=== PATIENT | male | born 1950 | race Caucasian/White ===

== ENCOUNTER 2025-09-10 17:28 | Emergency (ER) | payer MEDICARE, SELFPAY ==
--- OUTSIDE RECORDS SUMMARY | 2025-07-23 23:00 | XMS_ITS | Encounter Summary ---
Author Organization [facility] Address [address] [address] Phone Care Team Providers Care Crm Functional Analyst Name Role Phone Unavailable Primary Care Provider Unavailabl e Reason for Visit * Reason Comments Heart Failure * Auth/Cert (Routine) Specialty Diagnoses / Procedures Referred By Contac t Referred To Contact Referral ID Status Reason Start Date Expiration Date Visits Re quested Visits Authorized [id number] 1 20 Encounter Details Date Type Department Care Team (Late st Contact Info) Description 07/24/2025 Home Care Visit [facility] [address] [place] [id number] Hector Chung RN SN OASIS START OF CARE Social History Tobacco Use Types Packs/Day Years Used Date Smoking Tobacco: Never Smokeless Tobacco: Never Alcohol Use Standard Drinks/Week Comments Yes 6 (1 standard drink = 0.6 oz pur e alcohol) OASIS D0700: Social Isolation Answer Da te Recorded Frequency of experiencing loneliness or isolatio n Never 07/24/2025 OASIS A1250: Transportation Answer Date Recorded Lack of Transportation (Medical) No 07/24/2025 Lack of Transportation (Non-Medical) No 07/24/2025 Patient Unable or Declines to Respond No 07/24/2025 OASIS B1300: Health Literacy Answer Nasir e Recorded Frequency of needing help to read materials from doctor or pharmacy Sometimes 07/24/2025 [facility] Utilities Answer Date Recorded In the past 12 months has th e electric, gas, oil, or water company threatened to shut off services in your home? No 07/16/2025 Hunger Vital Sign Answer Date Recorded Within the past 12 months, y ou worried that your food would run out before you got the money to buy more. Never true 07/16/20 25 Within the past 12 months, t he food you bought just didn't last and you didn't have money to get more. Never true 07/16/2025 PRAPARE - Transportation Answer Date Re corded In the past 12 months, has l ack of transportation kept you from medical appointments or from getting medications? Yes 11/2024 In the past 12 months, has l ack of transportation kept you from meetings, work, or from getting things needed for daily living? Yes 07/16/2025 Housing Stability Vital Sign Answer Nasir e Recorded In the last 12 months, was t here a time when you were not able to pay the mortgage or rent on time? No 07/16/2025 In the past 12 months, how m any times have you moved where you were living? 0 07/16/2025 At any time in the past 12 m [facility], were you homeless or living in a senior living (including now)? No 07/16/2025 EH IP Custom IPV Answer Date Recorded Do you feel UNSAFE in any of your personal relationships with your family members or any other acquaintances? No 2024 Sex and Gender Information Value Date Recorded Sex Assigned at Not on file Legal Sex Male 9:48 AM CDT Gender Identity Not on file Sexual Orientation Not on file documented as of this encounter Last Filed Vital Signs Vital Sign Reading Time Taken Comments Blood Pressure 110/56 07/24/2025 1:20 PM CDT Pulse 59 07/24/2025 1:20 PM CDT Temperature 36.3 C (97.4 F) 07/24/2025 1:20 PM CDT Respiratory Rate 18 07/24/2025 1:20 PM CDT Oxygen Saturation 97% 07/24/2025 1:20 PM CDT Inhaled Oxygen Concentration - - Weight 70.8 kg (156 lb) 07/24/2025 1:20 PM CDT Height 172.7 cm (5' 8) 07/24/2025 1:20 PM CDT Body Mass Index 23.72 07/24/2025 1:20 PM CDT documented in this encounter Functional Status * Patient's Vision Adequate to Safely Complete Daily Activities Answer Date of Assessment Author Yes 07/16/2025 10:41 PM CDT Vannesa Martins * Patient's Memory Adequate to Safely Complete Daily Activities Answer Date of Assessment Author Yes 07/16/2025 10:41 PM CDT Vannesa Martins documented as of this encounter Mental Status * Patient's Judgment Adequate to Safely Complete Daily Activities Answer Entry Date Author Yes 07/16/2025 10:41 PM CDT Vannesa Martins documented in this encounter Plan of Treatment Upcoming Encounters Date Type Department Care Team (Late st Contact Info) Description 09/16/2025 2:00 AM 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 Appointment [facility] [address] [place] [phone] Emperatriz Monahan RN documented as of this encounter Visit Diagnoses Not on filedocumented in this encounter Home Health Visit - Care Plan Visit Details Visit Type -SN OASIS Start o f Care Discipline -Shelter Problems Problem Description Start Date Status Goals Interve ntions Fluid Retention Disciplines: SN 07/24/2025 Active 1 goal linked to scheduled/documen fan intervention 3 goal interventions scheduled/document ed in this visit Monitor Oxygen Saturation Disciplines: SN 07/24/2025 Active 1 goal linked to scheduled/documen fan intervention 1 goal intervention scheduled/document ed in this visit Home Health Goal Care Coordination Disciplines: Skilled II 07/24/2025 Active 1 goal linked to scheduled/documen fan intervention 3 goal interventions scheduled/document ed in this visit Prevention of Skin Breakdown - Pressure Ulcer Disciplines: SN 07/24/2025 Active 1 goal linked to scheduled/documen fan intervention 1 goal intervention scheduled/document ed in this visit Safety concerns Disciplines: SN 07/24/2025 Active 1 goal linked to scheduled/documen fan intervention 1 goal intervention scheduled/document ed in this visit Pain Disciplines: SN 07/24/2025 Active 1 goal linked to scheduled/documen fan intervention 2 goal interventions scheduled/document ed in this visit RISK OF INFECTION Disciplines: SN 07/24/2025 Active 1 goal linked to scheduled/documen fan intervention 1 goal intervention scheduled/document ed in this visit Anticoagulation Therapy Disciplines: SN 07/24/2025 Active 1 goal linked to scheduled/documen fan intervention 1 goal intervention scheduled/document ed in this visit Management of Home Medications Disciplines: SN 07/24/2025 Active 1 goal linked to scheduled/documen fan intervention 5 goal interventions scheduled/document ed in this visit Depression Disciplines: SN 07/24/2025 Active 1 goal linked to scheduled/documen fan intervention 1 goal intervention scheduled/document ed in this visit Agency Standards Disciplines: Skilled III 07/24/2025 Active 1 goal linked to scheduled/documen fan intervention 2 goal interventions scheduled/document ed in this visit Risk of Falls Disciplines: SN Patient/Caregive r will demonstrate use of safety precautions to prevent falls and improve safety by the end of the episode of care. 07/24/2025 Active 1 goal linked to scheduled/documen fan intervention 4 goal interventions scheduled/document ed in this visit Goals Goal Associated Problem Outcome Goal Met? Visit Notes Fluid Retention Description: Client to demonstrate compliance with checking weight daily within 5 weeks. Client to demonstrate how to weigh self properly within 5 weeks. Client to demonstrate the ability to write down weight every day within 5 weeks. Client to demonstrate k nowledge of a low sodium diet within 5 weeks Client to demonstrate ability to read food labels within 5 weeks Client to express knowledge of 2 ways to prevent edema within 5 weeks Client to demonstrate ability to use Fan socks within 5 weeks. Client to able to express knowledge of notifying physician with a weight gain of 3LBS in 1 day or 5LBS in 3 days, increased SOB and edema within 5 weeks. Fluid Retention No Obtain Pulse Oximetry Description: Patient will demonstrate maintenance of oxygen saturation above 90% throughout episode of care. Monitor Oxygen Saturation No Home Health Goal Care Coordination Description: Patient stated goal: INCREASED STRENGTH AND MOBILITY Home Health Goal Care Coordination No Prevention of Skin Breakdown-Pressure Ulcer Description: Client to express knowledge of 2 ways to reduce pressure within 5 weeks. Client to demonstrate knowledge of monitoring skin for breakdown within 5 weeks. Prevention of Skin Breakdown - Pressure Ulcer No Safety Concerns Description: Patient/Caregiver will demonstrate use of safety precautions to prevent falls and improve safety by the end of the episode of care.Client to have no falls within 5 weeks. Safety concerns No Pain Description: Patient will report that pain has been reduced or controlled through verbal or nonverbal means and that measures to promote comfort are effective throughout the episode of care. Client to verbalize 2 ways to reduce pain within 5 weeks Client to rhys pacheco 2 alternative methods of pain relieve in 5 weeks Pain No Infection Prevention Description: Client will be able to verbalize signs and symptoms of infection and how to report within 5 weeks. Client will be able to demonstrate good hand hygiene within 5 weeks. Client will be be able to verbalize understanding of 2 ways to prevent infection within 5 weeks. RISK OF INFECTION No Anticoagulation Therapy Description: Patient/caregiver will demonstrate knowledge of anticoagulant therapy as evidenced by compliance with medication regimen, lab follow up, anticoagulant dietary restrictions and safety precautions. Patient to be able to identify 2 foods that interfere with anticoagulation medication within 5 weeks. Patient will demonstrate compliance with taking anticoagulation medication correctly within 5 weeks. Patient to be able to identify INR goal range within 5 weeks. Patient to be able to identify 2 signs/symptoms of bleeding within 5week. INR therapeutic range is 2 to 3. INR to be within therapeutic range in 5 WEEKS. Instruct patient/caregiver in anticoagulant medication including side effects, safety precautions, diet precautions, bleedin g precautions, need for lab monitoring. Anticoagulation Therapy No Management of Home Medications Description: Client/Caregiver will demonstrate compliance with medication set up and administration within 5 weeks. Client/Caregiver to verbalize understanding of side effects of medications within 5 weeks. Management of Home Medications No Depression Description: Patient/Caregiver will demonstrate knowledge of depression by adherence to medication regimen and verbalization of available resources by end of the episode of care. Patient able to verbalize signs and symptoms of worsening depression within 5 weeks. Depression No Agency Standards Description: Agency goal for services provided. Agency Standards No Patient will remain free of injury related to falls through the episode Risk of Falls No Interventions Intervention Associated Problem/Goal Status Variance Visit Notes Instruct diet Description: Instruct patient/caregiver on low salt, low fat and low cholesterol diet. Restrict sodium intake to 2 g/day. Instruct patient/caregiver to reduce sodium by 500 milligrams per day if weight begins to increase, avoiding foods high in sodium. Problem:Fluid Retention Goal:Fluid Retention Performed Notify physician Description: Instruct patient/caregiver on how to identify abnormal readings and when it is appropriate/necessary to contact physician, or when to call 911. Problem:Fluid Retention Goal:Fluid Retention Performed Instruct daily log Description: SN to develop weight diary for patient to record DAILY readings. Instruct patient to monitor and record weight on log. Problem:Fluid Retention Goal:Fluid Retention Performed Clinician obtain pulse oximetry Problem:Monitor Oxygen Saturation Goal:Obtain Pulse Oximetry Performed Home Health Care Coordination Contacts Description: PCP: CHRIS FENTON PA-C Pharmacy: [id number] - [place], [place] Oxygen Supply: [facility]/Payer Manager Of Operations: TACO Problem:Home Health Goal Care Coordination Goal:Home Health Goal Care Coordination Performed Home Health Care Coordination Advanced Directive Description: Advanced Directive - on file Problem:Home Health Goal Care Coordination Goal:Home Health Goal Care Coordination Performed Home Health Care Coordination Discharge Planning Description: Discharge planning discussed with patient and caregiver. Problem:Home Health Goal Care Coordination Goal:Home Health Goal Care Coordination Performed Instruct prevention of pressure ulcers Description: Instruct patient in the causes and prevention of pressure ulcers. Problem:Prevention of Skin Breakdown - Pressure Ulcer Goal:Prevention of Skin Breakdown-Pressure Ulcer Performed Instruct on fall prevention Description: Instruct patient/caregiver in fall prevention strategies. Problem:Safety concerns Goal:Safety Concerns Performed Skilled assessment pain Description: Assess pain (see results on form) Problem:Pain Goal:Pain Performed Instruct on pain management techniques Description: Instruct in pharmacologic and nonpharmacologic pain management techniques. Problem:Pain Goal:Pain Performed Instruct infection prevention Description: Instruct patient/caregiver in strategies to prevent infection frequent/proper hand-washing techniques, Standard precautions, avoid crowds and persons with known infections, staying current with immunizations, s/s of infection and encourage adequate diet and fluid intake Problem:RISK OF INFECTION Goal:Infection Prevention Performed Lab draw Description: Last INR Results 2.9 Date last INR obtained 07/23/2025 Next INR Due 07/27/2025 Current Anticoagulation Dose 6MG DAILY INR Goal 2.0-3.0 ICD-10 Diagnosis Code Z95.2 Call results to [facility] CHRIS FENTON PA-C [phone] Fax results to CHRIS FENTON PA-C [phone] [facility] Orders Received Via Verbal telephone order on 07/24/2025 at 7474. Order received from (PCP and transcribers name) SHERITA ROBERTS/CHRIS FENTON PA-C Nurse Receiving Order HECTOR Pugh RN Problem:Anticoagulation Therapy Goal:Anticoagulation Therapy Scheduled Evaluate for any medication changes Description: Ask at each visit: Are you taking any new medications? Any medication changes? Problem:Management of Home Medications Goal:Management of Home Medications Performed Monitor effectiveness of drug therapy Description: Monitor effectiveness of patient's drug therapy by asking if they are experiencing any side effects of their medication. Problem:Management of Home Medications Goal:Management of Home Medications Performed Instruct on high risk medications Description: Instruct patient/caregiver on high-risk medications including oral hypoglycemics, insulins, blood thinners, and narcotics. Problem:Management of Home Medications Goal:Management of Home Medications Performed Instruct on medication side effects Description: Instruct patient/caregiver to monitor for side effects and adverse reactions. Problem:Management of Home Medications Goal:Management of Home Medications Performed Skilled assessment medications Description: Assess patient/caregiver's ability to manage medications. Assess patient/caregiver's knowledge of drug allergies, dose/route/frequency, new or changed medications, classifications, food and drug interactions, and potential complications. Problem:Management of Home Medications Goal:Management of Home Medications Performed Instruct on Effective Coping Skills Problem:Depression Goal:Depression Performed Confirmed patient has recieved and understands plan of care Description: Patient acknowledged receipt of [facility] Plan of Care. Patient verbalizes understanding and all questions answered. Patient/Caregiver has MyChart and ability to access: yes; If no, e-mail HHS_Status Change to mail patient copy of POC. Problem:Agency Standards Goal:Agency Standards Performed Coordination of Care Description: Coordinate visits with and provide status updates to Director Biology Diet: Low Cholesterol, Low Fat and Low Sodium Activity: No Restrictions Resting Heart Rate; Notify PCP if 60 or >100 beats per minute Blood Pressure; Notify PCP if >160 systol ic or 90 diastolic or < 100 systolic or 50 diastolic Check O2 sats with and without activity; Notify PCP if O2 sats less than 90% Notify PCP if temperature is over 101 F Notify PCP if weight increases by 2-3 pounds in 1 day or 5 pounds in 7 days Depression dx/risk; Educate patient/caregiver and monitor for signs and symptoms of depression Notify PCP when pain is >4 after current pain medications have been taken and/or interventions implemented Marshall Risk; Initiate pressure ulcer preve ntion Names of all Relevant Physicians included in Plan of Care CHRIS FENTON PA-C (PCP) Order received via verbal telephone call Order received from (PCP and transcribers name) CHRIS FENTON PA-C Nurse Receiving Order HECTOR Pugh RN Coordinate Care with PATIENT, PEDIATRIC ORTHODONTIST Problem:Agency Standards Goal:Agency Standards Performed Fall Prevention Patient/Caregiver action to take if patient falls Description: - Instruct patient and caregiver to call nurse or agency if fall occurs at any time, in order to receive instructions on assistance. - Instruct caregiver to provide physical support to patient if fall occurs and patient is unable to get up. - Instruct patient and caregiver to keep contact information for agency readily available for patient, caregiver, or others to make notification if needed. - Instruction provided to patient and caregiver; patient and caregiver verbalized understanding Problem:Risk of Falls Goal:Patient will remain free of injury related to falls through the episode Performed Fall Prevention Knowledge Deficit/Education Description: - Instruct patient and caregiver on use of assistive equipment. - Patient and caregiver to verbalize and/or present return demonstration of use of adaptive and assistive devices. - Instruct patient and caregiver to call senior software project manager or Nurse for furthe r instruction or reinforcement. - Instruction provided to patient and caregiver; patient and caregiver verbalized understanding Problem:Risk of Falls Goal:Patient will remain free of injury related to falls through the episode Performed Fall Prevention Weakness/Unsteady Gait Description: - Instruct patient and caregiver on footwear, ensuring well-fitting and non-skid. - Instruct caregiver on use of gait belt with transfers and ambulation assist. - Instruct caregiver on safe transfer and ambulation assist techniques. - Instruct patient and caregiver on need for DME. - Instruction provided to patient and caregiver; patient and caregiver verbalized understanding Problem:Risk of Falls Goal:Patient will remain free of injury related to falls through the episode Performed Fall Prevention Environmental Hazards Description: - Instruct patient and caregiver on eliminating hazards, such as uneven surfaces, debris, water on floor, or rugs. - Instruct patient and caregiver to keep pathways clear for ambulation. - Instruct patient and caregiver to keep personal items within re ach, such as eyeglasses, reading materials, television remotes, facial tissues, etc. - Instruct patient and caregiver on providing adequate lighting. - Instruct patient and caregiver on footwear, ensuring well-fitting and non-skid. - Instruction prov ided to patient and caregiver; patient and caregiver verbalized understanding. Problem:Risk of Falls Goal:Patient will remain free of injury related to falls through the episode Performed documented in this encounter
--- OUTSIDE RECORDS SUMMARY | 2025-07-27 10:30 | XMS_ITS | Encounter Summary ---
Author Organization [facility] Address [address] [address] Phone Care Team Providers Care Licensed Vocational Nurse Name Role Phone Unavailable Primary Care Provider Unavailabl e Reason for Visit * Reason Comments Lab Work * Auth/Cert (Routine) Specialty Diagnoses / Procedures Referred By Contac t Referred To Contact Referral ID Status Reason Start Date Expiration Date Visits Re quested Visits Authorized [id number] 1 20 Encounter Details Date Type Department Care Team (Late st Contact Info) Description 07/27/2025 11:30 AM CDT Home Care Visit [facility] [address] [place] [id number] Corrina Bledsoe RN SN HOME VISIT Social History Tobacco Use Types Packs/Day Years [...] materials from doctor or pharmacy Sometimes 07/24/2025 [facility] Utilities Answer Date Recorded In the past [...] any time in the past 12 m [facility], were you homeless or living in a correction (including now)? No 07/16/2025 IP Custom IPV Answer Date Recorded Do [...] Sign Reading Time Taken Comments Blood Pressure 122/62 07/27/2025 12:46 PM CDT Pulse 86 07/27/2025 12:46 PM CDT Temperature - - Respiratory Rate 18 07/27/2025 12:46 PM CDT Oxygen Saturation 96% 07/27/2025 12:46 PM CDT Inhaled Oxygen Concentration - - Weight 70.8 kg (156 lb) 07/27/2025 12:46 PM CDT Height - - Body Mass Index 23.72 07/24/2025 1:20 PM [...] st Contact Info) Description 09/16/2025 2:00 AM WORKERS COMPENSATION ANALYST Appointment [facility] [address] [address] Emperatriz Monahan RN documented as of this encounter Visit Diagnoses Not on filedocumented in this encounter Home Health Visit - Care Plan Visit Details Visit Type - Home Visit Discipline -Senior Living Problems Problem Description Start Date Status Goals [...] reduce pain within 5 weeks Client to verba lize 2 alternative methods of pain relieve in [...] Intervention Associated Problem/Goal Status Variance Visit Notes Notify physician Description: Instruct patient/caregiver on how to identify abnormal readings and when it is appropriate/necessary to contact physician, or when to call 911. Problem:Fluid Retention Goal:Fluid Retention Performed Notified PCP of INR taken today Instruct daily log Description: SN to develop weight diary for patient to record DAILY readings. Instruct patient to monitor and record weight on log. Problem:Fluid Retention Goal:Fluid Retention Performed Instruct diet Description: Instruct patient/caregiver on low salt, low fat and low cholesterol diet. Restrict sodium intake to 2 g/day. Instruct patient/caregiver to reduce sodium by 500 milligrams per day if weight begins to increase, avoiding foods high in sodium. Problem:Fluid Retention Goal:Fluid Retention Scheduled Clinician obtain pulse oximetry Problem:Monitor Oxygen Saturation Goal:Obtain Pulse Oximetry Performed Home Health Care Coordination Discharge Planning Description: Discharge planning discussed with patient and caregiver. Problem:Home Health Goal Care Coordination Goal:Home Health Goal Care Coordination Performed Discharge with increased strength and mobility Home Health Care Coordination Contacts Description: PCP: CHRIS HARMON PA-C Pharmacy: [id number] - [place] Oxygen Supply: County/Payer Derivatives Trader: TACO Problem:Home Health Goal Care Coordination Goal:Home Health Goal Care Coordination Scheduled Home Health Care Coordination Advanced Directive Description: Advanced Directive - on file Problem:Home Health Goal Care Coordination Goal:Home Health Goal Care Coordination Scheduled Instruct prevention of pressure ulcers Description: Instruct [...] fluid intake Problem:RISK OF INFECTION Goal:Infection Prevention Scheduled Lab draw Description: Last INR Results 2.9 Date last INR obtained 07/23/2025 Next INR Due 07/27/2025 Current Anticoagulation Dose 6MG DAILY INR Goal 2.0-3.0 ICD-10 Diagnosis Code Z95.2 Call results to [facility] CHRIS HARMON PA-C [phone] Fax results to CHRIS HARMON PA-C [phone] [facility] Orders Received Via Verbal telephone order on 07/24/2025 at 8763. Order received from (PCP and transcribers name) SHERITA ROBERTS/CHRIS HARMON PA-C Nurse Receiving Order HECTOR Pugh RN Problem:Anticoagula tion Therapy Goal:Anticoagulatio n Therapy Performed Last INR Results 3.7 Date last INR obtained 07/27/25 Next INR Due 07/31/25 Current Anticoagulation Dose 3mg on sunday and sunday. 6mg on sunday and with recheck on sunday INR Goal 2.0-3.0 ICD-10 Diagnosis Code z95.2 Call fina dolores to [facility] Chris Harmon PA-C [phone] Fax results to Chris Harmon PA-C [phone] [facility] Orders Received Via Verbal telephone order on 07/27/25 at 1900. Order received from (PCP and transcribers name) Tunde Aguilar MD Nurse Receiving Order Elisa Bledsoe RN Evaluate for any medication changes Description: Ask [...] of Home Medications Goal:Management of Home Medications Scheduled Instruct on medication side effects Description: Instruct patient/caregiver to monitor for side effects and adverse reactions. Problem:Management of Home Medications Goal:Management of Home Medications Scheduled Instruct on Effective Coping Skills Problem:Depression Goal:Depression Scheduled Confirmed patient has recieved and understands plan of care Description: Patient acknowledged receipt of [facility] Plan of Care. Patient verbalizes understanding and all questions answered. Patient/Caregiver has MyChart and ability to access: yes; If no, e-mail HHS_Status Change to mail patient copy of POC. Problem:Agency Standards Goal:Agency Standards Scheduled Coordination of Care Description: Coordinate visits with and provide status updates to Sap Project Manager Diet: Low Cholesterol, Low Fat and Low [...] Physicians included in Plan of Care CHRIS HARMON PA-C (PCP) Order received via verbal telephone call Order received from (PCP and transcribers name) CHRIS HARMON PA-C Nurse Receiving Order HECTOR Pugh RN Coordinate Care with PATIENT, DOWEL POINTER Problem:Agency Standards Goal:Agency Standards Scheduled Fall Prevention Patient/Caregiver action to take if [...] - Instruct patient and caregiver to call electrical tech/project manager or Nurse for furthe r instruction or reinforcement. - Instruction provided to patient and caregiver; patient and caregiver verbalized understanding Problem:Risk of Falls Goal:Patient will remain free of injury related to falls through the episode Scheduled Fall Prevention Environmental Hazards Description: - Instruct [...] injury related to falls through the episode Scheduled documented in this encounter
--- OUTSIDE RECORDS SUMMARY | 2025-07-28 13:00 | XMS_ITS | Encounter Summary ---
Author Organization [facility] Address [address] [address] Phone Care Team Providers Care Digital Community Manager Name Role Phone Unavailable Primary Care Provider Unavailabl e Reason for Visit * Reason Comments Weakness * Auth/Cert (Routine) Specialty Diagnoses / Procedures Referred By Contac t Referred To Contact Referral ID Status Reason Start Date Expiration Date Visits Re quested Visits Authorized [id number] 1 20 Encounter Details Date Type Department Care Team (Latest Contact Info) Description 07/28/2025 2:00 PM CDT Home Care Visit [facility] [address] [phone] Radha Martinez, OTR [address] [phone] OT INITIAL EVALUATION Social History Tobacco Use Types Packs/Day Years [...] materials from doctor or pharmacy Sometimes 07/24/2025 [facility] Utilities Answer Date Recorded In the past [...] any time in the past 12 m [facility], were you homeless or living in a senior care (including now)? No 07/16/2025 IP Custom IPV [...] on file documented as of this encounter Functional Status * Patient's Vision Adequate to Safely Complete Daily Activities Answer Date of Assessment Author Yes 07/16/2025 10:41 PM SHANNONT Vannesa Martins * Patient's Memory Adequate to Safely Complete Daily Activities Answer Date of Assessment Author Yes 07/16/2025 10:41 PM CDT Vannesa Martins documented as of this encounter Mental Status * Patient's Judgment Adequate to Safely Complete Daily Activities Answer Entry Date Author Yes 07/16/2025 10:41 PM CDT Vannesa Martins documented in this encounter Miscellaneous Notes * Case Communication - Radha Martinez OTR - 07/30/2025 9:38 AM CDT FUNCTIONAL OASIS COLLABORATION: OT SELF-CARE ASSESSMENT- PRIOR FUNCTION, CURRENT FUNCTION, and GOALS See OASIS-DEGuidance Manual for detailed items and instructions. ASSESSMENT OF PRIOR SELF-CARES: [id number] Prior Umtlidftewz-FSML-BREU/COGNITION OT ASSESSMENT: FUNCTIONAL ABILITIES AND GOALS: [id number]- Self-Care CODING [id number]- Self-Care: Current Performance H. Putting on/taking off footwear: 3 documented in this encounter Plan of Treatment Upcoming Encounters Date Type Department Care Team (Late st Contact Info) Description 09/16/2025 2:00 AM SLOTTER OPERATOR HELPER Appointment [facility] [address] [place] [phone] Emperatriz Monahan, RN documented as of this encounter Visit Diagnoses Not on filedocumented in this encounter Home Health Visit - Care Plan Visit Details Visit Type -OT Initial Evalu ation Discipline -Occupational Therapy Problems Problem Description Start Date Status Goals Interve ntions Home Health Goal Care Coordination Disciplines: Skilled II 07/24/2025 Active 1 goal linked to scheduled/documen blas intervention 3 goal interventions scheduled/documen blas in this visit Agency Standards Disciplines: Skilled III 07/24/2025 Active 1 goal linked to scheduled/documen blas intervention 2 goal interventions scheduled/documen blas in this visit OT Decreased ADLS Disciplines: OT Decreased independence in self-care. PRIMARY PROBLEM(S): Self-Care / Cognitive impairments impacting safety and fall risk FUNCTION AT START OF CARE: walking is more dificult, showering takes more energy and assist - daughter and brother are helping out in home - has meals being delievered PRIOR LEVEL OF FUNCTION: Indepedent in home, lived alone POTENTIAL RISKS OR FACTORS IMPACTING EFFECTIVENESS OF CARE: new CHF 07/28/2025 Active 1 goal linked to scheduled/documen blas intervention 2 problem interventions scheduled/documen blas in this visit 2 goal interventions scheduled/documen blas in this visit Goals Goal Associated Problem Outcome Goal Met? Visit Notes Home Health Goal Care Coordination Description: Patient stated goal: INCREASED STRENGTH AND MOBILITY Home Health Goal Care Coordination No Agency Standards Description: Agency goal for services provided. Agency Standards No OT Decreased ADLs Description: Patient goal: To get back to being independent and walking outside IN 4 wk Patient will be independent with bathing task Patient will be able to use pacing and energy conservation to complete meal prep and household tasks. Patient will be indep with LE dressing using AE as needed OT Decreased ADLS No Interventions Intervention Associated Problem/Goal Status Variance Visit Notes Home Health Care Coordination Contacts Description: PCP: CHRIS FENTON PA-C Pharmacy: [id number] - [place], [place] Oxygen Supply: [facility]/Payer Photogrammetric Compilation Specialist: TACO Problem:Home Health Goal Care Coordination Goal:Home Health Goal Care Coordination Performed Home Health Care Coordination Advanced Directive Description: Advanced Directive - on file Problem:Home Health Goal Care Coordination Goal:Home Health Goal Care Coordination Performed Home Health Care Coordination Discharge Planning Description: Discharge planning discussed with patient and caregiver. Problem:Home Health Goal Care Coordination Goal:Home Health Goal Care Coordination Performed Confirmed patient has recieved and understands plan of care Description: Patient acknowledged receipt of [facility] Plan of Care. Patient verbalizes understanding and all questions answered. Patient/Caregiver has MyChart and ability to access: yes; If no, e-mail HHS_Status Change to mail patient copy of POC. Problem:Agency Standards Goal:Agency Standards Performed Coordination of Care Description: Coordinate visits with and provide status updates to Elevator Service Mechanic Diet: Low Cholesterol, Low Fat and Low [...] HECTOR Pugh RN Coordinate Care with PATIENT, LIQUOR CLERK Problem:Agency Standards Goal:Agency Standards Performed INSTRUCT ON HOMEMAKING AND PERSONAL CARE ACTIVITIES Description: Instruct patient/caregiver on homemaking and personal care activities SKILLED OT INTERVENTIONS: EXERCISE: Establish, instruct, and monitor effectiveness and follow through of home exercise program. FALL RISK: Assess and instruct in modifications to reduce risk of falls. PAIN: Assess and teach interventions for pain management. SELF-CARES: Assess, teach and progress safety and independence with self-cares. using AE as needed to save energy COGNITION: Assess and teach strategies for ma nagement of cognitive impairments. - SLUMS Problem:OT Decreased ADLS Goal:OT Decreased ADLs Performed The patient presents with fatigue, muscle weakness and shortness of breath that affects ability to safely care for self at home and is not functioning at PLOF. Occupational therapist skills needed to facilitate progress toward patient goals, provide gra ded therapeutic activity to improve ADL independence, and decision making related to appropriate progression of treatment to facilitate return to PLOF. If skilled OT is not provided, pt is at risk for decline in safety and rehospitalization. INSTRUCT PATIENT ON HOME EXERCISE PROGRAM Description: Instruct patient on home exercise program Problem:OT Decreased ADLS Goal:OT Decreased ADLs Performed Monitor effectiveness of drug therapy Problem:OT Decreased ADLS Performed Evaluate for any medication changes Problem:OT Decreased ADLS Performed documented in this encounter
--- OUTSIDE RECORDS SUMMARY | 2025-07-30 12:00 | XMS_ITS | Encounter Summary ---
Author Organization [facility] Address [address] [address] Phone Care Team Providers Care Master In Chancery Name Role Phone Unavailable Primary Care Provider Unavailabl e Reason for Visit * Reason Comments CHF * Auth/Cert (Routine) Specialty Diagnoses / Procedures Referred By Contac t Referred To Contact Referral ID Status Reason Start Date Expiration Date Visits Re quested Visits Authorized [id number] 20 Encounter Details Date Type Department Care Team (Late st Contact Info) Description 07/30/2025 1:00 PM CDT Home Care Visit [facility] [address] [place] [id number] Cecile Abdi RN SN HOME VISIT Social History Tobacco [...] materials from doctor or pharmacy Sometimes 07/24/2025 [facility] Utilities Answer Date Recorded In [...] any time in the past 12 m [facility], were you homeless or living in a jail (including now)? No 07/16/2025 IP Custom IPV [...] Sign Reading Time Taken Comments Blood Pressure 124/62 07/30/2025 1:06 PM CDT Pulse 77 07/30/2025 1:06 PM CDT Temperature - - Respiratory Rate 18 07/30/2025 1:06 PM CDT Oxygen Saturation 96% 07/30/2025 1:06 PM CDT Inhaled Oxygen Concentration - - Weight 70.3 kg (155 lb) 07/30/2025 1:06 PM CDT Height - - Body Mass Index 23.57 07/24/2025 1:20 PM CDT documented in this [...] st Contact Info) Description 09/16/2025 2:00 AM MACHINE FUR CLEANER Appointment [facility] [address] [place] [phone] Emperatriz Monahan RN documented as of this encounter Visit Diagnoses Not on filedocumented in this encounter Home Health Visit - Care Plan Visit Details Visit Type - Home Visit Discipline -Long-Term Problems Problem Description Start Date Status Goals [...] and edema within 5 weeks. Fluid Retention Progressing No Obtain Pulse Oximetry Description: Patient will demonstrate maintenance of oxygen saturation above 90% throughout episode of care. Monitor Oxygen Saturation Progressing No Home Health Goal Care Coordination Description: Patient stated goal: INCREASED STRENGTH AND MOBILITY Home Health Goal Care Coordination Progressing No Prevention of Skin Breakdown-Pressure Ulcer Description: Client to express knowledge of 2 ways to reduce pressure within 5 weeks. Client to demonstrate knowledge of monitoring skin for breakdown within 5 weeks. Prevention of Skin Breakdown - Pressure Ulcer Progressing No Safety Concerns Description: Patient/Caregiver will demonstrate use of safety precautions to prevent falls and improve safety by the end of the episode of care.Client to have no falls within 5 weeks. Safety concerns Progressing No Pain Description: Patient will report that pain has been reduced or controlled through verbal or nonverbal means and that measures to promote comfort are effective throughout the episode of care. Client to verbalize 2 ways to reduce pain within 5 weeks Client to rhys pacheco 2 alternative methods of pain relieve in 5 weeks Pain Progressing No Infection Prevention Description: Client will be able to verbalize signs and symptoms of infection and how to report within 5 weeks. Client will be able to demonstrate good hand hygiene within 5 weeks. Client will be be able to verbalize understanding of 2 ways to prevent infection within 5 weeks. RISK OF INFECTION Progressing No Anticoagulation Therapy Description: Patient/caregiver will demonstrate [...] precautions, need for lab monitoring. Anticoagulation Therapy Progressing No Management of Home Medications Description: Client/Caregiver will demonstrate compliance with medication set up and administration within 5 weeks. Client/Caregiver to verbalize understanding of side effects of medications within 5 weeks. Management of Home Medications Progressing No Depression Description: Patient/Caregiver will demonstrate knowledge of depression by adherence to medication regimen and verbalization of available resources by end of the episode of care. Patient able to verbalize signs and symptoms of worsening depression within 5 weeks. Depression Progressing No Agency Standards Description: Agency goal for services provided. Agency Standards Progressing No Patient will remain free of injury related to falls through the episode Risk of Falls Progressing No Interventions Intervention Associated Problem/Goal Status Variance [...] Contacts Description: PCP: CHRIS FENTON PA-C Pharmacy: [id number] [place], [place] Oxygen Supply: [facility]/Payer Edge Stitcher: TACO Problem:Home Health Goal Care Coordination Goal:Home Health Goal Care Coordination Performed Home Health Care Coordination Advanced Directive Description: Advanced Directive - on file Problem:Home Health Goal Care Coordination Goal:Home Health Goal Care Coordination Performed Home Health Care Coordination Discharge Planning Description: Discharge planning discussed with patient and caregiver. Problem:Home Health Goal Care Coordination Goal:Home Health Goal Care Coordination Performed requires SN for disease managment Instruct prevention of pressure ulcers Description: Instruct [...] ICD-10 Diagnosis Code Z95.[address] [facility] CHRIS FENTON PA-C [phone] Fax results to CHRIS FENTON PA-C [phone] [facility] [[email or web address]] Orders Received Via Verbal telephone order on 07/24/2025 at 6316. Order received from (PCP and transcribers name) SHERITA ROBERTS/CHRIS FENTON PA-C Nurse Receiving Order HECTOR Pugh RN Problem:Anticoagulati on Therapy Goal:Anticoagulation Therapy Performed Evaluate for any medication changes Description: Ask [...] of care Description: Patient acknowledged receipt of [facility] [[email or web address]] Plan of Care. Patient verbalizes understanding and all questions answered. Patient/Caregiver has MyChart and ability to access: yes; If no, e-mail HHS_Status Change to mail patient copy of POC. Problem:Agency Standards Goal:Agency Standards Performed Coordination of Care Description: Coordinate visits with and provide status updates to County Extension Agent Diet: Low Cholesterol, Low Fat and Low [...] HECTOR Pugh RN Coordinate Care with PATIENT, HIGH SCHOOL HVAC R INSTRUCTOR Problem:Agency Standards Goal:Agency Standards Performed Fall Prevention [...] - Instruct patient and caregiver to call architectural project manager or Nurse for furthe r [...]
--- OUTSIDE RECORDS SUMMARY | 2025-07-30 13:00 | XMS_ITS | Encounter Summary ---
Author Organization [facility] Address [address] [address] Phone Care Team Providers Care Leather Grainer Name Role Phone Unavailable Primary Care Provider Unavailabl e Reason for Visit * Reason Comments Gait Disorder * Auth/Cert (Routine) Specialty Diagnoses / Procedures Referred By Mine t Referred To Contact Referral ID Status Reason Start Date Expiration Date Visits Re quested Visits Authorized [id number] 1 20 Encounter Details Date Type Department Care Team (Late st Contact Info) Description 07/30/2025 2:00 PM CDT Home Care Visit [facility] [address] [id number] Lucie Toussaint, PT [address] [address] PT HOME VISIT Social History Tobacco Use Types [...] materials from doctor or pharmacy Sometimes 07/24/2025 [facility] Utilities Answer Date Recorded In the past 12 months has th e electric, gas, oil, or water company threatened to shut off services in your home? No 07/16/2025 Hunger Vital Sign Answer Date Recorded Within the past 12 months, y ou worried that your food would run out before you got the money to buy more. Never true 07/16/20 Within the past 12 months, t he [...] any time in the past 12 m [facility], were you homeless or living in a mcc (including now)? No 07/16/2025 IP Custom IPV [...] Sign Reading Time Taken Comments Blood Pressure - - Pulse 82 07/30/2025 2:25 PM CDT Temperature - - Respiratory Rate - - Oxygen Saturation 97% 07/30/2025 2:25 PM CDT Inhaled Oxygen Concentration - - Weight - - Height - - Body Mass Index - - documented in this encounter Functional Status * Patient's Vision Adequate to Safely Complete Daily Activities Answer Date of Assessment Author Yes 07/16/2025 10:41 PM Vannesa Sun * Patient's Memory Adequate to Safely Complete Daily Activities Answer Date of Assessment Author Yes 07/16/2025 10:41 PM Vannesa Sun documented as of this encounter Mental Status * Patient's Judgment Adequate to Safely Complete Daily Activities Answer Entry Date Author Yes 07/16/2025 10:41 PM Vannesa Sun documented in this encounter Plan of Treatment Upcoming Encounters Date Type Department Care Team (Late st Contact Info) Description 09/16/2025 2:00 AM COMMUNITY OUTREACH ADVOCATE Appointment [facility] [address] [address] Emperatriz Monahan RN documented as of this encounter Visit Diagnoses Not on filedocumented in this encounter Home Health Visit - Care Plan Visit Details Visit Type -PT Home Visit Discipline -Physical Therapy Problems Problem Description Start Date Status Goals Interve ntions Mobility - Impaired Disciplines: PT PRIMARY PROBLEM(S)/FUNCTION AT START OF CARE/EVAL: MOBILITY IMPAIRMENT with elevated fall risk, impacting gait and transfer safety. Using walker and needs some hands-on assist for stability with toilet and low chair transfers, and to determine safe walk er placement when approaching bed and toilet and shower and chairs. SOB and fatigue limiting endurance. Prior Level of Function: Independently mobile and walking 3 miles often. FACTORS IMPACTING THE CARE PLAN (including barriers to care, learning nee ds and other factors): Background from Chart Review: James Guzman is a 75 year old male with significant medical problems including Parkinson's disease, prior mechanical mitral valve on Coumadin who presented to the emergency department on 2024 with shortness of breath, ODELL, edema. Found to have severe HFrEF, likely tachycardia induced. Cardiology is following. Underwent successful synchronized cardioversion on 07/20, uptitrated torsemide and added aldactone and Cr tolerated. On RA and feel ing significantly improved, therapies have assessed and recommend home health care. He was intermittently tearful but then appropriate, thinks that his mood is somewhat labile but denies depression, SI etc. He has used SSRI in the past, recommend reasses sing mood at PCP visit and starting as needed. 07/24/2025 Active - 4 problem interventions scheduled/document ed in this visit Home Health Goal Care Coordination Disciplines: Skilled II 07/24/2025 Active 1 goal linked to scheduled/documen blas intervention 3 goal interventions scheduled/document ed in this visit Agency Standards Disciplines: Skilled III 07/24/2025 Active 1 goal linked to scheduled/documen blas intervention 2 goal interventions scheduled/document ed in this visit Goals Goal Associated Problem Outcome Goal Met? Visit Notes Home Health Goal Care Coordination Description: Patient stated goal: INCREASED STRENGTH AND MOBILITY Home Health Goal Care Coordination No Agency Standards Description: Agency goal for services provided. Agency Standards No Interventions Intervention Associated Problem/Goal Status Variance Visit Notes Mobility Interventions Description: SKILLED PT INTERVENTIONS: EDUCATION PLAN: Use repetition, demo and return-demonstration, written and illustrated information for exercises, and involve caregiver(s) as appropriate to reinforce teaching items. EXERCISE: Establish, instruct, and monit or effectiveness and follow through of home exercise program. Incorporate seated, supine, standing and sit to stand exercises for strength and balance with progressed and provision of written instructions. Instruct in a home walking plan and progress as able. FALL RISK: Assess and instruct in modifications to reduce risk of falls. Teach and monitor safe and proper use of assistive devices (walker), keeping pathways well-lit and clear of clutter with throw rugs removed, and use of non-slip supportiv e footwear. PAIN: Assess and teach interventions for pain management. Include positioning strategies, safe mobility practices, and activity pacing for proper rest to support healing. TRANSFERS: Assess and train in safe transfer technique to access and rise from toilet, shower/bath, bed, chairs and vehicle. GAIT: Assess, teach and progress safe ambulation utilizing appropriate device(s) as determined appropriate for navigating indoor and outdoor terrain and stairs as indicated to maximize indepe ndence. AT EVAL: Completed majority of mobility assessment. Advised shower grab bars, railing for 3 garage steps, remove throw rug in bedroom, and toilet safety frame. Patient/Caregiver response to treatment: Patient/caregiver on board with PT Plan o f Care as collaboratively established at PT Eval, and verbalizing willingness to follow or consider implementing PT safety and mobility recommendations along with exercise and mobility plan. Skilled PT is indicated for progressing mobility according to established goals related to medical complexity. Plan for next visit: Frequency as ordered to continue 1w5 after eval. Problem:Mobility - Impaired Performed SKILLED PT INTERVENTIONS: EDUCATION PLAN: Use repetition, demo and return-demonstration, written and illustrated information for exercises, and involve caregiver(s) as appropriate to reinforce teaching items. EXERCISE: Establish, instruct, and monit or effectiveness and follow through of home exercise program. Incorporate seated, supine, standing and sit to stand exercises for strength and balance with progressed and provision of written instructions. Instruct in a home walking plan and progress as able. TODAY: Taught HEP as follows standing at railing: Marches, Knee bends, Heel and Toe raises, and heel cord stretches. 10 reps each except stretching for 10 secondes 3 times each leg. PT needed to instruct and reinstruct proper technique for each exercises and encouarged patient to stand tall. More teaching will be needed. recommended twice daily exercise building to 20 reps for strength and balance exercises as able. FALL RISK: Assess and instruct in modifications to reduce risk of falls. Teach and monitor safe and proper use of assistive devices (walker), keeping pathways well-lit and clear of clutter with throw rugs removed, and use of non-slip supportiv e footwear. TODAY: Advised continued use of front wheeled walker over distances, and obtaining a four wheeled walker for easier and smoother ambulation in and outdoors. Adjusted front wheeled walker down 3 notches to correct height. Noted patient has obtained 2 suction shower grab bars, toilet safety frame and railing for 3 garage steps, and removed throw rug in bedroom as recommended at eval by PT. TO DO: Follow up on recommendations. Trial stairs and downstairs beds. PAIN: Assess and teach interventions for pain management. Include positioning strategies, safe mobility practices, a nd activity pacing for proper rest to support healing. TRANSFERS: Assess and train in safe transfer technique to access and rise from toilet, shower/bath, bed, chairs and vehicle. GAIT: Assess, teach and progress safe ambulation utilizing appropriate device(s) as determined appropriate for navigating indoor and outdoor terrain and stairs as indicated to maximize indepe ndence. TODAY: Ambulation on main level of home 3 laps in approx 3 minutes with front wheeled walker. TUG test score 13.5 seconds with some instability on turn and one crossing over of legs. Patient/Caregiver response to treatment: Patient/caregiver on board with PT Plan of Care as collaboratively established at PT Eval, and verbalizing willingness to follow or consider implementi PT safety and mobility recommendations along with exercise and mobility plan. Skilled PT is indicated for progressing mobility according to established goals related to medical complexity. Plan for next visit: Frequency as ordered to continue 1w4 af ter eval. Monitor effectiveness of drug therapy Problem:Mobility - Impaired Performed Evaluate for any medication changes Problem:Mobility - Impaired Performed Education, pressure injury prevention Description: Encourage frequent movement, walking and position changes for prevention of pressure injury. Problem:Mobility - Impaired Performed Home Health Care Coordination Discharge Planning Description: Discharge planning discussed with patient and caregiver. Problem:Home Health Goal Care Coordination Goal:Home Health Goal Care Coordination Performed PT NEXT VISIT PLAN: GOAL: Ambulate without a device in and outdoors. TODAY: Completed majority of mobility assessment. Advised continued use of front wheeled walker, 2 suction shower grab bars, toilet safety frame and railing for 3 garage steps, remov e throw rug in bedroom. Follow up on recommendations. Trial stairs and downstairs beds. Continue 1w4 afternoons as able and next visit Sunday at 2 PM. Lucie Toussaint, PT 07/30/25 Home Health Care Coordination Contacts Description: PCP: CHRIS FENTON PA-C Pharmacy: [id number] [place], [place] Oxygen [facility]: [facility] Audio Video Technician: TACO Problem:Home Health Goal Care Coordination Goal:Home Health Goal Care Coordination Scheduled Home Health Care Coordination Advanced Directive Description: Advanced Directive - on file Problem:Home Health Goal Care Coordination Goal:Home Health Goal Care Coordination Scheduled Coordination of Care Description: Coordinate visits with and provide status updates to Classroom Paraprofessional Diet: Low Cholesterol, Low Fat and Low [...] HECTOR Pugh RN Coordinate Care with PATIENT, BRICK PAVER Problem:Agency Standards Goal:Agency Standards Performed Confirmed patient has recieved and understands plan of care Description: Patient acknowledged receipt of [facility] Plan of Care. Patient verbalizes understanding and all questions answered. Patient/Caregiver has MyChart and ability to access: yes; If no, e-mail HHS_Status Change to mail patient copy of POC. Problem:Agency Standards Goal:Agency Standards Scheduled documented in this encounter
--- OUTSIDE RECORDS SUMMARY | 2025-08-03 12:00 | XMS_ITS | Encounter Summary ---
Author Organization [facility] Address [address] [address] Phone Care Team Providers Care Audiovisual Aids Technician Name Role Phone Unavailable Primary Care Provider Unavailabl e Reason for Visit * Reason Comments CHF * Auth/Cert (Routine) Specialty Diagnoses / Procedures Referred By Contac t Referred To Contact Referral ID Status Reason Start Date Expiration Date Visits Re quested Visits Authorized [id number] 11 03 Encounter Details Date Type Department Care Team (Late st Contact Info) Description 08/03/2025 1:00 PM CDT Home Care Visit [facility] [address] [place] [phone] Susy Chacon RN SN HOME VISIT Social History Tobacco [...] materials from doctor or pharmacy Sometimes 07/24/2025 [facility] Utilities Answer Date Recorded In [...] any time in the past 12 m [facility], were you homeless or living in a fpc (including now)? No 07/16/2025 IP Custom IPV [...] Sign Reading Time Taken Comments Blood Pressure 106/66 08/03/2025 1:47 PM CDT Pulse 86 08/03/2025 1:47 PM CDT Temperature - - Respiratory Rate 14 08/03/2025 1:47 PM CDT Oxygen Saturation 98% 08/03/2025 1:47 PM CDT Inhaled Oxygen Concentration - - [...] st Contact Info) Description 09/16/2025 2:00 AM PREFINISH OPERATOR Appointment [facility] [address] [address] Emperatriz Monahan RN documented as of this encounter Visit Diagnoses Not on filedocumented in this encounter Home Health Visit - Care Plan Visit Details Visit Type - Home Visit Discipline -Fdc Problems Problem Description Start Date Status Goals [...] pain within 5 weeks Client to rhys levinee 2 alternative methods of pain relieve in [...] in sodium. Problem:Fluid Retention Goal:Fluid Retention Performed Instruct daily log Description: SN to develop weight diary for patient to record DAILY readings. Instruct patient to monitor and record weight on log. Problem:Fluid Retention Goal:Fluid Retention Performed Notify physician Description: Instruct patient/caregiver on how to identify abnormal readings and when it is appropriate/necessary to contact physician, or when to call 911. Problem:Fluid Retention Goal:Fluid Retention Scheduled Clinician obtain pulse oximetry Problem:Monitor Oxygen Saturation Goal:Obtain Pulse Oximetry Performed Home Health Care Coordination Contacts Description: PCP: CHRIS FENTON PA-C Pharmacy: [facility] #[id number] [place], [place] Oxygen Supply: NA [facility]/Payer Bean Picker Machine Operator: TACO Problem:Home Health Goal Care Coordination Goal:Home Health Goal Care Coordination Performed Home Health Care Coordination Discharge Planning Description: Discharge planning discussed with patient and caregiver. Problem:Home Health Goal Care Coordination Goal:Home Health Goal Care Coordination Performed plan 4 weeks, disease management/teaching , CP, med managment Home Health Care Coordination Advanced Directive Description: [...] Scheduled Lab draw Description: Last INR Results 3.7 Date last INR obtained 08/03/2025 Next INR Due 08/10/2025 Current Anticoagulation Dose 3 MG ON M,W,F AND 6MG ON SUN, TUES, THUR, SAT INR Goal 2.5-3.5 ICD-10 Diagnosis Code Z95.[address] [facility] JOAQUINA FENTON PA-C [phone] Fax results to CHRIS FENTON PA-C [phone] [facility] Orders Received Via Verbal telephone order on 08/03/2025 at 1822 Order received from (PCP and transcribers name) DR RHYS NEGRETE (ONCALL FOR CHRIS FENTON PA-C) Nurse Receiving Order SHERITA STEELE Problem:Anticoagulat ion Therapy Goal:Anticoagulation Therapy Performed INR COMPLETED VIA FINGERSTICK X 1 ATTEMPT. PATIENT TOLERATED WELL. RESULTS OF 3.7 OBTAINED AND CALLED TO [facility]. NEW VO OBTAINED Evaluate for any medication changes Description: Ask [...] Home Medications Goal:Management of Home Medications Scheduled Skilled assessment medications Description: Assess patient/caregiver's ability to manage medications. Assess patient/caregiver's knowledge of drug allergies, dose/route/frequency, new or changed medications, classifications, food and drug interactions, and potential complications. Problem:Management of Home Medications Goal:Management of Home Medications Scheduled Instruct on Effective Coping Skills Problem:Depression Goal:Depression Scheduled Coordination of Care Description: Coordinate visits with and provide status updates to Warp Preparer Diet: Low Cholesterol, Low Fat and Low [...] HECTOR Pugh RN Coordinate Care with PATIENT, COMMUNITY OUTREACH MANAGER Problem:Agency Standards Goal:Agency Standards Performed Confirmed patient has recieved and understands plan of care Description: Patient acknowledged receipt of [facility] Plan of Care. Patient verbalizes understanding and all questions answered. Patient/Caregiver has MyChart and ability to access: yes; If no, e-mail HHS_Status Change to mail patient copy of POC. Problem:Agency Standards Goal:Agency Standards Scheduled Fall Prevention Environmental Hazards Description: - [...] falls through the episode Performed Fall Prevention Patient/Caregiver action to take [...] falls through the episode Scheduled Fall Prevention Knowledge Deficit/Education Description: - Instruct patient and caregiver on use of assistive equipment. - Patient and caregiver to verbalize and/or present return demonstration of use of adaptive and assistive devices. - Instruct patient and caregiver to call manager food safety or Nurse for furthe r instruction or reinforcement. - Instruction provided to patient and caregiver; patient and caregiver verbalized understanding Problem:Risk of Falls Goal:Patient will remain free of injury related to falls through the episode Scheduled Fall Prevention Weakness/Unsteady Gait Description: - Instruct [...]
--- OUTSIDE RECORDS SUMMARY | 2025-08-04 13:30 | XMS_ITS | Encounter Summary ---
Author Organization [facility] Address [address] [address] Phone Care Team Providers Care Lead Assistant Manager Name Role Phone Unavailable Primary Care Provider Unavailabl e Reason for Visit * Reason Comments Weakness * Auth/Cert (Routine) Specialty Diagnoses / Procedures Referred By Contac t Referred To Contact Referral ID Status Reason Start Date Expiration Date Visits Re quested Visits Authorized [id number] 1 20 Encounter Details Date Type Department Care Team (Late st Contact Info) Description 08/04/2025 2:30 PM CDT Home Care Visit [facility] [address] [phone] Radha Martinez, OTR [address] [id number] OT HOME VISIT Social History Tobacco Use Types [...] materials from doctor or pharmacy Sometimes 07/24/2025 [facility] Utilities Answer Date Recorded In the [...] time in the past 12 m [facility], were you homeless or living in a fci (including now)? No 07/16/2025 IP Custom IPV [...] Taken Comments Blood Pressure - - Pulse 74 08/04/2025 3:31 PM CDT Temperature - - Respiratory Rate - - Oxygen Saturation 97% 08/04/2025 3:31 PM CDT Inhaled Oxygen Concentration - - [...] st Contact Info) Description 09/16/2025 2:00 AM UNDERTAKER ASSISTANT Appointment [facility] [address] [address] Emperatriz Monahan RN documented as of this encounter Visit Diagnoses Not on filedocumented in this encounter Home Health Visit - Care Plan Visit Details Visit Type -OT Home Visit Discipline -Occupational Therapy Problems Problem Description Start [...] Contacts Description: PCP: CHRIS FENTON PA-C [id number] [place] [place] Supply[place]/Payer Mystery Shopper: T[place] Problem:Home Health Goal Care Coordination Goal:Home [...] of care Description: Patient acknowledged receipt of [facility] Plan of Care. Patient verbalizes understanding and all questions answered. Patient/Caregiver has MyChart and ability to access: yes; If no, e-mail HHS_Status Change to mail patient copy of POC. Problem:Agency Standards Goal:Agency Standards Performed Coordination of Care Description: Coordinate visits with and provide status updates to Electrologist Diet: Low Cholesterol, Low Fat and Low [...] HECTOR Pugh RN Coordinate Care with PATIENT, SAP CONSULTANT Problem:Agency Standards Goal:Agency Standards Performed INSTRUCT ON [...] Problem:OT Decreased ADLS Goal:OT Decreased ADLs Performed INSTRUCT PATIENT ON HOME EXERCISE PROGRAM Description: Instruct patient on home exercise program Problem:OT Decreased ADLS Goal:OT Decreased ADLs Performed Patient and family were instructed in UE home exercise program that included band exercises to facilitate strengthening and increased endurance for self care completion. While seated using level band. Upward pull - x10 B UE Upward diagonal - X10 B UE Outward pull - x10 B UE Forward punch - x10 B UE Elbow bends - x10 B UE Elbow extension - X10 B UE Patient fatigued with exercises. Recommend completion 1-2x/day. Pt in agreement with continuing HEP outside of OT visits. Monitor effectiveness of drug therapy Problem:OT Decreased ADLS Performed Evaluate for any medication changes Problem:OT Decreased ADLS Performed documented in this encounter
--- OUTSIDE RECORDS SUMMARY | 2025-08-06 11:00 | XMS_ITS | Encounter Summary ---
Author Organization [facility] Address [address] [address] Phone Care Team Providers Care Belt Loop Maker Name Role Phone Unavailable Primary Care Provider Unavailabl e Reason for Visit * Reason Comments Weakness * Auth/Cert (Routine) Specialty Diagnoses / Procedures Referred By Contac t Referred To Contact Referral ID Status Reason Start Date Expiration Date Visits Re quested Visits Authorized [id number] 1 20 Encounter Details Date Type Department Care Team (Late st Contact Info) Description 08/06/2025 12:00 PM CDT Home Care Visit [facility] [address] [place] [id number] Emperatriz Monahan, RN SN HOME VISIT Social History Tobacco [...] materials from doctor or pharmacy Sometimes 07/24/2025 [facility] Utilities Answer Date Recorded In the [...] Sign Reading Time Taken Comments Blood Pressure 102/68 08/06/2025 12:34 PM CDT Pulse 83 08/06/2025 12:34 PM CDT Temperature - - Respiratory Rate 14 08/06/2025 12:34 PM CDT Oxygen Saturation 98% 08/06/2025 12:34 PM CDT Inhaled Oxygen Concentration - - [...] st Contact Info) Description 09/16/2025 2:00 AM ADVERTISING JOB TITLES Appointment [facility] [address] [address] Emperatriz Monahan RN documented as of this encounter Visit Diagnoses Not on filedocumented in this encounter Home Health Visit - Care Plan Visit Details Visit Type - Home Visit Discipline -Usp Problems Problem Description Start Date Status Goals Interve ntions Fluid Retention Disciplines: SN 07/24/2025 Active 1 goal linked to scheduled/documen fna intervention 3 goal interventions scheduled/document ed in [...] goal interventions scheduled/document ed in this visit Self abuse susceptibility Disciplines: Skilled Clinicians, Skilled III 08/06/2025 Active 1 goal linked to scheduled/documen fan intervention 1 goal intervention scheduled/document ed in this visit Goals Goal [...] through the episode Risk of Falls No Self Abuse Susceptibility Self abuse susceptibility No Interventions Intervention Associated Problem/Goal Status Variance [...] Care Coordination Performed Home Health Care Coordination Contacts Description: PCP: CHRIS FENTON PA-C Pharmacy: [id number] - [place] Oxygen Supply: County/Payer Milled Lumber Grader: [place] Problem:Home Health Goal Care Coordination Goal:Home Health Goal Care Coordination Scheduled Home Health Care Coordination Advanced Directive Description: Advanced Directive - on file Problem:Home Health Goal Care Coordination Goal:Home Health Goal Care Coordination Scheduled Instruct prevention of pressure ulcers Description: Instruct patient in the causes and prevention of pressure ulcers. Problem:Prevention of Skin Breakdown - Pressure Ulcer Goal:Prevention of Skin Breakdown-Pressure Ulcer Scheduled Instruct on fall prevention Description: Instruct patient/caregiver in fall prevention strategies. Problem:Safety concerns Goal:Safety Concerns Performed Skilled assessment pain Description: Assess pain (see results on form) Problem:Pain Goal:Pain Scheduled Instruct on pain management techniques Description: Instruct in pharmacologic and nonpharmacologic pain management techniques. Problem:Pain Goal:Pain Scheduled Instruct infection prevention Description: Instruct patient/caregiver in [...] ICD-10 Diagnosis Code Z95.2 Call results to [facility] JOAQUINA FENTON PA-C [phone] Fax results to CHRIS FENTON PA-C [phone] [facility] Orders Received Via Verbal telephone order on 08/03/2025 at 2447 Order received from (PCP and transcribers name) DR RHYS NEGRETE (ONCALL FOR CHRIS FENTON PA-C) Nurse Receiving Order BJAUS. RN OK to check on 08/03 per patient report following MD appt on 07/31 Problem:Anticoagulation Therapy Goal:Anticoagulation Therapy Scheduled Evaluate for [...] of care Description: Patient acknowledged receipt of [facility] Plan of Care. Patient verbalizes understanding and all questions answered. Patient/Caregiver has MyChart and ability to access: yes; If no, e-mail HHS_Status Change to mail patient copy of POC. Problem:Agency Standards Goal:Agency Standards Scheduled Coordination of Care Description: Coordinate visits with and provide status updates to Pharmacoepidemiologist Diet: Low Cholesterol, Low Fat and Low [...] HECTOR Pugh RN Coordinate Care with PATIENT, PERMACULTURE DESIGNER Problem:Agency Standards Goal:Agency Standards Scheduled Fall Prevention [...] - Instruct patient and caregiver to call solution design and analysis manager or Nurse for furthe r instruction [...] related to falls through the episode Scheduled Inability to care for self-help needs Problem:Self abuse susceptibility Goal:Self Abuse Susceptibility Scheduled documented in this encounter
--- OUTSIDE RECORDS SUMMARY | 2025-08-06 13:00 | XMS_ITS | Encounter Summary ---
Author Organization [facility] Address [address] [address] Phone Care Team Providers Care Quality Assurance Project Manager Name Role Phone Unavailable Primary Care Provider Unavailabl e Reason for Visit * Auth/Cert (Routine) Specialty Diagnoses / Procedures Referred By Mine t Referred To Contact Referral ID Status Reason Start Date Expiration Date Visits Re quested Visits Authorized [id number] 1 20 Encounter Details Date Type Department Care Team (Late st Contact Info) Description 08/06/2025 2:00 PM CDT Home Care Visit [facility] [address] [place] [id number] Ethel Gilliam LGSW CARDIAC REHAB NURSE HOME VISIT Social History Tobacco Use Types [...] any time in the past 12 [facility], were you homeless or living in a detention (including now)? No 07/16/2025 IP Custom IPV [...] PM Vannesa Sun documented in this encounter Miscellaneous Notes * Case Communication - Ethel Gilliam LGSW - 08/13/2025 2:50 PM CDTSW Discharge Summary: Completed during visit: HC directive and POA previously completed Information provided to pt/family on: Options for counseling/mental health resources reviewed Transportation, meal support, and private pay resources lists provided Long range plan is: to remain at home with family moving in and private pay resources as needed Follow up needed: SW has no additional SW visits planned, SW will remain available in future as needed. documented in this encounter Plan of Treatment Upcoming Encounters Date Type Department Care Team (Late st Contact Info) Description 09/16/2025 2:00 AM EKG TECH Appointment [facility] [address] [place] [phone] Emperatriz Monahan RN documented as of this encounter Visit Diagnoses Not on filedocumented in this encounter Home Health Visit - Care Plan Visit Details Visit Type -CARDIAC REHAB NURSE Home Visit Discipline -Medical Social Work Problems Problem Description Start Date Status Goals Interve ntions Agency Standards Disciplines: Skilled III 07/24/2025 Active 1 goal linked to scheduled/documen blas intervention 2 goal interventions scheduled/document ed in this visit [facility] EMOTIONAL DISTRESS Disciplines: CARDIAC REHAB NURSE Sense of well being and adjustment 08/06/2025 Active 1 goal linked to scheduled/documen blas intervention 1 goal intervention scheduled/document ed in this visit Self abuse susceptibility Disciplines: Skilled Clinicians, Skilled III 08/06/2025 Active 1 goal linked to scheduled/documen blas intervention 1 goal intervention scheduled/document ed in this visit Goals Goal Associated Problem Outcome Goal Met? Visit Notes Agency Standards Description: Agency goal for services provided. Agency Standards No CARDIAC REHAB NURSE Emotional Distress Description: Sense of well being and adjustment [facility] EMOTIONAL DISTRESS No Self Abuse Susceptibility Self abuse susceptibility No Interventions Intervention Associated Problem/Goal Status Variance Visit Notes Confirmed patient has recieved and understands plan of care Description: Patient acknowledged receipt of [facility] Plan of Care. Patient verbalizes understanding and all questions answered. Patient/Caregiver has MyChart and ability to access: yes; If no, e-mail HHS_Status Change to mail patient copy of POC. Problem:Agency Standards Goal:Agency Standards Performed Coordination of Care Description: Coordinate visits with and provide status updates to Transportation Engineer Diet: Low Cholesterol, Low Fat and Low [...] HECTOR Pugh RN Coordinate Care with PATIENT, PLUMBING HARDWARE ASSEMBLER Problem:Agency Standards Goal:Agency Standards Performed Pt basic needs are being met. Pt lives: alone in home, with supports from family. One of pt's daughters and her family are moving in w/pt mid Nov Mobility: Pt ambulates with walker Support in home: Pt is supported by family, and has someone come to c lean pt home Transportation: Pt family. Transportation list provided Meals: Pt/family. Pt does have some meals delivered emergency management consultant: Pt/family. POA completed Medication management: Pt family Household tasks: pt family Lifeline: Discussion . Pt declined at this time Any additional resources provided: Meal resource list, transportation list, and mental health resource lists provided to pt /[employer] EMOTIONAL/SOCIAL SUPPORT Description: Provide emotional and socal support Problem:[employer] EMOTIONAL DISTRESS Goal:CARDIAC REHAB NURSE Emotional Distress Performed Discussion of patient's adjustment to losses and changes (ongoing grief of spouse's passing and loss/changes given health decline). SW provided active listening and emotional support. Pt used to run marathons and is no longer able to do so. Pt reports m ood is stable, coping okay as he is leaning on family for support and going outside for walks. Discussion of mental health resources, list provided. Pt utilized therapist in the past, declined interest in therapist today but will review and consider reso urce list for future. Inability to care for self-help needs Problem:Self abuse susceptibility Goal:Self Abuse Susceptibility Performed No concerns noted at this time. documented in this encounter
--- OUTSIDE RECORDS SUMMARY | 2025-08-07 13:00 | XMS_ITS | Encounter Summary ---
Author Organization [facility] Address [address] [address] Phone Care Team Providers Care Latent Print Examiner Name Role Phone Unavailable Primary Care Provider Unavailabl e Reason for Visit * Reason Comments Gait Disorder * Auth/Cert (Routine) Specialty Diagnoses / Procedures Referred By Mine t Referred To Contact Referral ID Status Reason Start Date Expiration Date Visits Re quested Visits Authorized [id number] 1 20 Encounter Details Date Type Department Care Team (Late st Contact Info) Description 08/07/2025 2:00 PM CDT Home Care Visit [facility] [address] [phone] Lucie Toussaint, PT [address] [address] PT HOME VISIT Social History Tobacco Use [...] materials from doctor or pharmacy Sometimes 07/24/2025 [facility] Utilities Answer Date Recorded In [...] any [facility] in the [facility] or living in a snf (including now)? No 07/16/2025 IP Custom IPV [...] Taken Comments Blood Pressure - - Pulse 83 08/07/2025 2:31 PM CDT Temperature - - Respiratory Rate - - Oxygen Saturation 97% 08/07/2025 2:31 PM CDT Inhaled Oxygen Concentration - - [...] Entry Date Author Yes 07/16/2025 10:41 PM [place] Vannesa Martins documented in this encounter Miscellaneous Notes * Case Communication - Lucie Toussaint, PT - 08/07/2025 3:30 PM CDTPatient is reluctant to use walker though it is strongly recommended that the patient use a seated four wheeled walker in and outdoors for steadiness. He was quite unsteady at PT visit today. Please reinforce walker use at your follow up visits. Thanks! documented in this encounter Plan of Treatment Upcoming Encounters Date Type Department Care Team (Late st Contact Info) Description 09/16/2025 2:00 AM BASKET BOTTOM MACHINE OPERATOR Appointment [facility] [address] [address] Emperatriz Monahan RN documented as of this [...] scheduled/document ed in this visit Self abuse susceptibili ty Disciplines: Skilled Clinicians, Skilled III 08/06/2025 Active 1 goal linked to scheduled/documen blas intervention 1 goal intervention scheduled/document ed in this visit Goals Goal Associated Problem Outcome Goal Met? Visit Notes Home Health Goal Care Coordination Description: Patient stated goal: INCREASED STRENGTH AND MOBILITY Home Health Goal Care Coordination No Agency Standards Description: Agency goal for services provided. Agency Standards No Self Abuse Susceptibility Self abuse susceptibility [...] o f Care as collaboratively established at [facility], and verbalizing willingness to follow or consider implementing PT safety and mobility recommendations along with exercise and mobility plan. Skilled PT is indicated for progressing mobility according to established goals related to medical complexity. Plan for next visit: Frequency as ordered to continue 1w5 after eval. Problem:Mobility - Impaired Performed SKILLED PT INTERVENTIONS: NOTE: Patient was ambulating quite unsteadily when PT arrived, with crossover steps and backwards steps noted while ambulating from kitchen to his living room chair. PT strongly reinforced recommendation that the patient use his walker when he is not steady to reduce risk of fall or injury. Patient stated that he likes to tell himself that he is steady and capable. See more in gait section below. EDUCATION PLAN: Use repetition, demo and return-demonstration, written and ill ustrated information for exercises, and involve caregiver(s) as [...] Knee bends, Heel and Toe raises, and he el cord stretches. 10 reps each except stretching for 10 secondes 3 times each leg. PT needed to instruct and reinstruct proper technique for each exercises and encouarged patient to stand tall. More teaching will be needed. PT has recommended twice vladimir y exercises building to 20 reps for strength and balance progression as able. FALL RISK: Assess and instruct in modifications to reduce risk of falls. Teach and monitor safe and proper use of assistive devices (walker), keeping pathways well-lit and cl ear of clutter with throw rugs removed, and use of non-slip supportive footwear. TODAY: PT notes that the patient is wearing moccasin style slippers and that his heels tend to drag with walking. PT recommends patient trial of a tennis style shoe in the home or outdoors and working to land on heels while picking up feet vs shuffling or sliding his heels. More follow up needed on this. Patient's sister is present to help reinforce. Also, PT recommended opening up space in living room for the walker to fit through more easily and safely. Patient's sister did start to move furniture toward that end while PT was still present at the visit, and this appeared to be a good plan. Additionally, PT recommended, a firm bed vs water bed at height greater than p atient knees, though not so high for patient to need to be on tips of toes to get onto it. And patient would benefit from a higher firm arm chair in the living room if/when he obtains new furniture as anticipated when his family members move into the [facility] in August. PT advises continued use of four wheeled walker (which has more weight for counterbalance for steadier gait than the front wheeled walker) both in and outdoors. Noted patient has obtained 2 suction shower grab bars, toilet safety fra me and railing for 3 garage steps, and has removed throw rug in bedroom as recommended at [facility] by PT. PAIN: Assess and teach interventions for pain management. Include positioning strategies, safe mobility practices, a nd activity pacing for proper res t to support healing. TRANSFERS: Assess and train in safe transfer technique to access and rise from toilet, shower/bath, bed, chairs and vehicle. TODAY: Trial of bed on lower level of home which is too short though easier to move on than his water b ed. A standard style bed with frame for handhold would be suitable and recommendedc for this patient. PT educated patient and his sister who was present today. GAIT: Assess, teach and progress safe ambulation utilizing appropriate device(s) as determine d appropriate for navigating indoor and outdoor terrain and stairs as indicated to maximize indepe ndence. TODAY: Ambulation on main level of home with and without walker. PT recommends seated walker use at this time for gait unsteadiness in or outdoo rs. PT also had patient navigate stairs which he did by alternating legs, though PT taught it might be safer to navigate one step at a time particularly if weak or fatigued which patient states that he is both of these today. He did not comply with the one step at a time recommendation of PT. Patient/Caregiver response to treatment: Patient/caregiver on board with PT Plan of Care as collaboratively established at [facility], and verbalizing willingness to follow or consider implementi PT safety and mo bility recommendations along with exercise and mobility plan. Skilled PT is indicated for progressing mobility according to established goals related to medical complexity. TODAY: PT notes that the patient is reluctant to use gait device such as walker or to comply with some of PT recommendations. Plan for next visit: Frequency as ordered to continue 1w3. Monitor effectiveness of drug therapy Problem:Mobility - [...] Ambulate without a device in and outdoors. Review HEP and check if patient obtained a four wheeled walker. Continue 1w3 afternoons as able and next visit Sunday at 2 PM. Lucie Toussaint, PT 08/07/25 Home Health Care Coordination Contacts Description: PCP: CHRIS FENTON PA-C Pharmacy: [id number] [place], [place] Oxygen Supply: [facility]/Payer Sleeping Car Porter: [employer] Problem:Home Health Goal Care Coordination Goal:Home Health Goal Care Coordination Scheduled Home Health Care Coordination Advanced Directive Description: Advanced Directive - on file Problem:Home Health Goal Care Coordination Goal:Home Health Goal Care Coordination Scheduled Coordination of Care Description: Coordinate visits with and provide status updates to Warehouse Administrator Diet: Low Cholesterol, Low Fat and Low [...] HECTOR Pugh RN Coordinate Care with PATIENT, [employer] S[employer]OL COORDINATOR Problem:Agency Standards Goal:Agency Standards Performed Confirmed patient has recieved and understands plan of care Description: Patient acknowledged receipt of [facility] Plan of Care. Patient verbalizes understanding and all questions answered. Patient/Caregiver has MyChart and ability to access: yes; If no, e-mail HHS_Status Change to mail patient copy of POC. Problem:Agency Standards Goal:Agency Standards Scheduled Inability to care for self-help needs Problem:Self abuse susceptibility Goal:Self Abuse Susceptibility Scheduled documented in this encounter
--- OUTSIDE RECORDS SUMMARY | 2025-08-10 04:25 | XMS_ITS | Encounter Summary ---
Author Organization [facility] Address [address] [address] Phone Care Team Providers Care Surgical Sales Representative Name Role Phone Unavailable Primary Care Provider Unavailabl e Reason for Visit * Reason Comments Lab Work * Auth/Cert (Routine) Specialty Diagnoses / Procedures Referred By Contac t Referred To Contact Referral ID Status Reason Start Date Expiration Date Visits Re quested Visits Authorized [id number] 1 20 Encounter Details Date Type Department Care Team (Late st Contact Info) Description 08/10/2025 5:25 AM CDT Home Care Visit [facility] [address] [place] [id number] Hector Chung RN SN HOME VISIT Social History Tobacco [...] materials from doctor or pharmacy Sometimes 07/24/2025 [facility] Utilities Answer Date Recorded In the [...] any time in the past 12 m [facility], were you homeless or living in [...] Sign Reading Time Taken Comments Blood Pressure 122/58 08/10/2025 11:10 AM CDT Pulse 85 08/10/2025 11:10 AM CDT Temperature - - Respiratory Rate 18 08/10/2025 11:10 AM CDT Oxygen Saturation 97% 08/10/2025 11:10 AM CDT Inhaled Oxygen Concentration - - Weight 68 kg (150 lb) 08/10/2025 11:10 AM CDT Height - - Body Mass Index 22.81 07/24/2025 1:20 PM CDT documented in this [...] st Contact Info) Description 09/16/2025 2:00 AM GRIEVANCE COORDINATOR Appointment [facility] [address] [address] Emperatriz Monahan RN documented as of this encounter Visit Diagnoses Not on filedocumented in this encounter Home Health Visit - Care Plan Visit Details Visit Type - Home Visit Discipline -Snf Problems Problem Description Start Date Status Goals [...] in this visit Risk of Falls Disciplines: Patient/Caregive r will demonstrate use of safety precautions to prevent falls and improve safety by the end of the episode of care. 07/24/2025 Active 1 goal linked to scheduled/documen fan intervention 4 goal interventions scheduled/document ed in this visit Need to collect specimen sample Disciplines: Management of specimen samples, including lab draws, stool, urine, & tissue 08/05/2025 Active 1 goal linked to scheduled/documen fan intervention 1 goal intervention scheduled/document ed in this visit Self abuse susceptibility Disciplines: [facility], Skilled III 08/06/2025 Active 1 goal [...] reduce pain within 5 weeks Client to verbmax levinee 2 alternative methods of pain relieve [...] through the episode Risk of Falls No Need to Collect Specimen Sample Description: Skilled nurse to perform lab draw or specimen collection as ordered. Need to collect specimen sample No Self Abuse Susceptibility Self abuse susceptibility [...] Contacts Description: PCP: CHRIS FENTON PA-C Pharmacy: [id number] - [place], [place] Oxygen Supply: [facility]/Payer Car Ferry Captain: TACO Problem:Home Health Goal Care Coordination Goal:Home [...] Performed Lab draw Description: Last INR Results 3.3 Date last INR obtained 08/10/2025 Next INR Due 08/24/2025 Current Anticoagulation Dose 3 MG ON M,W,F AND 6MG ON SUN, TUES, THUR, SAT INR Goal 2.5-3.5 ICD-10 Diagnosis Code Z95.2 Call results to [facility] JOAQUINA FENTON PA-C [phone] Fax results to CHRIS FENTON PA-C [phone] [facility] Orders Received Via Verbal telephone order on 08/10/2025 at 1523 Order received from (PCP and transcribers name) SHERITA ROBERTS/CHRIS FENTON PA-C) Nurse Receiv ing Order HECTOR Pugh RN Problem:Anticoagulation Therapy Goal:Anticoagulation Therapy Performed Evaluate for any [...] of care Description: Patient acknowledged receipt of [facility] Plan of Care. Patient verbalizes understanding and all questions answered. Patient/Caregiver has MyChart and ability to access: yes; If no, e-mail HHS_Status Change to mail patient copy of POC. Problem:Agency Standards Goal:Agency Standards Performed Coordination of Care Description: Coordinate visits with and provide status updates to Saw Setter Diet: Low Cholesterol, Low Fat and Low [...] HECTOR Pugh RN Coordinate Care with PATIENT, FLAT HAMMERER Problem:Agency Standards Goal:Agency Standards Performed Fall Prevention [...] Instruct patient and caregiver to call manager of procurement or Nurse for furthe r instruction or [...] related to falls through the episode Performed Lab draw Description: [facility] Lab Order Lab: BMP Date: 08/10/25 ICD10: I50.20 Fax results to ( Full name and number): Chris CARDENAS Received from Tiara RN on behalf of Chris CARDENAS RN receiving and transcribing order: SHERITA Wang Orders per Verbal telephone order on 08/05/25 at 0835. Problem:Need to collect specimen sample Goal:Need to Collect Specimen Sample Performed Inability to care for self-help needs Problem:Self abuse susceptibility Goal:Self Abuse Susceptibility Scheduled documented in this encounter
--- OUTSIDE RECORDS SUMMARY | 2025-08-13 09:15 | XMS_ITS | Encounter Summary ---
Author Organization [facility] Address [address] [address] Phone Care Team Providers Care Pumping Station Supervisor Name Role Phone Unavailable Primary Care Provider Unavailabl e Reason for Visit * Reason Comments Lab Work Encounter Details Date Type Department Care Team (Late st Contact Info) Description 08/13/2025 10:15 AM CDT ALLIED HEALTH/NURSE VISIT [facility] [address] [facility] [address] [address] Lab, [facility] [address] [facility] [address], [place] [address] Lab Work Social History Tobacco Use Types Packs/Day Years [...] materials from doctor or pharmacy Sometimes 07/24/2025 C Utilities Answer Date Recorded In the past 12 months has th e [employer], gas, oil, or water Weavly threatened to shut off services in your [...] any time in the past 12 m onths, were you homeless or living in a residential (including now)? No 07/16/2025 E[facility] IP Custom [...] st Contact Info) Description 09/16/2025 2:00 AM VESSEL MANAGER Appointment [facility] [address] [facility] [address] [place] [address] Emperatriz Monahan RN documented as of this encounter Procedures Procedure Name Priority Date/Time Associated Diagnosis Comments NTPRO BNP Routine 08/13/2025 10:10 AM CDT HFrEF (heart failure with reduced ejection fraction) (HCC) COMPREHENSIVE METABOLIC PANEL Routine 08/13/2025 10:10 AM CDT HFrEF (heart failure with reduced ejection fraction) (HCC) HEMOGRAM Routine 08/13/2025 10:10 AM CDT HFrEF (heart failure with reduced ejection fraction) ([facility]) documented in this encounter Results * (ABNORMAL) NTPRO BNP (08/13/2025 10:10 AM CDT) NT-PRO BNP 4,210(H) <125 pg/mL 08/13/2025 10:51 AM CDT [facility] Blood BLOOD SPECIMEN / Unknown Venipuncture / Unknown 08/13/2025 10:10 AM CDT 08/13/2025 10:10 AM CDT Narrative [facility] - 08/13/2025 10:51 AM CDT The decision thresholds: <75 years- 125 pg/mL >75 years- 450 pg/mL Clinical correlations for the NYHA functional classes at the 95th percentile: NYHA I: 3410 NYHA II: 6567 NYHA III: 10264 us Esha Camilo MD EC LAB SEND OU T ORDERABLES Final Result [facility] [address] [place] [address] * (ABNORMAL) HEMOGRAM (08/13/2025 10:10 AM CDT) WBC 4.6 4.0 - 11.0 10*3/uL 08/13/2025 10:39 AM CDT [facility] RBC 4.94 4.40 - 6.00 10*6/uL 08/13/2025 10:39 AM CDT [facility] HGB 15.0 13.0 - 18.0 g/dl 08/13/2025 10:39 AM CDT [facility] HCT 47.3 40.0 - 52.0 % 08/13/2025 10:39 AM CDT [facility] MCV 95.7 80 - 96 fL 08/13/2025 10:39 AM CDT [facility] MCH 30.4 27.0 - 34.0 pg 08/13/2025 10:39 AM CDT [facility] MCHC 31.7(L) 32 - 36 g/dl 08/13/2025 10:39 AM CDT [facility] PLT 141(L) 150 - 420 10*3/uL 08/13/2025 10:39 AM CDT [facility] RDW-CV 13.6 11.6 - 14.4 % 08/13/2025 10:39 AM CDT [facility] RDW-SD 48.7(H) 35.1 - 43.9 fL 08/13/2025 10:39 AM CDT [facility] Blood BLOOD SPECIMEN / Unknown Venipuncture / Unknown 08/13/2025 10:10 AM CDT 08/13/2025 10:10 AM CDT Esha Camilo MD EC HEMATOLOGY ORDERABLES Final Result [facility] [address] [place] [address] * (ABNORMAL) COMPREHENSIVE METABOLIC PANEL (08/13/2025 10:10 AM CDT) Sodium 138 135 - 144 mmol/L 08/13/2025 10:45 AM CDT [facility] Potassium 4.6 3.4 - 5.1 mmol/L 08/13/2025 10:45 AM CDT [facility] Chloride 101 98 - 107 mmol/L 08/13/2025 10:45 AM [facility] Carbon Dioxide 29 22 - 30 mmol/L 08/13/2025 10:45 AM [facility] Calcium 10.0 8.6 - 10.3 mg/dL 08/13/2025 10:45 AM [facility] Alkaline Phosphatase 92 38 - 126 U/L 08/13/2025 10:45 AM [facility] Aspartate Aminotransferase 50 17 - 59 U/L 08/13/2025 10:45 AM [facility] Alanine Aminotransferase 19 <50 U/L 08/13/2025 10:45 AM [facility] Glucose 95 74 - 100 mg/dL 08/13/2025 10:45 AM [facility] Blood Urea nitrogen 26(H) 9 - 20 mg/dL 08/13/2025 10:45 AM [facility] Creatinine 1.44(H) 0.66 - 1.25 mg/dL 08/13/2025 10:45 AM [facility] Protein, Total 8.0 6.3 - 8.2 g/dL 08/13/2025 10:45 AM [facility] Albumin 4.8 3.5 - 5.0 g/dL 08/13/2025 10:45 AM [facility] Bilirubin, Total 1.3 0.2 - 1.3 mg/dL 08/13/2025 10:45 AM [facility] Globulin 3.2 1.4 - 4.8 g/dL 08/13/2025 10:45 AM [facility] Anion Gap 8 5 - 15 mmol/L 08/13/2025 10:45 AM [facility] Glomerular Filtration Rate 51(L) >60 mL/min/1. 73 m*2 08/13/2025 10:45 AM [facility] Comment:This calculation use s CKD-EPI 2020 equation; it has not been validated in women. Blood BLOOD SPECIMEN / Unknown Venipuncture / Unknown 08/13/2025 10:10 AM T 08/13/2025 10:10 AM CDT us Esha Camilo MD EC CHEMISTRY O RDERABLES Final Result Performing Organization Address City/State/[facility] Number [address] [phone] documented in this encounter Visit Diagnoses Diagnosis HFrEF (heart failure with reduced ejection fraction) (HCC) documented in this encounter
--- OUTSIDE RECORDS SUMMARY | 2025-08-13 09:30 | XMS_ITS | Encounter Summary ---
Author Organization [facility] Address [address] [address] Phone Care Team Providers Care Patient Monitor Name Role Phone Unavailable Primary Care Provider Unavailabl e Encounter Details Date Type Department Care Team (Late st Contact Info) Description 08/13/2025 10:[address] [facility] [address] [place] [phone] Immunization Social History Tobacco Use Types Packs/Day Years [...] materials from doctor or pharmacy Sometimes 07/24/2025 [facility] Utilities Answer Date Recorded In the past 12 months has e electric, gas, oil, or water company [...] any time in the past 12 m [facility], were you homeless or living in a alf (including now)? No 07/16/2025 IP Custom IPV [...] 07/16/2025 10:41 PM SHANNONT Vannesa Martins documented as of this encounter Mental Status * Patient's Judgment Adequate to Safely Complete Daily Activities Answer Entry Date Author Yes 07/16/2025 10:41 PM Vannesa Sun documented in this encounter Plan of Treatment Upcoming Encounters Date Type Department Care Team (Late st Contact Info) Description 09/16/2025 2:00 AM TACK WELDER Appointment [address] [address] Emperatriz Monahan, RN documented as of this encounter Visit Diagnoses Diagnosis Need for prophylactic vaccination and inoculation against influenza- Primary documented in this encounter Orders Immunization/Injection Count Last Ordered Date First Ordered Date FLU VACCINE HIGH DOSE 65+ 1 08/13/2025 SARSCOV2 VACCINE 50 MCG/0.5 ML FOR IM USE 1 08/13/2025 documented in this encounter
--- OUTSIDE RECORDS SUMMARY | 2025-08-14 13:00 | XMS_ITS | Encounter Summary ---
Author Organization [facility] Address [address] [address] Phone Care Team Providers Care Dental Prosthetist Name Role Phone Unavailable Primary Care Provider Unavailabl e Reason for Visit * Reason Comments Gait Disorder * Auth/Cert (Routine) Specialty Diagnoses / Procedures Referred By Mine t Referred To Contact Referral ID Status Reason Start Date Expiration Date Visits Re quested Visits Authorized [id number] 1 20 Encounter Details Date Type Department Care Team (Late st Contact Info) Description 08/14/2025 2:00 PM CDT Home Care Visit [facility] [address] [phone] Lucie Toussaint, PT [address] [address] PT HOME VISIT Social History Tobacco Use [...] any time in the past 12 m [facility], were you homeless or living in a chcf (including now)? No 07/16/2025 IP Custom IPV [...] Sign Reading Time Taken Comments Blood Pressure 90/60 08/14/2025 1:59 PM CDT Pulse 59 08/14/2025 1:59 PM CDT Temperature - - Respiratory Rate - - Oxygen Saturation 99% 08/14/2025 1:59 PM CDT Inhaled Oxygen Concentration - - [...] encounter Miscellaneous Notes * Case Communication - Shira Palencia OTR - 08/18/2025 8:19 AM CSTThermajo is a message center on the home screen that he can use to send a non-urgent medical question,test result question, medication question, visit follow up question, Covid question or Other. I do not see a way to specifically share lab results, but if he has care everywhere his PCP can already see lab results from other providers in [facility]. ----- Message ----- From: Lucie Toussaint PT Sent: 08/17/2025 3:34 PM RULING MACHINE OPERATOR To: SANTY Cook Subject: RE: Yes- He says he sometimes has INR done outside of the [employer] system and wants to communicate with his providers. ----- Message ----- From: Shira Palencia OTR Sent: 08/17/2025 12:52 PM RULING MACHINE OPERATOR To: Lucie Toussaint PT; Emperatriz Monahan RN Subject: RE: The patient wants to put things in the system? ----- Message ----- From: Lucie Toussaint PT Sent: 08/14/2025 3:10 PM RULING MACHINE OPERATOR To: SANTY Cook; Emperatriz Monahan, SHERITA Patient has signed up for My Chart and wants to know if there is a way that he can put information in the system, such as his INR numbers. NG MACHINE OPERATOR * Case Communication - Lucie Toussaint PT - 08/17/2025 3:34 PM CSTYes- He says he sometimes has INR done outside of the [facility] system and wants to communicate with his providers. ----- Message ----- From: Shira Palencia OTR Sent: 08/17/2025 12:52 PM RULING MACHINE OPERATOR To: Lucie Toussaint PT; Emperatriz Monahan, RN Subject: RE: The patient wants to put things in the system? ----- Message ----- From: Lucie Toussaint PT Sent: 08/14/2025 3:10 PM CSTTo: Shira Palencia OTR; Emperatriz Monahan, RN Patient has signed up for My Chart and wants to know if there is a way that he can put information in the system, such as his INR numbers. NG MACHINE OPERATOR * Case Communication - Shira Palencia OTR - 08/17/2025 12:52 PM CSTThe patient wants to put things in the system? ----- Message ----- From: Lucie Toussaint PT Sent: 08/14/2025 3:10 PM RULING MACHINE OPERATOR To: SANTY Cook; Emperatriz Monahan RN Patient has signed up for My Chart and wants to know if there is a way that he can put information in the system, such as his INR numbers. NG MACHINE OPERATOR * Case Communication - Lucie Toussaint PT - 08/14/2025 3:10 PM CDTPatient has signed up for My Chart and wants to know if there is a way that he can put information in the system, such as his INR numbers. * Case Communication - Lucie Toussaint, PT - 08/14/2025 3:10 PM CDTMedication update from patient: Per medical esthetician, Dr. Spears, on 08/10/25, patient has discontinued spironolactone and hydralazine. Nurse- please update the chart as appropriate. I do not update the med profile without a written prescription. NOTE: Patient is using the four wheeled walker now most of the time. Ambulated 10 minutes outdoors with brother a couple days ago with a mid-way rest on the walker seat. He gets fatigued but may be walking too fast. Gait remains unsteady though the walker helps quite a bit with steadying thepatient. Patient got dizzy during exercises and BP was 90/60. PT found out the patient drinks 1.5 cups of coffee and 1-2 cups of water per day. PT encouraged patient to increase to 4 cups of water per day as able to provide better hydration which may impact his med effectiveness and his dizziness. Patient has concerns about his voice volume and PT will get orders for SENIOR MARKETING COORDINATOR intervention. documented in this encounter Plan of Treatment Upcoming Encounters Date Type Department Care Team (Late st Contact Info) Description 09/16/2025 2:00 AM RULING MACHINE OPERATOR Appointment [facility] [address] [place] [phone] Emperatriz Monahan, RN documented as of this [...] o f Care as collaboratively established at [facility], and verbalizing willingness to follow or consider implementing PT safety and mobility recommendations along with exercise and mobility plan. Skilled PT is indicated for progressing mobility according to established goals related to medical complexity. Plan for next visit: Frequency as ordered to continue 1w5 after eval. Problem:Mobility - Impaired Performed SKILLED PT INTERVENTIONS: NOTE: Patient is using the four wheeled walker now most of the time. Ambulated 10 minutes outdoors with brother a couple days ago with a mid-way rest on the walker seat. He gets fatigued but may be walking too fast. Gait jaswant ins unsteady though the walker helps quite a bit with steadying the patient. Patient got dizzy during exercises and BP was 90/60. PT found out the patient drinks 1.5 cups of coffee and 1-2 cups of water per day. PT encouraged patient to increase to 4 cup s of water per day as able to provide better hydration which may impact his med effectiveness and his dizziness. Patient has concerns about his voice volume and PT will get orders for SENIOR MARKETING COORDINATOR intervention. EDUCATION PLAN: Use repetition, demo and return-dem onstration, written and ill ustrated information for exercises, and involve caregiver(s) as appropriate to reinforce teaching items. EXERCISE: Establish, instruct, and monitor effectiveness and follow through of home exercise program. Incorporate seate d, supine, standing and sit to stand exercises for strength and balance with progressed and provision of written instructions. Instruct in a home walking plan and progress as able. TODAY: Re-instructed in technique for the HEP as follows standing at ra iling: Marches, Knee bends, Heel and Toe raises, and heel cord stretches. 10 reps each except stretching for 10 secondes 3 times each leg. PT encouraged patient to stand tall and had patient dit between sets of exercises due to initial dizziness when mar artem at railing. PT has recommended twice daily exercises building to 20 reps for strength and balance progression as able. FALL RISK: Assess and instruct in modifications to reduce risk of falls. Teach and monitor safe and proper use of assistive dev ices (walker), keeping pathways well-lit and cl ear of clutter with throw rugs removed, and use of non-slip supportive footwear. TODAY, reviewed from past visits: higher chair would be good, and shoes vs moccasin style slippers and regular bed vs water bed. Patient is likely going to be working on these. PAIN: Assess and teach interventions for pain management. Include positioning strategies, safe mobility practices, a nd activity pacing for proper res t to support healing. TRANSFERS: Assess and tr darby in safe transfer technique to access and rise from toilet, shower/bath, bed, chairs and vehicle. TODAY: Trial of bed on lower level of home which is too short though easier to move on than his water b ed. A standard style bed with frame for handhol d would be suitable and recommendedc for this patient. PT educated patient and his sister who was present today. GAIT: Assess, teach and progress safe ambulation utilizing appropriate device(s) as determine d appropriate for navigating indoor and outdo or terrain and stairs as indicated to maximize indepe ndence. TODAY: Patient ambulated for 5 minutes in the home with walker at slower pace than he would have gone without PT instruction to slow down for purpose of walking for a longer time with less f atigue. This worked well and patient did not have dizziness. Patient/Caregiver response to treatment: Patient/caregiver on board with PT Plan of Care as collaboratively established at PT Eval, and verbalizing willingness to follow or consider implement i ng PT safety and mo bility recommendations along with exercise and mobility plan. Skilled PT is indicated for progressing mobility according to established goals related to medical complexity. TODAY: PT notes that the patient is more compliant with u se of walker. Plan for next visit: Frequency as ordered to continue 1w2. Monitor effectiveness of drug therapy Problem:Mobility - [...] device in and outdoors. Review HEP and monitor use of four wheeled walker and ability to progress endurance from 5 minutes. Check on fluid intake (increased water from 2 to 4 cups/day?) and check on dizzine ss as well as BP. Continue 1w2 afternoons as able and next visit Sunday at 12 PM. Luciemax Toussaint, PT 08/14/25 Home Health Care Coordination Contacts Description: PCP: CHRIS FENTON PA-C Pharmacy: [id number] [place], [place] Oxygen Supply: [facility]/Payer Field Cane Scale Clerk: TACO Problem:Home Health Goal Care Coordination Goal:Home Health Goal Care Coordination Scheduled Home Health Care Coordination Advanced Directive Description: Advanced Directive - on file Problem:Home Health Goal Care Coordination Goal:Home Health Goal Care Coordination Scheduled Confirmed patient has recieved and understands plan of care Description: Patient acknowledged receipt of [facility] Plan of Care. Patient verbalizes understanding and all questions answered. Patient/Caregiver has MyChart and ability to access: yes; If no, e-mail HHS_Status Change to mail patient copy of POC. Problem:Agency Standards Goal:Agency Standards Scheduled Coordination of Care Description: Coordinate visits with and provide status updates to Apparatus Cleaner Diet: Low Cholesterol, Low Fat and Low [...] HECTOR Pugh RN Coordinate Care with PATIENT, FACTORY MAINTENANCE MANAGER Problem:Agency Standards Goal:Agency Standards Scheduled Inability to care for self-help needs Problem:Self abuse susceptibility Goal:Self Abuse Susceptibility Scheduled documented in this encounter
--- OUTSIDE RECORDS SUMMARY | 2025-08-17 13:00 | XMS_ITS | Encounter Summary ---
Author Organization [facility] Address [address] [address] Phone Care Team Providers Care Wood Borer Name Role Phone Unavailable Primary Care Provider Unavailabl e Reason for Visit * Reason Comments Weakness * Auth/Cert (Routine) Specialty Diagnoses / Procedures Referred By Contac t Referred To Contact Referral ID Status Reason Start Date Expiration Date Visits Re quested Visits Authorized [id number] 1 20 Encounter Details Date Type Department Care Team (Late st Contact Info) Description 08/17/2025 1:00 PM REIMBURSEMENT MANAGER Home Care Visit [facility] [address] [place] [phone] Emperatriz Monahan RN SN HOME VISIT Social History Tobacco [...] materials from doctor or pharmacy Sometimes 07/24/2025 [facility] Utilities Answer Date Recorded In the [...] any time in the past 12 m [facility], were you homeless or living in a penitentiary (including now)? No 07/16/2025 IP Custom IPV [...] Sign Reading Time Taken Comments Blood Pressure 78/48 08/17/2025 1:04 PM REIMBURSEMENT MANAGER Pulse 63 08/17/2025 1:04 PM REIMBURSEMENT MANAGER Temperature - - Respiratory Rate 16 08/17/2025 1:04 PM REIMBURSEMENT MANAGER Oxygen Saturation 97% 08/17/2025 1:04 PM REIMBURSEMENT MANAGER Inhaled Oxygen Concentration - - Weight - [...] encounter Miscellaneous Notes * Case Communication - Emperatriz Monahan RN - 08/17/2025 7:08 PM CSTDate of fall: 08/14/25 Time of fall: 08/14 Location of fall: Kitchen Was fall witnessed: Yes, Family Member: Brother Dony Details of fall: Patient became dizzy and fell, landing on his bottom on the kitchen floor Immediate action taken at time of fall (can be per patient/family report): Brother Dony helped pt upoff the floor Immediate action taken by clinician upon knowledge/notification of fall: Notified of fall: Provider: Chris Monreal Immediate Action Taken: Vital signs assessed, skin assessment Environmental Factors: No Equipment Factors: No Patient Factors: Yes: Dizzy and Weak Medication Factors (taken in the last 24 hours; new/changed medications in the past 24 hours): No Describe Mental/Psychological Status at time of fall: Alert and Oriented. Minor Injuries? No Major Injuries? No Therapy evals offered to patient? PT & OT already involved Specific Details of Fall Education provided on fall prevention: Educate patient/caregiver from Home Safety Information education tool in home care folder, Maintain good lighting in all areas, consider using night lights, Change your position slowly, Have someone near you when changing positions or walking, Take rest breaks as you are walking or climbing, Use assistive devices as instructed, Wear shoes or non-skid footwear Jazlyn 07/05 supervision BURSEMENT MANAGER documented in this encounter Plan of Treatment Upcoming Encounters Date Type Department Care Team (Late st Contact Info) Description 09/16/2025 2:00 AM REIMBURSEMENT MANAGER Appointment [address] [address] Emperatriz Monahan RN documented as of this encounter Visit Diagnoses Not on filedocumented in this encounter Home Health Visit - Care Plan Visit Details Visit Type -SN Home Visit Discipline -Penitentiary Problems Problem Description Start Date Status Goals [...] Contacts Description: PCP: CHRIS FENTON PA-C [id number] [place], [place] Oxygen Supply: [facility]/Payer Appeals Officer: TACO Problem:Home Health Goal Care Coordination Goal:Home [...] fall prevention strategies. Problem:Safety concerns Goal:Safety Concerns Scheduled Skilled assessment pain Description: Assess pain (see [...] Scheduled Lab draw Description: Last INR Results 3.3 Date last INR obtained 08/10/2025 Next INR Due 08/24/2025 Current Anticoagulation Dose 3 MG ON M,W,F AND 6MG ON SUN, TUES, THUR, SAT INR Goal 2.5-3.5 ICD-10 Diagnosis Code Z95.2 Call results to [facility] JOAQUINA FENTON PA-C [phone] Fax results to CHRIS FENTON PA-C [phone] [facility] Orders Received Via Verbal telephone order [...] care Description: Patient acknowledged receipt of [facility] Plan of Care. Patient verbalizes understanding and all questions answered. Patient/Caregiver has MyChart and ability to access: yes; If no, e-mail HHS_Status Change to mail patient copy of POC. Problem:Agency Standards Goal:Agency Standards Scheduled Coordination of Care Description: Coordinate visits with and provide status updates to Filling Station Attendant Diet: Low Cholesterol, Low Fat and Low [...] HECTOR Pugh RN Coordinate Care with PATIENT, CLIENT DELIVERY MANAGER Problem:Agency Standards Goal:Agency Standards Scheduled Fall Prevention [...] Instruct patient and caregiver to call manager inside or Nurse for furthe r instruction or [...]
--- OUTSIDE RECORDS SUMMARY | 2025-08-18 10:30 | XMS_ITS | Encounter Summary ---
Author Organization [facility] Address [address] [address] Phone Care Team Providers Care Field Sales Executive Name Role Phone Unavailable Primary Care Provider Unavailabl e Reason for Visit * Reason Comments Weakness * Auth/Cert (Routine) Specialty Diagnoses / Procedures Referred By Contac t Referred To Contact Referral ID Status Reason Start Date Expiration Date Visits Re quested Visits Authorized [id number] 1 20 Encounter Details Date Type Department Care Team (Late st Contact Info) Description 08/18/2025 10:30 AM WOOD BUCKER Home Care Visit [facility] [address] [id number] Radha Martinez, OTR [address] [id number] OT REASSESSMENT Social History Tobacco Use Types Packs/Day Years [...] doctor or pharmacy Sometimes 07/24/2025 [facility] Utilities Answer Date Recorded In the past [...] were you homeless or living in a usp (including now)? No 07/16/2025 IP Custom IPV [...] Taken Comments Blood Pressure - - Pulse 49 08/18/2025 11:25 AM WOOD BUCKER Temperature - - Respiratory Rate - - Oxygen Saturation 98% 08/18/2025 11:25 AM WOOD BUCKER Inhaled Oxygen Concentration - - Weight - [...] Miscellaneous Notes * Case Communication - Radha Martinez, OTR - 08/19/2025 8:21 AM WOOD BUCKER Talking with patient and brother today - Brother figured out that he was only giving Bill amantadine (Symmetrel) 100 MG capsule - once a day but the bottle says 2x/day - sister moved the second dose to 1 pm instead of 6 pm. Brother thinks that not having the second dose this week could be the causeof his rubbery legs and dizziness. Emperatriz, can you help them create a med schedule that best meets his needs. The one they have has lots of changes and is difficult to follow. I left them a 3x/day blank med sheet. BUCKER documented in this encounter Plan of Treatment Upcoming Encounters Date Type Department Care Team (Late st Contact Info) Description 09/16/2025 2:00 AM WOOD BUCKER Appointment [facility] [address] [place] [phone] Emperatriz Monahan, RN documented as of this encounter Visit Diagnoses Not on filedocumented in this encounter Home Health Visit - Care Plan Visit Details Visit Type -OT Reassessment Discipline -Occupational Therapy Problems Problem Description Start [...] goal interventions scheduled/documen blas in this visit Self abuse susceptibility Disciplines: Skilled Clinicians, Skilled III 08/06/2025 Active 1 goal linked to scheduled/documen blas intervention 1 goal intervention scheduled/documen blas in this visit Goals Goal [...] using AE as needed OT Decreased ADLS Progressing No THERAPY REASSESSMENT Current functional measures compared to prior functional measures: Goals: Patient will be independent with bathing task Current measure: Hasn't showered for a couple of weeks - more dizziness today and this week - Not MET Prior measure(s): had not showered since he was in the hospital Patient will be able to use pacing and energy conservation to complete meal prep and household tasks. Current measure: NOT MET - family has been with him 24 hr/day and assisting with meals Elsa or measure(s): He is unable to prepare meals for himself since he was in the hospital Patient will be indep with LE dressing using AE as needed Current measure: MET he sits at the edge of his bed to get over his feet and then is able to stand and le an on the bed if needed Prior measure(s): He needed assist to dress himself due to weakness Determination of therapy effectiveness: o Patient is progressing toward goals and plans to continue therapy services. To edu daughter who is moving in with him and to make continued progress toward goals. Self Abuse Susceptibility Self abuse susceptibility No Interventions Intervention Associated Problem/Goal Status Variance Visit Notes Home Health Care Coordination Contacts Description: PCP: CHRIS FENTON PA-C Pharmacy: [id number] [place] Oxygen Supply: NA [facility]/Payer Meteorological Equipment Repairer: TACO Problem:Home Health Goal Care Coordination Goal:Home [...] of care Description: Patient acknowledged receipt of [facility] Plan of Care. Patient verbalizes understanding and all questions answered. Patient/Caregiver has MyChart and ability to access: yes; If no, e-mail HHS_Status Change to mail patient copy of POC. Problem:Agency Standards Goal:Agency Standards Performed Coordination of Care Description: Coordinate visits with and provide status updates to Instrument Mechanics Supervisor Diet: Low Cholesterol, Low Fat and Low [...] HECTOR Pugh RN Coordinate Care with PATIENT, VICE PRESIDENT OF NURSING Problem:Agency Standards Goal:Agency Standards Performed INSTRUCT ON [...] Problem:OT Decreased ADLS Goal:OT Decreased ADLs Performed Reviewed HEP and he continues to need assist to complete correctly with both arms. Will provide additional training to caregivers. Due to his difficulty with HEP program completed Patient was give the SLUMS cognitive screening. Patient scored 20/30. (27 or > demonstrates normal cognition). Patient had difficulty with mental math, delayed recall, attention, visual- spatial and auditory processing. This demonstrates the need for additional assessment to provided additional details and information t o caregivers. Monitor effectiveness of drug therapy Problem:OT Decreased ADLS Performed Evaluate for any medication changes Problem:OT Decreased ADLS Performed Inability to care for self-help needs Problem:Self abuse susceptibility Goal:Self Abuse Susceptibility Performed documented in this encounter
--- OUTSIDE RECORDS SUMMARY | 2025-08-20 13:30 | XMS_ITS | Encounter Summary ---
Author Organization [facility] Address [address] [address] Phone Care Team Providers Care Match Maker Name Role Phone Unavailable Primary Care Provider Unavailabl e Reason for Visit * Reason Comments Speech Disturbance * Auth/Cert (Routine) Specialty Diagnoses / Procedures Referred By Mine t Referred To Contact Referral ID Status Reason Start Date Expiration Date Visits Re quested Visits Authorized [id number] Encounter Details Date Type Department Care Team (Latest Contact Info) Description 08/20/2025 1:30 PM DIRECTOR STERILE PROCESSING Home Care Visit [facility] [address] [place] [id number] Ambreen Quinones, [facility]-RFID MANAGER [address] [place] [address] RFID MANAGER INITIAL EVALUATION Social History Tobacco Use Types [...] doctor or pharmacy Sometimes 07/24/2025 [facility] Utilities Answer Date Recorded In the past [...] any time in the past 12 m [facility], were you homeless or living in a half-way (including now)? No 07/16/2025 IP Custom IPV [...] st Contact Info) Description 09/16/2025 2:00 AM DIRECTOR STERILE PROCESSING Appointment [facility] [address] [address] Emperatriz Monahan RN documented as of this encounter Visit Diagnoses Not on filedocumented in this encounter Home Health Visit - Care Plan Visit Details Visit Type -RFID MANAGER Initial Eval uation Discipline -Speech Language Pathology Problems Problem Description Start Date Status Goals Interve ntions RFID MANAGER oral motor problems Disciplines: RFID MANAGER No hx of RFID MANAGER services and progressing vocal impairment. 08/21/2025 Active 1 goal linked to scheduled/document ed intervention Goals Goal Associated Problem Outcome Goal Met? Visit Notes RFID MANAGER Oral Motor Problems Description: Will provide education on Parkinson's Disease and voice impairment. RFID MANAGER oral motor problems Met Yes Pt verbalized understanding. documented in this encounter
--- OUTSIDE RECORDS SUMMARY | 2025-08-21 03:00 | XMS_ITS | Encounter Summary ---
Author Organization [facility] Address [address] [address] Phone Care Team Providers Care Regulatory Specialist Name Role Phone Unavailable Primary Care Provider Unavailabl e Reason for Visit * Reason Comments Routine Schedule * Auth/Cert (Routine) Specialty Diagnoses / Procedures Referred By Contac t Referred To Contact Referral ID Status Reason Start Date Expiration Date Visits Re quested Visits Authorized [id number] 1 20 Encounter Details Date Type Department Care Team (Late st Contact Info) Description 08/21/2025 3:00 AM ASSOCIATE PROFESSOR PHYSICIAN Home Care Visit [facility] [address] [place] [phone] Sultana Mullins, RN SN HOME VISIT Social History Tobacco [...] materials from doctor or pharmacy Sometimes 07/24/2025 [facility] Utilities Answer Date Recorded In the [...] any time in the past 12 m [facility], were you homeless or living in [...] Sign Reading Time Taken Comments Blood Pressure 95/58 08/21/2025 11:20 AM ASSOCIATE PROFESSOR PHYSICIAN Pulse 58 08/21/2025 11:20 AM ASSOCIATE PROFESSOR PHYSICIAN Temperature - - Respiratory Rate 18 08/21/2025 11:20 AM ASSOCIATE PROFESSOR PHYSICIAN Oxygen Saturation 94% 08/21/2025 11:20 AM ASSOCIATE PROFESSOR PHYSICIAN Inhaled Oxygen Concentration - - Weight 68.5 kg (151 lb) 08/21/2025 11:20 AM ASSOCIATE PROFESSOR PHYSICIAN Height - - Body Mass Index 22.96 07/24/2025 1:20 PM CDT documented in this [...] st Contact Info) Description 09/16/2025 2:00 AM ASSOCIATE PROFESSOR PHYSICIAN Appointment [facility] [address] [address] Emperatriz Monahan RN documented as of this encounter Visit Diagnoses Not on filedocumented in this encounter Home Health Visit - Care Plan Visit Details Visit Type - Home Visit Discipline -Jail Problems Problem Description Start Date Status Goals [...] reduce pain within 5 weeks Client to matiasmax emelye 2 alternative methods of pain relieve in [...] Contacts Description: PCP: CHRIS FENTON PA-C [id number] [place], [place] Oxygen Supply: County/Payer Health And Safety Representative: TACO Problem:Home Health Goal Care Coordination Goal:Home [...] ICD-10 Diagnosis Code Z95.2 Call results to [facility] JOAQUINA FENTON PA-C [phone] Fax results to CHRIS FENTON PA-C [phone] [facility] Orders Received Via Verbal telephone [...] of care Description: Patient acknowledged receipt of [facility] Plan of Care. Patient verbalizes understanding and all questions answered. Patient/Caregiver has MyChart and ability to access: yes; If no, e-mail HHS_Status Change to mail patient copy of POC. Problem:Agency Standards Goal:Agency Standards Performed Coordination of Care Description: Coordinate visits with and provide status updates to Neighborhood Coordinator Diet: Low Cholesterol, Low Fat and Low [...] HECTOR Pugh RN Coordinate Care with PATIENT, CNMT Problem:Agency Standards Goal:Agency Standards Performed UPDATE TO RN CM VIA EMAIL Fall Prevention Patient/Caregiver action to take if [...] - Instruct patient and caregiver to call ux design manager or Nurse for furthe r instruction [...] related to falls through the episode Performed Inability to care for self-help needs Problem:Self abuse susceptibility Goal:Self Abuse Susceptibility Performed documented in this encounter
--- OUTSIDE RECORDS SUMMARY | 2025-08-21 12:00 | XMS_ITS | Encounter Summary ---
Author Organization [facility] Address [address] [address] Phone Care Team Providers Care Regular Senior Care Provider Name Role Phone Unavailable Primary Care Provider Unavailabl e Reason for Visit * Reason Comments Gait Disorder * Auth/Cert (Routine) Specialty Diagnoses / Procedures Referred By Mine t Referred To Contact Referral ID Status Reason Start Date Expiration Date Visits Re quested Visits Authorized [id number] 1 20 Encounter Details Date Type Department Care Team (Late st Contact Info) Description 08/21/2025 12:00 PM BODY HANGER Home Care Visit [facility] [address] [id number] Lucie Toussaint, PT [address] [address] PT REASSESSMENT Social History Tobacco Use Types Packs/Day [...] materials from doctor or pharmacy Sometimes 07/24/[address] [facility] Utilities Answer Date Recorded In the [...] any time in the past 12 m [facility], were you homeless or living in a group home (including now)? No 07/16/2025 IP Custom IPV [...] st Contact Info) Description 09/16/2025 2:00 AM BODY HANGER Appointment [facility] [address] [facility] 1 [place] [address] Emperatriz Monahan RN documented as of this encounter Visit Diagnoses Not on filedocumented in this encounter Home Health Visit - Care Plan Visit Details Visit Type -PT Reassessment Discipline -Physical Therapy Problems Problem Description Start [...] visit and starting as needed. 07/24/2025 Active 1 goal linked to scheduled/documen blas intervention 4 problem interventions scheduled/document ed in this [...] Associated Problem Outcome Goal Met? Visit Notes Mobility Goals Description: GOAL(S) OF SERVICE: Patient desired goal: Safe ambulation plan, and ability to perform ambulation with no device independently in and outdoors. Aircraft Landing Gear Inspector Goal (6 weeks): Patient will demonstrate safe mobility as follows: 1. Ambulation with cal ce on level surfaces progressing to no device as able. MEETING GOAL WITH DEVICE. 2. Passing TUG score with no device. CHANGE GOAL: TUG IN 20 SECONDS WITH WALKER. WILL TEST NEXT VISIT. 3. Stair climbing with supervision to access lower level of home pr ogressing to independent. MEETING GOAL WITH CLOSE SUPERVISION USING GAIT BELT PROVIDED BY PT. 4. Indepedent transfers to bed, chairs, and toilet. PROGRESSING TOWARD GOAL. 5. Standby assist to enter and exit shower for bathing with suction grab bars. AL OGRESSING TOWARD GOAL. 6. Home modifications to include toilet safety frame, removal of throw rugs and railing to exit garage over 3 steps. GOAL MET. ALSO HAS NEW LIFT RECLINER. Short Term Goals (2 weeks): 1. Fall Prevention Measures in Place to reduce risk of falls, injuries, ED use and Hospitalization. Safe indoor pathways for navigation with no slippery throw rugs or other obstacles, and with proper lighting, and use of proper and fitted footwear for ambulation with use of device and/or assi st as PT recommends. 2. Home Exercise Program Established: Strength and balance regimen in place as instructed per PT. Mobility - Impaired No THERAPY REASSESSMENT See Care Plan and Mobility Assessment of visit note for further details. Current functional measures compared to prior functional measures: Goal 1: Safe ambulation in home on level with device and progressing as able to no device . Current measure: Just starting to be smooth and stable using four wheeled seated walker. Not likely to be stable without a device. Prior measure(s): Unstable and not using device. High fall risk. Determination of therapy effectiveness: delmi purvis is progressing toward goals and plans to continue therapy services. Home Health Goal Care Coordination Description: Patient [...] as indicated to maximize indepe ndence. AT [facility]: Completed majority of mobility assessment. Advised shower grab bars, railing for 3 garage steps, remove throw rug in bedroom, and toilet safety frame. Patient/Caregiver response to treatment: Patient/caregiver on board with PT Plan o f Care as collaboratively established at [facility], and verbalizing willingness to follow or consider implementing PT safety and mobility recommendations along with exercise and mobility plan. Skilled PT is indicated for progressing mobility according to established goals related to medical complexity. Plan for next visit: Frequency as ordered to continue 1w5 after eval. Problem:Mobility - Impaired Performed SKILLED PT INTERVENTIONS: NOTE: Patient went to the pharmacy and grocery store in [place] yesterday with assist of brother using wheeled walker and sitting when needed. Patient felt it was liberating to get out. He appears much more steady now than l ast wheen when his BP was low. EDUCATION PLAN: Use repetition, demo and return-dem [...] Instruct in a home walking plan and progre ss as able. TODAY: Re-instructed in technique for the HEP as follows standing at ra iling: Marches, Knee bends, Heel and Toe raises, and heel cord stretches. 10 reps each except stretching for 10 secondes 3 times each leg. PT encouraged patient to tyree d tall and he no longer needed to sit between sets of exercises. PT added sideways leg lift to regimen and updated his HEP. PT has recommended twice daily exercises building to 20 reps for strength and balance progression as able. FALL RISK: Assess and instruct in modifications to reduce risk of falls. Teach and monitor safe and proper use of assistive dev ices (walker), keeping pathways well-lit and cl ear of clutter with throw rugs removed, and use of non-slip supportive footwear. TODAY: Patient h as new lift recliner and demonstrated use with PT present. PT recommended tennis shoes vs maccasin style slippers, especially to leave home which patient concurs with. PAIN: Assess and teach interventions for pain management. Include positioning strateg ies, safe mobility practices, a nd activity pacing [...] was present today. GAIT: Assess, teach and p brianna safe ambulation utilizing appropriate device(s) as determined appropriate for navigating indoor and outdo or terrain and stairs as indicated to maximize independence. TODAY: Patient ambulated for at leasat 10 minutes at the store yesterday with a rest break sitting on his walker. PT taught using walker fully and turning with it to approach bed and chairs. Patient is definitely appearing more stable with the walker now. He navigated stairs with PT issuing gait belt for this and emonstrating h ow to don it properly with brother, Dony, present. Patient did well alternating legs with single railing today. Patient/Caregiver response to treatment: Patient/caregiver on board with PT Plan of Care as collaboratively established at PT Jocelyn and rhys timmons willingness to follow or consider implement i ng PT safety and mo bility recommendations along with exercise and mobility plan. Skilled PT is indicated for progressing mobility according to established goals related to medical complexity. TODAY: PT notes that the patient is more compliant with u se of walker. Plan for next visit: Frequency as ordered to continue 1w1. Next Sunday at 2 pm. Monitor effectiveness of drug therapy Problem:Mobility - [...] intake (increased water from 2 to 4 cups/day?). Continue 1w1 after noons as able and next visit Sunday at 2 PM. Lucie Toussaint, PT 08/21/25 Home Health Care Coordination Contacts Description: PCP: CHRIS FENTON PA-C Pharmacy: [id number] [place], [place] Oxygen Supply: [facility]/Pay Hvac Field Service Technician: TACO Problem:Home Health Goal Care Coordination Goal:Home Health Goal Care Coordination Scheduled Home Health Care Coordination Advanced Directive Description: Advanced Directive - on file Problem:Home Health Goal Care Coordination Goal:Home Health Goal Care Coordination Scheduled Coordination of Care Description: Coordinate visits with and provide status updates to Consumer Insights Intern Diet: Low Cholesterol, Low Fat and Low [...] HECTOR Pugh RN Coordinate Care with PATIENT, IMPORT AND EXPORT CLERK Problem:Agency Standards Goal:Agency Standards Performed Confirmed patient has recieved and understands plan of care Description: Patient acknowledged receipt of [facility] Plan of Care. Patient verbalizes understanding and all questions answered. Patient/Caregiver has MyChart and ability to access: yes; If no, e-mail HHS_Status Change to mail patient copy of POC. Problem:Agency Standards Goal:Agency Standards Scheduled Inability to care for self-help needs Problem:Self abuse susceptibility Goal:Self Abuse Susceptibility Scheduled documented in this encounter
--- OUTSIDE RECORDS SUMMARY | 2025-08-24 14:00 | XMS_ITS | Encounter Summary ---
Author Organization [facility] Address [address] [address] Phone Care Team Providers Care Gem Technician Name Role Phone Unavailable Primary Care Provider Unavailabl e Reason for Visit * Reason Comments Elevated INR * Auth/Cert (Routine) Specialty Diagnoses / Procedures Referred By Contac t Referred To Contact Referral ID Status Reason Start Date Expiration Date Visits Re quested Visits Authorized [id number] 1 20 Encounter Details Date Type Department Care Team (Late st Contact Info) Description 08/24/2025 2:00 PM SCHOOL BUS TECHNICIAN Home Care Visit [facility] [address] [place] [phone] Emperatriz Monahan, RN SN HOME VISIT Social [...] materials from doctor or pharmacy Sometimes 07/24/2025 [facility] Utilities Answer Date Recorded In the [...] any time in the past 12 m [facility], were you homeless or living in a fdc (including now)? No 07/16/2025 IP Custom IPV [...] Sign Reading Time Taken Comments Blood Pressure 82/58 08/24/2025 2:00 PM SCHOOL BUS TECHNICIAN Pulse 51 08/24/2025 2:00 PM SCHOOL BUS TECHNICIAN Temperature - - Respiratory Rate 14 08/24/2025 2:00 PM SCHOOL BUS TECHNICIAN Oxygen Saturation 95% 08/24/2025 2:00 PM SCHOOL BUS TECHNICIAN Inhaled Oxygen Concentration - - Weight - [...] st Contact Info) Description 09/16/2025 2:00 AM SCHOOL BUS TECHNICIAN Appointment [facility] [address] [address] Emperatriz Monahan RN documented as of this encounter Visit Diagnoses Not on filedocumented in this encounter Home Health Visit - Care Plan Visit Details Visit Type - Home Visit Discipline -Care Home Problems Problem Description Start Date Status Goals [...] draws, stool, urine, & tissue 08/05/2025 Active - 1 problem intervention scheduled/document ed in this visit Self abuse susceptibility Disciplines: Skilled Clinicians, Skilled III 08/06/2025 Active 1 goal linked to scheduled/documen fan intervention 1 goal intervention scheduled/document ed in this visit Monitor Oxygen Saturation Disciplines: 08/24/2025 Active 1 goal linked to scheduled/documen fan [...] Self Abuse Susceptibility Self abuse susceptibility No Obtain Pulse Oximetry Description: Patient will demonstrate maintenance of oxygen saturation above 90% throughout episode of care. Monitor Oxygen Saturation No Interventions Intervention Associated Problem/Goal Status Variance [...] Contacts Description: PCP: CHRIS FENTON PA-C Pharmacy: [facility] #[id number] [place], [place] Oxygen Supply: [facility]/Payer Horticultural Specialty Grower Field: TACO Problem:Home Health Goal Care Coordination Goal:Home [...] INFECTION Goal:Infection Prevention Scheduled Lab draw Description: Finger excise or venipuncture per MD orders/Coumadin Clinic Call results to : Other: [facility] Lab Order Last INR Results 6.4 Date last INR obtained 08/24/2025 Next INR Due 08/26/2025 Current Anticoagula tion Dose HOLD WARFARIN INR Goal 2.5-3.5 ICD-10 Diagnosis Code Z95.[address] [facility] CHRIS FENTON PA-C [phone] Fax results to CHRIS FENTON PA-C [phone] [facility] Orders Received Via Verbal telephone order on 08/24/2025 at 1605 Order received from (PCP and transcribers name) CHRIS FENTON PA-C Nurse Receiving Order SHERITA Carr Problem:Anticoagulation Therapy Goal:Anticoagulation Therapy Performed Evaluate for [...] care Description: Patient acknowledged receipt of [facility] Plan of Care. Patient verbalizes understanding and all questions answered. Patient/Caregiver has MyChart and ability to access: yes; If no, e-mail HHS_Status Change to mail patient copy of POC. Problem:Agency Standards Goal:Agency Standards Scheduled Coordination of Care Description: Coordinate visits with and provide status updates to Engine Dynamometer Tester Diet: Low Cholesterol, Low Fat and Low [...] HECTOR Pugh RN Coordinate Care with PATIENT, CLOTH FRAMER Problem:Agency Standards Goal:Agency Standards Scheduled Fall Prevention [...] - Instruct patient and caregiver to call warehouse operations manager or Nurse for furthe r instruction [...] related to falls through the episode Scheduled Lab draw Description: [facility] Lab Order Lab: BMP Date: 08/31/25 ICD10: I50.20 Fax results to ( Full name and number): Jim Patel MD [phone] Received from Mann MAGALLON on behalf of Jim Patel MD RN receiving and trans cribing order: Reyna MAGALLON Orders per Verbal telephone order on 08/24/25 at 1139. Problem:Need to collect specimen sample Scheduled Inability to care for self-help needs Problem:Self abuse susceptibility Goal:Self Abuse Susceptibility Scheduled Clinician obtain pulse oximetry Problem:Monitor Oxygen Saturation Goal:Obtain Pulse Oximetry Scheduled documented in this encounter
--- OUTSIDE RECORDS SUMMARY | 2025-08-25 14:30 | XMS_ITS | Encounter Summary ---
Author Organization [facility] Address [address] [address] Phone Care Team Providers Care Dumpster Operator Name Role Phone Unavailable Primary Care Provider Unavailabl e Reason for Visit * Reason Comments Memory Loss * Auth/Cert (Routine) Specialty Diagnoses / Procedures Referred By Mine t Referred To Contact Referral ID Status Reason Start Date Expiration Date Visits Re quested Visits Authorized [id number] 1 20 Encounter Details Date Type Department Care Team (Late st Contact Info) Description 08/25/2025 2:30 PM WAITER/WAITRESS CABIN CLASS Home Care Visit [facility] [address] [address] Radha Martinez, OTR [address] [phone] OT HOME VISIT Social History Tobacco Use [...] doctor or pharmacy Sometimes 07/24/2025 [facility] Utilities Answer Date Recorded In the [...] any time in the past 12 m [facility], were you homeless or living in a senior living (including now)? No 07/16/2025 IP Custom IPV [...] Case Communication - Radha Martinez, OTR - 08/25/2025 8:02 PM CSTI have 2 PRN visit availible to extend patient's visit out to provide his daughter that moved in some additional training and education. Do either of you have a need to extend him a couple of more weeks? ER/WAITRESS CABIN CLASS documented in this encounter Plan of Treatment Upcoming Encounters Date Type Department Care Team (Late st Contact Info) Description 09/16/2025 2:00 AM WAITER/WAITRESS CABIN CLASS Appointment [facility] [address] [place] [phone] Emperatriz Monahan RN documented as of this [...] AE as needed OT Decreased ADLS No Self Abuse Susceptibility Self abuse susceptibility No Interventions Intervention Associated Problem/Goal Status Variance Visit Notes Home Health Care Coordination Contacts Description: PCP: CHRIS FENTON PA-C Pharmacy: [facility] #[id number] - [place], [place] Oxygen Supply: [facility]/Payer President Of [place]: TACO Problem:Home Health Goal Care Coordination Goal:Home [...] of care Description: Patient acknowledged receipt of [facility] Plan of Care. Patient verbalizes understanding and all questions answered. Patient/Caregiver has MyChart and ability to access: yes; If no, e-mail HHS_Status Change to mail patient copy of POC. Problem:Agency Standards Goal:Agency Standards Performed Coordination of Care Description: Coordinate visits with and provide status updates to Glassware Verifier Diet: Low Cholesterol, Low Fat and Low [...] HECTOR Pugh RN Coordinate Care with PATIENT, ALTERNATIVE EDUCATION TEACHER Problem:Agency Standards Goal:Agency Standards Performed INSTRUCT ON [...] Decreased ADLS Goal:OT Decreased ADLs Performed Patient reports that he wants to get strong enough to head [place] and stay with his girlfriend at the end of September. Edu on having supervision for showering and had him demonstrate shower transfer with daughter present. Daughter is concerned about his bed and ask OT's recommendnations for a new bed. Edu on positioning the bed to allow better access to the bedroom and new recliner chair. Also recommended a normal mattress with a bed rail to maximize his safety and use of his UE to get into and out of the bed. Patient was given the Cognitive Performace Test (CPT) this date. The total score was 4.75 /5.6 The four sub-test are as follows. Medbox= 4.5 Shop=5.0 Wash=4.5 Phone=5.0 INSTRUCT PATIENT ON HOME EXERCISE PROGRAM Description: Instruct patient on home exercise program Problem:OT Decreased ADLS Goal:OT Decreased ADLs Performed Monitor effectiveness of drug therapy Problem:OT Decreased ADLS Performed Evaluate for any medication changes Problem:OT Decreased ADLS Performed Inability to care for self-help needs Problem:Self abuse susceptibility Goal:Self Abuse Susceptibility Performed documented in this encounter
--- OUTSIDE RECORDS SUMMARY | 2025-08-26 12:00 | XMS_ITS | Encounter Summary ---
Author Organization [facility] Address [address] [address] Phone Care Team Providers Care Sales Systems Engineer Name Role Phone Unavailable Primary Care Provider Unavailabl e Reason for Visit * Reason Comments Elevated INR * Auth/Cert (Routine) Specialty Diagnoses / Procedures Referred By Contac t Referred To Contact Referral ID Status Reason Start Date Expiration Date Visits Re quested Visits Authorized [id number] 1 20 Encounter Details Date Type Department Care Team (Late st Contact Info) Description 08/26/2025 12:00 PM SKI TOW OPERATOR Home Care Visit [facility] [address] [place] [phone] Emperatriz Monahan, RN SN HOME VISIT Social [...] any time in the past 12 m [facility], were you homeless or living in a care home (including now)? No 07/16/2025 IP Custom [...] Sign Reading Time Taken Comments Blood Pressure 80/50 08/26/2025 12:03 PM SKI TOW OPERATOR Pulse 56 08/26/2025 12:03 PM SKI TOW OPERATOR Temperature - - Respiratory Rate 14 08/26/2025 12:03 PM SKI TOW OPERATOR Oxygen Saturation 97% 08/26/2025 12:03 PM SKI TOW OPERATOR Inhaled Oxygen Concentration - - Weight - [...] st Contact Info) Description 09/16/2025 2:00 AM SKI TOW OPERATOR Appointment [facility] [address] [address] Emperatriz Monahan RN documented as of this [...] in sodium. Problem:Fluid Retention Goal:Fluid Retention Scheduled Notify physician Description: Instruct patient/caregiver on how to identify abnormal readings and when it is appropriate/necessary to contact physician, or when to call 911. Problem:Fluid Retention Goal:Fluid Retention Scheduled Instruct daily log Description: SN to develop weight diary for patient to record DAILY readings. Instruct patient to monitor and record weight on log. Problem:Fluid Retention Goal:Fluid Retention Scheduled Clinician obtain pulse oximetry Problem:Monitor Oxygen Saturation Goal:Obtain Pulse Oximetry Performed Home Health Care Coordination Discharge Planning Description: Discharge planning discussed with patient and caregiver. Problem:Home Health Goal Care Coordination Goal:Home Health Goal Care Coordination Performed Home Health Care Coordination Contacts Description: PCP: CHRIS FENTON PA-C Pharmacy: [facility] #[id number] [place], [place] Oxygen Supply: [facility]/Payer Paint Tester: TACO Problem:Home Health Goal Care Coordination Goal:Home [...] prevention strategies. Problem:Safety concerns Goal:Safety Concerns Performed Instruct on pain management techniques Description: Instruct in pharmacologic and nonpharmacologic pain management techniques. Problem:Pain Goal:Pain Performed Skilled assessment pain Description: Assess pain (see results on form) Problem:Pain Goal:Pain Scheduled Instruct infection prevention Description: Instruct patient/caregiver in strategies to prevent infection frequent/proper hand-washing techniques, Standard precautions, avoid crowds and persons with known infections, staying current with immunizations, s/s of infection and encourage adequate diet and fluid intake Problem:RISK OF INFECTION Goal:Infection Prevention Scheduled Lab draw Description: Finger excise or venipuncture per MD orders/Coumadin Clinic Call results to : Other: [facility] Lab Order Last INR Results 2.8 Date last INR obtained 08/26/2025 Next INR Due 09/02/2025 Current Anticoagula tion Dose 3mg MWF, 6mg all other days INR Goal 2.5-3.5 ICD-10 Diagnosis Code Z95.2 Call results to [facility] CHRIS FENTON PA-C [phone] Fax results to CHRIS FENTON PA-C [phone] [facility] Orders Received Via Verbal telep alexa order on 08/26/2025 at 1645 Order received from (PCP and transcribers name) [...] of care Description: Patient acknowledged receipt of [facility] Plan of Care. Patient verbalizes understanding and all questions answered. Patient/Caregiver has MyChart and ability to access: yes; If no, e-mail HHS_Status Change to mail patient copy of POC. Problem:Agency Standards Goal:Agency Standards Scheduled Coordination of Care Description: Coordinate visits with and provide status updates to Advertisement Distributor Diet: Low Cholesterol, Low Fat and Low [...] HECTOR Pugh RN Coordinate Care with PATIENT, PEN AND PENCIL REPAIRER Problem:Agency Standards Goal:Agency Standards Scheduled Fall Prevention [...] - Instruct patient and caregiver to call frozen food department manager or Nurse for furthe r instruction [...] through the episode Scheduled Lab draw Description: [facility] Lab Order Lab: BMP Date: 08/31/25 ICD10: I50.20 Fax results to ( Full name and number): Jim Patel MD [phone] Received from Mann MAGALLON on behalf of Jim Patel MD RN receiving and trans cribing order: Reyna MAGALLON Orders per Verbal telephone order on 08/24/25 at 1435. Problem:Need to collect specimen sample Scheduled Inability to care for self-help needs Problem:Self abuse susceptibility Goal:Self Abuse Susceptibility Performed Clinician obtain pulse oximetry Problem:Monitor Oxygen Saturation Goal:Obtain Pulse Oximetry Scheduled documented in this encounter
--- OUTSIDE RECORDS SUMMARY | 2025-08-28 13:00 | XMS_ITS | Encounter Summary ---
Author Organization [facility] Address [address] [address] Phone Care Team Providers Care [place] Name Role Phone Unavailable Primary Care Provider Unavailabl e Reason for Visit * Reason Comments Gait Disorder * Auth/Cert (Routine) Specialty Diagnoses / Procedures Referred By Mine t Referred To Contact Referral ID Status Reason Start Date Expiration Date Visits Re quested Visits Authorized [id number] 1 20 Encounter Details Date Type Department Care Team (Latest Contact Info) Description 08/28/2025 1:00 PM DATE NIGHT SITTER Home Care Visit [facility] [address] [id number] Lucie Toussaint, PT [address] [phone] PT DISCIPLINE DISCHARGE Social History Tobacco Use Types Packs/Day Years [...] any time in the past 12 m [facility], were you homeless or living in a [...] Taken Comments Blood Pressure - - Pulse 57 08/28/2025 1:20 PM DATE NIGHT SITTER Temperature - - Respiratory Rate - - Oxygen Saturation 99% 08/28/2025 1:20 PM DATE NIGHT SITTER Inhaled Oxygen Concentration - - Weight - [...] Case Communication - Lucie Toussaint, PT - 08/28/2025 6:17 PM CSTPT DISCHARGE FUNCTIONAL OASIS COLLABORATION: (* denotes a Star item) M2020 Management of Oral Medications: 3 M1400 Dyspnea*: 0 M1830 Bathing*: 3 M1840 Toilet Transferrin M1850 Transferring*: 0 M1860 Locomotion*: 2 J0510 Pain Effect on Sleep. 1 J0520 Pain Interference with Therapy Activities. 1 J0530 Pain Interference with Day-to-Day Activities. 1 ABBREVIATED INSTRUCTIONS: 06. Independent, 05. Setup or clean-up assistance, 04. Supervision or touching assistance, 03. Partial/moderate assistance, 02. Substantial/maximal assistance, 01. Dependent. If activity was not attempted, code reason: 07. Patient refused, 09. Not applicable, 10. Not attempted due to environmental limitations, 88. Not attempted due to medical conditions or safety concerns. X= Blank. CODING [id number] Mobility: 3. Discharge Performance A. Roll left and right: 6 B. Sit to lyin C. Lying to sitting on side of bed: 6 D. Sit to stand: 6 E. Chair/bvr-wa-feyfn transfer: 6 F. Toilet transfer: 6 G. Car Transfer: 6 I. Walk 10 feet: 6 J. Walk 50 feet with two turns: 6 K. Walk 150 feet: 6 L. Walking 10 feet on uneven surfaces: 5 M. 1 step (curb): 5 N. 4 steps: 5 O. 12 steps: 5 P. Picking up object: 5 Q. Does patient use wheelchair and/or scooter? No NIGHT SITTER * Case Communication - Lucie Toussaint, PT - 08/28/2025 6:17 PM CSTDISCIPLINE DISCHARGE SUMMARY Name: Domo Guzman : 50 Service(s) discharged: PT Date of Discipline Discharge: 08/28/25 Disciplines still involved: Nursing and OT Summary of care provided: Physical Therapy evaluation and treatment for mobility progression, gait and transfer training, exercise establishment for lower extremity strength and balance, pain monitoring and management, and fall prevention. Discharge appropriate due to the following: Outcomes met. Prior Level of Function (at Start of Service): Using walker and needs some hands-on assist for stability with toilet and low chair transfers, and to determine safe walker placement when approaching bed and toilet and shower and chairs. SOB and fatigue limiting endurance. Current Level of Function/Progress towards goals: Standby assist and/or setup for mobility outdoorsand on stairs with independent use of four wheeled seated walker on level surfaces in the home. INdependent transfers to bed, lift recliner, chairs, toilet and shower seat. Discharge instructions provided to patient/caregiver: Continue with PT home exercise and walking plan as provided. Use of walker is recommended for all ambulation. Standby assist for stair navigationwith railing is recommended. Follow up recommendations/plans inplace: Continue with medical appointments as advised. Thank you for this referral. NIGHT SITTER documented in this encounter Plan of Treatment Upcoming Encounters Date Type Department Care Team (Late st Contact Info) Description 09/16/2025 2:00 AM DATE NIGHT SITTER Appointment [facility] [address] [place] [phone] Emperatriz Monahan, RN documented as of this encounter Visit Diagnoses Not on filedocumented in this encounter Home Health Visit - Care Plan Visit Details Visit Type -PT Discipline Shyla brown Discipline -Physical Therapy Problems Problem Description Start [...] PCP visit and starting as needed. 07/24/2025 Resolved on 08/28/2025 - 4 problem interventions scheduled/documen blas in this visit Home Health Goal Care Coordination Disciplines: Skilled II 07/24/2025 Active 1 goal linked to scheduled/docume nted intervention 3 goal interventions scheduled/documen blas in this visit Agency Standards Disciplines: Skilled III 07/24/2025 Active 1 goal linked to scheduled/docume nted intervention 2 goal interventions scheduled/documen blas in this visit Self abuse susceptibili ty Disciplines: Skilled Clinicians, Skilled III 08/06/2025 Active 1 goal linked to scheduled/docume nted intervention 1 goal intervention scheduled/documen blas in [...] INTERVENTIONS: EDUCATION PLAN: Use repetition, demo and return-dem onstration, written and ill ustrated information for exercises, and involve caregiver(s) as appropriate to reinforce teaching items. EXERCISE: Establish, instruct, and angel luis tor effectiveness and follow through of home exercise program. Incorporate seate d, supine, standing and sit to stand exercises for strength and balance with progressed and provision of written instructions. Instruct in a home walking plan and progre ss as able. TODAY: Re-instructed in technique for the HEP as follows standing at ra iling: Marches, Knee bends, Hip abductions, Heel and Toe raises, and heel cord stretches. 15 reps each except stretching for 10 secondes 3 times each leg. PT encouraged bautista mansfield to stand tall and demonstrated the exercises for his daughter who will be a primary caregiver in the home. PT has recommended twice daily exercises building to 20 reps for strength and balance progression as able. FALL RISK: Assess and instruct in modifications to reduce risk of falls. Teach and monitor safe and proper use of assistive dev ices (walker), keeping pathways well-lit and cl ear of clutter with throw rugs removed, and use of non-slip supportive footwear. TODAY: Patient has new lif t recliner and demonstrated use with PT present. PT recommended tennis shoes vs maccasin style slippers, especially to leave home which patient concurs with. PAIN: Assess and teach interventions for pain management. Include positioning strateg ies, saf e mobility practices, a nd activity pacing for proper rest to support healing. TRANSFERS: Assess and train in safe transfer technique to access and rise from toilet, shower/bath, bed, chairs and vehicle. TODAY: Trial of bed on lower level of home whrosa m sethi is too short though easier to move on than his water b ed. A standard style bed with frame for handhol d would be suitable and recommendedc for this patient. PT educated patient and his sister who was present today. GAIT: Assess, teach and p rogress safe ambulation utilizing appropriate device(s) as determined appropriate for navigating indoor and outdo or terrain and stairs as indicated to maximize independence. TODAY: Patient ambulated for 10 minutes with detention rest outdoors on trail near e home, with gait belt on and PT providing standby assist as patient used his four wheeled seated walker for navigating the distance and demonstrating good heel strike and toe off. He began shuffling his heel after walking for 5 minutes and PT encourage d the patient to more gently raise and set down his heel when stepping, which he could do with encouragement. Patient/Caregiver response to treatment: Patient/caregiver on board [...] that the patient is more compliant with use of walker and his daughter, who now lives with him, reminds him to use it if he does not remember or tries not to use it. Monitor effectiveness of drug therapy Problem:Mobility - [...] Coordination Goal:Home Health Goal Care Coordination Performed DC PT today as planned. Home Health Care Coordination Contacts Description: PCP: CHRIS FENTON PA-C Pharmacy: [id number] - [place] O[place]: [place] Home Care Attendant: TACO Problem:Home Health Goal Care Coordination Goal:Home Health Goal Care Coordination Scheduled Home Health Care Coordination Advanced Directive Description: Advanced Directive - on file Problem:Home Health Goal Care Coordination Goal:Home Health Goal Care Coordination Scheduled Coordination of Care Description: Coordinate visits with and provide status updates to Entry Level Electrician Diet: Low Cholesterol, Low Fat and Low [...] HECTOR Pugh RN Coordinate Care with PATIENT, MANAGER COMMUNITY RELATIONS Problem:Agency Standards Goal:Agency Standards Performed Confirmed patient [...]
--- OUTSIDE RECORDS SUMMARY | 2025-09-01 14:45 | XMS_ITS | Encounter Summary ---
Author Organization [facility] Address [address] [address] Phone Care Team Providers Care Bilingual Patient Support Caseworker Name Role Phone Unavailable Primary Care Provider Unavailabl e Reason for Visit * Auth/Cert (Routine) Specialty Diagnoses / Procedures Referred By Mine t Referred To Contact Referral ID Status Reason Start Date Expiration Date Visits Re quested Visits Authorized [id number] 1 20 Encounter Details Date Type Department Care Team (Latest Contact Info) Description 09/01/2025 2:45 PM INDUSTRIAL AUTOMATION SPECIALIST Home Care Visit [facility] [address] [phone] Radha Martinez, OTR [address] [phone] OT DISCIPLINE DISCHARGE Social History Tobacco Use Types [...] materials from doctor or pharmacy Sometimes 07/24/2025 [facility] Utilities Answer Date Recorded In the [...] any time in the past 12 m [facility], were you homeless or living in a residential (including now)? No 07/16/2025 IP Custom IPV [...] Assessment Author Yes 07/16/2025 10:41 PM SHANNONT Vnanesa Martins documented as of this encounter Mental Status * Patient's Judgment Adequate to Safely Complete Daily Activities Answer Entry Date Author Yes 07/16/2025 10:41 PM CDT Vannesa Martins documented in this encounter Miscellaneous Notes * Case Communication - Radha Martinez, OTR - 09/02/2025 11:49 AM INDUSTRIAL AUTOMATION SPECIALIST DISCIPLINE DISCHARGE SUMMARY Name: Domo Guzman : 1950 Service(s) discharged: Occupational Therapy Date of Discipline Discharge: 09/01/25 Disciplines still involved: SN Summary of care provided: Patient was seen for five sessions to address self cares, home safety, medication management, cognition and UE strengthening. He was given the SLUMs () and CPT (4.75/5.6) both demonstrated cognitive deficits. He has a home exercises program to complete. His daughter recently moved in with him and is providing assist and supervision as needed. Discharge appropriate due to the following: Outcomes met. Maximum potential has been met Prior Level of Function (at Start of Service): walking is more difficult, showering takes more energy and assist - daughter and brother are helping out in home - has meals being delivered, meds are completed by the family Current Level of Function/Progress towards goals: He has made progress toward his goals but continues to need assist for safety and higher level ADLs(medication management & medical management). Goals: Patient will be independent with bathing task - MET - due to fall risk he should have supervision Patient will be able to use pacing and energy conservation to complete meal prep and household tasks.- Not met - daughter is completing meal prep and household tasks Patient will be indep with LE dressing using AE as needed - MET - he is able to dress himself Discharge instructions provided to patient/caregiver: Complete UE exercises daily using resistive band and handout. Have assist for medication management, workday financials consultant, medical management forsafety. Have supervision for bathing and place non-slip mats outsideof the shower. Use your walker all of the time for safety and energy conservation. Follow up recommendations/plans in place: Patient may replace his shower to allow him to increased space for a shower chair and permanent grab bars. Thank you for this referral. OT DISCHARGE SELF-CARE COLLABORATION: M1400 Dyspnea*:1 M1740 Cognitive, Behavioral, Psychiatric Symptoms: 1,2 M1830 Bathing*: 2 M1840 Toilet Transferrin M2020 Management of Oral Medications: 2 J0510 Pain Effect on Sleep. 0 J0520 Pain Interference with Therapy Activities. 1 [...] conditions or safety concerns. X= Blank. CODING [id number] Self-Care: 2. Discharge Performance A. Eatin B. Oral Hygiene: 6 C. Toileting Hygiene: 6 E. Shower/bathe self: 4 F. Upper body dressin G. Lower body dressin H. Putting on/taking off footwear: 5 STRIAL AUTOMATION SPECIALIST documented in this encounter Plan of Treatment Upcoming Encounters Date Type Department Care Team (Late st Contact Info) Description 09/16/2025 2:00 AM INDUSTRIAL AUTOMATION SPECIALIST Appointment [facility] [address] [place] [address] Emperatriz Monahan RN documented as of this encounter Visit Diagnoses Not on filedocumented in this encounter Home Health Visit - Care Plan Visit Details Visit Type -OT Discipline Di scharleonardo Discipline -Occupational Therapy Problems Problem Description Start [...] as needed OT Decreased ADLS Progressing No Self Abuse Susceptibility Self abuse susceptibility No Interventions Intervention Associated Problem/Goal Status Variance Visit Notes Home Health Care Coordination Contacts Description: PCP: CHRIS FENTON PA-C Pharmacy: [id number] [place], [place] Oxygen Supply: [facility]/Payer Air Pollution Engineer: TACO Problem:Home Health Goal Care Coordination Goal:Home Health Goal Care Coordination Scheduled Home Health Care Coordination Advanced Directive Description: Advanced Directive - on file Problem:Home Health Goal Care Coordination Goal:Home Health Goal Care Coordination Scheduled Home Health Care Coordination Discharge Planning Description: [...] visits with and provide status updates to Shipping Room Supervisor Diet: Low Cholesterol, Low Fat and [...] HECTOR Pugh RN Coordinate Care with PATIENT, ACETYLENE OPERATOR Problem:Agency Standards Goal:Agency Standards Scheduled INSTRUCT ON HOMEMAKING AND PERSONAL CARE ACTIVITIES [...] SLUMS Problem:OT Decreased ADLS Goal:OT Decreased ADLs Scheduled INSTRUCT PATIENT ON HOME EXERCISE PROGRAM Description: Instruct patient on home exercise program Problem:OT Decreased ADLS Goal:OT Decreased ADLs Scheduled Monitor effectiveness of drug therapy Problem:OT Decreased ADLS Scheduled Evaluate for any medication changes Problem:OT Decreased ADLS Scheduled Inability to care for self-help needs Problem:Self abuse susceptibility Goal:Self Abuse Susceptibility Scheduled documented in this encounter
--- OUTSIDE RECORDS SUMMARY | 2025-09-01 19:20 | XMS_ITS | Encounter Summary ---
Author Organization [facility] Address [address] [address] Phone Care Team Providers Care Consumer Affairs Specialist Name Role Phone Unavailable Primary Care Provider Unavailabl e Encounter Details Date Type Department Care Team (Late st Contact Info) Description 09/01/2025 7:20 PM SILVER SPRAY WORKER Office Visit [facility] [address] [place] [address] Zelalem Leon PA-C [id number] [place] [address] Laceration of left earlobe, initial encounter (Primary Dx) Social History Tobacco Use Types Packs/Day Years [...] materials from doctor or pharmacy Sometimes 07/24/2025 [facility] Utilities Answer Date Recorded In the [...] any time in the past 12 m [facility], were you homeless or living [...] Sign Reading Time Taken Comments Blood Pressure 137/89 09/01/2025 7:26 PM SILVER SPRAY WORKER Pulse 74 09/01/2025 7:26 PM SILVER SPRAY WORKER Temperature 36.2 C (97.1 F) 09/01/2025 7:26 PM SILVER SPRAY WORKER Respiratory Rate 20 09/01/2025 7:26 PM SILVER SPRAY WORKER Oxygen Saturation 99% 09/01/2025 7:26 PM SILVER SPRAY WORKER Inhaled Oxygen Concentration - - Weight 66.7 kg (147 lb) 09/01/2025 7:26 PM SILVER SPRAY WORKER Height - - Body Mass Index 22.35 07/24/2025 1:20 PM CDT documented in this [...] Date Author Yes 07/16/2025 10:41 PM CDT aVnnesa Martins documented in this encounter Patient Instructions * Patient Instructions* Zelalem Leon PA-C - 09/01/2025 7:20 PM SILVER SPRAY WORKER Please proceed to the emergency department for further evaluation of your head injury. Gently cleanse the area once daily followed by antibiotic ointment. See your primary care in 24-48hrs for re-evaluation. Follow-up in 7 days for suture removal. Do not get the area wet. Monitor for ear swelling and be seen if present. Monitor for signs of infection (redness, swelling,warmth, drainage, increased pain, fevers) and be seen urgently if present. Tylenol/ibuprofen for pain. Wound care dressing plan as discussed. Follow up with primary care for persistent symptoms. ER SPRAY WORKER ER SPRAY WORKER ER SPRAY WORKER documented in this encounter Progress Notes * Zelalem Leon PA-C - 09/01/2025 7:20 PM CSTAssociated Order(s): Laceration Repair [facility] Office Visit Subjective Chief complaint: No chief complaint on file. Domo is a 75 year old male with a significant past medical history of HFrEF, mitral valve replacement (on warfarin), supratherapeutic INR (last INR 6.2) Parkinson's disease, thrombocytopenia presenting today for evaluation of a laceration to his left ear after falling while walking to the bathroom without his walker around 6pm. Patient states that he overall feels normal. History provided by: Patient and son in law. Pt was going to the bathroom and he missed a step and fell and hit his left ear Last tdap was in 2014 Review of Systems All ROS findings are negative except as listed in the HPI. Past Medical History Patient Active Problem List Diagnosis Hx of mitral valve replacement with mechanical valve Mitral valve disorder Parkinson's disease (HCC) Thrombocytopenia (HCC) HFrEF (heart failure with reduced ejection fraction) (HCC) Supratherapeutic INR No Known Allergies No past surgical history on file. Objective Jump to Vitals Flowsheets BP 137/89 Pulse 74 Temp 36.2 ??C (97.1 ??F) Resp 20 Wt 66.7 kg (147 lb) SpO2 99% BMI 22.35 kg/m?? Physical Exam Vitals and nursing note reviewed. Constitutional: General: He is not in acute distress. Appearance: Normal appearance. He is not ill-appearing, toxic-appearing or diaphoretic. HENT: Head: Normocephalic and atraumatic. Pulmonary: Effort: Pulmonary effort is normal. Skin: Comments: Approximately 4.5 cm irregular laceration through the cutaneous tissue on the left auricle. Perichondrium was exposed but not visible disrupted Hemostasis achieved. No bruising, foreign bodies, contamination, tissue loss or other exposed underlying structures present. Neurological: Mental Status: He is alert. Psychiatric: Mood and Affect: Mood normal. Behavior: Behavior normal. Thought Content: Thought content normal. Judgment: Judgment normal. No results found. Laceration Repair Date/Time: 09/01/2025 8:50 PM Performed by: Zelalem Leon PA-C Authorized by: Zelalem Leon PA-C Body area: head/neck Location details: left ear Laceration length: 4.5 cm Foreign bodies: no foreign bodies Tendon involvement: none Nerve involvement: none Vascular damage: no Anesthesia method: auricular block. Anesthesia: Local Anesthetic: lidocaine 1% without epinephrine Anesthetic total: 5 mL Preparation: Patient was prepped and draped in the usual sterile fashion. Irrigation solution: saline Irrigation method: syringe Amount of cleaning: extensive Debridement: none Degree of undermining: none Skin closure: 6-0 nylon Number of sutures: 9 Technique: simple Approximation: close Approximation difficulty: simple Dressing: antibiotic ointment (non-adherent pad) Patient tolerance: patient tolerated the procedure well with no immediate complications Imaging No results found. Labs No results found for this or any previous visit (from the past 12 hours). Assessment/Plan 1. Laceration of left earlobe, initial encounter (Primary) - TDAP, TETANUS, DIPHTHERIA, PERTUSSIS 7+ YRS, BOOSTRIX - Laceration Repair Patient is being transferred to a higher level of care at the [place] [facility]. Case has been discussed with the ED. Vitals are stable. Patient is on anticoagulation and incurred head trauma earlier today from a fall around 6pm. The laceration has been repaired and tetanus vaccination administered. Patient/family declines ambulance transport. Questions were answered to the best of my ability. Patient/family verbalized their understanding ofand agreement with this plan. See patient instructions for additional details. Zelalem Leon PA-C This note was transcribed using voice recognition software and as a result may contain minor grammatical errors and unintended word substitutions. ER SPRAY WORKER * Zelalem Leon PA-C - 09/01/2025 7:20 PM CST Patient examined and risks explained. I have examined the patient and explained to the patient the risks and benefits of being transferred/refusing transfer. Based upon the reasonable risks and benefits to the patient and/or unborn child(sanchez), and based upon the information available at the time of the patient's examination. I certify that (1) the medical benefits reasonably to be expected from the provision of appropriatemedical treatment at another facility outweigh the risk, if any, to the individual's condition fromaffecting the transfer and (2) for stabilized patients, within reasonable medical probability the transfer creates no medical hazard to the patient. ER SPRAY WORKER documented in this encounter Miscellaneous Notes * Clinical Note - Minoo Mayorga RMA - 09/01/2025 7:20 PM CST Pt was going to the bathroom and he missed a step and fell and hit his left ear Last tdap was in 2014 ER SPRAY WORKER documented in this encounter Plan of Treatment Upcoming Encounters Date Type Department Care Team (Late st Contact Info) Description 09/16/2025 2:00 AM SILVER SPRAY WORKER Appointment [place] [id number] [address] Emperatriz Monahan RN documented as of this encounter Procedures Procedure Name Priority Date/Time Associated Diagnosis Comments LAYR CLOS WND FACE,FACIAL 2.5-5 Routine 09/01/2025 8:50 PM SILVER SPRAY WORKER Laceration of left earlobe, initial encounter documented in this encounter Results * LAYR MODE WND FACE,FACIAL 2.5-5 (09/01/2025 8:50 PM SILVER SPRAY WORKER) Narrative Zelalem Leon PA-C - 09/01/2025 8:50 PM SILVER SPRAY WORKER Zelalem Leon PA-C 09/01/2025 8:55 PM Laceration Repair Date/Time: 09/01/2025 8:50 PM Performed by: Zelalem Leon PA-C Authorized by: Zelalem Leon PA-C Body area: head/neck Location details: left ear Laceration length: 4.5 cm Foreign bodies: no foreign bodies Tendon involvement: none Nerve involvement: none Vascular damage: no Anesthesia method: auricular block. Anesthesia: Local Anesthetic: lidocaine 1% without epinephrine Anesthetic total: 5 mL Preparation: Patient was prepped and draped in the usual sterile fashion. Irrigation solution: saline Irrigation method: syringe Amount of cleaning: extensive Debridement: none Degree of undermining: none Skin closure: 6-0 nylon Number of sutures: 9 Technique: simple Approximation: close Approximation difficulty: simple Dressing: antibiotic ointment (non-adherent pad) Patient tolerance: patient tolerated the procedure well with no immediate complications Zelalem Leon PA-C NW PROCEDURE ORDERABLES Fin al Result documented in this encounter Visit Diagnoses Diagnosis Laceration of left earlobe, initial encounter- Primary documented in this encounter Orders Immunization/Injection Count Last Ordered Date First Ordered Date TDAP, TETANUS, DIPHTHERIA, P ERTUSSIS 7+ YRS, BOOSTRIX 1 09/01/2025 documented in this encounter
--- OUTSIDE RECORDS SUMMARY | 2025-09-01 21:32 | XMS_ITS | Encounter Summary ---
Author Organization [facility] Address [address] [address] Phone Care Team Providers Care Artist And Repertoire Manager Name Role Phone Unavailable Primary Care Provider Unavailabl e Reason for Visit * Reason Comments Fall Encounter Details Date Type Department Care Team (Late st Contact Info) Description 09/01/2025 9:32 PM NEW ACCOUNT INTERVIEWER - 09/02/2025 12:32 AM [facility] Emergency [facility] EMERGENCY DEPARTMENT [address] [place] [phone] Flower Davis MD [address] [place], [place] [phone] Laceration of left earlobe, subsequent encounter (Primary Dx) Discharge Disposition: Home and/or Self Care Social History Tobacco Use Types Packs/Day Years [...] materials from doctor or pharmacy Sometimes 07/24/2025 [facility] Utilities Answer Date Recorded In [...] any time in the past 12 m [facility], were you homeless or living in [...] Sign Reading Time Taken Comments Blood Pressure 151/99 09/02/2025 12:15 AM NEW ACCOUNT INTERVIEWER Pulse 60 09/02/2025 12:15 AM NEW ACCOUNT INTERVIEWER Temperature 36.5 C (97.7 F) 09/01/2025 9:16 PM NEW ACCOUNT INTERVIEWER Respiratory Rate 18 09/01/2025 9:16 PM NEW ACCOUNT INTERVIEWER Oxygen Saturation 97% 09/02/2025 12: 00 AM NEW ACCOUNT INTERVIEWER Inhaled Oxygen Concentration - - Weight 70.6 kg (155 lb 11.2 oz) 09/01/2025 9:16 PM NEW ACCOUNT INTERVIEWER Height - - Body Mass Index 23.67 07/24/2025 1:20 PM CDT documented in this encounter Functional Status * Patient's Vision Adequate to Safely Complete Daily Activities Answer Date of Assessment Author Yes 09/01/2025 10:41 PM NEW ACCOUNT INTERVIEWER Eliana Agustin RN * Patient's Memory Adequate to Safely Complete Daily Activities Answer Date of Assessment Author Yes 09/01/2025 10:41 PM NEW ACCOUNT INTERVIEWER Eliana Agustin RN documented as of this encounter Mental Status * Patient's Judgment Adequate to Safely Complete Daily Activities Answer Entry Date Author Yes 09/01/2025 10:41 PM NEW ACCOUNT INTERVIEWER Eliana Agustin RN documented in this encounter Discharge Instructions * Discharge Instructions* Flower Davis MD - 09/02/2025 12:11 AM NEW ACCOUNT INTERVIEWER You were seen in the ED for head injury. Your tests showed no bleeding in your brain, or fractures in your head or neck. Follow-up with your primary care provider if you have symptoms of concussion like headache, nausea,or irritability. If you continue to have frequent falls, I recommend following up with your neurologist for further management of your Parkinson's. Come back to the emergency department if you have severe headache, nausea or vomiting, or weakness and numbness in your arms and legs.. It was a pleasure to care for you today! ACCOUNT INTERVIEWER ACCOUNT INTERVIEWER documented in this encounter Medications at Time of Discharge sacubitril-valsa rtan (Entresto) 24-26 MG tablet tabletIndication s:Heart Failure Take 1 Tablet by mouth two times a day. discontinued Indications: Heart Failure sertraline (Zoloft) 50 MG tabletIndication s:Generalized Anxiety Disorder,Major Depressive Disorder Take 50 mg by mouth one time a day. Indications: Generalized Anxiety Disorder, Major Depressive Disorder 08/03/2025 magnesium oxide 400 (240 Mg) MG tabletIndication s:Hypomagnesemia Take 1 Tablet by mouth one time a day. Indications: Disorder with Low Magnesium Levels 30 Tablet 07/24/2025 senna-docusate (Senokot-S) 8.6-50 MG oral tabletIndication s:Constipation Take 2 Tablets by mouth two times a day as needed for Constipation. Indications: Constipation 30 Tablet 07/23/2025 spironolactone (Aldactone) 25 MG tabletIndication s:Hypertension,L eft Systolic Heart Failure Take 0.5 Tablets by mouth one time a day. Indications: High Blood Pressure, Left Systolic Heart Failure 30 Tablet 07/24/2025 torsemide (Demadex) 20 MG tabletIndication s:Edema,Heart Failure Take 1 Tablet by mouth one time a day. Indications: Edema, Heart Failure 30 Tablet 07/24/2025 levothyroxine (Synthroid) 75 MCG tabletIndication s:Hypothyroidism Take 75 mcg by mouth one time a day. Indications: Underactive Thyroid atorvaSTATin (Lipitor) 40 MG tabletIndication s:Hyperlipidemia Take by mouth every evening. Indications: High Amount of Fats in the Blood amantadine (Symmetrel) 100 MG capsuleIndicatio ns:Tardive Dyskinesia Take 100 mg by mouth two times a day. Indications: Tardive Dyskinesia carbidopa-levodo pa (SINEMET) 25-250 MG oral tabletIndication s:Parkinson's Disease Take 1 Tablet by mouth three times a day. Indications: Parkinson's Disease documented as of this encounter Discharge Disposition Disposition Code Departure Means Destination Comment s Home and/or Self [facility] documented in this encounter ED Notes * Edie Hearn RN - 09/02/2025 11:07 AM CST No PVC- patient has active home care and has a home visit today per encounters. ACCOUNT INTERVIEWER * Flower Davis MD - 09/01/2025 9:47 PM CST EMERGENCY DEPARTMENT PROVIDER NOTE Name: Domo Guzman Date of : 1950 SUBJECTIVE: Chief Complaint: Chief Complaint Patient presents with Fall History of Present Illness: Domo Guzman is a 75 year old male who presents for evaluation of head injury. He reports thathe has a history of mitral valve replacement on warfarin as well as Parkinson's disease. He presents to the emergency department, sent from urgent care after a fall with a head injury. He reports that he has Parkinson's, and stood up to go to the bathroom. When he stood up, he tripped and fell and hit his head. Patient denies headaches, nausea and vomiting, and has not noticed any new weakness and numbness in his arms or legs. He has not noticed any blurry vision. He was seen at urgent care earlier, where they repaired his seizure laceration. They then transferred him here for head CT. His tetanus was updated at urgent care. MEDICAL, SOCIAL, FAMILY HISTORY: Medical, social, and family history reviewed with patient and in chart. Social History[1] Patient Active Problem List Diagnosis Hx of mitral valve replacement with mechanical valve Mitral valve disorder Parkinson's disease (HCC) Thrombocytopenia (HCC) HFrEF (heart failure with reduced ejection fraction) (HCC) Supratherapeutic INR Past Medical History[2] No past surgical history on file. Current Outpatient Medications Medication Instructions amantadine (SYMMETREL) 100 mg, 2 TIMES DAILY atorvaSTATin (Lipitor) 40 MG tablet EVERY EVENING carbidopa-levodopa (SINEMET) 25-250 MG oral tablet 1 Tablet, 3 TIMES DAILY levothyroxine (SYNTHROID) 75 mcg, ONCE DAILY magnesium oxide 400 mg, Oral, ONCE DAILY sacubitril-valsartan (Entresto) 24-26 MG tablet tablet 1 Tablet, 2 TIMES DAILY senna-docusate (Senokot-S) 8.6-50 MG oral tablet 2 Tablets, Oral, 2 TIMES DAILY NEEDED sertraline (ZOLOFT) 50 mg, ONCE DAILY spironolactone (ALDACTONE) 12.5 mg, Oral, ONCE DAILY torsemide (DEMADEX) 20 mg, Oral, ONCE DAILY PHYSICAL EXAMINATION: Vital Signs: Vital Signs: Initial Vitals Most Recent Vitals Temp: 97.7 ??F (36.5 ??C) (09/01/252115) Temp: 97.7 ??F (36.5 ??C) (09/01/252115) Pulse: 58 (09/01/252115) Pulse: 58 (09/01/252115) Resp: 18 (09/01/252115) Resp: 18 (09/01/252115) BP: (!) 152/90 (09/01/252115) BP: (!) 152/90 (09/01/252115) General appearance: No acute distress HENT: Normocephalic. Laceration to left ear, with sutures in place. Neck: Trachea midline; FROM Chest: Normal respiratory effort and no intercostal retractions Extremities: No peripheral edema or apparent trauma Skin: Normal temperature, turgor and texture; no rash, ulcers Psych: Appropriate affect, alert and appropriately interactive. Neuro: Extraocular movements intact. No nystagmus. Pupils equally round and reactive to light. Cranial nerves grossly intact. Equal and normal sensation and strength in bilateral upper and lower extremities. ED COURSE, MEDICAL DECISION MAKING: Patient is a 75-year-old male with a history of Parkinson's and mitral valve replacement on warfarin who presents to the emergency department with fall and head injury. He has an ear laceration that has already been repaired by urgent care and his tetanus was updated there. Given his age, and fall on thinners, CT head and C-spine were ordered. He did not injure any other part of his body during the fall. Had low concern for intrathoracic, intraabdominal trauma or injuries to spine and extremities. His CT head and C-spine returned with no acute intracranial or cervical spine pathology. The patient's laceration appears to be well repaired. His tetanus was already been updated. Discussed CT results with patient and his son. Advised him to follow-up with their primary care provider for any symptoms of concussion. Recommended follow-up with neurologist if he continues to have frequent falls. Discussed return precautions for delayed head bleed, and advised patient return if he has any severe headache, nausea or vomiting, or focal neurodeficits. Patient and the son expressed understanding andagreement with the plan. He was discharged in stable condition. Data: All laboratory data, imaging, and EKGs were interpreted independently and reviewed as below. Labs Reviewed - No data to display Imaging Results CT CERVICAL SPINE WO IV CONTRAST (Preliminary result) Result time 09/01/25 23:58:43 Preliminary result by Mallorie Dutta MD (09/01/25 23:58:43) Narrative: EXAM: CT CERVICAL SPINE WO IV CONTRAST LOCATION: [facility] DATE: 09/01/2025 INDICATION: Neck trauma (age >=65y). COMPARISON: None. TECHNIQUE: Routine CT Cervical Spine without IV contrast. Multiplanar reformats. Dose reduction techniques were used. FINDINGS: VERTEBRA: Left apex curvature of the cervical spine. Multilevel degenerative listheses, resulting from bilateral facet arthropathy. The bones are diffusely demineralized. No evidence of an acute displaced fracture. CANAL/FORAMINA: Advanced facet arthropathy results in high-grade bilateral neural foraminal narrowing, asymmetric to the right. Multilevel mild canal stenosis. PARASPINAL: No prevertebral hematoma. Visualized portions of the lungs are clear. IMPRESSION: 1. No evidence of an acute displaced fracture. 2. Degenerative changes, as described. CT HEAD WO IV CONTRAST (Final result) Result time 09/01/25 23:54:50 Final result by Mallorie Dutta MD (09/01/25 23:54:50) Narrative: EXAM: CT HEAD WO IV CONTRAST LOCATION: [facility] DATE: 09/01/2025 INDICATION: Head trauma, minor (Age >= 65y) COMPARISON: None TECHNIQUE: Routine CT Head without IV contrast. Multiplanar reformats. Dose reduction techniques were used. FINDINGS: INTRACRANIAL CONTENTS: No intracranial hemorrhage, extraaxial collection, or mass effect. No CT evidence of acute infarct. 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 Mild to moderate presumed chronic small vessel ischemic changes. Moderate generalized volume loss. No hydrocephalus. VISUALIZED ORBITS/SINUSES/MASTOIDS: No intraorbital abnormality. No paranasal sinus mucosal disease. No middle ear or mastoid effusion. BONES/SOFT TISSUES: No acute abnormality. IMPRESSION: 1. No CT evidence for acute intracranial process. 2. Chronic changes as above. Electronically signed by: Mallorie Dutta MD 09/01/2025 11:54 PM NEW ACCOUNT INTERVIEWER FINAL CLINICAL IMPRESSION: (S01.312D) Laceration of left earlobe, subsequent encounter (primary encounter diagnosis) Discharge Prescriptions None Discharge Instructions You were seen in the ED for head injury. Your tests showed no bleeding in your brain, or fractures in your head or neck. Follow-up with your primary care provider if you have symptoms of concussion like headache, nausea, or irritability. If you continue to have frequent falls, I recommend following up with your neurologist for further management of your Parkinson's. Come back to the emergency department if you have severe headache, nausea or vomiting, or weakness and numbness in your arms and legs.. It was a pleasure to care for you today! [1] Social History Tobacco Use Smoking status: Never Smokeless tobacco: Never Vaping Use Vaping status: Never Used Substance Use Topics Alcohol use: Yes Alcohol/week: 6.0 standard drinks of alcohol Types: 6 Cans of beer per week Drug use: Not Currently [2] No past medical history on file. Flower Davis MD 09/02/25 0012 ACCOUNT INTERVIEWER * Kamala Chisholm RN - 09/01/2025 9:14 PM CST Patient presents with complaints of fall on thinners2 by private car from Home accompanied by son in law. Patients symptoms include: laceration to ear, no headahce, no neck back pain Symptom Onset: 1800 hours tonight Home Interventions: bandage to head. Pt. Was at urgent care. Additional Information: patient has parkinson's and was in a dark room got up to go to the bathroomand fell down hitting his head. Pt. Was checked out at urgent care, they wanted him to come over for a CT scan. ACCOUNT INTERVIEWER documented in this encounter Plan of Treatment Upcoming Encounters Date Type Department Care Team (Late st Contact Info) Description 09/16/2025 2:00 AM NEW ACCOUNT INTERVIEWER Appointment [address] [phone] Emperatriz Monahan, SHERITA documented as of this encounter Procedures Procedure Name Priority Date/Time Associated Diagnosis Comments CT CERVICAL SPINE WO IV CONTRAST STAT 09/01/2025 11:27 PM NEW ACCOUNT INTERVIEWER Laceration of left earlobe, subsequent encounter CT HEAD WO IV CONTRAST STAT 09/01/2025 11:27 PM NEW ACCOUNT INTERVIEWER documented in this encounter Results * CT CERVICAL SPINE WO IV CONTRAST (09/01/2025 11:27 PM NEW ACCOUNT INTERVIEWER) Anatomical Region Laterality Modality C-Spine, Spine Computed Tomogra phy 09/01/2025 11:1 7 PM NEW ACCOUNT INTERVIEWER Narrative 09/02/2025 12:15 AM NEW ACCOUNT INTERVIEWER EXAM: CT CERVICAL SPINE WO IV CONTRAST LOCATION: [facility] DATE: 09/01/2025 INDICATION: Neck trauma (age >=65y). COMPARISON: None. TECHNIQUE: Routine CT Cervical Spine without IV contrast. Multiplanar reformats. Dose reduction techniques were used. FINDINGS: VERTEBRA: Left apex curvature of the cervical spine. Multilevel degenerative listheses, resulting from bilateral facet arthropathy. The bones are diffusely demineralized. No evidence of an acute displaced fracture. CANAL/FORAMINA: Advanced facet arthropathy results in high-grade bilateral neural foraminal narrowing, asymmetric to the right. Multilevel mild canal stenosis. PARASPINAL: No prevertebral hematoma. Visualized portions of the lungs are clear. IMPRESSION: 1. No evidence of an acute displaced fracture. 2. Degenerative changes, as described. Electronically signed by: Mallorie Dutta MD 09/02/2025 12:15 AM NEW ACCOUNT INTERVIEWER Procedure Note Mallorie Dutta MD - 09/02/2025 EXAM: CT CERVICAL SPINE WO IV CONTRAST LOCATION: [facility] DATE: 09/01/2025 INDICATION: Neck trauma (age >=65y). COMPARISON: None. TECHNIQUE: Routine CT Cervical Spine without IV contrast. Multiplanarreformats. Dose reduction techniques were used. FINDINGS: VERTEBRA: Left apex curvature of the cervical spine. Multileveldegenerative listheses, resulting from bilateral facet arthropathy. The bones arediffusely demineralized. No evidence of an acute displaced fracture. CANAL/FORAMINA: Advanced facet arthropathy results in high-gradebilateral neural foraminal narrowing, asymmetric to the right. Multilevel mildcanal stenosis. PARASPINAL: No prevertebral hematoma. Visualized portions of the lungsare clear. IMPRESSION: 1. No evidence of an acute displaced fracture. 2. Degenerative changes, as described. Electronically signed by: Mallorie Dutta MD 09/02/2025 12:15 AM NEW ACCOUNT INTERVIEWER us Flower Davis MD EC CT ORDERABLES Final Result * CT HEAD WO IV CONTRAST (09/01/2025 11:27 PM NEW ACCOUNT INTERVIEWER) Anatomical Region Laterality Modality Head Computed Tomogra phy 09/01/2025 11:1 7 PM NEW ACCOUNT INTERVIEWER Narrative 09/01/2025 11:54 PM NEW ACCOUNT INTERVIEWER EXAM: CT HEAD WO IV CONTRAST LOCATION: [facility] DATE: 09/01/2025 INDICATION: Head trauma, minor (Age >= 65y) COMPARISON: None TECHNIQUE: Routine CT Head without IV contrast. Multiplanar reformats. Dose reduction techniques were used. FINDINGS: INTRACRANIAL CONTENTS: No intracranial hemorrhage, extraaxial collection, or mass effect. No CT evidence of acute infarct. 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 Mild to moderate presumed chronic small vessel ischemic changes. Moderate generalized volume loss. No hydrocephalus. VISUALIZED ORBITS/SINUSES/MASTOIDS: No intraorbital abnormality. No paranasal sinus mucosal disease. No middle ear or mastoid effusion. BONES/SOFT TISSUES: No acute abnormality. IMPRESSION: 1. No CT evidence for acute intracranial process. 2. Chronic changes as above. Electronically signed by: Mallorie Dutta MD 09/01/2025 11:54 PM NEW ACCOUNT INTERVIEWER Procedure Note Mallorie Dutta MD - 09/01/2025 EXAM: CT HEAD WO IV CONTRAST LOCATION: [facility] DATE: 09/01/2025 INDICATION: Head trauma, minor (Age >= 65y) COMPARISON: None TECHNIQUE: Routine CT Head without IV contrast. Multiplanar reformats.Dose reduction techniques were used. FINDINGS: INTRACRANIAL CONTENTS: No intracranial hemorrhage, extraaxial collection,or mass effect. No CT evidence of acute infarct. Chronic appearing infarctsin the bilateral cerebellar hemispheres. Mild to moderate presumed chronic smallvessel ischemic changes. Moderate generalized volume loss. No hydrocephalus. VISUALIZED ORBITS/SINUSES/MASTOIDS: No intraorbital abnormality. Noparanasal sinus mucosal disease. No middle ear or mastoid effusion. BONES/SOFT TISSUES: No acute abnormality. IMPRESSION: 1. No CT evidence for acute intracranial process. 2. Chronic changes as above. Electronically signed by: Mallorie Dutta MD 09/01/2025 11:54 PM NEW ACCOUNT INTERVIEWER Flower Davis MD EC CT ORDERABLES Final Result documented in this encounter Visit Diagnoses Diagnosis Laceration of left earlobe, subsequent encounter- Primary documented in this encounter
--- OUTSIDE RECORDS SUMMARY | 2025-09-02 11:00 | XMS_ITS | Encounter Summary ---
Author Organization [facility] Address [address] [address] Phone Care Team Providers Care Cryogenic Transport Driver Name Role Phone Unavailable Primary Care Provider Unavailabl e Reason for Visit * Reason Comments Weakness * Auth/Cert (Routine) Specialty Diagnoses / Procedures Referred By Contac t Referred To Contact Referral ID Status Reason Start Date Expiration Date Visits Re quested Visits Authorized [id number] 1 20 Encounter Details Date Type Department Care Team (Late st Contact Info) Description 09/02/2025 11:00 AM SUPERVISOR CARDING Home Care Visit [facility] [address] [place] [phone] Emperatriz Monahan RN SN HOME VISIT Social [...] materials from doctor or pharmacy Sometimes 07/24/2025 [facility] Utilities Answer Date Recorded In the [...] any time in the past 12 m [facility], were you homeless or living [...] Sign Reading Time Taken Comments Blood Pressure 98/62 09/02/2025 11:02 AM SUPERVISOR CARDING Pulse 60 09/02/2025 11:02 AM SUPERVISOR CARDING Temperature - - Respiratory Rate 15 09/02/2025 11:02 AM SUPERVISOR CARDING Oxygen Saturation 94% 09/02/2025 11:02 AM SUPERVISOR CARDING Inhaled Oxygen Concentration - - Weight - - Height - - Body Mass Index - - documented in this encounter Functional Status * Patient's Vision Adequate to Safely Complete Daily Activities Answer Date of Assessment Author Yes 09/01/2025 10:41 PM SUPERVISOR CARDING Eliana Agustin RN * Patient's Memory Adequate to Safely Complete Daily Activities Answer Date of Assessment Author Yes 09/01/2025 10:41 PM Eliana Junior RN documented as of this encounter Mental Status * Patient's Judgment Adequate to Safely Complete Daily Activities Answer Entry Date Author Yes 09/01/2025 10:41 PM Eliana Junior RN documented in this encounter Plan of Treatment Upcoming Encounters Date Type Department Care Team (Late st Contact Info) Description 09/16/2025 2:00 AM SUPERVISOR CARDING Appointment [facility] [address] [address] Emperatriz Monahan RN documented as of this encounter Visit Diagnoses Not on filedocumented in this encounter Home Health Visit - Care Plan Visit Details Visit Type - Home Visit Discipline -Chcf Problems Problem Description Start Date Status Goals Interve ntions Fluid Retention Disciplines: SN 07/24/2025 Active 1 goal linked to scheduled/documen fan intervention 3 goal interventions scheduled/documen fna in this visit Monitor Oxygen Saturation Disciplines: SN 07/24/2025 Active 1 goal linked to scheduled/documen fan intervention 1 goal intervention scheduled/documen fan in this visit Home Health Goal Care Coordination Disciplines: Skilled II 07/24/2025 Active 1 goal linked to scheduled/documen fan intervention 3 goal interventions scheduled/documen fan in this visit Prevention of Skin Breakdown - Pressure Ulcer Disciplines: SN 07/24/2025 Active 1 goal linked to scheduled/documen fan intervention 1 goal intervention scheduled/documen fan in this visit Safety concerns Disciplines: SN 07/24/2025 Active 1 goal linked to scheduled/documen fan intervention 1 goal intervention scheduled/documen fan in this visit Pain Disciplines: SN 07/24/2025 Active 1 goal linked to scheduled/documen fan intervention 2 goal interventions scheduled/documen fan in this visit RISK OF INFECTION Disciplines: SN 07/24/2025 Active 1 goal linked to scheduled/documen fan intervention 1 goal intervention scheduled/documen fan in this visit Anticoagulatio n Therapy Disciplines: SN 07/24/2025 Active 1 goal linked to scheduled/documen fan intervention 1 goal intervention scheduled/documen fan in this visit Management of Home Medications Disciplines: SN 07/24/2025 Active 1 goal linked to scheduled/documen fan intervention 5 goal interventions scheduled/documen fan in this visit Depression Disciplines: SN 07/24/2025 Active 1 goal linked to scheduled/documen fan intervention 1 goal intervention scheduled/documen fan in this visit Agency Standards Disciplines: Skilled III 07/24/2025 Active 1 goal linked to scheduled/documen fan intervention 2 goal interventions scheduled/documen fan in this visit Risk of Falls Disciplines: Patient/Caregive r will demonstrate use of safety precautions to prevent falls and improve safety by the end of the episode of care. 07/24/2025 Active 1 goal linked to scheduled/documen fan intervention 4 goal interventions scheduled/documen fan in this visit Need to collect specimen sample Disciplines: Management of specimen samples, including lab draws, stool, urine, & tissue 08/05/2025 Resolved on 09/02/2025 - 1 problem intervention scheduled/documen fan in this visit Self abuse susceptibility Disciplines: Skilled Clinicians, Skilled III 08/06/2025 Active 1 goal linked to scheduled/documen fan intervention 1 goal intervention scheduled/documen fan in this visit Monitor Oxygen Saturation Disciplines: 08/24/2025 Active 1 goal linked to scheduled/documen fan intervention 1 goal intervention scheduled/documen fan in this visit Goals Goal Associated Problem [...] pain within 5 weeks Client to matiasmax junior 2 alternative methods of pain relieve in [...] Problem:Monitor Oxygen Saturation Goal:Obtain Pulse Oximetry Scheduled Home Health Care Coordination Discharge Planning Description: Discharge planning discussed with patient and caregiver. Problem:Home Health Goal Care Coordination Goal:Home Health Goal Care Coordination Performed Home Health Care Coordination Contacts Description: PCP: CHRIS FENTON PA-C Pharmacy: [id number] [place], [place] Oxygen Supply: [facility]/Payer Drug Safety Coordinator: TACO Problem:Home Health Goal Care Coordination Goal:Home [...] INFECTION Goal:Infection Prevention Performed Lab draw Description: Finger excise or venipuncture per MD orders/Coumadin Clinic Call results to : Other: [facility] Lab Order Last INR Results 2.1 Date last INR obtained 09/02/2025 Next INR Due 09/09/2025 Current Anticoagula tion Dose 3mg MWF, 6mg all other days INR Goal 2.5-3.5 ICD-10 Diagnosis Code Z95.2 Call results to [facility] CHRIS FENTON PA-C [phone] Fax results to CHRIS FENTON PA-C [phone] [facility] Orders Received Via Verbal telep alexa order on 09/02/2025 at 1645 Order received from (PCP and [...] care Description: Patient acknowledged receipt of [facility] Plan of Care. Patient verbalizes understanding and all questions answered. Patient/Caregiver has MyChart and ability to access: yes; If no, e-mail HHS_Status Change to mail patient copy of POC. Problem:Agency Standards Goal:Agency Standards Scheduled Coordination of Care Description: Coordinate visits with and provide status updates to House Detective Diet: Low Cholesterol, Low Fat and Low [...] HECTOR Pugh RN Coordinate Care with PATIENT, COMPUTER ANALYST Problem:Agency Standards Goal:Agency Standards Scheduled Fall Prevention [...] Instruct patient and caregiver to call manager drive or Nurse for furthe r instruction or [...] through the episode Performed Lab draw Description: [facility] Lab Order Lab: BMP Date: 09/02/25 ICD10: I50.20 Fax results to ( Full name and number): Jim Patel MD [phone] Received from Mann MAGALLON on behalf of [...]
--- OUTSIDE RECORDS SUMMARY | 2025-09-04 11:31 | XMS_ITS | Encounter Summary ---
Author Organization [facility] Address [address] [address] Phone Care Team Providers Care Alterations Supervisor Name Role Phone Rakesh Harmon PA-C Primary Care Provider [phone] Reason for Visit * Reason Comments Fall Encounter Details Date Type Department Care Team (Late st Contact Info) Description 09/04/2025 11:31 AM APPLICATION SERVICES MANAGER - 09/04/2025 6:12 PM [facility] Emergency [facility] [address] [place] [address] Julia Garza MD [address] [place] [address] Fall, subsequent encounter (Primary Dx); Current use of jail anticoagulation; Parkinson's disease, unspecified whether dyskinesia present, unspecified whether manifestations fluctuate (HCC); Dehydration; Mouth sore Discharge Disposition: Home and/or Self Care Social [...] any time in the past 12 m [facility], were you homeless or living [...] Sign Reading Time Taken Comments Blood Pressure 103/65 09/04/2025 5:30 PM APPLICATION SERVICES MANAGER Pulse 52 09/04/2025 5:30 PM APPLICATION SERVICES MANAGER Temperature 36.6 C (97.9 F) 09/04/2025 11:15 AM APPLICATION SERVICES MANAGER Respiratory Rate 20 09/04/2025 5:30 PM APPLICATION SERVICES MANAGER Oxygen Saturation 99% 09/04/2025 5:30 PM APPLICATION SERVICES MANAGER Inhaled Oxygen Concentration - - Weight 66.7 kg (147 lb) 09/04/2025 11:15 AM APPLICATION SERVICES MANAGER Height 172.7 cm (5' 8) 09/04/2025 11:15 AM APPLICATION SERVICES MANAGER Body Mass Index 22.35 09/04/2025 11:15 AM APPLICATION SERVICES MANAGER documented in this encounter Functional Status * Patient's Vision Adequate to Safely Complete Daily Activities Answer Date of Assessment Author Yes 09/04/2025 12:51 PM APPLICATION SERVICES MANAGER Elsa Perez RN * Patient's Memory Adequate to Safely Complete Daily Activities Answer Date of Assessment Author Yes 09/04/2025 12:51 PM APPLICATION SERVICES MANAGER Elsa Perez RN documented as of this encounter Mental Status * Patient's Judgment Adequate to Safely Complete Daily Activities Answer Entry Date Author Yes 09/04/2025 12:51 PM APPLICATION SERVICES MANAGER Elsa Perez RN documented in this encounter Discharge Instructions * Discharge Instructions* Julia Garza MD - 09/04/2025 5:52 PM APPLICATION SERVICES MANAGER Follow up with neurologist. Ask about possible evaluation for normal pressure hydrocephalus ICATION SERVICES MANAGER documented in this encounter Medications at Time of Discharge warfarin (Coumadin) 3 MG tablet Take 3 mg by mouth one time a day. 3 mg Sun, 6mg SAT SUN sertraline (Zoloft) 50 MG tabletIndication s:Generalized Anxiety [...] three times a day. Indications: Parkinson's Disease sacubitril-valsa rtan (Entresto) 24-26 MG tablet tabletIndication s:Heart Failure Take 1 Tablet by mouth two times a day. discontinued Indications: Heart Failure documented as of this encounter Discharge Disposition Disposition Code Departure Means Destination Comment s Home and/or Self Usp documented in this encounter ED Notes * Edie Hearn RN - 09/07/2025 1:59 PM CST ED post visit call attempted, message left. Patient has active homehealth and per encounters has been seen/in touch with home health services since being evaluated in ED. ICATION SERVICES MANAGER * Julia Garza MD - 09/04/2025 6:12 PM CST Images from the original note were not included. ED PROVIDER NOTE SUBJECTIVE: Room: ED 8/ED 8 Chief Complaint: Chief Complaint Patient presents with Fall History of Present Illness: History of Present Illness This is a 75-year-old male with a history of Parkinson's disease and atrial fibrillation presentingwith dizziness, lightheadedness, and falls. On 09/01/2025, the patient experienced a fall resulting in a laceration that required 9 stitches [facility] urgent care facility. He was then transferred to this facility where a head and neck scan were performed, both of which were normal. He was discharged after feeling well. However, since last night, he has been experiencing dizziness and lightheadedness, leading to several falls this morning. He reports feeling as if all signals are suddenly lost when he attempts to move, resulting in blackoutsafter falls. He had 2 or 3 falls this morning. He also reported a headache yesterday. He reports nocurrent pain in his head, chest, abdomen, legs, or arms. He reports no recent exposure to ill individuals, although his daughters have had runny noses. 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 His INR was 6.2 a couple of weeks ago, but it was 2.1 on Sunday and 2.8 the Sunday before. He had low blood pressure last week. He has Parkinson's disease, which contributes to his unsteadiness. His medication regimen for Parkinson's remains unchanged. He has a neurologist for his Parkinson's disease and needs to make anotherappointment. He had a stomachache yesterday and did not eat much. He has a canker sore in his mouth and did not take his amantadine this morning because it upsets his stomach. He took all his other medications this morning after breakfast. He reports no issues with his legs or hips but mentions mild chest congestion and an upset stomach. He is currently on a low-salt diet. He has been experiencing urinary urgency. Supplemental history from: daughter External record(s) reviewed: PAST MEDICAL HISTORY: Patient Active Problem List Diagnosis Hx of mitral valve replacement with mechanical valve Mitral valve disorder Parkinson's disease (HCC) Thrombocytopenia (HCC) HFrEF (heart failure with reduced ejection fraction) (HCC) Supratherapeutic INR Past Medical History[1] Prior to Admission Medication List Med List Status: ED Triage Only Set By: Michelle Montalvo RN at 09/04/2025 11:30 AM amantadine (Symmetrel) 100 MG capsule Take 100 mg by mouth two times a day. Indications: Tardive Dyskinesia atorvaSTATin (Lipitor) 40 MG tablet Take by mouth every evening. Indications: High Amount of Fats in the Blood carbidopa-levodopa (SINEMET) 25-250 MG oral tablet Take 1 Tablet by mouth three times a day. Indications: Parkinson's Disease levothyroxine (Synthroid) 75 MCG tablet Take 75 mcg by mouth one time a day. Indications: Underactive Thyroid magnesium oxide 400 (240 Mg) MG tablet Take 1 Tablet by mouth one time a day. Indications: Disorder with Low Magnesium Levels Patient taking differently: Take 400 mg by mouth one time a day. Not taking Indications: Disorder with Low Magnesium Levels sacubitril-valsartan (Entresto) 24-26 MG tablet tablet Take 1 Tablet by mouth two times a day. discontinued Indications: Heart Failure senna-docusate (Senokot-S) 8.6-50 MG oral tablet Take 2 Tablets by mouth two times a day as needed for Constipation. Indications: Constipation sertraline (Zoloft) 50 MG tablet Take 50 mg by mouth one time a day. Indications: Generalized Anxiety Disorder, Major Depressive Disorder spironolactone (Aldactone) 25 MG tablet Take 0.5 Tablets by mouth one time a day. Indications: High Blood Pressure, Left Systolic Heart Failure Patient taking differently: Take 12.5 mg by mouth one time a day. discontinued Indications: High Blood Pressure, Left Systolic Heart Failure torsemide (Demadex) 20 MG tablet Take 1 Tablet by mouth one time a day. Indications: Edema, Heart Failure Patient taking differently: Take 10 mg by mouth one time a day. per clarification and VTO patient to be taking 0.5 tab (10mg) daily - Rakesh Harmon/Jeanne JACINTO/SHERITA Wang 08/04/25 1015 DISCONTINUED Indications: Edema, Heart Failure warfarin (Coumadin) 3 MG tablet Take 3 mg by mouth one time a day. 3 mg Sun, 6mg SAT SUN Ongoing Comment Emperatriz Monahan RN 08/24/2025 7:30 AM OBJECTIVE: Physical Exam: VITALS: Blood pressure 103/65, pulse (!) 52, temperature 97.9 ??F (36.6 ??C), temperature source Temporal, resp. rate 20, height 1.727 m (5' 8), weight 66.7 kg (147 lb), SpO2 99%. GENERAL: NAD. HEAD: sutures on left ear in tact HEART: RRR LUNGS: Airway patent. No respiratory distress. ABDOMEN: Non-distended. Non-tender NEURO: Awake and alert. Strength equal and symmetric Data: All laboratory data, imaging, and EKGs were interpreted independently. Diagnostics (reviewed and interpreted independently): Results for orders placed or performed during the hospital encounter of 09/04/25 HIGH SENSITIVITY TROPONIN-I WITH REFLEX Collection Time: 09/04/25 3:15 PM Result Value Ref Range High Sensitivity Troponin I 53.0 0.0 - 76.2 pg/mL URINALYSIS, REFLEX TO CULTURE Collection Time: 09/04/25 2:07 PM Specimen: Urine CVMS Result Value Ref Range UA Color Yellow Light Yellow, Yellow Urine Appearance Clear Clear Urine Specific [place] 1.015 1.005 - 1.030 Urine pH 6.0 5.0 - 8.0 Urine Leukocyte Esterase Negative Negative Urine Nitrates Negative Negative Urine Protein Negative Negative Urine Glucose Negative Negative Urine Ketones Trace (A) Negative Urine Urobilinogen Normal Normal Urine Bilirubin Negative Negative Urine Blood Negative Negative Urine WBC's 0-5 0 - 5 /HPF Urine RBC's 0-2 0 - 2 /HPF Urine Epithelial Cells Negative Negative /HPF Urine Bacteria Negative Negative /HPF Calcium Oxalate Crystals, Urine Occasional (A) (none) /HPF Urine Hyaline Cast 5-10 (A) (none) /LPF Urine Mucous Moderate (A) (none) /HPF HIGH SENSITIVITY TROPONIN-I WITH REFLEX Collection Time: 09/04/25 1:08 PM Result Value Ref Range High Sensitivity Troponin I 53.0 0.0 - 76.2 pg/mL COMPREHENSIVE METABOLIC PANEL Collection Time: 09/04/25 1:08 PM Result Value Ref Range Sodium 140 135 - 144 mmol/L Potassium 4.4 3.4 - 5.1 mmol/L Chloride 105 98 - 107 mmol/L Carbon Dioxide 27 22 - 30 mmol/L Calcium 9.4 8.6 - 10.3 mg/dL Alkaline Phosphatase 99 38 - 126 U/L Aspartate Aminotransferase 43 17 - 59 U/L Alanine Aminotransferase 10 <50 U/L Glucose 96 74 - 100 mg/dL Blood Urea nitrogen 22 (H) 9 - 20 mg/dL Creatinine 1.12 0.66 - 1.25 mg/dL Protein, Total 7.3 6.3 - 8.2 g/dL Albumin 4.2 3.5 - 5.0 g/dL Bilirubin, Total 1.2 0.2 - 1.3 mg/dL Globulin 3.1 1.4 - 4.8 g/dL Anion Gap 8 5 - 15 mmol/L Glomerular Filtration Rate >60 >60 mL/min/1.73 m*2 HEMOGRAM/DIFFERENTIAL Collection Time: 09/04/25 1:08 PM Result Value Ref Range WBC 6.7 4.0 - 11.0 10*3/uL RBC 4.56 4.40 - 6.00 10*6/uL HGB 14.0 13.0 - 18.0 g/dl HCT 42.2 40.0 - 52.0 % MCV 92.5 80 - 96 fL MCH 30.7 27.0 - 34.0 pg MCHC 33.2 32 - 36 g/dl PLT 149 (L) 150 - 420 10*3/uL Neutrophils Absolute 5.51 2.10 - 7.50 10*3/uL Lymphocytes Absolute 0.48 (L) 0.76 - 4.00 10*3/uL Monocytes Absolute 0.51 0.00 - 0.90 10*3/uL Eosinophils Absolute 0.15 0.04 - 0.54 10*3/uL Basophils Absolute 0.03 0.00 - 0.20 10*3/uL RDW-SD 46.4 (H) 35.1 - 43.9 fL RDW-CV 13.6 11.6 - 14.4 % Immature Granulocytes Absolute 0.03 0.00 - 0.10 10*3/uL Nucleated RBCs Absolute 0.00 0.00 - 0.00 10*3/uL PROTIME Collection Time: 09/04/25 1:08 PM Result Value Ref Range INR 3.1 (H) 0.9 - 1.1 Imaging (reviewed and interpreted independently): Imaging Results CT HEAD WO IV CONTRAST (Final result) Result time 09/04/25 16:55:24 Final result by Tanvir Guerin MD (09/04/25 16:55:24) Narrative: EXAM: CT HEAD WO IV CONTRAST LOCATION: [facility] DATE: 09/04/2025 INDICATION: Head injury on anticoagulation COMPARISON: CT brain 09/01/2025. TECHNIQUE: Routine CT Head without IV contrast. Multiplanar reformats. Dose reduction techniques were used. FINDINGS: INTRACRANIAL CONTENTS: No finding for intracranial hemorrhage, mass, or acute infarct. Moderate enlargement of the lateral and third ventricles and mild prominence of the sulci, similar to prior. Although findings are compatible with generalized volume loss, the degree of lateral and third ventricular enlargement is somewhat greater than expected for the area of sulcal prominence and the callosal angle is estimated at 60 degrees (coronal image 32). Together findings suggest a component of communicating hydrocephalus such as normal pressure hydrocephalus. Small amount of low-attenuation change is again seen within the periventricular white matter, compatible with nondescript gliosis. No transcortical areas of low attenuation change. No mass effect or midline shift. Cerebellar tonsils are normally positioned. Sella is unremarkable for technique. Corpus callosum is normally formed. VISUALIZED ORBITS/SINUSES/MASTOIDS: No intraorbital abnormality. No paranasal sinus mucosal disease. No middle ear or mastoid effusion. BONES/SOFT TISSUES: Calvarium is intact without fracture or suspicious lytic or blastic foci. IMPRESSION: 1. No finding for intracranial hemorrhage, mass, or acute infarct. 2. Moderate enlargement of the lateral and third ventricles and mild prominence of the sulci. Although the degree of sulcal prominence suggests a component of generalized volume loss, the degree of lateral and third ventricular enlargement is greater than expected for the degree of sulcal prominence and a component of communicating hydrocephalus such as normal pressure hydrocephalus should be considered. Electronically signed by: Tanvir Guerin MD, PhD 09/04/2025 4:55 PM APPLICATION SERVICES MANAGER Procedure: Procedures ED COURSE, MEDICAL DECISION MAKING: Assessment & Plan Initial Assessment: Symptoms of dizziness and lightheadedness likely due to dehydration from inadequate food and fluid intake, exacerbated by a canker sore and Parkinson's disease. INR level at 3.1. Head CT pending, EKGand troponin tests negative for cardiac causes. Differential Diagnosis: - Dehydration: Inadequate food and fluid intake due to canker sore. Administer IV fluids. Monitor response. - Cardiac issues: Ruled out by EKG and troponin tests. No further cardiac workup needed. - Normal pressure hydrocephalus: Potential indication on head CT. Follow up with neurologist for further evaluation. ED Course: - Administered initial bolus of fluids. - Conducted EKG. - Performed head CT. - Conducted two troponin tests. - Administered additional fluids. - Monitored INR level (3.1). - Assessed orthostatic vital signs. Final Assessment: Administered fluids improved dehydration. EKG and troponin tests ruled out cardiac causes. Head CT normal but raised suspicion for normal pressure hydrocephalus. INR level at 3.1. Clinical Impression: - Dehydration - Parkinson's disease - Canker sore Disposition: - Follow-Up: Neurologist for medication management and potential normal pressure hydrocephalus evaluation. Recheck INR. Patient Education: Maintain hydration and electrolyte balance. Consume Gatorade, Powerade, or electrolyte packets. Avoid falls. Seek immediate medical attention if symptoms do not improve. Final Clinical Impression: (W19.XXXD) Fall, subsequent encounter (primary encounter diagnosis) (Z79.01) Current use of jail anticoagulation (G20.A1) Parkinson's disease, unspecified whether dyskinesia present, unspecified whether manifestations fluctuate (HCC) (E86.0) Dehydration (K13.79) Mouth sore [1] No past medical history on file. Julia Garza MD 09/04/251812 ICATION SERVICES MANAGER * Michelle Montalvo, SHERITA - 09/04/2025 11:12 AM CST Patient presents with complaints of falls x3 today by private car from Home accompanied by daughter. Patients symptoms include: weakness, bloody nose , left ear lac (happened Sunday) sore throat- pt states a canker sore Symptom Onset: ongoing falls Home Interventions: pt recently had a medication change r/t hypotension Additional Information: Pt here on for fall and head CT. Pt is on warfarin for prior valve replacement. HX of parkinsons ICATION SERVICES MANAGER documented in this encounter Plan of Treatment Upcoming Encounters Date Type Department Care Team (Late st Contact Info) Description 09/16/2025 2:00 AM APPLICATION SERVICES MANAGER Appointment [address] [address] Emperatriz Monahan, SHERITA Pending Results Name Type Priority Associated Diagnoses Date /Time EKG 12-LEAD Cardiology STAT 09/04/2025 12 :59 PM APPLICATION SERVICES MANAGER documented as of this encounter Procedures Procedure Name Priority Date/Time Associated Diagnosis Comments HIGH SENSITIVITY TROPONIN-I WITH REFLEX STAT 09/04/2025 3:15 PM APPLICATION SERVICES [address]NA[address] HEAD WO IV CONTRAST STAT 09/04/2025 2:56 PM APPLICATION SERVICES MANAGER URINALYSIS, REFLEX TO CULTURE STAT 09/04/2025 2:07 PM APPLICATION SERVICES MANAGER HIGH SENSITIVITY TROPONIN-I WITH REFLEX STAT 09/04/2025 1:08 PM APPLICATION SERVICES MANAGER COMPREHENSIVE METABOLIC PANEL STAT 09/04/2025 1:08 PM APPLICATION SERVICES MANAGER HEMOGRAM/DIFF STAT 09/04/2025 1:08 PM APPLICATION SERVICES MANAGER PROTIME STAT 09/04/2025 1:08 PM APPLICATION SERVICES MANAGER EKG 12-LEAD STAT 09/04/2025 12:59 PM APPLICATION SERVICES MANAGER Procedure Note - 09/04/2025 12:59 PM CSTThis note is in progress. Sinus bradycardia with sinus arrhythmia with 1st degree AV block Left axis deviation Nonspecific intraventricular block T wave abnormality, consider lateral ischemia Abnormal ECG When compared with ECG of 21-Jul-2025 08:21, premature atrial complexes are no longer present Nonspecific intraventricular block has replaced Right bundle branchblock documented in this encounter Results * HIGH SENSITIVITY TROPONIN-I WITH REFLEX (09/04/2025 3:15 PM APPLICATION SERVICES MANAGER) Pathologist [facility] High Sensitivity Troponin I 53.0 0.0 - 76.2 pg/mL 09/04/2025 4:02 PM APPLICATION SERVICES MANAGER [facility] Blood BLOOD SPECIMEN / Unknown Venipuncture / Unknown 09/04/2025 3:15 PM APPLICATION SERVICES MANAGER 09/04/2025 3:25 PM APPLICATION SERVICES MANAGER Narrative [facility] - 09/04/2025 4:02 PM APPLICATION SERVICES MANAGER The 99th percentile URL (upper reference limit) for High Sensitivity Troponin I is as follows: Female: 51.4 pg/mL Male: 76.2 pg/mL Gender Neutral: 60.4 pg/mL us Julia Garza MD EC CHEMISTRY ORDERABLES Final Result [facility] [address] [place] [address], [facility] [place] [phone] * CT HEAD WO IV CONTRAST (09/04/2025 2:56 PM APPLICATION SERVICES MANAGER) Anatomical Region Laterality Modality Head Computed Tomogra phy 09/04/2025 2:56 PM APPLICATION SERVICES MANAGER Narrative 09/04/2025 4:55 PM APPLICATION SERVICES MANAGER EXAM: CT HEAD WO IV CONTRAST LOCATION: [facility] DATE: 09/04/2025 INDICATION: Head injury on anticoagulation COMPARISON: CT brain 09/01/2025. TECHNIQUE: Routine CT Head without IV contrast. Multiplanar reformats. Dose reduction techniques were used. FINDINGS: INTRACRANIAL CONTENTS: No finding for intracranial hemorrhage, mass, or acute infarct. Moderate enlargement of the lateral and third ventricles and mild prominence of the sulci, similar to prior. Although findings are compatible with generalized volume loss, the degree of lateral and third ventricular enlargement is somewhat greater than expected for the area of sulcal prominence and the callosal angle is estimated at 60 degrees (coronal image 32). Together findings suggest a component of communicating hydrocephalus such as normal pressure hydrocephalus. Small amount of low-attenuation change is again seen within the periventricular white matter, compatible with nondescript gliosis. No transcortical areas of low attenuation change. No mass effect or midline shift. Cerebellar tonsils are normally positioned. Sella is unremarkable for technique. Corpus callosum is normally formed. VISUALIZED ORBITS/SINUSES/MASTOIDS: No intraorbital abnormality. No paranasal sinus mucosal disease. No middle ear or mastoid effusion. BONES/SOFT TISSUES: Calvarium is intact without fracture or suspicious lytic or blastic foci. IMPRESSION: 1. No finding for intracranial hemorrhage, mass, or acute infarct. 2. Moderate enlargement of the lateral and third ventricles and mild prominence of the sulci. Although the degree of sulcal prominence suggests a component of generalized volume loss, the degree of lateral and third ventricular enlargement is greater than expected for the degree of sulcal prominence and a component of communicating hydrocephalus such as normal pressure hydrocephalus should be considered. Electronically signed by: Tanvir Guerin MD, PhD 09/04/2025 4:55 PM APPLICATION SERVICES MANAGER Procedure Note Tanvir Guerin MD - 09/04/2025 EXAM: CT HEAD WO IV CONTRAST LOCATION: [facility] DATE: 09/04/2025 INDICATION: Head injury on anticoagulation COMPARISON: CT brain 09/01/2025. TECHNIQUE: Routine CT Head without IV contrast. Multiplanar reformats.Dose reduction techniques were used. FINDINGS: INTRACRANIAL CONTENTS: No finding for intracranial hemorrhage, mass, oracute infarct. Moderate enlargement of the lateral and third ventricles andmild prominence of the sulci, similar to prior. Although findings arecompatible with generalized volume loss, the degree of lateral and third ventricularenlargement is somewhat greater than expected for the area of sulcal prominence andthe callosal angle is estimated at 60 degrees (coronal image 32). Togetherfindings suggest a component of communicating hydrocephalus such as normalpressure hydrocephalus. Small amount of low-attenuation change is again seen withinthe periventricular white matter, compatible with nondescript gliosis. No transcortical areas of low attenuation change. No mass effect or midlineshift. Cerebellar tonsils are normally positioned. Sella is unremarkable fortechnique. Corpus callosum is normally formed. VISUALIZED ORBITS/SINUSES/MASTOIDS: No intraorbital abnormality. Noparanasal sinus mucosal disease. No middle ear or mastoid effusion. BONES/SOFT TISSUES: Calvarium is intact without fracture or suspiciouslytic or blastic foci. IMPRESSION: 1. No finding for intracranial hemorrhage, mass, or acute infarct. 2. Moderate enlargement of the lateral and third ventricles and mildprominence of the sulci. Although the degree of sulcal prominence suggests acomponent of generalized volume loss, the degree of lateral and third ventricularenlargement is greater than expected for the degree of sulcal prominence and acomponent of communicating hydrocephalus such as normal pressure hydrocephalus shouldbe considered. Electronically signed by: Tanvir Guerin MD, PhD 09/04/2025 4:55 PM APPLICATION SERVICES MANAGER Julia Garza MD EC CT ORDERABLES Final Result * (ABNORMAL) URINALYSIS, REFLEX TO CULTURE (09/04/2025 2:07 PM APPLICATION SERVICES MANAGER) UA Color Yellow Light Yellow, Yellow 09/04/2025 2:45 PM [facility] Urine Appearance Clear Clear 09/04/20 2:45 PM [facility] Urine Specific [place] 1.015 1.005 - 1.030 09/04/2025 2:45 PM [facility] Urine pH 6.0 5.0 - 8.0 09/04/2025 2:45 PM [facility] Urine Leukocyte Esterase Negative Negative 09/04/2025 2:45 PM [facility] Urine Nitrates Negative Negative 09/04/2025 2:45 PM [facility] Urine Protein Negative Negative 09/04/2025 2:45 PM [facility] Urine Glucose Negative Negative 09/04/2025 2:45 PM [facility] Urine Ketones Trace(A) Negative 09/04/2025 2:45 PM [facility] Urine Urobilinogen Normal Normal 09/04/2025 2:45 PM [facility] Urine Bilirubin Negative Negative 2:45 PM [facility] Urine Blood Negative Negative 09/04/2025 2:45 PM [facility] Urine WBC's 0-5 0 - 5 /HPF 09/04/2025 2:45 PM [facility] Urine RBC's 0-2 0 - 2 /HPF 09/04/2025 2:45 PM [facility] Urine Epithelial Cells Negative Negative /HPF 09/04/2025 2:45 PM [facility] Urine Bacteria Negative Negative /HPF 09/04/2025 2:45 PM [facility] Calcium Oxalate Crystals, Urine Occasional( A) (none) /HPF 09/04/2025 2:45 PM [facility] Urine Hyaline Cast 5-10(A) (none) /LPF 09/04/2025 2:45 PM [facility] Urine Mucous Moderate(A) (none) /HPF 09/04/2025 2:45 PM [facility] Urine URINE SPECIMEN COLLECTION, CLEAN CATCH / Unknown Non-blood collection / Unknown 09/04/2025 2:07 PM APPLICATION SERVICES MANAGER 09/04/2025 2:10 PM APPLICATION SERVICES MANAGER us Julia Garza MD EC URINE ORDERABLES Final Resu lt [facility] [address] [phone] * (ABNORMAL) COMPREHENSIVE METABOLIC PANEL (09/04/2025 1:08 PM APPLICATION SERVICES MANAGER) Sodium 140 135 - 144 mmol/L 09/04/2025 1:39 PM [facility] Potassium 4.4 3.4 - 5.1 mmol/L 09/04/2025 1:39 PM [facility] Chloride 105 98 - 107 mmol/L 09/04/2025 1:39 PM [facility] Carbon Dioxide 27 22 - 30 mmol/L 09/04/2025 1:39 PM [facility] Calcium 9.4 8.6 - 10.3 mg/dL 09/04/2025 1:39 PM [facility] Alkaline Phosphatase 99 38 - 126 U/L 09/04/2025 1:39 PM [facility] Aspartate Aminotransferase 43 17 - 59 U/L 09/04/2025 1:39 PM [facility] Alanine Aminotransferase 10 <50 U/L 09/04/2025 1:39 PM [facility] Glucose 96 74 - 100 mg/dL 09/04/2025 1:39 PM [facility] Blood Urea nitrogen 22(H) 9 - 20 mg/dL 09/04/2025 1:39 PM [facility] Creatinine 1.12 0.66 - 1.25 mg/dL 09/04/2025 1:39 PM [facility] Protein, Total 7.3 6.3 - 8.2 g/dL 09/04/2025 1:39 PM [facility] Albumin 4.2 3.5 - 5.0 g/dL 09/04/2025 1:39 PM [facility] Bilirubin, Total 1.2 0.2 - 1.3 mg/dL 09/04/2025 1:39 PM [facility] Globulin 3.1 1.4 - 4.8 g/dL 09/04/2025 1:39 PM [facility] Anion Gap 8 5 - 15 mmol/L 09/04/2025 1:39 PM [facility] Glomerular Filtration Rate >60 >60 mL/min/1. 73 m*2 09/04/2025 1:39 PM [facility] Comment:This calculation use s CKD-EPI 2020 equation; it has not been validated in women. Blood BLOOD SPECIMEN / Unknown Venipuncture / Unknown 09/04/2025 1:08 PM APPLICATION SERVICES MANAGER 09/04/2025 1:13 PM APPLICATION SERVICES MANAGER Julia Garza MD EC CHEMISTRY ORDERABLES Final Result [facility] [address] [place] [address] * (ABNORMAL) HEMOGRAM/DIFFERENTIAL (09/04/2025 1:08 PM APPLICATION SERVICES MANAGER) WBC 6.7 4.0 - 11.0 10*3/uL 09/04/2025 1:31 PM [facility] RBC 4.56 4.40 - 6.00 10*6/uL 09/04/2025 1:31 PM [facility] HGB 14.0 13.0 - 18.0 g/dl 09/04/2025 1:31 PM [facility] HCT 42.2 40.0 - 52.0 % 09/04/2025 1:31 PM [facility] MCV 92.5 80 - 96 fL 09/04/2025 1:31 PM [facility] MCH 30.7 27.0 - 34.0 pg 09/04/2025 1:31 PM [facility] MCHC 33.2 32 - 36 g/dl 09/04/2025 1:31 PM [facility] PLT 149(L) 150 - 420 10*3/uL 09/04/2025 1:31 PM [facility] Neutrophils Absolute 5.51 2.10 - 7.50 10*3/uL 09/04/2025 1:31 PM [facility] Lymphocytes Absolute 0.48(L) 0.76 - 4.00 10*3/uL 09/04/2025 1:31 PM [facility] Monocytes Absolute 0.51 0.00 - 0.90 10*3/uL 09/04/2025 1:31 PM [facility] Eosinophils Absolute 0.15 0.04 - 0.54 10*3/uL 09/04/2025 1:31 PM [facility] Basophils Absolute 0.03 0.00 - 0.20 10*3/uL 09/04/2025 1:31 PM [facility] RDW-SD 46.4(H) 35.1 - 43.9 fL 09/04/2025 1:31 PM [facility] RDW-CV 13.6 11.6 - 14.4 % 09/04/2025 1:31 PM [facility] Immature Granulocytes Absolute 0.03 0.00 - 0.10 10*3/uL 09/04/2025 1:31 PM [facility] Nucleated RBCs Absolute 0.00 0.00 - 0.00 10*3/uL 09/04/2025 1:31 PM [facility] Blood BLOOD SPECIMEN / Unknown Venipuncture / Unknown 09/04/2025 1:08 PM APPLICATION SERVICES MANAGER 09/04/2025 1:13 PM [facility] us Julia Garza MD EC HEMATOLOGY ORDERABLES Final Result Performing Organization Address City/State/[facility] Co de Phone Number [facility] [address] [phone] * HIGH SENSITIVITY TROPONIN-I WITH REFLEX (09/04/2025 1:08 PM APPLICATION SERVICES MANAGER) High Sensitivity Troponin I 53.0 0.0 - 76.2 pg/mL 09/04/2025 1:42 PM APPLICATION SERVICES MANAGER [facility] Blood BLOOD SPECIMEN / Unknown Venipuncture / Unknown 09/04/2025 1:08 PM APPLICATION SERVICES MANAGER 09/04/2025 1:13 PM APPLICATION SERVICES MANAGER [facility] - 09/04/2025 1:42 PM APPLICATION SERVICES MANAGER The 99th percentile URL (upper reference limit) for High Sensitivity Troponin I is as follows: Female: 51.4 pg/mL Male: 76.2 pg/mL Gender Neutral: 60.4 pg/mL Julia Garza MD EC CHEMISTRY ORDERABLES Final Result Performing Organization Address City/[facility] Co de Phone Number [facility] [address] [place] [address] * (ABNORMAL) PROTIME (09/04/2025 1:08 PM APPLICATION SERVICES MANAGER) Pathologist [facility] INR 3.1(H) 0.9 - 1.1 09/04/2025 1:29 PM APPLICATION SERVICES MANAGER [facility] Blood BLOOD SPECIMEN / Unknown Venipuncture / Unknown 09/04/2025 1:08 PM APPLICATION SERVICES MANAGER 09/04/2025 1:13 PM APPLICATION SERVICES MANAGER [facility] - 09/04/2025 1:29 PM APPLICATION SERVICES MANAGER Standard intensity warfarin therapeutic range: 2.0-3.0 High intensity warfarin therapeutic range: 2.5-3.5 us Julia Garza MD EC HEMATOLOGY ORDERABLES Final Result Performing Organization Address City/[facility]/ZIP Co de Phone Number [facility] [address] [place] [address] documented in this encounter Visit Diagnoses Diagnosis Fall, subsequent encounter- Primary Current use of jail anticoagulation Encounter for long-term (current) use of anticoagulants Parkinson's disease, unspecified whether dyskinesia present, unspecified whether manifestations fluctuate (HCC) Dehydration Mouth sore Other and unspecified diseases of the oral soft tissues documented in this encounter Administered Medications Inactive Administered Medications Medication Order MAR Action Action Date Dose Rate Site sodium chloride 0.9% BOLUS BAG 500 mL 500 mL, Intravenous, at 1,000 mL/hr, ONCE, 1 dose, On Sun09/04/25 at 1330 New Bag 09/04/2025 1:39 PM APPLICATION SERVICES MANAGER 500 mL 1000 mL /hr sodium chloride 0.9% BOLUS BAG 500 mL 500 mL, Intravenous, at 1,000 mL/hr, ONCE, 1 dose, On Sun09/04/25 at 1700 New Bag 09/04/2025 4:40 PM APPLICATION SERVICES MANAGER 500 mL 1000 mL /hr documented in this encounter Historical Medications * This list may reflect changes made after this encounter. warfarin (Coumadin) 3 MG tablet Take 3 mg by mouth one time a day. 3 mg Sun, 6mg SAT SUN added in this encounter Active and Recently Administered Medications Times are shown in APPLICATION SERVICES MANAGER. Scheduled Medication Order 09/02/2025 09/03/2025 09/04/2025 sodium chloride 0.9% BOLUS BAG 500 mL (COMPLETED) 500 mL, Intravenous, at 1,000 mL/hr, ONCE, 1 dose, On Sun09/04/25 at 1330 1339 (New Bag - Prov ider: Elsa Perez, SHERITA)1409 (Stopped - Provider: Shira Craig RN) sodium chloride 0.9% BOLUS BAG 500 mL (COMPLETED) 500 mL, Intravenous, at 1,000 mL/hr, ONCE, 1 dose, On Sun09/04/25 at 1700 1640 (New Bag - Prov ider: Elsa Perez, SHERITA)1710 (Stopped - Provider: Elsa Perez, SHERITA) documented in this encounter Orders Nursing Count Last Ordered Date First Orde red Date ORTHOSTATIC VITAL SIGNS 09/04/2025 documented in this encounter Care Teams Alterations Supervisor Relationship Specialty Start Date End Date Rakesh Harmon PA-C [address] [id number] PCP - General Physician Warehouse Hand 09/04/25 documented as of this encounter
--- OUTSIDE RECORDS SUMMARY | 2025-09-06 13:00 | XMS_ITS | Encounter Summary ---
Author Organization [facility] Address [address] [address] Phone Care Team Providers Care Shipping Manager Name Role Phone Chris Harmon PA-C Primary Care Provider [phone]- [phone] Reason for Visit * Reason Comments Wound Check * Auth/Cert (Routine) Specialty Diagnoses / Procedures Referred By Mine t Referred To Contact Referral ID Status Reason Start Date Expiration Date Visits Re quested Visits Authorized [id number] Encounter Details Date Type Department Care Team (Late st Contact Info) Description 09/06/2025 1:00 PM CELLO TEACHER Home Care Visit [facility] [address] [place] [id number] Corrina Bledsoe RN SN OASIS FOLLOW UP Social History Tobacco Use Types Packs/Day Years [...] doctor or pharmacy Sometimes 07/24/2025 [facility] Utilities Answer Date Recorded In [...] any time in the past 12 m [facility], were you homeless or living in a [...] Sign Reading Time Taken Comments Blood Pressure 95/52 09/06/2025 12:58 PM CELLO TEACHER Pulse 58 09/06/2025 12:58 PM CELLO TEACHER Temperature - - Respiratory Rate 18 09/06/2025 12:58 PM CELLO TEACHER Oxygen Saturation 98% 09/06/2025 12:58 PM CELLO TEACHER Inhaled Oxygen Concentration - - Weight - - Height - - Body Mass Index - - documented in this encounter Functional Status * Patient's Vision Adequate to Safely Complete Daily Activities Answer Date of Assessment Author Yes 09/04/2025 12:51 PM CELLO TEACHER Elsa Perez, RN * Patient's Memory Adequate to Safely Complete Daily Activities Answer Date of Assessment Author Yes 09/04/2025 12:51 PM CELLO TEACHER Elsa Perez RN documented as of this encounter Mental Status * Patient's Judgment Adequate to Safely Complete Daily Activities Answer Entry Date Author Yes 09/04/2025 12:51 PM CELLO TEACHER Elsa Perez RN documented in this encounter Miscellaneous Notes * Case Communication - Corrina Bledsoe RN - 09/06/2025 4:09 PM CSTSignificant Change in Condition Summary: Patient had 3 falls on 09/04/25 with no injuries. Today 09/06/25 son-in-law caught patient as he was falling back from dizziness. Medication changes:?? none New diagnosis as applicable: none New equipment as applicable: none Changes to Plan of Care: none Risk for Re-hospitalization with reason(s) as noted from M1033: HIGH, MEDIUM, hx of 2 or more falls (or any fall with injury) two or more emergency room visits in the past 6 months currently taking 5 or more medications other reasons not listed above (dizziness and told daughter he felt black out) O TEACHER documented in this encounter Plan of Treatment Upcoming Encounters Date Type Department Care Team (Late st Contact Info) Description 09/16/2025 2:00 AM CELLO TEACHER Appointment [facility] [address] [place] [id number] Emperatriz Monahan RN documented as of this encounter Visit Diagnoses Not on filedocumented in this encounter Home Health Visit - Care Plan Visit Details Visit Type -SN OASIS Follow Up Discipline -Care Home Problems Problem Description Start [...] this visit Monitor Oxygen Saturation Disciplines: SN 08/24/2025 Active 1 goal linked to scheduled/documen [...] Contacts Description: PCP: CHRIS HARMON PA-C Pharmacy: [facility] #[id number] [place], [place] Oxygen Supply: NA [facility]/Payer Needle Straightener: TACO Problem:Home Health Goal Care Coordination Goal:Home [...] orders/Coumadin Clinic Call results to : Other: [facility] Order Last INR Results 2.1 Date last INR obtained 09/02/2025 Next INR Due 09/09/2025 Current Anticoagula tion Dose 3mg MWF, 6mg all other days INR Goal 2.5-3.5 ICD-10 Diagnosis Code Z95.2 Call results to [facility] CHRIS HARMON PA-C [phone] Fax results to CHRIS HARMON PA-C [phone] [facility] Orders Received Via Verbal telep alexa order on 09/02/2025 at 1643 Order received from (PCP and transcribers name) CHRIS HARMON PA-C Nurse Receiving Order SHERITA Carr Problem:Anticoagulatio n Therapy Goal:Anticoagulation Therapy Scheduled Evaluate for any [...] care Description: Patient acknowledged receipt of [facility] Plan of Care. Patient verbalizes understanding and all questions answered. Patient/Caregiver has MyChart and ability to access: yes; If no, e-mail HHS_Status Change to mail patient copy of POC. Problem:Agency Standards Goal:Agency Standards Scheduled Coordination of Care Description: Coordinate visits with and provide status updates to Civil Division Commander Deputy Sheriff Diet: Low Cholesterol, Low Fat and Low [...] HECTOR Pugh RN Coordinate Care with PATIENT, ABSTRACT MANAGER Problem:Agency Standards Goal:Agency Standards Scheduled Fall [...] Instruct patient and caregiver to call manager cleaning or Nurse for furthe r instruction or [...] Problem:Monitor Oxygen Saturation Goal:Obtain Pulse Oximetry Performed documented in this encounter Care Teams Shipping Manager Relationship Specialty Start Date End Date Chris Harmon PA-C [address] [id number] PCP - General Physician Operational Intelligence Analyst 09/04/25 documented as of this encounter
--- OUTSIDE RECORDS SUMMARY | 2025-09-09 10:00 | XMS_ITS | Encounter Summary ---
Author Organization [facility] Address [address] [address] Phone Care Team Providers Care Casting House Laborer Name Role Phone Chris Harmon PA-C Primary Care Provider [phone]- [phone] Reason for Visit * Reason Comments Weakness * Auth/Cert (Routine) Specialty Diagnoses / Procedures Referred By Mine t Referred To Contact Referral ID Status Reason Start Date Expiration Date Visits Re quested Visits Authorized [id number] 20 Encounter Details Date Type Department Care Team (Late st Contact Info) Description 09/09/2025 10:00 AM VAULT INSTALLER Home Care Visit [facility] [address] [place] [address] Emperatriz Monahan, RN SN HOME VISIT Social [...] materials from doctor or pharmacy Sometimes 07/24/2025 [facility] Utilities Answer Date Recorded In the [...] any time in the past 12 m [facility], were you homeless or living [...] Reading Time Taken Comments Blood Pressure 90/60 09/09/2025 10:05 AM VAULT INSTALLER Pulse 60 09/09/2025 10:05 AM VAULT INSTALLER Temperature - - Respiratory Rate 16 09/09/2025 10:05 AM VAULT INSTALLER Oxygen Saturation 97% 09/09/2025 10:05 AM VAULT INSTALLER Inhaled Oxygen Concentration - - Weight - - Height - - Body Mass Index - - documented in this encounter Functional Status * Patient's Vision Adequate to Safely Complete Daily Activities Answer Date of Assessment Author Yes 09/04/2025 12:51 PM VAULT INSTALLER Elsa Perez RN * Patient's Memory Adequate to Safely Complete Daily Activities Answer Date of Assessment Author Yes 09/04/2025 12:51 PM VAULT INSTALLER Elsa Perez RN documented as of this encounter Mental Status * Patient's Judgment Adequate to Safely Complete Daily Activities Answer Entry Date Author Yes 09/04/2025 12:51 PM VAULT INSTALLER Elsa Perez RN documented in this encounter Plan of Treatment Upcoming Encounters Date Type Department Care Team (Late st Contact Info) Description 09/16/2025 2:00 AM VAULT INSTALLER Appointment [facility] [address] [address] Emperatriz Monahan RN documented as of this encounter Visit Diagnoses Not on filedocumented in this encounter Home Health Visit - Care Plan Visit Details Visit Type - Home Visit Discipline -Fci Problems Problem Description Start Date Status Goals [...] Contacts Description: PCP: CHRIS HARMON PA-C Pharmacy: [facility] #[id number] [place], [place] Oxygen Supply: [facility]/Payer Wash Oil Pump Operator Helper: TACO Problem:Home Health Goal Care Coordination Goal:Home [...] orders/Coumadin Clinic Call results to : Other: [facility] Order Last INR Results 3.0 Date last INR obtained 09/09/2025 Next INR Due 09/23/2025 Current Anticoagula tion Dose 3mg MWF, 6mg all other days INR Goal 2.5-3.5 ICD-10 Diagnosis Code Z95.2 Call results to [facility] CHRIS HARMON PA-C [phone] Fax results to CHRIS HARMON PA-C [phone] [facility] Orders Received Via Verbal telep alexa order on 09/09/2025 at 1320 Order received from (PCP and transcribers name) Tiara MAGALLON/CHRIS HARMON PA-C Nurse Receiving Order SHERITA Carr Problem:Anticoagulation Therapy Goal:Anticoagulation Therapy Scheduled Skilled assessment medications Description: Assess patient/caregiver's ability to manage medications. Assess patient/caregiver's knowledge of drug allergies, dose/route/frequency, new or changed medications, classifications, food and drug interactions, and potential complications. Problem:Management of Home Medications Goal:Management of Home Medications Performed Evaluate for any medication changes Description: Ask at each visit: Are you taking any new medications? Any medication changes? Problem:Management of Home Medications Goal:Management of Home Medications Scheduled Monitor effectiveness of drug therapy Description: Monitor effectiveness of patient's drug therapy by asking if they are experiencing any side effects of their medication. Problem:Management of Home Medications Goal:Management of Home Medications Scheduled Instruct on high risk medications Description: Instruct [...] of care Description: Patient acknowledged receipt of [facility] Plan of Care. Patient verbalizes understanding and all questions answered. Patient/Caregiver has MyChart and ability to access: yes; If no, e-mail HHS_Status Change to mail patient copy of POC. Problem:Agency Standards Goal:Agency Standards Scheduled Coordination of Care Description: Coordinate visits with and provide status updates to Physician/Allergy/Immunology Diet: Low Cholesterol, Low Fat and Low [...] HECTOR Pugh RN Coordinate Care with PATIENT, HAND ROUTER OPERATOR Problem:Agency Standards Goal:Agency Standards Scheduled Fall Prevention Weakness/Unsteady Gait Description: - [...] - Instruct patient and caregiver to call garde manager or Nurse for furthe r instruction [...] Pulse Oximetry Scheduled documented in this encounter Care Teams Casting House Laborer Relationship Specialty Start Date End Date Chris Harmon PA-C [address] [id number] PCP - General Physician Ride Attendant 09/04/25 documented as of this encounter
[2025-09-10] VITALS (17 sets, daily range): BP systolic 150–157; BP diastolic 84–107; PULSE 53–62; RESP 10–21; TEMP 36.1; O2SAT 92–100; BMI 22.5
--- NOTE | 2025-09-10 18:24 | ED.GENADULT ---
HPI - General Adult General Chief complaint: Weakness Stated complaint: Dizzy, LBP,Parkinsons Time Seen by Provider: 09/10/25 17:30 History of Present Illness HPI narrative: Patient is a 75-year-old here with his son-in-law and brother. He lives out by [place], his brother lives here in [place] and the family is gathering here for Thanksgiving. His son-in-law and daughter just moved here from [place] to stay with him. He has a history of Parkinson's as well as congestive heart failure, valve replacement, chronic anticoagulation. It sounds as if he has been having trouble with orthostatic hypotension recently, was seen at [place] couple of times for falls in the past week. Has had a couple of head CTs, his brother shows me the reads in which they comment on prominence of ventricles, consideration of normal pressure hydrocephalus and recommendation was made to follow-up with neurologist. He does have a neurologist who manages his Parkinson's, apparently they made a follow-up appointment but that isn't until January. Family really was unaware that Parkinson's can be associated with low blood pressures, but they note they were given a medicine last him there in the ER and were told to give him that if the blood pressure was low. Today a couple times when he stood up his blood pressure was in the 60s and he felt lightheaded with that. He did not have any falls but his son in law says that was only because someone was there to stabilize him. They did given the medication as directed, blood pressure is improved. He denies any current symptoms, does not have any new pain, no recent vomiting or diarrhea, felt a little bit nauseated this morning any thinks that was because he took his medicines on an empty stomach. He does not have any chest pain or shortness of breath, denies any black or bloody stools, abdominal or back pain, lower extremity swelling. Related Data Home Medications ?Medication ?Instructions ?Recorded ?Confirmed amantadine HCl 100 mg capsule 100 mg PO BID 09/10/25 09/10/25 amiodarone 200 mg tablet 100 mg PO DAILY 09/10/25 09/10/25 carbidopa 25 mg-levodopa 250 mg 1 tab PO HS 09/10/25 09/10/25 tablet levothyroxine 75 mcg capsule 75 mcg PO DAILY 09/10/25 09/10/25 sertraline 50 mg tablet 50 mg PO DAILY 09/10/25 09/10/25 warfarin 3 mg tablet 3 mg PO 3XW 09/10/25 09/10/25 Allergies Allergy/AdvReac Type Severity Reaction Status Date / Time No Known Drug Allergies Allergy Verified 09/10/25 17:46 Review of Systems Status of ROS: Reports: 10 or more systems reviewed and unremarkable except as noted in History and below Exam Narrative: Exam Narrative: Vital signs reviewed In general, an alert, nontoxic Head: Normocephalic, atraumatic. Eyes: Sclera clear. Pupils equal and reactive. ENT: Mucous membranes moist. Neck: Supple without adenopathy. Heart: Regular rate and rhythm without murmur. Lungs: Clear. No increased work of breathing, crackles or wheezes. Abdomen: Soft, nontender to palpation. Extremities: Well perfused, pulses intact. No significant edema. Neurologic: Alert, conversant. Speech fluent, face symmetric. Moves all extremities equally. Skin: Warm, dry well perfused. Affect: Normal. Const: Vital Signs, click to edit/add: Vital Signs - 24 hr 09/10/25 17:33 09/10/25 18:07 09/10/25 18:24 Temperature 97.0 F L Pulse Rate 56 L Pulse Rate [Pulse Oximeter] 53 L Respiratory Rate 16 10 L Blood Pressure 157/107 H Blood Pressure [Ri ght Upper Arm] 151/84 H Pulse Oximetry 99 99 98 Oxygen Delivery Me thod Room Air 09/10/25 18:25 09/10/25 18:30 09/10/25 18:45 Temperature Pulse Rate 55 L 60 Pulse Rate [Pulse Oximeter] Respiratory Rate 12 10 L 12 Blood Pressure Blood Pressure [Ri ght Upper Arm] Pulse Oximetry 98 100 Oxygen Delivery Me thod 09/10/25 19:00 09/10/25 19:15 09/10/25 19:29 Temperature Pulse Rate 58 L 61 Pulse Rate [Pulse Oximeter] Respiratory Rate 21 15 18 Blood Pressure 155/95 H Blood Pressure [Ri ght Upper Arm] Pulse Oximetry 100 98 Oxygen Delivery Me thod Room Air 09/10/25 19:30 09/10/25 19:32 09/10/25 19:45 Temperature Pulse Rate 61 62 62 Pulse Rate [Pulse Oximeter] Respiratory Rate 18 16 10 L Blood Pressure 154/96 H Blood Pressure [Ri ght Upper Arm] Pulse Oximetry 99 100 92 Oxygen Delivery Me thod 09/10/25 20:00 09/10/25 20:02 09/10/25 20:15 Temperature Pulse Rate 61 57 L 62 Pulse Rate [Pulse Oximeter] Respiratory Rate 18 Blood Pressure 151/93 H Blood Pressure [Ri ght Upper Arm] Pulse Oximetry 99 99 100 Oxygen Delivery Me thod Room Air 09/10/25 20:30 09/10/25 20:32 Temperature Pulse Rate 61 61 Pulse Rate [Pulse Oximeter] Respiratory Rate 18 15 Blood Pressure 150/94 H Blood Pressure [Ri ght Upper Arm] Pulse Oximetry 100 100 Oxygen Delivery Me thod Course Course ED Course: Patient presents with an episode of hypotension at home now resolved, it sounds as if he is been worsening over the past few months in terms of his strength and ability to care for himself. Before the summer it sounds like he was walking several miles a day but he says as the temperatures cot hotter he stop doing that and he is really not doing any long distance walking anymore. Seems fairly unsteady on his feet, but no focal neurologic changes. Discussed with family that orthostatic hypotension is strongly associated with Parkinson's and the treatment for Parkinson's, but we can certainly look for other possible contributing factors such as dehydration, electrolyte abnormality, acute coronary syndrome, infection, anemia etcetera. We did an EKG, he has sinus bradycardia, ventricular rate of 54, baseline unknown as he has never been here before. He is not on a beta-mary or any other medications that would slow his heart rate. He recently discontinued amiodarone, as of September 02 I believe, unclear whether this has caused some new bradycardia for him, though he tells me that his heart rate generally around slow. It does not seem to be causing any significant hypotension or other symptoms at this time. Labs reviewed in their entirety, lactate was minimally elevated at 2.2, but there are no other markers of infection, normal white blood cell count, normal CRP and no findings on history exam suggestive of focal infection. TSH mildly elevated but free T4 was normal. Reviewed all these findings with the patient and his family. We reviewed ways to try to manage hypotension at home, advised earlier neurology follow-up, particularly given CT findings at his last ER visit. They are comfortable with discharge home, his son-in-law and daughter are home all the time and they can help. Return as needed for acute worsening or new symptoms. Continue current medications. Vital Signs Vital signs: Initial Vital Signs Temperature 97.0 F L 09/10/25 17:33 Temperature Source Temporal Artery Scan 09/10/25 17:33 Pulse Rate 53 L 09/10/25 17:33 Respiratory Rate 16 09/10/25 17:33 Blood Pressure 151/84 H 09/10/25 17:33 Blood Pressure Mean 106 H 09/10/25 17:33 Pulse Oximetry 99 09/10/25 17:33 Oxygen Delivery Method Room Air 09/10/25 17:33 Vital Signs Temperature 97.0 F L 09/10/25 17:33 Pulse Rate 53 L 09/10/25 17:33 Respiratory Rate 16 09/10/25 17:33 Blood Pressure 151/84 H 09/10/25 17:33 Pulse Oximetry 99 09/10/25 17:33 Oxygen Delivery Method Room Air 09/10/25 17:33 Temperature 97.0 F L 09/10/25 17:33 Pulse Rate 61 09/10/25 20:32 Respiratory Rate 15 09/10/25 20:32 Blood Pressure 150/94 H 09/10/25 20:32 Pulse Oximetry 100 09/10/25 20:32 Oxygen Delivery Method Room Air 09/10/25 20:02 Medical Decision Making Lab Data Labs: Lab Results 09/10/25 Range/Units 18:33 WBC 7.00 (4.50-11.00) K/uL RBC 4.72 (4.30-5.90) m/uL Hgb 14.5 (13.5-17.5) gm/dL Hct 44.6 (37.0-53.0) % MCV 95 (80-100) fL MCH 31 (26-34) pg MCHC 33 (32-36) gm/dL RDW Coeff of Sohan 13.6 (11.5-15.5) % Plt Count 164 (140-440) K/uL Neut % (Auto) 78.4 H (42.0-72.0) % Lymph % (Auto) 9.0 L (20-44) % [place] % (Auto) 8.7 (0.0-11.0) % Eos % (Auto) 2.6 (0.0-7.0) % Baso % (Auto) 0.4 (0.0-3.0) % Neut # (Auto) 5.50 (1.7-7.0) K/uL Lymph # (Auto) 0.60 L (0.90-2.90) K/uL [place] # (Auto) 0.60 (0.00-0.90) K/UL Eos # (Auto) 0.18 (0.00-0.50) K/uL Baso # (Auto) 0.03 (0.00-0.30) K/uL Abs Immat Gran (auto) 0.06 (0.00-0.30) K/uL Imm/Tot Granulo (auto) 0.9 % Sodium 137 (135-149) mmol/L Potassium 4.5 (3.6-5.1) mmol/L Chloride 98 (96-114) mmol/L Carbon Dioxide 27 (20-32) mmol/L Anion Gap 12 (7-15) mEq/L BUN 21 (7-30) mg/dL Creatinine 1.4 (0.5-1.5) mg/dL Estimated Creat Clear 43.29 Estimated GFR 52 ml/min Glucose 102 (60-115) mg/dL Lactate 2.2 H (0.5-1.9) mmol/L Calcium 9.1 (8.4-10.6) mg/dL Magnesium 2.0 (1.5-2.6) mg/dL Total Bilirubin 1.2 (0.1-1.5) mg/dL Direct Bilirubin 0.4 (0.0-0.5) mg/dL AST 46 H (12-35) U/L ALT 25 (4-50) U/L Alkaline Phosphatase 107 (40-150) U/L Troponin I 0.04 (0.01-0.04) ng/mL C-Reactive Protein < 0.5 L (0.5-1.0) mg/dL Total Protein 8.0 (6.0-8.3) g/dL Albumin 4.7 (3.3-5.0) g/dL TSH 4.460 H (0.270-4.200) uIU/mL Free T4 1.43 (0.70-1.85) ng/dL Discharge Plan Discharge Clinical Impression: Orthostatic hypotension, Parkinson's disease Patient Disposition: Home, Self-Care Condition: Unchanged Instructions: Parkinson Disease (ED), Hypotension (DC) Additional Instructions: Your labs today are all reassuring. Your TSH is slightly high, and a free thyroid hormone is pending at this time. I suspect this will be normal and if so there is nothing further that needs to be done with this. If it is markedly abnormal I will call you and let you know. I strongly suspect that the problems you are having with your blood pressure are related to her Parkinson's as this is very common with Parkinson's disease. As discussed, this is best managed by a neurologist. Things you can do at home are to change positions slowly, have someone standby when you are standing up, and make sure you are getting enough salt and fluids. For now, continue medications as prescribed. Regarding the CT scan you had at [place], as discussed I would recommend that you call your neurology clinic and review those findings with them. I think you should be seen sooner than January. If you have new significant symptoms such as chest pain, shortness of breath, fever, or other worsening, return to the ER at any time. Prescriptions: No Action amiodarone 200 mg tablet 100 mg PO DAILY sertraline 50 mg tablet 50 mg PO DAILY warfarin 3 mg tablet 3 mg PO 3XW amantadine HCl 100 mg capsule 100 mg PO BID carbidopa-levodopa 25-250 mg tablet 1 tab PO HS Rx Instructions: administer 30-60 minutes before bedtime levothyroxine 75 mcg capsule 75 mcg PO DAILY Follow Up/Referrals: Provider,Not a Local [Primary Care Provider, Family Practice] Stand Alone Forms: [employer] Info Instructions
[2025-09-10 18:38] LABS: Lactate Sepsis w/Reflex* 2.2 mmol/L (0.5-1.9)
[2025-09-10 18:43] LABS: Hematocrit* 44.6 % (37.0-53.0); Hemoglobin* 14.5 gm/dL (13.5-17.5); Immature Granulocytes Abs Auto 0.06 K/uL (0.00-0.30); Immature Granulocytes Pct Auto 0.9 %; Mean Corpuscular HGB Conc 33 gm/dL (32-36); Mean Corpuscular Hemoglobin 31 pg (26-34); Mean Corpuscular Volume 95 fL (80-100); RDW Coefficient of Variation % 13.6 % (11.5-15.5); Red Blood Count* 4.72 m/uL (4.30-5.90); White Blood Count* 7.00 K/uL (4.50-11.00)
[2025-09-10 18:49] LABS: Lymphocytes Absolute Auto 0.60 K/uL (0.90-2.90); Slide Review Reflex No
[2025-09-10 18:54] LABS: Albumin* 4.7 g/dL (3.3-5.0); Chloride* 98 mmol/L (96-114)
[2025-09-10 18:55] LABS: Potassium* 4.5 mmol/L (3.6-5.1); Sodium* 137 mmol/L (135-149)
[2025-09-10 18:57] LABS: Blood Urea Nitrogen* 21 mg/dL (7-30); Creatinine* 1.4 mg/dL (0.5-1.5); Est. Creatinine Clearance* 43.29; Estimated Glomerular Filt Rate 52 ml/min
[2025-09-10 18:58] LABS: Alanine Aminotransferase* 25 U/L (4-50); Alkaline Phosphatase* 107 U/L (40-150); Anion Gap 12 mEq/L (7-15); Aspartate Amino Transferase* 46 U/L (12-35); Bilirubin Direct* 0.4 mg/dL (0.0-0.5); Bilirubin Total* 1.2 mg/dL (0.1-1.5); Calcium* 9.1 mg/dL (8.4-10.6); Carbon Dioxide* 27 mmol/L (20-32); Glucose* 102 mg/dL (60-115); Total Protein* 8.0 g/dL (6.0-8.3)
--- OUTSIDE RECORDS SUMMARY | 2025-09-10 19:08 | XMS_ITS | Encounter Summary ---
Author Organization [facility] Address [address] [place] [address] Care Team Providers Care Service Technician Name Role Phone Rakesh Harmon PA-C Primary Care Provider [phone]- [phone] Encounter Details Date Type Department Care Team (Latest Contact Info) Description 07/01/1996 Notes/Orders Social History Tobacco Use Types Packs/Day Years Used Date Smoking Tobacco: Never Assessed Sex and Gender Information Value Date Recorded Sex Assigned at Not on file Legal Sex Male 4:05 AM CDT Gender Identity Not on file Sexual Orientation Not on file documented as of this encounter Plan of Treatment Upcoming Encounters Date Type Department Care Team (Late st Contact Info) Description 01/25/2026 8:30 AM CDT Appointment [facility] [address] [place], [place] [id number] Minh Meyer MD [address] [facility] [address] [place] [phone] documented as of this encounter Visit Diagnoses Not on filedocumented in this encounter Care Teams Service Technician Relationship Specialty Start Date End Date Rakesh Harmon PA-C [address] [place] [id number] PCP - General Physician Head Filter Tank Tender Helper 07/24/25 documented as of this encounter
--- OUTSIDE RECORDS SUMMARY | 2025-09-10 19:08 | XMS_ITS | Encounter Summary ---
Author Organization [facility] Address [address] [place] [address] Care Team Providers Care Fisheries Diver Name Role Phone Rakesh Harmon PA-C Primary Care Provider [phone]- [phone] Encounter Details Date Type Department Care Team (Late st Contact Info) Description 07/16/2025 E-Visit [facility] [address] [place] [address] [place], [place] [address] Social History Tobacco Use Types Packs/Day Years Used Date Smoking Tobacco: Never Smokeless Tobacco: Never Alcohol Use Standard Drinks/Week Comments Yes 14 (1 standard drink = 0.6 oz pu re alcohol) PHQ-2 Answer Date Recorded PHQ-2 Score 3 10/06/2022 Sex and Gender Information Value Date Recorded Sex Assigned at Not on file Legal Sex Male 4:05 AM CDT Gender Identity Not on file Sexual Orientation Not on file Occupation Industry Job Start Date Job End Date Not on file Not on file Not on file Not on file documented as of this encounter Plan of Treatment Upcoming Encounters Date Type Department Care Team (Late st Contact Info) Description 01/25/2026 8:30 AM CDT Appointment [facility] [address] [place], [place] [phone] Minh Meyer MD [address] [facility] [address] [place] [phone] documented as of this encounter Visit Diagnoses Not on filedocumented in this encounter Care Teams Fisheries Diver Relationship Specialty Start Date End Date Rakesh Harmon PA-C [address] [place] [id number] PCP - General Physician Wood Turner 07/24/25 documented as of this encounter
--- OUTSIDE RECORDS SUMMARY | 2025-09-10 19:08 | XMS_ITS | Clinical Summary ---
[facility] Address [address] [place] [address] Care Team Providers Care Pole Tester Name Role Phone Rakesh Harmon PA-C Primary Care Provider +1- [phone] Source Comments You are receiving this document as you are listed as the primary care provider,follow-up provider, or the patient has been referred to you for consultation.This is in compliance with the Medicare and[facility] Hospitalca[facility] EHR Incentive Program,which states Providers who transition their patient to another setting of careor provider of care or refers their patient to another provider of care shouldprovide summary care record for each transition of care or referral. [facility] Allergies No known active allergies Medications amoxicillin (AMOXIL) 250 MG capsuleIndications:H x of mitral valve replacement with mechanical valve Take 4 Caps by mouth once for 1 dose. Take 1/2 hour to 1 hour prior to Dental work due to mechanical heart valve 4 Cap 2 06/05/20 17 Active omeprazole (PRILOSEC) 20 MG capsule Take 1 Cap by mouth daily. Take 1 hour before a meal. 90 Cap 3 06/06/20 17 Active Additional Information Patient not taking.Reported on 01/24/2021 multivitamin (THERAGRAN) tablet Take 1 Tablet by mouth daily. Active cholecalciferol (VITAMIN D3) 1000 units tablet Take 1 Tablet (1,000 Units) by mouth daily. Active LUTEIN OR Take 1 Tablet by mouth daily. Active drug not in computerIndications: CBD Oil Take 1 Dose by mouth as needed. Indications: CBD Oil Active Ginkgo Biloba (GINKOBA OR) Take 1 Dose by mouth daily. Active Tadalafil (CIALIS) 20 MG tabletIndications:Pa rkinson's disease (HRC),Familial hypercholesterolemia ,Thrombocytopenia (HRC),senior care current use of anticoagulant therapy,Erectile dysfunction, unspecified erectile dysfunction type,Gastroesophagea l reflux disease, unspecified whether esophagitis present Take 1 Tablet (20 mg) by mouth daily as needed. 10 Tablet 11 10/06/20 22 Active modafinil (PROVIGIL) 100 MG tabletIndications:Ch ronic fatigue Take 1 Tablet (100 mg) by mouth daily. 30 Tablet 2 10/06/20 22 Active Additional Information Patient not taking.Reported on 03/16/2025 carbidopa-levodopa (SINEMET) 25-100 MG tabletIndications:Praful rkinson's disease with dyskinesia and fluctuating manifestations (HRC) Take 2 Tablets by mouth three times a day. 8am, 1pm and 6pm 540 Tablet 3 10/02/20 23 Active bimatoprost (LUMIGAN) 0.03 % eye drop solution Place 1 Drop into both eyes daily at bedtime. Dispense 90-day supply if applicable 2.5 mL 12 01/23/20 24 Active timolol (TIMOPTIC) 0.5 % eye drop solution Place 1 Drop into left eye every morning. Dispense 90-day supply if applicable 10 mL 12 01/23/20 24 Active Additional Information Patient not taking.Reported on 03/16/2025 warfarin 3 MG tabletIndications:Hx of mitral valve replacement with mechanical valve,Monitoring for long-term anticoagulant use,senior care (current) use of anticoagulants,supervisor intermediates current use of anticoagulant therapy No further supply until patient is seen by James Esteban MD 01/10/20 25 Active atorvastatin (LIPITOR) 40 MG tabletIndications:Fa milial hypercholesterolemia ,Thrombocytopenia (HRC),supervisor intermediates current use of anticoagulant therapy,Parkinson's disease (HRC),Gastroesophage al reflux disease, unspecified whether esophagitis present Take 1 Tablet (40 mg) by mouth daily. Appt needed 01/2025 for refills. 90 Tablet 01/16/20 25 Active levothyroxine (SYNTHROID) 75 MCG tabletIndications:Fa milial hypercholesterolemia ,Thrombocytopenia (HRC),supervisor intermediates current use of anticoagulant therapy,Gastroesopha geal reflux disease, unspecified whether esophagitis present Take 1 Tablet (75 mcg) by mouth daily. 90 Tablet 01/16/20 25 Active amantadine (SYMMETREL) 100 MG capsule Take 1 Capsule (100 mg) by mouth two times a day. 180 Capsule 3 03/16/20 25 Active carbidopa-levodopa (SINEMET) 25-250 MG tablet Take 1 Tablet by mouth three times a day. 270 Tablet 2 06/03/20 25 026 Active Active Problems Problem Noted Date Diagnosed Date Monitoring for long-term anticoagulant use 03/03 Acquired hypothyroidism 09/27/2021 History of dysplastic nevus 02/23/2021 Overview (02/23/2021): DN moderate, right superior chest, s/p punch 01/2012 Gastroesophageal reflux disease 11/16/2020 Primary open angle glaucoma (POAG) of left eye, moderate stage 06/29/2020 Overview (06/29/2020): Tmax pach 457/465 Primary open angle glaucoma (POAG) of right eye, mild stage 06/29/2020 Overview (06/29/2020): Tmax /18 pach 457/465 Left inguinal hernia 07/03/2019 Overview (07/03/2019): Added automatically from request for surgery [id number] Parkinson's disease 10/13/2018 Familial hypercholesterolemia 09/13/2016 Nuclear cataract 08/14/2016 Thrombocytopenia 09/23/2015 Dermatochalasis 08/17/2014 supervisor intermediates (current) use of anticoagulants 2013 Overview (01/21/2018): Update from Spring 2017 IMO load. Hx of mitral valve replacement with mechanical v alve 03/19/2014 Overview (05/18/2016): per note 03/19/14 Dr. Molina 'warfarin for mitral valve replacement, mechanical , from 2003'. 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 Episodic cluster headache, not intractable Resolved Problems Problem Noted Date Diagnosed Date Resolved Date Primary open angle glaucoma (POAG) of both eyes, mild stage 09/19/2018 06/29/2020 Overview (06/29/2020): Tmax pach 457/465 OAG (open angle glaucoma) 10/06/2015 Overview (06/06/2017): Lumigan has better IOP lowering than latanoprost 02/2016 ; OAG (open angle glaucoma) OS, 457/465 Moderate stage glaucoma 08/29/201409/15 Anticoagulant long-term use 01/30/2014 02/15/2015 Overview (06/06/2017): Anticoagulant long-term use warfarin Primary open angle glaucoma 08/09/2007 10/06/2015 Myopia 08/09/2007 08/06/2009 Overview (06/06/2017): S/p LASIK 2000 and enhancement 2001 ; Myopia, high s/p lasik both eyes Encounters Date Type Department Care Team Description 07/16/2025 E-Visit [facility] [address] [place] [address] Mychart, Generic Provider 07/15/2025 Telephone PN Anticoagulation Centralized Services [id number] [address] [facility] [place] [address] James Esteban MD Appointment from Last 3 Months Immunizations Immunization Administration Dates Next Due Flu Vac (3+ yrs) 08/12/2013, 2,08/18/2010,2008,07/30/2008 Flu Vac Preserv Free (3+yrs) 09/26/2011, 10/05/2009,08/14/2007,2005 [id number] 10/05/2009 HepA Adult (19+ yrs) 07/17/1997,01/21/1997 HepB Adult (Engerix-B, 20+ y rs, 3 dose series) 11/19/1992 IPV (Polio) 07/31/2005 Influenza IIV3 (Trivalent) F wilberto Highdose, 65+ Yrs (60435) 07/29/2019,08/09/2018,08/29/2017,2015,09/15/2015 Influenza IIV4 (Quadrivalent ) 0.5mL (05080) 07/23/2014 Influenza IIV4 (Quadrivalent ) Fluad, 65+ Yrs 08/02/2022,08/04/2021,07/27/2020 Influenza IIV4 (Quadrivalent ) Fluzone, 65+ Yrs 08/20/2023 Influenza aIIV3 65+ Years (Fluad) 07/25/2024 JE (JE-VAX) 09/22/2005,08/08/2005,07/31/2005 Moderna COVID-19 12+ (Spikevax) 08/20/2023 Moderna Monovalent 12+ 03/01/2022 PCV13 (Prevnar) 10/09/2017,08/03/2016 PPSV23 (Pneumovax) 10/11/2018 Pfizer Bivalent 12+ 04/06/2023,08/09/2022 Pfizer COVID-19 12+ (Comirnaty) 07/25/2024 Pfizer Monovalent 12+ Purple Top 08/13/2021,12/14,12/15/2020 RSV Arexvy 09/27/2023 Rabies 09/22/2005,08/08/2005,07/31/2005 TDAP (BOOSTRIX) 02/16/2015 Td 11/07/2002 Td, Preservative Free 09/29/2013 Tdap 07/13/2008 Typhoid (Vivotif, Oral) 08/18/2010,09/14/2004 Zoster (Zostavax) 04/07/2013,10/12/2011 Zoster RZV (Shingrix) 09/19/2019 Family History Medical History Relation Name Comments Abdominal Aortic Aneurysm Father Jean Carlos Heart Attack Father Jean Carlos High Cholesterol Father Jean Carlos Cataract Mother Macular Degeneration Mother Amblyopia/Strabismus Negative Family History Diabetes Negative Family History Glaucoma Negative Family History Stroke Negative Family History Relation Name Status Comments Father Jean Carlos (Age 78) Mother Alive Brother Alive Sister Alive Social History Tobacco Use Types Packs/Day Years [...] file Not on file Not on file Last Filed Vital Signs Vital Sign Reading Time Taken Comments Blood Pressure 109/84 03/16/2025 1:52 PM CDT Pulse 112 03/16/2025 1:52 PM CDT Temperature 36.3 C (97.4 F) 07/23/2023 12:37 PM CDT Respiratory Rate 19 07/23/2023 6:30 PM CDT Oxygen Saturation 94% 07/23/2023 6:45 PM CDT Inhaled Oxygen Concentration - - Weight 75.8 kg (167 lb) 03/16/2025 1:45 PM CDT s hoes on Height 172.7 cm (5' 8) 10/02/2023 2:39 PM GEOTECHNICIAN Body Mass Index 25.39 10/02/2023 2:39 PM GEOTECHNICIAN Plan of Treatment Upcoming Encounters Date Type Department Care Team (Late st Contact Info) Description 01/25/2026 8:30 AM CDT Appointment [facility] [address] [place] [address] Minh Meyer MD [address] [facility] [address] [place] [address] Health Maintenance Due Date Last Done Comments Pneumococcal PCV20 Immunization Discussion 1950 HepB Vaccine (2) 12/17/1992 11/19/1992 HepA Vaccine (2 of 2 - Risk 2-dose series) 01/15/1998 07/17/1997, 01/21/1997 Zoster/Shingles Vaccine (3 of 3) 11/14/2019 09/19/2019, 04/07/2013, 10/12/2011 Colonoscopy 06/09/2021 06/09/2011 (Completed) Medicare Annual Wellness Visit 10/15/2024 10/06/2022, 09/23/2021, 11/09/2020, Additional history exists DTaP/Tdap/Td Vaccine (4 - Tdap) 02/16/2025 02/16/2015, 09/29/2013, 07/13/2008, Additional history exists COVID-19 Vaccine ( season) 2025 07/25/2024, 08/20/2023, 04/06/2023, Additional history exists Influenza Vaccine (#1) 2025 , 08/20/2023, 08/02/2022, Additional history exists Hep C Screening (Preventive Services) Completed 08/26/2018 Pneumococcal Vaccine 50+ Yrs Completed 10/11/2018, 10/09/2017, 08/03/2016 RSV Vaccine Completed 09/27/2023 Cholesterol Discontinued 10/02/2023, 09/15, 09/15/2022, Additional history exists Hib Vaccine Aged Out No longer eligi ble based on patient's age to complete this topic MCV4 Vaccine Aged Out No longer eligi ble based on patient's age to complete this topic Meningococcal B Vaccine Aged Out No l onger eligible based on patient's age to complete this topic Medical Devices Implanted Type Area Steam Shovel Operating Engineer Device Identifier Shelf Expiration Date Model / Serial / Lot Mesh Flats Preshape W/Hole - [id number] Implanted:Qty : 1 on 08/06/2019 by Ulises Neil MD at [facility] DEVICE Left: INGUINAL [employer] 01/10/2024 [id number] / [id number] / [id number] Procedures Procedure Name Priority Date/Time Associated Diagnosis Comments LIPID PANEL & DIRECT LDL (IF NEEDED) Routine 10/02/2023 3:44 PM GEOTECHNICIAN Parkinson's disease, unspecified whether dyskinesia present, unspecified whether manifestations fluctuate Familial hypercholesterolemia Thrombocytopenia (HRC) HEPATITIS C ANTIBODY, WITH REFLEX (ANTI-HCV) Routine 08/26/2018 3:57 PM GEOTECHNICIAN Preventative health care Thrombocytopenia (HRC) Familial hypercholesterolemia Hx of mitral valve replacement with mechanical valve from Last 3 Months or Most Recently Relevant to Health Maintenance Results * Lipid Panel and Direct LDL(If Needed) (10/02/2023 3:44 PM GEOTECHNICIAN) Cholesterol 170 0 - 199 mg/dL 10/02/2023 8:12 PM GEOTECHNICIAN [facility] Triglyceride 63 <=149 mg/dL 10/02/2023 8:12 PM GEOTECHNICIAN [facility] HDL Cholesterol 56 >=40 mg/dL 8:12 PM GEOTECHNICIAN [facility] LDL, Calculated 101 <130 mg/dL 8:12 PM GEOTECHNICIAN [facility] Non HDL Chol, Calculated 114 <=159 mg/dL 10/02/2023 8:12 PM GEOTECHNICIAN [facility] Cholesterol/HDL Ratio 3.0 <=5.0 10/02/2023 8:12 PM GEOTECHNICIAN [facility] Hours Fasting 1.0 8 - 12 Hours 10/02/2023 8:[address] [facility] Blood Venipuncture / Unknown 10/02/2023 3:44 PM GEOTECHNICIAN 10/02/2023 3:44 PM GEOTECHNICIAN James Esteban MD LAB_1 Final Result [facility] [address] [place] [address], [facility] [address] [place] [phone] [phone] * Hepatitis C Antibody, with Reflex (08/26/2018 3:57 PM GEOTECHNICIAN) Hepatitis C Antibody Nonreactive Nonreactive PN SOFT 08/26/2018 3:57 PM GEOTECHNICIAN 08/26/2018 9:55 PM GEOTECHNICIAN Narrative PN SOFT - 08/26/2018 10:43 PM GEOTECHNICIAN Performed at [facility], [address] [place] [address] CLIA number [id number] James Esteban MD LAB_1 Final Result Performing Organization Address City/[facility]/ZIP Co de Phone Number PN SOFT [address] [place] [phone] from Last 3 Months or Most Recently Relevant to Health Maintenance Insurance BCBS MEDICARE ADVANTAGE BCBS MEDICARE ADVANTAGE Advance Directives * Full Code (Latest Code Status on File) Date Activated Date Inactivated Comments 08/06/2019 10:10 AM 08/06/2019 2:49 PM Care Teams Pole Tester Relationship Specialty Start Date End Date Rakesh Harmon PA-C [address] [place] [address] [place] [id number] PCP - General Physician Cap Inspector 07/24/25
--- OUTSIDE RECORDS SUMMARY | 2025-09-10 19:08 | XMS_ITS | Encounter Summary ---
Author Organization [facility] Address [address] [place] [address] Care Team Providers Care Community Program Assistant Name Role Phone Rakesh Harmon PA-C Primary Care Provider +1- [phone] Encounter Details Date Type Department Care Team (Latest Contact Info) Description 04/23/1996 Notes/Orders Social History Tobacco Use Types Packs/Day [...] Info) Description 01/25/2026 8:30 AM CDT Appointment [facility] [address] [place], [place] [address] Minh Meyer MD [address] [facility] [address] [place] [address] documented as of this encounter Visit Diagnoses Not on filedocumented in this encounter Care Teams Community Program Assistant Relationship Specialty Start Date End Date Rakesh Harmon PA-C [address] [place] [id number] PCP - General Physician Platform Supervisor 07/24/25 documented as of this encounter
--- OUTSIDE RECORDS SUMMARY | 2025-09-10 19:09 | XMS_ITS | Encounter Summary ---
Author Organization [facility] Address [address] [place] [address] Care Team Providers Care Glass Etcher Helper Name Role Phone Rakesh Harmon PA-C Primary Care Provider +1- [phone] Encounter Details Date Type Department Care Team (Latest Contact Info) Description 11/05/1995 Notes/Orders James Torrez MD Social History Tobacco Use Types Packs/Day Years [...] Info) Description 01/25/2026 8:30 AM CDT Appointment [facility] [address] [place], [place] [address] Minh Meyer MD [address] [facility] [address] [place] [address] documented as of this encounter Visit Diagnoses Not on filedocumented in this encounter Care Teams Glass Etcher Helper Relationship Specialty Start Date End Date Rakesh Harmon PA-C [address] [place] [address] 5 [place] [address] PCP - General Physician Act Tutor 07/24/25 documented as of this encounter
--- OUTSIDE RECORDS SUMMARY | 2025-09-10 19:09 | XMS_ITS | Encounter Summary ---
Author Organization [facility] Address [address] [place] [address] Care Team Providers Care Blue Print Control Clerk Name Role Phone Rakesh Harmon PA-C Primary Care Provider +1- [phone] Encounter Details Date Type Department Care Team (Latest Contact Info) Description 12/21/1995 Notes/Orders James Torrez MD Social History Tobacco [...] Info) Description 01/25/2026 8:30 AM CDT Appointment [facility] [address] [place], [place] [address] Minh Meyer MD [address] [facility] [address] [place] [address] documented as of this encounter Visit Diagnoses Not on filedocumented in this encounter Care Teams Blue Print Control Clerk Relationship Specialty Start Date End Date Rakesh Harmon PA-C [address] [place] [address] 5 [place] [address] PCP - General Physician Signals Collection Technician 07/24/25 documented as of this encounter
--- OUTSIDE RECORDS SUMMARY | 2025-09-10 19:09 | XMS_ITS | Encounter Summary ---
Author Organization [facility] Address [address] [place] [address] Care Team Providers Care Scales Inspector Name Role Phone Rakesh Harmon PA-C Primary Care Provider +1- [phone] Encounter Details Date Type Department Care Team (Latest Contact Info) Description 05/26/1997 Notes/Orders Social History Tobacco Use Types Packs/Day [...] Info) Description 01/25/2026 8:30 AM CDT Appointment [facility] [address] [place], [place] [address] Minh Meyer MD [address] [facility] [address] [place] [address] documented as of this encounter Visit Diagnoses Not on filedocumented in this encounter Care Teams Scales Inspector Relationship Specialty Start Date End Date Rakesh Harmon PA-C [address] [place] [phone] PCP - General Physician Numerical Control Operator 07/24/25 documented as of this encounter
--- OUTSIDE RECORDS SUMMARY | 2025-09-10 19:09 | XMS_ITS | Encounter Summary ---
Author Organization [facility] Address [address] [place] [address] Care Team Providers Care Paper Stacker Name Role Phone Rakesh Harmon PA-C Primary Care Provider +1- [phone] Encounter Details Date Type Department Care Team (Latest Contact Info) Description 12/26/1994 Notes/Orders James Torrez MD Social History Tobacco [...] Info) Description 01/25/2026 8:30 AM CDT Appointment [facility] [address] [place], [place] [address] Minh Meyer MD [address] [facility] [address] [place] [address] documented as of this encounter Visit Diagnoses Not on filedocumented in this encounter Care Teams Paper Stacker Relationship Specialty Start Date End Date Rakesh Haromn PA-C [address] [place] [address] 5 [place] [address] PCP - General Physician Television Program Director 07/24/25 documented as of this encounter
--- OUTSIDE RECORDS SUMMARY | 2025-09-10 19:09 | XMS_ITS | Encounter Summary ---
Author Organization [facility] Address [address] [address] Care Team Providers Care Splicer Operator Name Role Phone Rakesh Harmon PA-C Primary Care Provider +1- [phone] Encounter Details Date Type Department Care Team (Late st Contact Info) Description 01/31/2001 Consent for Procedure/Treatme nt Security Contact - Corrina Mon External, Provider No address [address] INFORMED CONSENT FORM Social History Tobacco Use Types Packs/Day Years [...] Info) Description 01/25/2026 8:30 AM CDT Appointment [facility] [address] [place], [place] [address] Minh Meyer MD [address] [facility] [address] [place] [phone] documented as of this encounter Visit Diagnoses Not on filedocumented in this encounter Care Teams Splicer Operator Relationship Specialty Start Date End Date Rakesh Harmon PA-C [address] [place] [address] 5 [place] [address] PCP - General Physician Supervisor Poultry Farm 07/24/25 documented as of this encounter
--- OUTSIDE RECORDS SUMMARY | 2025-09-10 19:09 | XMS_ITS | Encounter Summary ---
Author Organization [facility] Address [address] [place] [address] Care Team Providers Care Panel Saw Operator Name Role Phone Rakesh Harmon PA-C Primary Care Provider +1- [phone] Encounter Details Date Type Department Care Team (Latest Contact Info) Description 10/16/1996 Notes/Orders Social History Tobacco Use Types Packs/Day [...] Info) Description 01/25/2026 8:30 AM CDT Appointment [facility] [address] [place], [place] [address] Minh Meyer MD [address] [facility] [address] [place] [address] documented as of this encounter Visit Diagnoses Not on filedocumented in this encounter Care Teams Panel Saw Operator Relationship Specialty Start Date End Date Rakesh Harmon PA-C [address] [place] [id number] PCP - General Physician Bread Room Hand 07/24/25 documented as of this encounter
--- OUTSIDE RECORDS SUMMARY | 2025-09-10 19:09 | XMS_ITS | Encounter Summary ---
Author Organization [facility] Address [address] [place] [address] Care Team Providers Care Men'S And Boys' Clothing Salesperson Name Role Phone Rakesh Harmon PA-C Primary Care Provider +1- [phone] Encounter Details Date Type Department Care Team (Latest Contact Info) Description 02/02/1997 Notes/Orders Social History Tobacco Use Types Packs/Day [...] Info) Description 01/25/2026 8:30 AM CDT Appointment [facility] [address] [place], [place] [address] Minh Meyer MD [address] [facility] [address] [place] [address] documented as of this encounter Visit Diagnoses Not on filedocumented in this encounter Care Teams Men'S And Boys' Clothing Salesperson Relationship Specialty Start Date End Date Rakesh Harmon PA-C [address] [place] [id number] PCP - General Physician Hospital Internship 07/24/25 documented as of this encounter
--- OUTSIDE RECORDS SUMMARY | 2025-09-10 19:09 | XMS_ITS | Encounter Summary ---
Author Organization [facility] Address [address] [place] [address] Care Team Providers Care Internal Communications Intern Name Role Phone Rakesh Harmon PA-C Primary Care Provider +1- [phone] Encounter Details Date Type Department Care Team (Latest Contact Info) Description 09/18/1998 Orders Only Renetta Almonte MD [facility] [place] [address] Social History Tobacco Use Types Packs/Day Years [...] Info) Description 01/25/2026 8:30 AM CDT Appointment [facility] [address] [place], [place] [phone] Minh Meyer MD [address] [facility] [address] [place] [address] documented as of this encounter Visit Diagnoses Not on filedocumented in this encounter Care Teams Internal Communications Intern Relationship Specialty Start Date End Date Rakesh Harmon PA-C [address] [place] [address] 5 [place], [place] [phone] PCP - General Physician Certified Surgical Technician 07/24/25 documented as of this encounter
--- OUTSIDE RECORDS SUMMARY | 2025-09-10 19:09 | XMS_ITS | Encounter Summary ---
Author Organization [facility] Address [address] [place] [address] Care Team Providers Care Evaporator Supervisor Name Role Phone Rakesh Harmon PA-C Primary Care Provider +1- [phone] Encounter Details Date Type Department Care Team (Latest Contact Info) Description 08/18/1996 Notes/Orders Social History Tobacco Use Types Packs/Day [...] Info) Description 01/25/2026 8:30 AM CDT Appointment [facility] [address] [place], [place] [address] Minh Meyer MD [address] [facility] [address] [place] [address] documented as of this encounter Visit Diagnoses Not on filedocumented in this encounter Care Teams Evaporator Supervisor Relationship Specialty Start Date End Date Rakesh Harmon PA-C [address] [place] [phone] PCP - General Physician Orthodontist Assistant 07/24/25 documented as of this encounter
--- OUTSIDE RECORDS SUMMARY | 2025-09-10 19:09 | XMS_ITS | Encounter Summary ---
Author Organization [facility] Address [address] [place] [address] Care Team Providers Care Site Surveyor Name Role Phone Rakesh Harmon PA-C Primary Care Provider +1- [phone] Encounter Details Date Type Department Care Team (Latest Contact Info) Description 11/26/1995 Notes/Orders Social History Tobacco Use Types Packs/Day [...] Info) Description 01/25/2026 8:30 AM CDT Appointment [facility] [address] [place], [place] [phone] Minh Meyer MD [address] [facility] [address] [place] [address] documented as of this encounter Visit Diagnoses Not on filedocumented in this encounter Care Teams Site Surveyor Relationship Specialty Start Date End Date Rakesh Harmon PA-C [address] [place] [id number] PCP - General Physician Exhibitions And Collections Manager 07/24/25 documented as of this encounter
--- OUTSIDE RECORDS SUMMARY | 2025-09-10 19:09 | XMS_ITS | Encounter Summary ---
Author Organization [facility] Address [address] [place] [address] Care Team Providers Care Construction Superintendent Name Role Phone Rakesh Harmon PA-C Primary Care Provider +1- [phone] Encounter Details Date Type Department Care Team (Latest Contact Info) Description 07/18/1995 Notes/Orders James Torrez MD Social History Tobacco [...] Info) Description 01/25/2026 8:30 AM CDT Appointment [facility] [address] [place], [place] [address] Minh Meyer MD [address] [facility] [address] [place] [address] documented as of this encounter Visit Diagnoses Not on filedocumented in this encounter Care Teams Construction Superintendent Relationship Specialty Start Date End Date Rakesh Harmon PA-C [address] [place] [address] 5 [place] [address] PCP - General Physician Slurry Mixer 07/24/25 documented as of this encounter
--- OUTSIDE RECORDS SUMMARY | 2025-09-10 19:09 | XMS_ITS | Encounter Summary ---
Author Organization [facility] Address [address] [place] [address] Care Team Providers Care Mobile Sales Assistant Name Role Phone Rakesh Harmon PA-C Primary Care Provider +1- [phone] Encounter Details Date Type Department Care Team (Latest Contact Info) Description 09/04/1995 Notes/Orders James Torrez MD Social History Tobacco [...] Info) Description 01/25/2026 8:30 AM CDT Appointment [facility] [address] [place], [place] [address] Minh Meyer MD [address] [facility] [address] [place] [address] documented as of this encounter Visit Diagnoses Not on filedocumented in this encounter Care Teams Mobile Sales Assistant Relationship Specialty Start Date End Date Rakesh Harmon PA-C [address] [place] [address] 5 [place] [address] PCP - General Physician Psych Coordinator 07/24/25 documented as of this encounter
--- OUTSIDE RECORDS SUMMARY | 2025-09-10 19:09 | XMS_ITS | Encounter Summary ---
Author Organization [facility] Address [address] [place] [address] Care Team Providers Care Clay Roaster Name Role Phone Rakesh Harmon PA-C Primary Care Provider +1- [phone] Encounter Details Date Type Department Care Team (Latest Contact Info) Description 08/24/1995 Notes/Orders James Torrez MD Social History Tobacco [...] Info) Description 01/25/2026 8:30 AM CDT Appointment [facility] [address] [place], [place] [address] Minh Meyer MD [address] [facility] [address] [place] [address] documented as of this encounter Visit Diagnoses Not on filedocumented in this encounter Care Teams Clay Roaster Relationship Specialty Start Date End Date Rakesh Harmon PA-C [address] [place] [address] 5 [place] [address] PCP - General Physician Environmental Compliance Inspector 07/24/25 documented as of this encounter
--- OUTSIDE RECORDS SUMMARY | 2025-09-10 19:09 | XMS_ITS | Encounter Summary ---
Author Organization formerly [facility] Address [address] [place] [address] Care Team Providers Care Marine Underwriter Name Role Phone Rakesh Harmon PA-C Primary Care Provider +1- [phone] Encounter Details Date Type Department Care Team (Latest Contact Info) Description 01/25/1995 Notes/Orders Social History Tobacco Use Types Packs/Day [...] Info) Description 01/25/2026 8:30 AM CDT Appointment [facility] [address] [place], [place] [address] Minh Meyer MD [address]31 [facility] [address] [place] [address] documented as of this encounter Visit Diagnoses Not on filedocumented in this encounter Care Teams Marine Underwriter Relationship Specialty Start Date End Date Rakesh Harmon PA-C [address] [place] [address] PCP - General Physician Social Service Manager 07/24/25 documented as of this encounter
--- OUTSIDE RECORDS SUMMARY | 2025-09-10 19:09 | XMS_ITS | Encounter Summary ---
Author Organization [facility] Address [address] [place] [address] Care Team Providers Care Electronics Department Manager Name Role Phone Rakesh Harmon PA-C Primary Care Provider +1- [phone] Encounter Details Date Type Department Care Team (Latest Contact Info) Description 06/11/1995 Notes/Orders James Torrez MD Social History Tobacco [...] Info) Description 01/25/2026 8:30 AM CDT Appointment [facility] [address] [place], [place] [address] Minh Meyer MD [address]31 [facility] [address] [place] [address] documented as of this encounter Visit Diagnoses Not on filedocumented in this encounter Care Teams Electronics Department Manager Relationship Specialty Start Date End Date Rakesh Harmon PA-C [address] [place] [address] 5 [place] [address] PCP - General Physician Transfer Agent 07/24/25 documented as of this encounter
--- OUTSIDE RECORDS SUMMARY | 2025-09-10 19:09 | XMS_ITS | Encounter Summary ---
Author Organization [facility] Address [address] [place] [address] Care Team Providers Care Plastic Die Maker Apprentice Name Role Phone Rakesh Harmon PA-C Primary Care Provider +1- [phone] Encounter Details Date Type Department Care Team (Latest Contact Info) Description 04/22/1996 Notes/Orders Jordan Aguilar MD [address] [facility], [address] Social History Tobacco Use Types Packs/Day Years [...] Info) Description 01/25/2026 8:30 AM CDT Appointment [facility] [address] [place] [address] Minh Meyer MD [address] [facility] [address] [place] [address] documented as of this encounter Visit Diagnoses Not on filedocumented in this encounter Care Teams Plastic Die Maker Apprentice Relationship Specialty Start Date End Date Rakesh Harmon PA-C [address] [place] [address] 5 [place], [place] [address] PCP - General Physician Meat Supervisor 07/24/25 documented as of this encounter
--- OUTSIDE RECORDS SUMMARY | 2025-09-10 19:09 | XMS_ITS | Encounter Summary ---
Author Organization [facility] Address [address] [address] Phone Care Team Providers Care Cadmium Burner Name Role Phone Rakesh Haromn PA-C Primary Care Provider +1- [phone] Encounter Details Date Type Department Care Team (Latest Contact Info) Description 09/04/2025 Travel Social History Tobacco Use Types Packs/Day Years [...] materials from doctor or pharmacy Sometimes 07/24/2025 [facility] Utilities Answer Date Recorded In the [...] any time in the past 12 m [facility], were you homeless or living in a [place] health care facility (including now)? No 07/16/2025 [facility] IP Custom [...] of Assessment Author Yes 09/04/2025 12:51 PM Elsa Holliday, SHERITA * Patient's Memory Adequate to Safely Complete Daily Activities Answer Date of Assessment Author Yes 09/04/2025 12:51 PM Elsa Holliday, RN documented as of this encounter Mental Status * Patient's Judgment Adequate to Safely Complete Daily Activities Answer Entry Date Author Yes 09/04/2025 12:51 PM Elsa Holliday, RN documented in this encounter Plan of Treatment Upcoming Encounters Date Type Department Care Team (Late st Contact Info) Description 09/16/2025 2:00 AM COMMUNICATION COORDINATOR Appointment [address] [address] Emperatriz Monahan, RN documented as of this encounter Visit Diagnoses Not on filedocumented in this encounter Care Teams Cadmium Burner Relationship Specialty Start Date End Date Rakesh Harmon PA-C [address] [place] [address] PCP - General Physician New Accounts Representative 09/04/25 documented as of this encounter
--- OUTSIDE RECORDS SUMMARY | 2025-09-10 19:09 | XMS_ITS | Encounter Summary ---
Author Organization [facility] Address [address] [place] [address] Care Team Providers Care Square Shear Operator Name Role Phone Rakesh Harmon PA-C Primary Care Provider +1- [phone] Encounter Details Date Type Department Care Team (Latest Contact Info) Description 12/08/1996 Notes/Orders Social History Tobacco Use Types Packs/Day [...] Info) Description 01/25/2026 8:30 AM CDT Appointment [facility] [address] [place], [place] [address] Minh Meyer MD 3931 [facility] [address] [place] [address] documented as of this encounter Visit Diagnoses Not on filedocumented in this encounter Care Teams Square Shear Operator Relationship Specialty Start Date End Date Rakesh Harmon PA-C [address] [place] [address] PCP - General Physician Boardinghouse Keeper 07/24/25 documented as of this encounter
--- OUTSIDE RECORDS SUMMARY | 2025-09-10 19:09 | XMS_ITS | Encounter Summary ---
Author Organization [facility] Address [address] [place] [address] Care Team Providers Care Horologist Name Role Phone Rakesh Harmon PA-C Primary Care Provider +1- [phone] Encounter Details Date Type Department Care Team (Latest Contact Info) Description 11/03/1993 Notes/Orders James Torrez MD Social History Tobacco [...] Info) Description 01/25/2026 8:30 AM CDT Appointment [facility] [address] [place], [place] [address] Minh Meyer MD [address] [facility] [address] [place] [address] documented as of this encounter Visit Diagnoses Not on filedocumented in this encounter Care Teams Horologist Relationship Specialty Start Date End Date Rakesh Harmon PA-C [address] [place] [address] 5 [place] [address] PCP - General Physician Broadcast News Producer 07/24/25 documented as of this encounter
--- OUTSIDE RECORDS SUMMARY | 2025-09-10 19:09 | XMS_ITS | Encounter Summary ---
Author Organization [facility] Address [address] [place] [address] Care Team Providers Care Chief Writer Name Role Phone Rakesh Harmon PA-C Primary Care Provider +1- [phone] Encounter Details Date Type Department Care Team (Latest Contact Info) Description 07/07/1996 Notes/Orders Social History Tobacco Use Types Packs/Day [...] Info) Description 01/25/2026 8:30 AM CDT Appointment [facility] [address] [place], [place] [address] Minh Meyer MD 3931 [facility] [address] [place] [address] documented as of this encounter Visit Diagnoses Not on filedocumented in this encounter Care Teams Chief Writer Relationship Specialty Start Date End Date Rakesh Harmon PA-C [address] [place] [address] PCP - General Physician Telephoto Engineer 07/24/25 documented as of this encounter
--- OUTSIDE RECORDS SUMMARY | 2025-09-10 19:09 | XMS_ITS | Encounter Summary ---
Author Organization [facility] Address [address] [place] [address] Care Team Providers Care Eyewear Consultant Name Role Phone Rakesh Harmon PA-C Primary Care Provider +1- [phone] Encounter Details Date Type Department Care Team (Latest Contact Info) Description 02/05/1997 Notes/Orders James Torrez MD Social History Tobacco [...] Info) Description 01/25/2026 8:30 AM CDT Appointment [facility] [address] [place], [place] [address] Minh Meyer MD 3931 [facility] [address] [place] [address] documented as of this encounter Visit Diagnoses Not on filedocumented in this encounter Care Teams Eyewear Consultant Relationship Specialty Start Date End Date Rakesh Harmon PA-C [address] [place] [address] 5 [place] [address] PCP - General Physician Chronometer Tester 07/24/25 documented as of this encounter
--- OUTSIDE RECORDS SUMMARY | 2025-09-10 19:09 | XMS_ITS | Encounter Summary ---
Author Organization [facility] Address [address] [place] [address] Care Team Providers Care Log Haul Operator Name Role Phone Rakesh Harmon PA-C Primary Care Provider +1- [phone] Encounter Details Date Type Department Care Team (Latest Contact Info) Description 06/12/1998 Orders Only James Torrez MD Social History Tobacco Use [...] Info) Description 01/25/2026 8:30 AM CDT Appointment [facility] [address] [place], [place] [address] Minh Meyer MD 3931 [facility] [address] [place] [address] documented as of this encounter Visit Diagnoses Not on filedocumented in this encounter Care Teams Log Haul Operator Relationship Specialty Start Date End Date Rakesh Harmon PA-C [address] [place] [address] 5 [place] [address] PCP - General Physician Log Haul Operator 07/24/25 documented as of this encounter
--- OUTSIDE RECORDS SUMMARY | 2025-09-10 19:09 | XMS_ITS | Encounter Summary ---
Author Organization [facility] Address [address] [place] [address] Care Team Providers Care Wood Milling Machine Tender Name Role Phone Rakesh Harmon PA-C Primary Care Provider +1- [phone] Encounter Details Date Type Department Care Team (Latest Contact Info) Description 11/09/1995 Notes/Orders James Torrez MD Social History Tobacco [...] Info) Description 01/25/2026 8:30 AM CDT Appointment [facility] [address] [place], [place] [address] Minh Meyer MD [address]31 [facility] [address] [place] [address] documented as of this encounter Visit Diagnoses Not on filedocumented in this encounter Care Teams Wood Milling Machine Tender Relationship Specialty Start Date End Date Rakesh Harmon PA-C [address] [place] [address] 5 [place] [address] PCP - General Physician Head Pastry Chef 07/24/25 documented as of this encounter
--- OUTSIDE RECORDS SUMMARY | 2025-09-10 19:09 | XMS_ITS | Encounter Summary ---
Author Organization [facility] Address [address] [place] [address] Care Team Providers Care Agricultural Equipment Sales Manager Name Role Phone Rakesh Harmon PA-C Primary Care Provider +1- [phone] Encounter Details Date Type Department Care Team (Latest Contact Info) Description 03/16/1998 Orders Only James Torrez MD Social History [...] Info) Description 01/25/2026 8:30 AM CDT Appointment [facility] [address] [place], [place] [address] Minh Meyer MD [address]31 [facility] [address] [place] [address] documented as of this encounter Visit Diagnoses Not on filedocumented in this encounter Care Teams Agricultural Equipment Sales Manager Relationship Specialty Start Date End Date Rakesh Harmon PA-C [address] [place] [address] 5 [place] [address] PCP - General Physician Art Preparator 07/24/25 documented as of this encounter
--- OUTSIDE RECORDS SUMMARY | 2025-09-10 19:09 | XMS_ITS | Encounter Summary ---
Author Organization [facility] Address [address] [place] [address] Care Team Providers Care Credit Risk Analytics Manager Name Role Phone Rakesh Harmon PA-C Primary Care Provider +1- [phone] Encounter Details Date Type Department Care Team (Latest Contact Info) Description 03/06/1994 Notes/Orders James Torrez MD Social History Tobacco [...] Info) Description 01/25/2026 8:30 AM CDT Appointment [facility] [address] [place], [place] [address] Minh Meyer MD [address] [facility] [address] [place] [address] documented as of this encounter Visit Diagnoses Not on filedocumented in this encounter Care Teams Credit Risk Analytics Manager Relationship Specialty Start Date End Date Rakesh Harmon PA-C [address] [place] [address] 5 [place] [address] PCP - General Physician Boot Maker 07/24/25 documented as of this encounter
--- OUTSIDE RECORDS SUMMARY | 2025-09-10 19:09 | XMS_ITS | Encounter Summary ---
Author Organization [facility] Address [address] [place] [address] Care Team Providers Care Mold Injector Name Role Phone Rakesh Harmon PA-C Primary Care Provider +1- [phone] Encounter Details Date Type Department Care Team (Latest Contact Info) Description 09/07/1998 Orders Only Renetta Almonte MD [facility] [place] [address] Social History Tobacco Use Types Packs/Day Years [...] Info) Description 01/25/2026 8:30 AM CDT Appointment [facility] [address] [place], [place] [address] Minh Meyer MD [address] [facility] [address] [place] [address] documented as of this encounter Visit Diagnoses Not on filedocumented in this encounter Care Teams Mold Injector Relationship Specialty Start Date End Date Rakesh Harmon PA-C [address] [place] [address] 5 [place], [place] [address] PCP - General Physician Proposal Analyst 07/24/25 documented as of this encounter
--- OUTSIDE RECORDS SUMMARY | 2025-09-10 19:09 | XMS_ITS | Encounter Summary ---
Author Organization [facility] Address [address] [place] [address] Care Team Providers Care Radio Sportscaster Name Role Phone Rakesh Harmon PA-C Primary Care Provider +1- [phone] Encounter Details Date Type Department Care Team (Latest Contact Info) Description 12/02/1997 Notes/Orders James Torrez MD Social History Tobacco [...] Info) Description 01/25/2026 8:30 AM CDT Appointment [facility] [address] [place], [place] [address] Minh Meyer MD 3931 [facility] [address] [place] [address] documented as of this encounter Visit Diagnoses Not on filedocumented in this encounter Care Teams Radio Sportscaster Relationship Specialty Start Date End Date Rakesh Harmon PA-C [address] [place] [address] 5 [place] [address] PCP - General Physician Polisher Balance Screwhead 07/24/25 documented as of this encounter
--- OUTSIDE RECORDS SUMMARY | 2025-09-10 19:09 | XMS_ITS | Encounter Summary ---
Author Organization [facility] Address [address] [place] [address] Care Team Providers Care Concreting Supervisor Name Role Phone Rakesh Harmon PA-C Primary Care Provider +1- [phone] Encounter Details Date Type Department Care Team (Latest Contact Info) Description 08/28/1997 Notes/Orders Social History Tobacco Use Types Packs/Day [...] Info) Description 01/25/2026 8:30 AM CDT Appointment [facility] [address] [place], [place] [address] Minh Meyer MD 39[address] [facility] [address] [place] [address] documented as of this encounter Visit Diagnoses Not on filedocumented in this encounter Care Teams Concreting Supervisor Relationship Specialty Start Date End Date Rakesh Harmon PA-C [address] [place] [address] PCP - General Physician Truck Repair Supervisor 07/24/25 documented as of this encounter
--- OUTSIDE RECORDS SUMMARY | 2025-09-10 19:09 | XMS_ITS | Encounter Summary ---
Author Organization [facility] Address [address] [place] [address] Care Team Providers Care Longwall Foreman Name Role Phone Rakesh Harmon PA-C Primary Care Provider +1- [phone] Encounter Details Date Type Department Care Team (Latest Contact Info) Description 06/13/1994 Notes/Orders James Torrez MD Social History Tobacco [...] Info) Description 01/25/2026 8:30 AM CDT Appointment [facility] [address] [place], [place] [address] Minh Meyer MD [address]31 [facility] [address] [place] [address] documented as of this encounter Visit Diagnoses Not on filedocumented in this encounter Care Teams Longwall Foreman Relationship Specialty Start Date End Date Rakesh Harmon PA-C [address] [place] [address] 5 [place] [address] PCP - General Physician Open Hearth Melter 07/24/25 documented as of this encounter
--- OUTSIDE RECORDS SUMMARY | 2025-09-10 19:09 | XMS_ITS | Clinical Summary ---
Author Organization [employer] ([employer] & [facility] Address [address] [place] [id number] Care Team Providers Care Electroplating Sales Representative Name Role Phone Rakesh Harmon PA-C Primary Care Provider [phone] Allergies No known active allergies Medications (u) GLUCOSAMINE SULFATE take 2 capsules per day ? 0 12/10/19 04 Active CALCIUM 500 MG ORAL TABIndications:Mitral valve disorders(424.0),Unsp ecified essential hypertension take 3 tablets daily 0 05/08/20 05 Active IBUPROFEN 200 MG ORAL TABIndications:Varian ts of migraine, not elsewhere classified, with intractable migraine, so stated, without mention of status migrainosus take 3 at a time as needed for soreness 0 05/08/20 05 Active warfarin (COUMADIN) 4 mg tablet Take 2 tablets by mouth once daily. 180 tablet 3 12/12/19 12 Active warfarin (COUMADIN) 3 mg tabletIndications:Byron ral valve disorders(424.0) Take 3 tablets by mouth once daily. 270 tablet 4 09/29/20 13 Active levothyroxine (SYNTHROID) 75 mcg tabletIndications:Uns pecified hypothyroidism Take 1 tablet by mouth once daily. Best if taken on empty stomach. 90 tablet 0 07/23/20 14 Active atorvastatin (LIPITOR) 40 mg tabletIndications:Car otid artery disease,Other and unspecified hyperlipidemia Take 1 tablet by mouth once daily with evening meal. 90 tablet 0 07/23/20 14 Active amantadine HCL (SYMMETREL) 100 mg capsule Take 100 mg by mouth two times daily. 03/16/20 Active carbidopa-levodopa (25-250 mg) (SINEMET 25-250) 25-250 mg tablet Take 1 Tablet by mouth three times daily. 06/03/20 25 Active sertraline (ZOLOFT) 50 mg tablet Take 50 mg by mouth once daily in the morning. 08/03/20 25 Active sennosides-docusate (SENOKOT S) (8.6-50 mg) tablet Take 1 Tablet by mouth once daily. 07/23/20 25 Active Amiodarone HCl (CORDARONE) 200 mg tabletIndications:Atr ial flutter by electrocardiogram (HC),PVC (premature ventricular contraction) Take 1 Tablet (200 mg) by mouth once daily. 90 Tablet 1 08/11/20 25 Active torsemide (DEMADEX) 20 mg tablet Take 10 mg by mouth once daily. HOLD starting 08/1807/24/20 25 025 Discontinu ed(Other - add note to specify (E-cancel not sent)) torsemide (DEMADEX) 20 mg tabletIndications:Acu te congestive heart failure, unspecified heart failure type (HC) Take 0.5 Tablets (10 mg) by mouth one time if needed (for weight greater than 160 pounds) for up to 360 doses. 45 Tablet 3 08/18/20 25 025 Discontinu ed(*Med complete/R egimen complete/L evel of care change) sacubitril-valsartan (ENTRESTO 24 MG-26 MG TABLET) 24-26 mg tabletIndications:Acu te congestive heart failure, unspecified heart failure type (HC) Take 1 Tablet by mouth two times daily. 90 Tablet 1 08/20/20 25 025 Discontinu ed(*Med complete/R egimen complete/L evel of care change) Active Problems Problem Noted Date Diagnosed Date Snores 09/27/2012 Anticoagulation monitoring, INR range 2.5-3.5 Unspecified hypothyroidism 05/08/2008 Cluster headache 05/08/2005 Overview (05/15/2011): Cluster headaches. Has reponded well to oxygen in past. O/w does well with tryptans. With clusters needs imitrex 20/month. Backache, unspecified 05/08/2005 Overview (08/20/2009): Tspine compression fracture. Fall at 10 years of age. 08/20/2009 swimming, landscaping. Mitral Valve Replacement January 2004 Overview (05/08/2005): s/p 33 mm ATS mitral valve prosthesis 01/16 Other and unspecified hyperlipidemia Overview (08/20/2009): Dec 2003. Angiogram NO CAD. Raynaud's syndrome Resolved Problems Problem Noted Date Diagnosed Date Resolved Date halfway (current) use of anticoagulants 06/30/2008 02/06/2012 Unspecified essential hypertension 07/13/2008 Depressive disorder, not elsewhere classified 07/13/2008 Carotid artery disease 09/30 Overview (09/30/2011): Jun 2009 screening mild on left carotid. Sep 2011. Carotid US completely normal. Travel 05/03/2011 Overview (08/18/2010): [place] in [id number]. Other and unspecified mitral valve diseases 09/08/2013 Overview (12/19/2011): severe regurg-s/p 33 mm ATS mitral valve prostheseis. Sees Dr. Gunter. Encounters Date Type Department Care Team Description 09/08/2025 Telephone [facility] [address] [place] [address] Jim Patel MD Concerns 08/25/2025 Telephone [facility] [address] [place] [address] Alessandro Fernandez MD Results (ZIO) 08/25/2025 Telephone [facility] [address] [place] [address] Jim Patel MD Cardiology Appointment 08/24/2025 Telephone [facility] [address] [place] [address] Jim Patel MD Abstract 08/18/2025 3:00 PM INTERNAL REVENUE SERVICE AGENT [facility] [address] [place] [address] Jim Patel MD CV Heart Failure Est (Initial; Ref Jim; Labs done 08/13) 08/18/2025 Telephone [facility] [address] [place] [address] Jim Patel MD Follow Up (entresto/sglt2 coverage) 08/18/2025 Travel 08/17/2025 Telephone [facility] [address] [place] [address] Rakesh Spears MD Concerns 08/11/2025 9:00 AM CDT Office Visit [facility] [address] [place] [address] Alessandro Fernandez MD CV Electrophysiology New (Dr Spears - Discuss ablation (pt is gone from Oct - December)///PCP. Rakesh Harmon PA-C/) 08/11/2025 Orders Only [facility] [address] [place] [address] Esha Roberts MD <No scans attached> 08/11/2025 Telephone [facility] [address] [place] [address] Esha Roberts MD Cardiology Appointment 08/10/2025 2:00 PM CDT Office Visit [facility] [address] [place] [address] Rakesh Spears MD CV General Cardiology Est (2-3 Week Hospital Follow Up: Acute congestive heart failure, s/p MVR (2003)/pcp: Rakesh Harmon PA-C//) 08/10/2025 Travel 07/21/2025 11:00 AM CDT Ancillary Procedure [address] [address] 07/20/2025 8:00 AM CDT Ancillary Procedure [address] [address] 07/17/2025 9:00 AM CDT Ancillary Procedure [address] [address] 07/16/2025 Telephone [facility] [address] [place] [address] Neyamr Preston MD from Last 3 Months Immunizations Immunization Administration Dates Next Due AMB Influenza, IIV3 (Age >=3 years)(Flu Clinic Only) 08/01/2012,10/05/2009 Hepatitis A (Adult) 07/17/1997,01/21/1997 Hepatitis B (Adult) 11/19/1992 Inactivated Polio Vaccine 07/31/2005 Influenza A (H1N1), Inactiva blas (Age >=3 Years) 10/05/2009 Influenza, IIV3 (Age >=3 years) 08/12/20 13,09/26/2011,08/18/2010,2008,07/30/2008,07/15/2005,08/20/1997 [place] Encephalitis 09/22/2005,08/08/2005,07/15 Rabies Vaccine 09/22/2005,08/08/2005,07/31/2005 Td (Age >=7 Years) 11/07/2002,10/15/1995 Td, Preservative Free (age > = 7 Years) 09/29/2013 Tdap 07/13/2008 Typhoid (oral) 08/18/2010,09/14/2004 Zoster (Zostavax-ZVL, live) 04/07/2013 Family History Medical History Relation Name Comments Good Health Brother 2 Asthma Child 2 Daughters Allergies Daughter 2 Asthma Daughter 3 Good Health Daughter 4 Alcohol/Drug Father Alcoholism Arthritis Father Heart Disease Father Hyperlipidemia Father Hypertension Father Other Father Abdominal aneur ysm Psychiatric illness Father Depressi on Good Health Maternal Grandfather Heart Disease Maternal Grandfather Good Health Maternal Grandmother Heart Disease Maternal Grandmother Arthritis Mother Good Health Mother Thyroid Disease Mother Genetic Other 1 Patients father had MD's in his 40's and a bypass at age 50. Patients mother is alive and well. Patient has one brother and one sister, both well. Genetic Other 2 Patients father had MD's in his 40's and a bypass at age 50. Father of an aneurysm at age 78. Patients mother is alive and well at age 79. Patient has one brother and one sister, both well. Good Health Paternal Grandmother Hyperlipidemia Paternal Grandmother Good Health Sister 3 Relation Name Status Comments Brother 1 Alive 53 y.o. Brother 2 Child 1 Alive 3 daughters Child 2 Daughter 1 Daughter 2 Daughter 3 Daughter 4 Father (Age 78) Abdominal aneurysm Maternal Grandfather Maternal Grandmother Mother Alive Other 1 Other 2 Paternal Grandfather Paternal Grandmother Sister 1 58 y.o. 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 Not on file Not on file Not on file Obstetrics History Last Filed Vital Signs Vital Sign Reading Time Taken Comments Blood Pressure 102/68 08/18/2025 3:17 PM INTERNAL REVENUE SERVICE AGENT Pulse 53 08/18/2025 3:17 PM INTERNAL REVENUE SERVICE AGENT Temperature 37 C (98.6 F) 09/29/2013 10:23 AM INTERNAL REVENUE SERVICE AGENT Respiratory Rate 15 09/29/2013 10:23 AM INTERNAL REVENUE SERVICE AGENT Oxygen Saturation 97% 08/18/2025 3:17 PM INTERNAL REVENUE SERVICE AGENT Inhaled Oxygen Concentration - - Weight 70.9 kg (156 lb 4.8 oz) 08/18/2025 3:17 P M INTERNAL REVENUE SERVICE AGENT Height 177.8 cm (5' 10) 08/18/2025 3:17 PM INTERNAL REVENUE SERVICE AGENT Body Mass Index 22.43 08/18/2025 3:17 PM INTERNAL REVENUE SERVICE AGENT Plan of Treatment Upcoming Encounters Date Type Department Care Team (Late st Contact Info) Description 09/23/2025 11:30 AM INTERNAL REVENUE SERVICE AGENT Orders Only [facility] [address] [address] 09/28/2025 1:00 PM INTERNAL REVENUE SERVICE AGENT Office Visit [address] [place] [address] Samia Ayala PA [address] [place] [address] 09/28/2025 1:30 PM INTERNAL REVENUE SERVICE AGENT Office Visit [address] [place] [address] Gerardo Hearn MD [address] [place] [id number] 11/03/2025 1:00 PM INTERNAL REVENUE SERVICE AGENT Office Visit [facility] [address] [address] Rakesh Spears MD [address] [place] [address] [address] [facility] [address] 11/24/2025 10:00 AM INTERNAL REVENUE SERVICE AGENT Orders Only [facility] [address] [address] 11/24/2025 11:00 AM INTERNAL REVENUE SERVICE AGENT Office Visit [facility] [address] [address] Alessandro Fernandez MD [address] [place] [address] Health Maintenance Due Date Last Done Comments Depression screening for age 12+ 1962 Pneumococcal series for age 50+ (1 of 2 - PCV) 1969 Hepatitis B series for 19+ ( 2 of 3 - 19+ 3-dose series) 12/17/1992 11/19/1992 Zoster (shingles) series for age 50+ (2 of 3) 06/02/2013 04/07/2013 Medicare Wellness for age 65+ 2015 Lipids for age 45-75 09/12/2018 09/12/2013, 09/23/2012, 02/28/2012, Additional history exists Colonoscopy through age 75 06/09/202106/09, 08/18/2010 (Postponed) Tetanus booster 09/29/2023 09/29/2013, 06/16, 11/07/2002, Additional history exists Influenza Vaccine (#1) 2025 3, 08/01/2012, 09/26/2011, Additional history exists RSV vaccine for adults or (1 - 1-dose 75+ series) 2025 COVID-19 vaccine series ( season) 2026 08/13/2025, 07/25/2024, 08/20/2023, Additional history exists BMI (ht and wt on same day) for age 18+ 08/18/2026 08/18/2025, 08/10/2025 Hepatitis C screening for ag e 18-79 Completed 09/29/2013 Procedures Procedure Name Priority Date/Time Associated Diagnosis Comments EKG 12 LEAD Routine 08/11/2025 Atrial flutter by electrocardiogram (HC) PVC (premature ventricular contraction) EXTENDED HOLTER Routine 08/11/2025 Atrial flutter by electrocardiogram (HC) PVC (premature ventricular contraction) EKG 12 LEAD Routine 08/10/2025 Atrial flutter by electrocardiogram (HC) ECHO TTE LIMITED WO CONTRAST W COLOR W LTD DOPPLER Routine 07/21/2025 9:55 AM CDT CHF (congestive heart failure) (HC) ECHO GIDEON WO CONTRAST W COLOR W LTD DOPPLER Routine 07/20/2025 10:35 AM CDT Atrial flutter (HC) ECHO TTE COMPLETE W CONTRAST Routine 07/17/2025 9:12 AM CDT CHF (congestive heart failure) (HC) ANTI HCV Routine 09/29/2013 11:49 AM INTERNAL REVENUE SERVICE AGENT Need for hepatitis C screening test LIPID PANEL Routine 09/12/2013 9:38 AM INTERNAL REVENUE SERVICE AGENT Other and unspecified hyperlipidemia COLONOSCOPY SCREENING Routine 06/09/2011 10:00 AM CDT Special screening for malignant neoplasms, colon from Last 3 Months or Most Recently Relevant to Health Maintenance Results * ZIO PATCH XT - weekly to monthly symptoms. (08/11/2025) 08/11/2025 Narrative Anselmo Steel MD - 08/18/2025 12:00 AM INTERNAL REVENUE SERVICE AGENT No significant arrhythmias noted. PVC burden 2%. Please see scan document for full report. Signed By Anselmo Steel MD Procedure Note Anselmo Steel MD - 08/18/2025 No significant arrhythmias noted. PVC burden 2%. Please see scan document for full report. Signed By Anselmo Steel MD us Alessandro Fernandez MD CARDIAC SERVICES ORD Fin al Result * EKG 12 LEAD (08/11/2025) Only the most recent of2 resultswithin the time period is included. 08/11/2025 us Alessandro Fernandez MD EKG ORD Final Re sult * ECHO TTE LIMITED WO CONTRAST W COLOR W LTD DOPPLER (07/21/2025 9:55 AM CDT) EJECTION FRACTION 21 % LVEDD 4.5 cm Anatomical Region Laterality Modality Ultrasound 07/21/2025 9:20 AM CDT Narrative 07/21/2025 10:17 AM CDT ECHOCARDIOGRAM MEL MCCLENDON : 1950 75 years Study Date: 07/21/2025 9:20:26 AM Gender: M BP: 109/75 mmHg Height: 172.72 cm BSA: 1.85 m Weight: 71.67 kg Tech: MANJU Referring MD: ANSELMO STEEL Site: [facility] Reading Location: [facility] Patient Location: Inpatient. Procedure: Limited 2D and 3D Imaging. Indication for study: CHF (congestive heart failure) Cardiac Rhythm: Normal sinus.Study quality: Good. Final Impressions: Limited Echocardiogram performed 1. Normal left ventricular size, severely reduced global systolic function, calculated EF of 21 %. 2. Right ventricular cavity size is moderately enlarged, global systolic RV function is severely reduced. 3. The mitral valve is a normal functioning 33 mm mechanical ATS MVR. 4. The inferior vena cava is dilated, respiratory size variation less than 50%, consistent with elevated right atrial pressure. Chamber Sizes and Function Normal left ventricular size, severely reduced global systolic function, calculated EF of 21 %. LV ejection fraction by 3D calculation is 20 %. Right ventricular cavity size is moderately enlarged, global systolic RV function is severely reduced. The sinus of Valsalva is not evaluated. The ascending aorta is not evaluated. Valves, RV Pressures and Diastolic Function The mitral valve is a normal functioning 33 mm mechanical ATS replacement. The tricuspid valve is Not evaluated. The pulmonic valve is not well visualized. Masses, Effusion, Shunts The inferior vena cava is dilated, respiratory size variation less than 50%, consistent with elevated right atrial pressure. MEASUREMENTS AND CALCULATIONS 2-D Measurements and LV Function: LVID (d) 4.5 cm Planimetered EF 21 % LVID (s) 3.9 cm 3D EF 20 % IVS (d) 1.1 cm LV FS% (2D) 14 % LVPW (d) 1.1 cm HR 59 bpm Ao Sinus ULN 4.1 cm Asc Ao ULN 4.2 cm LA 4.6 cm Tricuspid Valve and estimated PA pressures: TAPSE 1.2 cm . This study was interpreted by an [facility] accredited facility. CC: Medical Records [facility], [facility]. Final Procedure Note Anselmo Steel MD - 07/21/2025 ECHOCARDIOGRAM MEL MCCLENDON : 1950 75 years Study Date: 07/21/2025 9:20:26 AM Gender: M BP: 109/75 mmHg Height: 172.72 cm BSA: 1.85 m Weight: 71.67 kg Tech: BES Referring MD: ANSELMO STEEL Site: [facility] Reading Location: [facility] Patient Location: Inpatient. Procedure: Limited 2D and 3D Imaging. Indication for study: CHF (congestive heart failure) Cardiac Rhythm: Normal sinus.Study quality: Good. Final Impressions: Limited Echocardiogram performed 1. Normal left ventricular size, severely reduced global systolicfunction, calculated EF of 21 %. 2. Right ventricular cavity size is moderately enlarged, global systolicRV function is severely reduced. 3. The mitral valve is a normal functioning 33 mm mechanical ATS MVR. 4. The inferior vena cava is dilated, respiratory size variation lessthan 50%, consistent with elevated right atrial pressure. Chamber Sizes and Function Normal left ventricular size, severely reduced global systolic function,calculated EF of 21 %. LV ejection fraction by 3D calculation is 20 %.Right ventricular cavity size is moderately enlarged, global systolic RVfunction is severely reduced. The sinus of Valsalva is not evaluated. Theascending aorta is not evaluated. Valves, RV Pressures and Diastolic Function The mitral valve is a normal functioning 33 mm mechanical ATS replacement.The tricuspid valve is Not evaluated. The pulmonic valve is not wellvisualized. Masses, Effusion, Shunts The inferior vena cava is dilated, respiratory size variation less than50%, consistent with elevated right atrial pressure. MEASUREMENTS AND CALCULATIONS 2-D Measurements and LV Function: LVID (d) 4.5 cm Planimetered EF 21 % LVID (s) 3.9 cm 3D EF 20 % IVS (d) 1.1 cm LV FS% (2D) 14 % LVPW (d) 1.1 cm HR 59 bpm Ao Sinus ULN 4.1 cm Asc Ao ULN 4.2 cm LA 4.6 cm Tricuspid Valve and estimated PA pressures: TAPSE 1.2 cm . This study was interpreted by an [facility] accredited facility. CC: Medical Records [facility], [facility]. Final us Anselmo Steel MD ECHO ORD Final Result * ECHO GIDEON WO CONTRAST W COLOR W LTD DOPPLER (07/20/2025 10:35 AM CDT) Anatomical Region Laterality Modality Ultrasound 07/20/2025 9:23 AM CDT Narrative 07/20/2025 12:09 PM CDT TRANSESOPHAGEAL ECHOCARDIOGRAM MEL MCCLENDON : 1950 75 years Study Date: 07/20/2025 9:23:23 AM Gender: M BP: 102/49 mmHg Height: 172.72 cm BSA: 1.85 m Weight: 71.67 kg Tech: BES Referring MD: ANSELMO STEEL Site: [facility] Reading Location: [facility] Patient Location: Inpatient. Procedure: GIDEON, Color Doppler and Limited Spectral Doppler. Indication for study: Atrial flutter Cardiac Rhythm: Atrial flutter.Study quality: Good. Final Impressions: 1. No evidence of thrombus present in the left atrial appendage. 2. Decreased left atrial appendage flow velocities. 3. Severely enlarged left atrium. 4. LV and RV not well visualized. 5. The mitral valve is a normal functioning 33 mm mechanical ATS MVR, trace mitral regurgitation. Procedure comments: Indications, goals, risks and alternatives of the procedure were discussed with the patient and informed consent was obtained. The patient received sedation of intravenous Propofol . See procedural record for anesthesia details. Prior to performance of procedure, time out was called to accurately identify the patient and procedure. The X8 #3 probe was passed without difficulty. GIDEON, Color Doppler and Limited Spectral Doppler was performed. The patient developed no apparent complications during the procedure. Estimated Blood Loss: 0 ml Chamber Sizes and Function Not well visualized left ventricle. Regional wall motion assessment not well-visualized. Left atrial size is severely enlarged. The left atrial appendage is well visualized and there is no evidence of thrombus present. Decreased left atrial appendage flow velocities. Right ventricular cavity size is not well visualized, global systolic RV function is not well visualized. The right atrium is not well visualized. The pulmonary artery is not well visualized. The sinus of Valsalva is normal sized. The ascending aorta is normal sized. Aortic arch is normal sized. Descending aorta is normal sized. Valves, RV Pressures and Diastolic Function The aortic valve is normal in structure and trileaflet, no stenosis and no regurgitation. The mitral valve is a normal functioning 33 mm mechanical ATS replacement, trace mitral regurgitation. The tricuspid valve is normal in structure, mild tricuspid regurgitation. The pulmonic valve is normal. No pulmonary regurgitation. Masses, Effusion, Shunts Pericardial is not well visualized. Atrial septum is intact. Agitated saline injection not done. MEASUREMENTS AND CALCULATIONS 2-D Measurements and LV Function: Ao Sinus ULN 4.1 cm HR 99 bpm Asc Ao ULN 4.2 cm . This study was interpreted by an [facility] accredited facility. CC: Medical Records [facility], [facility]. Final Procedure Note Anselmo Steel MD - 07/20/2025 TRANSESOPHAGEAL ECHOCARDIOGRAM MEL MCCLENDON : 1950 75 years Study Date: 07/20/2025 9:23:23 AM Gender: M BP: 102/49 mmHg Height: 172.72 cm BSA: 1.85 m Weight: 71.67 kg Tech: BES Referring MD: ANSELMO STEEL Site: [facility] Reading Location: [facility] Patient Location: Inpatient. Procedure: GIDEON, Color Doppler and Limited Spectral Doppler. Indication for study: Atrial flutter Cardiac Rhythm: Atrial flutter.Study quality: Good. Final Impressions: 1. No evidence of thrombus present in the left atrial appendage. 2. Decreased left atrial appendage flow velocities. 3. Severely enlarged left atrium. 4. LV and RV not well visualized. 5. The mitral valve is a normal functioning 33 mm mechanical ATS MVR,trace mitral regurgitation. Procedure comments: Indications, goals, risks and alternatives of theprocedure were discussed with the patient and informed consent wasobtained. The patient received sedation of intravenous Propofol . Seeprocedural record for anesthesia details. Prior to performance ofprocedure, time out was called to accurately identify the patient andprocedure. The X8 #3 probe was passed without difficulty. GIDEON, ColorDoppler and Limited Spectral Doppler was performed. The patient developedno apparent complications during the procedure. Estimated Blood Loss: 0 ml Chamber Sizes and Function Not well visualized left ventricle. Regional wall motion assessment notwell-visualized. Left atrial size is severely enlarged. The left atrialappendage is well visualized and there is no evidence of thrombus present.Decreased left atrial appendage flow velocities. Right ventricular cavitysize is not well visualized, global systolic RV function is not wellvisualized. The right atrium is not well visualized. The pulmonary arteryis not well visualized. The sinus of Valsalva is normal sized. Theascending aorta is normal sized. Aortic arch is normal sized. Descendingaorta is normal sized. Valves, RV Pressures and Diastolic Function The aortic valve is normal in structure and trileaflet, no stenosis and noregurgitation. The mitral valve is a normal functioning 33 mm mechanicalATS replacement, trace mitral regurgitation. The tricuspid valve is normalin structure, mild tricuspid regurgitation. The pulmonic valve is normal.No pulmonary regurgitation. Masses, Effusion, Shunts Pericardial is not well visualized. Atrial septum is intact. Agitatedsaline injection not done. MEASUREMENTS AND CALCULATIONS 2-D Measurements and LV Function: Ao Sinus ULN 4.1 cm HR 99 bpm Asc Ao ULN 4.2 cm . This study was interpreted by an [facility] accredited facility. CC: Medical Records [facility], [facility]. Final Anselmo Steel MD ECHO ORD Final Result * ECHO TTE COMPLETE W CONTRAST (07/17/2025 9:12 AM CDT) AORTIC VALVE MEAN PG 1 mmHg EJECTION FRACTION 6 % LVEDD 5.3 cm EJECTION FRACTION 10 - 20% Anatomical Region Laterality Modality Ultrasound 07/17/2025 7:59 AM CDT Narrative 07/17/2025 10:04 AM CDT ECHOCARDIOGRAM MEL MCCLENDON : 1950 75 years Study Date: 07/17/2025 7:59:20 AM Gender: M BP: 112/91 mmHg Height: 172.72 cm BSA: 1.89 m Weight: 75.30 kg Tech: RENNY Referring MD: RALPH HUDSON [facility] Hospital Reading Location: [facility] Patient Location: Inpatient. Procedure: 2D w/ Contrast, Color Doppler and Spectral Doppler. Indication for study: CHF Cardiac Rhythm: Atrial flutter.Study quality: Good. Final Impressions: 1. Normal LV size, normal wall thickness, severely reduced global systolic function with an estimated EF of 10-20%. 2. Severe biatrial enlargement. 3. Right ventricular cavity size is moderately enlarged, global systolic RV function is severely reduced. 4. The aortic valve is sclerotic and trileaflet, no stenosis and mild regurgitation. 5. The mitral valve is a normal functioning 33 mm mechanical ATS MVR, mild mitral regurgitation. Mean gradient 3 mmHg at a HR of 120 bpm. 6. Mild-moderate tricuspid regurgitation. 7. IVC morphology suggests elevated RA pressure. 8. Echo contrast was administered to enhance visualization of all left ventricular segments. Chamber Sizes and Function Normal left ventricular size, normal wall thickness, severely reduced global systolic function with an estimated EF of 10-20%. Left atrial size is severely enlarged. Right ventricular cavity size is moderately enlarged, global systolic RV function is severely reduced. The right atrium is severely enlarged. Right atrial volume index is 83 ml/m . Right atrial area is 37 cm . The pulmonary artery is mildly dilated. The sinus of Valsalva is normal sized. The ascending aorta is normal sized. Valves, RV Pressures and Diastolic Function The aortic valve is sclerotic and trileaflet, no stenosis and mild regurgitation. The mitral valve is a normal functioning 33 mm mechanical ATS replacement, mild mitral regurgitation. Diastolic function assessment not performed. The tricuspid valve is normal in structure, mild-moderate tricuspid regurgitation. The pulmonic valve is normal. Mild pulmonary regurgitation. Masses, Effusion, Shunts There is no pericardial effusion. The inferior vena cava is dilated, respiratory size variation less than 50%. No left to right shunting was detected by limited color flow Doppler interrogation of the interatrial septum. MEASUREMENTS AND CALCULATIONS 2-D Measurements and LV Function: LVID (d) 5.3 cm LV FS% (2D) 7 % LVID (s) 4.9 cm LVOT diameter 2.4 cm IVS (d) 0.9 cm HR 116 bpm LVPW (d) 0.7 cm LA Vol index 95 ml/m2 Ao Sinus 3.6 cm RA Vol index 83 ml/m2 Ao Sinus ULN 4.1 cm RA area 37 cm Asc Ao 3.8 cm RV Basal Diam 5.4 cm Asc Ao ULN 4.2 cm RV Mid Diam 3.1 cm Aortic Valve: Vmax 0.7 m/s BREE (V) 3.06 cm VTI 0.10 m BREE (I) 2.85 cm LVOT V max 0.5 m/s Max PG 2 mmHg LVOT VTI 0.06 m Mean PG 1 mmHg SV 29 ml Dim Index 0.64 SV index 15 ml/m CO 3.3 l/min CI 1.8 l/min/m Mitral Valve: MV Mean G 3 mmHg MV VTI 0.23 m Tricuspid Valve and estimated PA pressures: Pulmonic Valve: PV AT 82 msec Contrast documentation: 3.5 ml diluted Definity, lot #[id number], [facility]# [id number] was administered peripherally to enhance visualization of all left ventricular segments. . This study was interpreted by an [facility] accredited facility. CC: Medical Records [place], [facility]. Final Procedure Note Rakesh Spears MD - 07/17/2025 ECHOCARDIOGRAM MEL MCCLENDON : 1950 75 years Study Date: 07/17/2025 7:59:20 AM Gender: M BP: 112/91 mmHg Height: 172.72 cm BSA: 1.89 m Weight: 75.30 kg Tech: TJG Referring MD: RALPH HUDSON Site: [facility] Reading Location: [facility] Patient Location: Inpatient. Procedure: 2D w/ Contrast, Color Doppler and Spectral Doppler. Indication for study: CHF Cardiac Rhythm: Atrial flutter.Study quality: Good. Final Impressions: 1. Normal LV size, normal wall thickness, severely reduced globalsystolic function with an estimated EF of 10-20%. 2. Severe biatrial enlargement. 3. Right ventricular cavity size is moderately enlarged, global systolicRV function is severely reduced. 4. The aortic valve is sclerotic and trileaflet, no stenosis and mildregurgitation. 5. The mitral valve is a normal functioning 33 mm mechanical ATS MVR,mild mitral regurgitation. Mean gradient 3 mmHg at a HR of 120 bpm. 6. Mild-moderate tricuspid regurgitation. 7. IVC morphology suggests elevated RA pressure. 8. Echo contrast was administered to enhance visualization of all leftventricular segments. Chamber Sizes and Function Normal left ventricular size, normal wall thickness, severely reducedglobal systolic function with an estimated EF of 10-20%. Left atrial sizeis severely enlarged. Right ventricular cavity size is moderatelyenlarged, global systolic RV function is severely reduced. The rightatrium is severely enlarged. Right atrial volume index is 83 ml/m . Rightatrial area is 37 cm . The pulmonary artery is mildly dilated. The sinusof Valsalva is normal sized. The ascending aorta is normal sized. Valves, RV Pressures and Diastolic Function The aortic valve is sclerotic and trileaflet, no stenosis and mildregurgitation. The mitral valve is a normal functioning 33 mm mechanicalATS replacement, mild mitral regurgitation. Diastolic function assessmentnot performed. The tricuspid valve is normal in structure, mild-moderatetricuspid regurgitation. The pulmonic valve is normal. Mild pulmonaryregurgitation. Masses, Effusion, Shunts There is no pericardial effusion. The inferior vena cava is dilated,respiratory size variation less than 50%. No left to right shunting wasdetected by limited color flow Doppler interrogation of the interatrialseptum. MEASUREMENTS AND CALCULATIONS 2-D Measurements and LV Function: LVID (d) 5.3 cm LV FS% (2D) 7 % LVID (s) 4.9 cm LVOT diameter 2.4 cm IVS (d) 0.9 cm HR 116 bpm LVPW (d) 0.7 cm LA Vol index 95 ml/m2 Ao Sinus 3.6 cm RA Vol index 83 ml/m2 Ao Sinus ULN 4.1 cm RA area 37 cm Asc Ao 3.8 cm RV Basal Diam 5.4 cm Asc Ao ULN 4.2 cm RV Mid Diam 3.1 cm Aortic Valve: Vmax 0.7 m/s BREE (V) 3.06 cm VTI 0.10 m BREE (I) 2.85 cm LVOT V max 0.5 m/s Max PG 2 mmHg LVOT VTI 0.06 m Mean PG 1 mmHg SV 29 ml Dim Index 0.64 SV index 15 ml/m CO 3.3 l/min CI 1.8 l/min/m Mitral Valve: MV Mean G 3 mmHg MV VTI 0.23 m Tricuspid Valve and estimated PA pressures: Pulmonic Valve: PV AT 82 msec Contrast documentation: 3.5 ml diluted Definity, lot #[id number], [facility]#[id number] was administered peripherally to enhance visualization of allleft ventricular segments. . This study was interpreted by an [facility] accredited facility. CC: Medical Records [place], [facility]. Final us Ralph Hudson MD ECHO ORD Final Resul t * ANTI HCV (09/29/2013 11:49 AM INTERNAL REVENUE SERVICE AGENT) ANTI HCV Non-reacti ve [facility] Blood specimen (specimen) BLOOD SPECIMEN / Unknown 09/29/2013 11:49 AM INTERNAL REVENUE SERVICE AGENT 09/29/2013 11:45 AM INTERNAL REVENUE SERVICE AGENT us Mel Torrez MD SEND OUTS Final Result [facility] INTERNAL ZIP [id number] [place] [address] * LIPID PANEL (09/12/2013 9:38 AM INTERNAL REVENUE SERVICE AGENT) CHOLESTEROL,TOTA L 167 100 - 199 mg/dL [facility] TRIGLYCERIDES 77 <150 mg/dL [facility] HDL CHOLESTEROL 64 >40 mg/dL [facility] CHOL/HDL RATIO 2.61 <4.50 [facility] NON-HDL CHOLESTEROL 103 Undefined mg/dL [facility] LDL CHOLESTEROL 88 <131 mg/dL [facility] PATIENT STATUS Fasting [facility] Blood specimen (specimen) BLOOD SPECIMEN / Unknown 09/12/2013 9:38 AM INTERNAL REVENUE SERVICE AGENT 09/12/2013 9:28 AM INTERNAL REVENUE SERVICE AGENT us Mel Torrez MD CHEMISTRY Final Result [facility] INTERNAL ZIP [address] [place] [address] * COLONOSCOPY SCREENING (06/09/2011 10:00 AM CDT) Narrative Procedure Note Scanner - 06/09/2011 10:00 AM CDT Mel Torrez MD GI PROCEDURE ORD Final Result from Last 3 Months or Most Recently Relevant to Health Maintenance Insurance [employer]AGE MR Care Teams Electroplating Sales Representative Relationship Specialty Start Date End Date Rakesh Harmon PA-C [address] [place] [id number] PCP - General Physician Insulation And Flooring Assembler 08/10/25
--- OUTSIDE RECORDS SUMMARY | 2025-09-10 19:09 | XMS_ITS | Encounter Summary ---
Author Organization [facility] Address [address] [address] Phone Care Team Providers Care Centrifuge Separator Operator Name Role Phone Rakesh Harmon PA-C Primary Care Provider +1- [phone] Encounter Details Date Type Department Care Team (Late st Contact Info) Description 09/07/[address] [address] Alissa Martins HUC Social History Tobacco Use Types Packs/Day Years [...] materials from doctor or pharmacy Sometimes 07/24/2025 [facility] Utilities Answer Date Recorded In the [...] time in the past 12 m [facility], were you homeless or living [...] Assessment Author Yes 09/04/2025 12:51 PM Elsa Holliday RN * Patient's Memory Adequate to Safely Complete Daily Activities Answer Date of Assessment Author Yes 09/04/2025 12:51 PM Elsa Holliday RN documented as of this encounter Mental Status * Patient's Judgment Adequate to Safely Complete Daily Activities Answer Entry Date Author Yes 09/04/2025 12:51 PM Elsa Holliday, SHERITA documented in this encounter Miscellaneous Notes * Telephone Encounter - Alissa Martins HUC - 09/07/2025 9:36 AM EARLY MORNING BABYSITTER Name & credentials of person speaking to: client Patient Status: Inpatient If inpatient, is this status new since last follow up phone call? No Are there discharge plans? yes, describe: 09/04 As patient nears discharge, please fax orders and discharge paperwork to [facility] at [phone]. Please include order for Skilled Nurse. Y MORNING BABYSITTER documented in this encounter Plan of Treatment Upcoming Encounters Date Type Department Care Team (Late st Contact Info) Description 09/16/2025 2:00 AM EARLY MORNING BABYSITTER Appointment [facility] [address] [facility] [address] [place] [address] Emperatriz Monahan RN documented as of this encounter Visit Diagnoses Not on filedocumented in this encounter Care Teams Centrifuge Separator Operator Relationship Specialty Start Date End Date Rakesh Harmon, PA-C [address] [place] [address] PCP - General Physician Harness Racing Handicapper 09/04/25 documented as of this encounter
--- OUTSIDE RECORDS SUMMARY | 2025-09-10 19:10 | XMS_ITS | Encounter Summary ---
Author Organization [facility] Address [address] [address] Phone Care Team Providers Care District Manager Postal Service Name Role Phone Rakesh Harmon PA-C Primary Care Provider +1- [phone] Reason for Visit * Reason Onset Date Comments Pvcs 09/07/2025 Encounter Details Date Type Department Care Team (Late st Contact Info) Description 09/07/2025 Telephone [facility] [address] [place] [address] Edie Hearn, RN Pvcs Social History Tobacco Use Types Packs/Day Years [...] materials from doctor or pharmacy Sometimes 07/24/2025 [facility] Utilities Answer Date Recorded In the past 12 months has th e electric, gas, oil, or water [employer] threatened to shut off services in your [...] time in the past 12 m [facility], were you homeless or living in a mcfp (including now)? No 07/16/2025 EH IP Custom [...] 09/04/2025 12:51 PM Elsa Holliday, SHERITA documented as of this encounter Mental Status * Patient's Judgment Adequate to Safely Complete Daily Activities Answer Entry Date Author Yes 09/04/2025 12:51 PM Elsa Holliday RN documented in this encounter Miscellaneous Notes * Telephone Encounter - Edie Hearn RN - 09/07/2025 2:00 PM CST ED post visit call attempted, message left. Patient has active homehealth and per encounters has been seen/in touch with home health services since being evaluated in ED. F ACCOUNTANT documented in this encounter Plan of Treatment Upcoming Encounters Date Type Department Care Team (Late st Contact Info) Description 09/16/2025 2:00 AM STAFF ACCOUNTANT Appointment [facility] [address] [place] [address] Emperatriz Monahan RN documented as of this encounter Visit Diagnoses Not on filedocumented in this encounter Care Teams District Manager Postal Service Relationship Specialty Start Date End Date Rakesh Harmon, PATraceyC [address] [place] [address] PCP - General Physician Cutter Operator Helper 09/04/25 documented as of this encounter
--- OUTSIDE RECORDS SUMMARY | 2025-09-10 19:10 | XMS_ITS | Encounter Summary ---
Author Organization [facility] Address [address] [address] Phone Care Team Providers Care Drop Hammer Setter Up Name Role Phone Unavailable Primary Care Provider Unavailabl e Encounter Details Date Type Department Care Team (Latest Contact Info) Description 09/01/2025 Travel Social History Tobacco Use Types Packs/Day [...] materials from doctor or pharmacy Sometimes 07/24/2025 [facility] Utilities Answer Date Recorded In the past 12 months has e [employer], gas, oil, or water company threatened to [...] any time in the past 12 m [facility], were you homeless or living in a chcf (including now)? No 07/16/2025 EH IP Custom [...] st Contact Info) Description 09/16/2025 2:00 AM BRAILLE TEACHER Appointment [facility] [address] [place] [address] Emperatriz Monahan, RN documented as of this encounter Visit Diagnoses Not on filedocumented in this encounter
--- OUTSIDE RECORDS SUMMARY | 2025-09-10 19:10 | XMS_ITS | Encounter Summary ---
Author Organization [facility] Address [address] [address] Phone Care Team Providers Care Surgery Nurse Name Role Phone Rakesh Harmon PA-C Primary Care Provider +1- [phone] Encounter Details Date Type Department Care Team (Late st Contact Info) Description 08/24/2025 Lab Requisition [facility] [address] [place] [address] Rakesh Harmon PA-C [address] [place], [place] [id number] Presence of prosthetic heart valve Social History Tobacco Use Types Packs/Day Years [...] materials from doctor or pharmacy Sometimes 07/24/2025 [facility] Utilities Answer Date Recorded In the [...] were you homeless or living in a intermediate (including now)? No 07/16/2025 IP Custom IPV [...] st Contact Info) Description 09/16/2025 2:00 AM ACCESSIBILITY LIFT TECHNICIAN Appointment [facility] [address] [facility] [address] [place] [address] Emperatriz Monahan RN documented as of this encounter Procedures Procedure Name Priority Date/Time Associated Diagnosis Comments PROTIME Routine 08/24/2025 2:30 PM ACCESSIBILITY LIFT TECHNICIAN Presence of prosthetic heart valve documented in this encounter Results * (ABNORMAL) PROTIME (08/24/2025 2:30 PM ACCESSIBILITY LIFT TECHNICIAN) INR 6.2(HH) 0.9 - 1.1 08/24/2025 4:06 PM ACCESSIBILITY LIFT TECHNICIAN [facility] Blood BLOOD SPECIMEN / Unknown 08/24/2025 2:30 PM ACCESSIBILITY LIFT TECHNICIAN 08/24/2025 3:04 PM ACCESSIBILITY LIFT TECHNICIAN Narrative [facility] - 08/24/2025 4:06 PM ACCESSIBILITY LIFT TECHNICIAN Standard intensity warfarin therapeutic range: 2.0-3.0 High intensity warfarin therapeutic range: 2.5-3.5 us Rakesh Harmon PA-C EC HEMATOLOGY ORDERABLES F inal Result [facility] [address] [place] [address], [facility] [phone] documented in this encounter Visit Diagnoses Diagnosis Presence of prosthetic heart valve Heart valve replaced by other means documented in this encounter Care Teams Surgery Nurse Relationship Specialty Start Date End Date Rakesh Harmon PA-C [address] [place] [address] PCP - General Physician Archery Instructor 09/04/25 documented as of this encounter
--- OUTSIDE RECORDS SUMMARY | 2025-09-10 19:10 | XMS_ITS | Clinical Summary ---
Author Organization [facility] Address [address] [address] Phone Care Team Providers Care [place] Management Specialist Name Role Phone Rakesh Harmon PA-C Primary Care Provider [phone] Allergies No known active allergies Medications levothyroxine (Synthroid) 75 MCG tabletIndication s:Hypothyroidism Take 75 mcg by mouth one time a day. Indications: Underactive Thyroid Active atorvaSTATin (Lipitor) 40 MG tabletIndication s:Hyperlipidemia Take by mouth every evening. Indications: High Amount of Fats in the Blood Active amantadine (Symmetrel) 100 MG capsuleIndicatio ns:Tardive Dyskinesia Take 100 mg by mouth two times a day. Indications: Tardive Dyskinesia Active carbidopa-levodo pa (SINEMET) 25-250 MG oral tabletIndication s:Parkinson's Disease Take 1 Tablet by mouth three times a day. Indications: Parkinson's Disease Active magnesium oxide 400 (240 Mg) MG tabletIndication s:Hypomagnesemia Take 1 Tablet by mouth one time a day. Indications: Disorder with Low Magnesium Levels 30 Tablet 07/24/20 25 Active Additional Information Patient taking differently:400 mg Oral ONCE DAILY,Not taking, Indications: Hypomagnesemia, Reported on 09/04/2025 senna-docusate (Senokot-S) 8.6-50 MG oral tabletIndication s:Constipation Take 2 Tablets by mouth two times a day as needed for Constipation. Indications: Constipation 30 Tablet 07/23/20 Active spironolactone (Aldactone) 25 MG tabletIndication s:Hypertension,L eft Systolic Heart Failure Take 0.5 Tablets by mouth one time a day. Indications: High Blood Pressure, Left Systolic Heart Failure 30 Tablet 07/24/20 Active Additional Information Patient taking differently:12.5 mg Oral ONCE DAILY,discontinued, Indications: Hypertension, Left Systolic Heart Failure, Reported on 09/04/2025 torsemide (Demadex) 20 MG tabletIndication s:Edema,Heart Failure Take 1 Tablet by mouth one time a day. Indications: Edema, Heart Failure 30 Tablet 07/24/20 Active Additional Information Patient taking differently: 10 mgOral ONCE DAILY, per clarification and VTO patient to be taking 0.5 tab (10mg) daily - Rakesh Harmon/Jeanne JACINTO/aKthleen RN 08/04/25 1015DISCONTINUED, Indications: Edema, Heart Failure, Reported on 09/04/2025 sertraline (Zoloft) 50 MG tabletIndication s:Generalized Anxiety Disorder,Major Depressive Disorder Take 50 mg by mouth one time a day. Indications: Generalized Anxiety Disorder, Major Depressive Disorder 08/03/20 Active sacubitril-valsa rtan (Entresto) 24-26 MG tablet tabletIndication s:Heart Failure Take 1 Tablet by mouth two times a day. discontinued Indications: Heart Failure Active warfarin (Coumadin) 3 MG tablet Take 3 mg by mouth one time a day. 3 mg Sun, 6mg SAT SUN Active midodrine (Proamatine) 2.5 MG tabletIndication s:Hypotension Take 2.5 mg by mouth two times a day. Indications: Disorder of Low Blood Pressure Active hydrALAZINE (Apresoline) 10 MG tabletIndication s:Hypertension Take 1 Tablet by mouth every eight hours for 30 days. Indications: High Blood Pressure 90 Tablet 07/23/20 25 025 amiodarone (Pacerone) 400 MG tabletIndication s:Atrial Fibrillation Take 1 Tablet by mouth two times a day for 2 days, THEN 0.5 Tablets two times a day for 7 days, THEN 0.5 Tablets one time a day for 30 days. Indications: Atrial Fibrillation 26 Tablet 07/23/20 25 025 Active Problems Problem Noted Date Diagnosed Date Mitral valve disorder 07/16/2025 Overview (07/16/2025): s/p 33 mm ATS mitral valve prosthesis 01/16 HFrEF (heart failure with reduced ejection fract ion) 07/16/2025 Supratherapeutic INR 07/16/2025 Parkinson's disease 10/13/2018 Thrombocytopenia 09/23/2015 Hx of mitral valve replacement with mechanical v alve 03/19/2014 Overview (07/16/2025): per note 03/19/14 Dr. Molina 'warfarin for mitral valve replacement, mechanical , from 2003'. Encounters Date Type Department Care Team Description 09/10/2025 Home Care Visit [address] [address] Daniella Baldwin, RN CASE COMMUNICATION 09/09/2025 10:00 AM WINDOWS SERVER ADMINISTRATOR Home Care Visit [address] [address] Emperatriz Monahan, RN SN HOME VISIT 09/07/2025 Telephone [facility] [address] [place] [address] Edie Hearn RN Pvcs 09/07/[address] [address] Alissa Martins HUC 09/06/2025 1:00 PM WINDOWS SERVER ADMINISTRATOR Home Care Visit [address] [address] Corrina Bledsoe RN SN OASIS FOLLOW UP 09/04/2025 11:31 AM WINDOWS SERVER ADMINISTRATOR - 09/04/2025 6:12 PM WINDOWS SERVER ADMINISTRATOR Emergency [facility] [address] [place] [address] Julia Garza MD Fall, subsequent encounter (Primary Dx); Current use of shelter anticoagulation; Parkinson's disease, unspecified whether dyskinesia present, unspecified whether manifestations fluctuate (HCC); Dehydration; Mouth sore Discharge Disposition: Home and/or Self Care 09/04/2025 Travel 09/02/2025 11:00 AM WINDOWS SERVER ADMINISTRATOR Home Care Visit [address] [address] Emperatriz Monahan, RN SN HOME VISIT 09/01/2025 9:32 PM WINDOWS SERVER ADMINISTRATOR - 09/02/2025 12:32 AM WINDOWS SERVER ADMINISTRATOR Emergency [facility] [address] [place] [phone] Flower Davis MD Laceration of left earlobe, subsequent encounter (Primary Dx) Discharge Disposition: Home and/or Self Care 09/01/2025 7:20 PM WINDOWS SERVER ADMINISTRATOR Office Visit [facility] [address] [facility] [address] [place] [phone] Zelalem Leon PA-C Laceration of left earlobe, initial encounter (Primary Dx) 09/01/2025 2:45 PM WINDOWS SERVER ADMINISTRATOR Home Care Visit [address] [address] Radha Martinez, OTR OT DISCIPLINE DISCHARGE 09/01/2025 Travel 08/28/2025 1:00 PM WINDOWS SERVER ADMINISTRATOR Home Care Visit [address] [address] Lucie Toussaint, PT PT DISCIPLINE DISCHARGE 08/26/2025 12:00 PM WINDOWS SERVER ADMINISTRATOR Home Care Visit [address] [address] Emperatriz Monahan, RN SN HOME VISIT 08/25/2025 2:30 PM WINDOWS SERVER ADMINISTRATOR Home Care Visit [address] [place] [address] Radha Martinez, OTR OT HOME VISIT 08/24/2025 2:00 PM WINDOWS SERVER ADMINISTRATOR Home Care Visit [facility] [address] [address] Emperatriz Monahan, RN SN HOME VISIT 08/24/2025 Lab Requisition [facility] [address] [place] [phone] Rakesh Harmon PA-C Presence of prosthetic heart valve 08/21/2025 12:00 PM WINDOWS SERVER ADMINISTRATOR Home Care Visit [place] [address] [address] Lucie Toussaint, PT PT REASSESSMENT 08/21/2025 3:00 AM WINDOWS SERVER ADMINISTRATOR Home Care Visit [place] [address] [address] Sultana Mullins RN SN HOME VISIT 08/20/2025 1:30 PM WINDOWS SERVER ADMINISTRATOR Home Care Visit [address] [address] Ambreen Quinones, CCC-LEAF SUCKER OPERATOR LEAF SUCKER OPERATOR INITIAL EVALUATION 08/20/2025 Home Care Visit [place] [address] [address] Ambreen Quinones CCC-LEAF SUCKER OPERATOR LEAF SUCKER OPERATOR DISCIPLINE DISCHARGE 08/20/2025 Orders Only [facility] [address] [place] [phone] Daniela Garcia HFrEF (heart failure with reduced ejection fraction) (HCC) (Primary Dx) 08/18/2025 10:30 AM WINDOWS SERVER ADMINISTRATOR Home Care Visit [facility] [address] [address] Radha Martinez, OTR OT REASSESSMENT 08/17/2025 1:00 PM WINDOWS SERVER ADMINISTRATOR Home Care Visit [address] [address] Emperatriz Monahan, RN SN HOME VISIT 08/17/2025 Home Care Visit [address] [address] Lucie Toussaint, PT BILLING COMMUNICATION 08/14/2025 2:00 PM CDT Home Care Visit [address] [address] Lucie Toussaint, PT PT HOME VISIT 08/13/2025 10:30 AM CDT Immunization [facility] [address] [facility] [address] [place] [phone] Immunization 08/13/2025 10:15 AM CDT ALLIED HEALTH/NURSE VISIT [facility] [address] [place] [address] [address] [place] [phone] Lab, [facility] Lab Work 08/13/2025 Travel 08/12/2025 2:45 PM CDT Home Care Visit [address] [address] Radha Martinez, OTR OT HOME VISIT 08/12/2025 Orders Only [facility] [address] [place] [address] [address] [place] [phone] Rema Reed HFrEF (heart failure with reduced ejection fraction) (HCC) (Primary Dx) 08/10/2025 5:25 AM CDT Home Care Visit [address] [address] Yfn Chung RN SN HOME VISIT 08/10/2025 Lab Requisition [facility] [address] [place] [phone] Rakesh Harmon PA-C Unspecified systolic (congestive) heart failure (HCC) 08/07/2025 2:00 PM CDT Home Care Visit [facility] [address] [facility] [address] [place] [address] Lucie Toussaint, PT PT HOME VISIT 08/06/2025 2:00 PM CDT Home Care Visit [facility] [address] [address] Ethel Gillima LGSW VIDEO PRODUCTION INTERN HOME VISIT 08/06/2025 12:00 PM CDT Home Care Visit [facility] [address] [address] Emperatriz Monahan, RN SN HOME VISIT 08/05/2025 Home Care Visit [facility] [address] [address] Susy Chacon, RN CASE COMMUNICATION 08/04/2025 2:30 PM CDT Home Care Visit [facility] [address] [address] Radha Martinez, OTR OT HOME VISIT 08/04/2025 Home Care Visit [place] [address] [address] Susy Chacon, RN CASE COMMUNICATION 08/03/2025 1:00 PM CDT Home Care Visit [facility] [address] [address] Susy Chaocn, RN SN HOME VISIT 07/30/2025 2:00 PM CDT Home Care Visit [facility] [address] [address] Lucie Toussaint, PT PT HOME VISIT 07/30/2025 1:00 PM CDT Home Care Visit [facility] [address] [address] Cecile Abdi RN SN HOME VISIT 07/28/2025 2:00 PM CDT Home Care Visit [facility] [address] [address] Radha Martinez, OTR OT INITIAL EVALUATION 07/28/2025 Home Care Visit [facility] [address] [address] Ethel Gilliam LGSW CASE COMMUNICATION 07/28/2025 Home Care Visit [facility] [address] [address] Corrina Bledsoe RN CASE COMMUNICATION 07/27/2025 11:30 AM CDT Home Care Visit [facility] [address] [address] Corrina Bledsoe RN SN HOME VISIT 07/24/2025 1:00 PM CDT Home Care Visit [place] [address] [address] Lucie Toussaint, PT PT INITIAL EVALUATION 07/24/2025 Travel 07/24/2025 Plan of Care Documentation [facility] [address] [address] 07/24/2025 Home Care Visit [facility] [address] [address] Yfn Chung RN SN OASIS START OF CARE 07/20/2025 9:33 AM CDT Anesthesia Event [facility] [address] [place] [address] Aaron Valle MD 07/16/2025 6:01 PM CDT - 07/23/2025 1:21 PM CDT Hospital Encounter [facility] C[facility]/TELEMETRY [address] [place] [phone] Rakesh Castro MD Ritchie, MD Ochoa Means Elizabeth A, MD Krehbiel, Benjamin D, Acute congestive heart failure, unspecified heart failure type (HCC) (Primary Dx); Hx of mitral valve replacement with mechanical valve; Pneumonia of left lower lobe due to infectious organism; Mitral valve disorder; Congestive heart failure, unspecified HF chronicity, unspecified heart failure type (HCC) [I50.9]; Atrial flutter, unspecified type (HCC) [I48.92] Discharge Disposition: Home and/or Self Care 07/16/2025 Travel from Last 3 Months Immunizations Immunization Administration Dates Next Due COVID-19 MRNA Vaccine (Moder na) 12+ Yrs Seasonal 08/13/2025,08/20/2023 COVID-19 MRNA Vaccine (Pfize r Bivalent TRI-SUCR) Tai 12+ YRS 04/06/2023,08/09/2022 COVID-19 MRNA Vaccine (Pfize r HERNESTO-SUCR) Tai 12+ Yrs Seasonal 07/25/2024 COVID-19 mRNA Vaccine (Moder na - 18+ Yrs) 03/01/2022 COVID-19 mRNA Vaccine (Pfize r-Purple 12+ Yrs) 08/13/2021,01/05/2021,12/15/2020 Hepatitis A, Adult 07/17/1997,01/21/1997 Hepatitis B, Adult 11/19/1992 IPV 07/31/2005 Influenza H1N1 Unspecified 10/05/2009 Influenza H1N1 With Preservative 10/05/2009 Influenza High Dose Quadrivalent 08/20/2023 Influenza Quad Preservative Free 07/23/2014 Influenza Trivalent Adjuvant ed Preservative Free (Fluad) 07/25/2024 Influenza Trivalent Preservative Free ,10/05/2009,08/14/2007,2005 Influenza Trivalent Preserva tive Free (High Dose) 08/13/2025,07/29/2019,08/09/2018,2016,08/03/2016,09/15/2015 Influenza Trivalent With Preservative ,08/01/2012,08/18/2010,2008,07/30/2008 Influenza Vaccine, Quadrival ent, Adjuvanted (Fluad) 65+ Years 08/02/2022,08/04/2021,07/27/2020 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,08/08/20 05,07/31/2005 [place] Encephalitis JE-Vax 09/22/2005,08/08/20 05,07/31/2005 Pneumococcal Conjugate, (Prevnar)13-valent 10/09/2017,08/03/2016 Pneumovax 23 10/11/2018 Rabies 08/08/2005 Rabies IM Fibroblast Culture (Rabavert) 09/22/2005,07/31/2005 Respiratory Syncytial Virus (RSV) Vaccine, Recombinant (Arexvy) 09/27/2023 TD >7Yrs Preservative Free 09/29/2013 TD >7yrs With Preservative 11/07/2002,10/15/1995 Tdap (7 years and older) 09/01/2025,02/16/2015,0 07/13/2008 Typhoid Oral 08/18/2010,09/14/2004 Zoster Shingrix 2 Dose (Shingles) 09/19/2019 Zoster Zostavax (Shingles) 04/07/2013,10/12/2011 Social History Tobacco Use Types Packs/Day Years Used Date Smoking Tobacco: Never Smokeless Tobacco: Never Tobacco Cessation:Counseling Given: Not Answered Alcohol Use Standard Drinks/Week Comments Yes 6 [...] materials from doctor or pharmacy Sometimes 07/24/2025 [facility] Utilities Answer Date Recorded In the past 12 months has e [employer], [employer], oil, or water [employer] threatened to shut off services in your [...] any time in the past 12 m [facility], were you homeless or living in a senior care (including now)? No 07/16/2025 EH IP Custom IPV Answer Date Recorded Do you feel UNSAFE in any of your personal relationships with your family members or any other acquaintances? No 2024 Sex and Gender Information Value Date Recorded Sex Assigned at Not on file Legal Sex Male 9:48 AM CDT Gender Identity Not on file Sexual Orientation Not on file Last Filed Vital Signs Vital Sign Reading Time Taken Comments Blood Pressure 90/60 09/09/2025 10:05 AM WINDOWS SERVER ADMINISTRATOR Pulse 60 09/09/2025 10:05 AM WINDOWS SERVER ADMINISTRATOR Temperature 36.6 C (97.9 F) 09/04/2025 11:15 AM WINDOWS SERVER ADMINISTRATOR Respiratory Rate 16 09/09/2025 10:05 AM WINDOWS SERVER ADMINISTRATOR Oxygen Saturation 97% 09/09/2025 10:05 AM WINDOWS SERVER ADMINISTRATOR Inhaled Oxygen Concentration - - Weight 66.7 kg (147 lb) 09/04/2025 11:15 AM WINDOWS SERVER ADMINISTRATOR Height 172.7 cm (5' 8) 09/04/2025 11:15 AM WINDOWS SERVER ADMINISTRATOR Body Mass Index 22.35 09/04/2025 11:15 AM WINDOWS SERVER ADMINISTRATOR Plan of Treatment Upcoming Encounters Date Type Department Care Team (Late st Contact Info) Description 09/16/2025 2:00 AM WINDOWS SERVER ADMINISTRATOR Appointment [facility] [address] [address] Emperatriz Monahan, RN Health Maintenance Due Date Last Done Comments CT Colonography 1950 Cologuard 1950 Colonoscopy 1950 Colorectal Cancer Screening 1950 FIT/FOBT 1950 MEDICARE AWV 1950 Sigmoidoscopy 1950 Hepatitis B Vaccine (Standing Order) (2 of 3 - 19+ 3-dose series) 12/17/1992 11/19/1992 Shingrix (Zoster recombinant) vaccine (Standing Order) (2 of 2) 11/14/2019 09/19/2019 TETANUS (Standing Order) 09/01/2035 025, 02/16/2015, 09/29/2013, Additional history exists Pneumococcal Vaccine: 50+ yrs (Standing Order) Completed 10/11/2018, 10/09/2017, 08/03/2016 RSV Vaccination (60+ yrs) (Abrysvo/Arexvy) Completed 09/27/2023 COVID-19 Single Dose Completed 08/13/2025, 07/25/2024, 08/20/2023 Influenza Vaccine Seasonal (Standing Order) Completed 08/13/2025, 07/25/2024, 08/20/2023, Additional history exists PERTUSSIS (Standing Order) Completed 09/01, 02/16/2015, 07/13/2008 HPV Vaccine (Standing Order) Aged Out No longer eligible based on patient's age to complete this topic Procedures Procedure Name Priority Date/Time Associated Diagnosis Comments HIGH SENSITIVITY TROPONIN-I WITH REFLEX STAT 09/04/2025 3:15 PM WINDOWS SERVER ADMINISTRATOR CT HEAD WO IV CONTRAST STAT 09/04/2025 2:56 PM WINDOWS SERVER ADMINISTRATOR URINALYSIS, REFLEX TO CULTURE STAT 09/04/2025 2:07 PM WINDOWS SERVER ADMINISTRATOR COMPREHENSIVE METABOLIC PANEL STAT 09/04/2025 1:08 PM WINDOWS SERVER ADMINISTRATOR HEMOGRAM/DIFF STAT 09/04/2025 1:08 PM WINDOWS SERVER ADMINISTRATOR HIGH SENSITIVITY TROPONIN-I WITH REFLEX STAT 09/04/2025 1:08 PM WINDOWS SERVER ADMINISTRATOR PROTIME STAT 09/04/2025 1:08 PM WINDOWS SERVER ADMINISTRATOR EKG 12-LEAD STAT 09/04/2025 12:59 PM WINDOWS SERVER ADMINISTRATOR Procedure Note - 09/04/2025 12:59 PM CSTThis note is in progress. Sinus bradycardia with sinus arrhythmia with 1st degree AV block Left axis deviation Nonspecific intraventricular block T wave abnormality, consider lateral ischemia Abnormal ECG When compared with ECG of 21-Jul-2025 08:21, premature atrial complexes are no longer present Nonspecific intraventricular block has replaced Right bundle branchblock CT CERVICAL SPINE WO IV CONTRAST STAT 09/01/2025 11:27 PM WINDOWS SERVER ADMINISTRATOR Laceration of left earlobe, subsequent encounter CT HEAD WO IV CONTRAST STAT 09/01/2025 11:27 PM WINDOWS SERVER ADMINISTRATOR LAYR CLOS WND FACE,FACIAL 2.5-5 Routine 09/01/2025 8:50 PM WINDOWS SERVER ADMINISTRATOR Laceration of left earlobe, initial encounter PROTIME Routine 08/24/2025 2:30 PM WINDOWS SERVER ADMINISTRATOR Presence of prosthetic heart valve NTPRO BNP Routine 08/13/2025 10:10 AM CDT HFrEF (heart failure with reduced ejection fraction) (HCC) HEMOGRAM Routine 08/13/2025 10:10 AM CDT HFrEF (heart failure with reduced ejection fraction) (HCC) COMPREHENSIVE METABOLIC PANEL Routine 08/13/2025 10:10 AM CDT HFrEF (heart failure with reduced ejection fraction) (HCC) BASIC METABOLIC PANEL Routine 08/10/2025 11:30 AM CDT Unspecified systolic (congestive) heart failure (HCC) BASIC METABOLIC PANEL Add on 07/23/2025 5:35 AM CDT HOLD LI HEPARIN Routine 07/23/2025 5:35 AM CDT HOLD EDTA Routine 07/23/2025 5:35 AM CDT PROTIME Routine 07/23/2025 5:35 AM CDT HEPARIN ANTI-X Timed 07/22/2025 11:26 AM CDT PHOSPHORUS Routine 07/22/2025 5:31 AM CDT RENAL PROFILE Add on 07/22/2025 5:31 AM CDT HOLD LI HEPARIN Routine 07/22/2025 5:31 AM CDT HEPARIN ANTI-X Timed 07/22/2025 5:31 AM CDT PROTIME Routine 07/22/2025 5:31 AM CDT HEMOGRAM Routine 07/22/2025 5:30 AM CDT HEPARIN ANTI-X Timed 07/21/2025 10:14 PM CDT HEPARIN ANTI-X Timed 07/21/2025 2:53 PM CDT EKG 12-LEAD Routine 07/21/2025 8:21 AM CDT RENAL PROFILE Add on 07/21/2025 6:13 AM CDT HOLD LI HEPARIN Routine 07/21/2025 6:13 AM CDT HOLD EDTA Routine 07/21/2025 6:13 AM CDT HEPARIN ANTI-X Timed 07/21/2025 6:13 AM CDT PROTIME Routine 07/21/2025 6:13 AM CDT ECHO TRANSTHORACIC LIMITED WITH CF AND LTD DOPPLER Routine 07/21/2025 HEPARIN ANTI-X Timed 07/20/2025 8:14 PM CDT HEPARIN ANTI-X Timed 07/20/2025 2:50 PM CDT EKG 12-LEAD Routine 07/20/2025 10:32 AM CDT CARDIOVERSION Routine 07/20/2025 10:00 AM CDT EKG 12-LEAD Routine 07/20/2025 7:30 AM CDT PHOSPHORUS Routine 07/20/2025 7:22 AM CDT MAGNESIUM Add on 07/20/2025 7:22 AM CDT HEPARIN ANTI-X Timed 07/20/2025 7:22 AM CDT HOLD EDTA Routine 07/20/2025 7:22 AM CDT PROTIME Routine 07/20/2025 7:22 AM CDT RENAL PROFILE Routine 07/20/2025 7:22 AM CDT HEPARIN ANTI-X Timed 07/20/2025 1:31 AM CDT ECHO TRANSESOPHAGEAL Routine 07/20/2025 APTT STAT Add-On 07/19/2025 4:59 PM CDT PROTIME Timed 07/19/2025 4:59 PM CDT PROTIME Routine 07/19/2025 8:43 AM CDT PHOSPHORUS Routine 07/19/2025 5:34 AM CDT HOLD EDTA Routine 07/19/2025 5:34 AM CDT RENAL PROFILE Routine 07/19/2025 5:34 AM CDT PROTIME Routine 07/18/2025 8:30 AM CDT HEMOGRAM Routine 07/18/2025 5:31 AM CDT COMPREHENSIVE METABOLIC PANEL Routine 07/18/2025 5:31 AM CDT LACTIC ACID, VENOUS STAT 07/17/2025 3:02 PM CDT THYROID STIMULATING HORMONE Routine 07/17/2025 12:03 PM CDT PROTIME Routine 07/17/2025 5:28 AM CDT HEPATIC FUNCTION PANEL Add on 07/17/2025 5:27 AM CDT HEMOGRAM Routine 07/17/2025 5:27 AM CDT MAGNESIUM Routine 07/17/2025 5:27 AM CDT BASIC METABOLIC PANEL Routine 07/17/2025 5:27 AM CDT ECHOCARDIOGRAM TRANSTHORACIC COMPLETE Routine 07/17/2025 HIGH SENSITIVITY TROPONIN-I WITH REFLEX STAT 07/16/2025 10:09 PM CDT HIGH SENSITIVITY TROPONIN-I WITH REFLEX STAT 07/16/2025 8:03 PM CDT PROTIME STAT 07/16/2025 8:03 PM CDT POCUS CARDIAC 07/16/2025 7:09 PM CDT Acute congestive heart failure, unspecified heart failure type (HCC) Hx of mitral valve replacement with mechanical valve Pneumonia of left lower lobe due to infectious organism BASIC METABOLIC PANEL STAT 07/16/2025 7:04 PM CDT XR CHEST 2 VIEWS STAT 07/16/2025 6:49 PM CDT SARS-COV-2/INFLUENZA A AND B/RESPIRATORY SYNCYTIAL VIRUS, MOLECULAR DETECTION STAT 07/16/2025 6:31 PM CDT EKG 12-LEAD STAT 07/16/2025 6:21 PM CDT NTPRO BNP STAT 07/16/2025 6:10 PM CDT HEMOGRAM/DIFF STAT 07/16/2025 6:10 PM CDT HOLD LI HEPARIN STAT 07/16/2025 6:10 PM CDT HOLD EDTA STAT 07/16/2025 6:10 PM CDT RAINBOW DRAW STAT 07/16/2025 6:10 PM CDT from Last 3 Months Results * HIGH SENSITIVITY TROPONIN-I WITH REFLEX (09/04/2025 3:15 PM WINDOWS SERVER ADMINISTRATOR) High Sensitivity Troponin I 53.0 0.0 - 76.2 pg/mL 09/04/2025 4:02 PM WINDOWS SERVER ADMINISTRATOR [facility] Blood BLOOD SPECIMEN / Unknown Venipuncture / Unknown 09/04/2025 3:15 PM WINDOWS SERVER ADMINISTRATOR 09/04/2025 3:25 PM WINDOWS SERVER ADMINISTRATOR Narrative [facility] - 09/04/2025 4:02 PM WINDOWS SERVER ADMINISTRATOR The 99th percentile URL (upper reference limit) for High Sensitivity Troponin I is as follows: Female: 51.4 pg/mL Male: 76.2 pg/mL Gender Neutral: 60.4 pg/mL us Julia Garza MD EC CHEMISTRY ORDERABLES Final Result Performing Organization Address City/State/[facility] Co de Phone Number [facility] [address] [place] [address] * CT HEAD WO IV CONTRAST (09/04/2025 2:56 PM WINDOWS SERVER ADMINISTRATOR) Only the most recent of2 resultswithin the time period is included. Anatomical Region Laterality Modality Head Computed Tomogra phy 09/04/2025 2:56 PM WINDOWS SERVER ADMINISTRATOR Narrative 09/04/2025 4:55 PM WINDOWS SERVER ADMINISTRATOR EXAM: CT HEAD WO IV CONTRAST LOCATION: [facility] DATE: 09/04/2025 INDICATION: Head injury on anticoagulation [...] Tanvir Guerin MD, PhD 09/04/2025 4:55 PM WINDOWS SERVER ADMINISTRATOR Procedure Note Tanvir Guerin MD - 09/04/2025 EXAM: CT HEAD WO IV CONTRAST LOCATION: [facility] DATE: 09/04/2025 INDICATION: Head injury on anticoagulation [...] Tanvir Guerin MD, PhD 09/04/2025 4:55 PM WINDOWS SERVER ADMINISTRATOR us Julia Garza MD EC CT ORDERABLES Final Result * (ABNORMAL) URINALYSIS, REFLEX TO CULTURE (09/04/2025 2:07 PM WINDOWS SERVER ADMINISTRATOR) UA Color Yellow Light Yellow, Yellow 09/04/2025 2:45 PM [facility] Urine Appearance Clear Clear 09/04/20 25 2:45 PM WINDOWS SERVER ADMINISTRATOR [facility] Urine Specific Hubbard 1.015 1.005 - 1.030 09/04/2025 2:45 PM [facility] Urine pH 6.0 5.0 - 8.0 09/04/2025 2:45 PM [facility] Urine Leukocyte Esterase Negative Negative 09/04/2025 2:45 PM [facility] Urine Nitrates Negative Negative 09/04/2025 2:45 PM [facility] Urine Protein Negative Negative 09/04/2025 2:45 PM [facility] Urine Glucose Negative Negative 09/04/2025 2:45 PM WINDOWS SERVER ADMINISTRATOR [facility] Urine Ketones Trace(A) Negative 09/04/2025 2:45 PM [facility] Urine Urobilinogen Normal Normal 09/04/2025 2:45 PM [facility] Urine Bilirubin Negative Negative 2:45 PM WINDOWS SERVER ADMINISTRATOR [facility] Urine Blood Negative Negative 09/04/2025 2:45 PM WINDOWS SERVER ADMINISTRATOR [facility] Urine WBC's 0-5 0 - 5 /HPF 09/04/2025 2:45 PM WINDOWS SERVER ADMINISTRATOR [facility] Urine RBC's 0-2 0 - 2 /HPF 09/04/2025 2:45 PM [facility] Urine Epithelial Cells Negative Negative /HPF 09/04/2025 2:45 PM [facility] Urine Bacteria Negative Negative /HPF 09/04/2025 2:45 PM [facility] Calcium Oxalate Crystals, Urine Occasional( A) (none) /HPF 09/04/2025 2:45 PM [facility] Urine Hyaline Cast 5-10(A) (none) /LPF 09/04/2025 2:45 PM [facility] Urine Mucous Moderate(A) (none) /HPF 09/04/2025 2:45 PM [facility] Urine URINE SPECIMEN COLLECTION, CLEAN CATCH / Unknown Non-blood collection / Unknown 09/04/2025 2:07 PM WINDOWS SERVER ADMINISTRATOR 09/04/2025 2:10 PM WINDOWS SERVER ADMINISTRATOR us Julia Garza MD EC URINE ORDERABLES Final Resu lt [facility] [address] [phone] * HIGH SENSITIVITY TROPONIN-I WITH REFLEX (09/04/2025 1:08 PM WINDOWS SERVER ADMINISTRATOR) High Sensitivity Troponin I 53.0 0.0 - 76.2 pg/mL 09/04/2025 1:42 PM [facility] Blood BLOOD SPECIMEN / Unknown Venipuncture / Unknown 09/04/2025 1:08 PM WINDOWS SERVER ADMINISTRATOR 09/04/2025 1:13 PM [facility] - 09/04/2025 1:42 PM [facility] The 99th percentile URL (upper reference limit) for High Sensitivity Troponin I is as follows: Female: 51.4 pg/mL Male: 76.2 pg/mL Gender Neutral: 60.4 pg/mL us Julia Garza MD EC CHEMISTRY ORDERABLES Final Result [facility] [address] [place] [address] * (ABNORMAL) COMPREHENSIVE METABOLIC PANEL (09/04/2025 1:08 PM [facility]) Sodium 140 135 - 144 mmol/L 09/04/2025 1:39 PM [facility] Potassium 4.4 3.4 - 5.1 mmol/L 09/04/2025 1:39 PM [facility] Chloride 105 98 - 107 mmol/L 09/04/2025 1:39 PM [facility] Carbon Dioxide 27 22 - 30 mmol/L 09/04/2025 1:39 PM [facility] Calcium 9.4 8.6 - 10.3 mg/dL 09/04/2025 1:39 PM [facility] Alkaline Phosphatase 99 38 - 126 U/L 09/04/2025 1:39 PM [facility] Aspartate Aminotransferase 43 17 - 59 U/L 09/04/2025 1:39 PM [facility] Alanine Aminotransferase 10 <50 U/L 09/04/2025 1:39 PM [facility] Glucose 96 74 - 100 mg/dL 09/04/2025 1:39 PM [facility] Blood Urea nitrogen 22(H) 9 - 20 mg/dL 09/04/2025 1:39 PM [facility] Creatinine 1.12 0.66 - 1.25 mg/dL 09/04/2025 1:39 PM [facility] Protein, Total 7.3 6.3 - 8.2 g/dL 09/04/2025 1:39 PM [facility] Albumin 4.2 3.5 - 5.0 g/dL 09/04/2025 1:39 PM [facility] Bilirubin, Total 1.2 0.2 - 1.3 mg/dL 09/04/2025 1:39 PM [facility] Globulin 3.1 1.4 - 4.8 g/dL 09/04/2025 1:39 PM [facility] Anion Gap 8 5 - 15 mmol/L 09/04/2025 1:39 PM [facility] Glomerular Filtration Rate >60 >60 mL/min/1. 73 m*2 09/04/2025 1:39 PM [facility] Comment:This calculation use s CKD-EPI 2020 equation; it has not been validated in women. Blood BLOOD SPECIMEN / Unknown Venipuncture / Unknown 09/04/2025 1:08 PM WINDOWS SERVER ADMINISTRATOR 09/04/2025 1:13 PM WINDOWS SERVER ADMINISTRATOR us Julia Garza MD EC CHEMISTRY ORDERABLES Final Result [facility] [address] [phone] * (ABNORMAL) HEMOGRAM/DIFFERENTIAL (09/04/2025 1:08 PM WINDOWS SERVER ADMINISTRATOR) WBC 6.7 4.0 - 11.0 10*3/uL 09/04/2025 1:31 PM [facility] RBC 4.56 4.40 - 6.00 10*6/uL 09/04/2025 1:31 PM [facility] HGB 14.0 13.0 - 18.0 g/dl 09/04/2025 1:31 PM [facility] HCT 42.2 40.0 - 52.0 % 09/04/2025 1:31 PM [facility] MCV 92.5 80 - 96 fL 09/04/2025 1:31 PM [facility] MCH 30.7 27.0 - 34.0 pg 09/04/2025 1:31 PM [facility] MCHC 33.2 32 - 36 g/dl 09/04/2025 1:31 PM [facility] PLT 149(L) 150 - 420 10*3/uL 09/04/2025 1:31 PM [facility] Neutrophils Absolute 5.51 2.10 - 7.50 10*3/uL 09/04/2025 1:31 PM [facility] Lymphocytes Absolute 0.48(L) 0.76 - 4.00 10*3/uL 09/04/2025 1:31 PM [facility] Monocytes Absolute 0.51 0.00 - 0.90 10*3/uL 09/04/2025 1:31 PM [facility] Eosinophils Absolute 0.15 0.04 - 0.54 10*3/uL 09/04/2025 1:31 PM [facility] Basophils Absolute 0.03 0.00 - 0.20 10*3/uL 09/04/2025 1:31 PM [facility] RDW-SD 46.4(H) 35.1 - 43.9 fL 09/04/2025 1:31 PM [facility] RDW-CV 13.6 11.6 - 14.4 % 09/04/2025 1:31 PM [facility] Immature Granulocytes Absolute 0.03 0.00 - 0.10 10*3/uL 09/04/2025 1:31 PM [facility] Nucleated RBCs Absolute 0.00 0.00 - 0.00 10*3/uL 09/04/2025 1:31 PM [facility] Blood BLOOD SPECIMEN / Unknown Venipuncture / Unknown 09/04/2025 1:08 PM [facility] 09/04/2025 1:13 PM WINDOWS SERVER ADMINISTRATOR Julia Garza MD EC HEMATOLOGY ORDERABLES Final Result Performing Organization Address [facility]/ZIP Co de Phone Number [facility] [address] [phone] * (ABNORMAL) PROTIME (09/04/2025 1:08 PM WINDOWS SERVER ADMINISTRATOR) INR 3.1(H) 0.9 - 1.1 09/04/2025 1:29 PM WINDOWS SERVER ADMINISTRATOR [facility] Blood BLOOD SPECIMEN / Unknown Venipuncture / Unknown 09/04/2025 1:08 PM WINDOWS SERVER ADMINISTRATOR 09/04/2025 1:13 PM WINDOWS SERVER ADMINISTRATOR Narrative [facility] - 09/04/2025 1:29 PM WINDOWS SERVER ADMINISTRATOR Standard intensity warfarin therapeutic range: 2.0-3.0 High intensity warfarin therapeutic range: 2.5-3.5 Julia Garza MD EC HEMATOLOGY ORDERABLES Final Result Performing Organization Address [facility] de Phone Number [facility] [address] [phone] * CT CERVICAL SPINE WO IV CONTRAST (09/01/2025 11:27 PM WINDOWS SERVER ADMINISTRATOR) Anatomical Region Laterality Modality C-Spine, Spine Computed Tomogra phy 09/01/2025 11:1 7 PM WINDOWS SERVER ADMINISTRATOR Narrative 09/02/2025 12:15 AM WINDOWS SERVER ADMINISTRATOR EXAM: CT CERVICAL SPINE WO IV CONTRAST LOCATION: [facility] DATE: 09/01/2025 INDICATION: Neck trauma (age >=65y). [...] by: Mallorie Dutta MD 09/02/2025 12:15 AM WINDOWS SERVER ADMINISTRATOR Procedure Note Mallorie Dutta MD - 09/02/2025 EXAM: CT CERVICAL SPINE WO IV CONTRAST LOCATION: [facility] DATE: 09/01/2025 INDICATION: Neck trauma (age >=65y). [...] by: Mallorie Dutta MD 09/02/2025 12:15 AM WINDOWS SERVER ADMINISTRATOR us Flower Davis MD EC CT ORDERABLES Final Result * LAYR MODE WND FACE,FACIAL 2.5-5 (09/01/2025 8:50 PM WINDOWS SERVER ADMINISTRATOR) Narrative Zelalem Leon PA-C - 09/01/2025 8:50 PM WINDOWS SERVER ADMINISTRATOR Zelalem Leon PA-C 09/01/2025 8:55 PM Laceration [...] PA-C NW PROCEDURE ORDERABLES Fin al Result * (ABNORMAL) PROTIME (08/24/2025 2:30 PM WINDOWS SERVER ADMINISTRATOR) INR 6.2(HH) 0.9 - 1.1 08/24/2025 4:06 PM WINDOWS SERVER ADMINISTRATOR [facility] Blood BLOOD SPECIMEN / Unknown 08/24/2025 2:30 PM WINDOWS SERVER ADMINISTRATOR 08/24/2025 3:04 PM WINDOWS SERVER ADMINISTRATOR Narrative [facility] - 08/24/2025 4:06 PM WINDOWS SERVER ADMINISTRATOR Standard intensity warfarin therapeutic range: 2.0-3.0 High intensity warfarin therapeutic range: 2.5-3.5 Rakesh Harmon PA-C EC HEMATOLOGY ORDERABLES F inal Result [facility] [address] [place] [address] * (ABNORMAL) NTPRO BNP (08/13/2025 10:10 AM CDT) NT-PRO BNP 4,210(H) <125 pg/mL 08/13/2025 10:51 AM CDT [facility] Blood BLOOD SPECIMEN / Unknown Venipuncture / Unknown 08/13/2025 10:10 AM CDT 08/13/2025 10:10 AM CDT [facility] - 08/13/2025 10:51 AM CDT The decision thresholds: <75 years- 125 pg/mL >75 years- 450 pg/mL Clinical correlations for the NYHA functional classes at the 95th percentile: NYHA I: 3410 NYHA II: 6567 NYHA III: 23388 Esha Camilo MD EC LAB SEND OU T ORDERABLES Final Result [facility] [address] [place] [address] * (ABNORMAL) COMPREHENSIVE METABOLIC PANEL (08/13/2025 10:10 AM CDT) Sodium 138 135 - 144 mmol/L 08/13/2025 10:45 AM CDT [facility] Potassium 4.6 3.4 - 5.1 mmol/L 08/13/2025 10:45 AM CDT [facility] Chloride 101 98 - 107 mmol/L 08/13/2025 10:45 AM T [facility] Carbon Dioxide 29 22 [...] 1.4 - 4.8 g/dL 08/13/2025 10:45 AM CDT [facility] Anion Gap 8 5 - 15 mmol/L 08/13/2025 10:45 AM CDT [facility] Glomerular Filtration Rate 51(L) >60 mL/min/1. 73 m*2 08/13/2025 10:45 AM CDT [facility] Comment:This calculation use s CKD-EPI 2020 equation; it has not been validated in women. Blood BLOOD SPECIMEN / Unknown Venipuncture / Unknown 08/13/2025 10:10 AM CDT 08/13/2025 10:10 AM CDT us Esha Camilo MD EC CHEMISTRY O RDERABLES Final Result [facility] [address] [place] [address] * (ABNORMAL) HEMOGRAM (08/13/2025 10:10 AM CDT) WBC 4.6 4.0 - 11.0 10*3/uL 08/13/2025 10:39 AM CDT [facility] RBC 4.94 4.40 - 6.00 10*6/uL 08/13/2025 10:39 AM CDT [facility] HGB 15.0 13.0 - 18.0 g/dl 08/13/2025 10:39 AM CDT [facility] HCT 47.3 40.0 - 52.0 % 08/13/2025 10:39 AM CDT [facility] MCV 95.7 80 - 96 fL 08/13/2025 10:39 AM CDT [facility] MCH 30.4 27.0 - 34.0 pg 08/13/2025 10:39 AM CDT [facility] MCHC 31.7(L) 32 - 36 g/dl 08/13/2025 10:39 AM CDT [facility] PLT 141(L) 150 - 420 10*3/uL 08/13/2025 10:39 AM CDT [facility] RDW-CV 13.6 11.6 - 14.4 % 08/13/2025 10:39 AM CDT [facility] RDW-SD 48.7(H) 35.1 - 43.9 fL 08/13/2025 10:39 AM CDT [facility] Blood BLOOD SPECIMEN / Unknown Venipuncture / Unknown 08/13/2025 10:10 AM CDT 08/13/2025 10:10 AM CDT Esha Camilo MD EC HEMATOLOGY ORDERABLES Final Result [facility] [address] [place] [address] * (ABNORMAL) BASIC METABOLIC PANEL (08/10/2025 11:30 AM CDT) Sodium 136 135 - 144 mmol/L 08/10/2025 12:55 PM [facility] Potassium 5.2(H) 3.4 - 5.1 mmol/L 08/10/2025 12:55 PM [facility] Comment:Slightly hemolyzed, interpret with caution. Chloride 103 98 - 107 mmol/L 08/10/2025 12:55 PM [facility] Carbon Dioxide 22 22 - 30 mmol/L 08/10/2025 12:55 PM [facility] Calcium 9.1 8.6 - 10.3 mg/dL 08/10/2025 12:55 PM [facility] Glucose 102(H) 74 - 100 mg/dL 08/10/2025 12:55 PM [facility] Blood Urea nitrogen 24(H) 9 - 20 mg/dL 08/10/2025 12:55 PM [facility] Creatinine 1.49(H) 0.66 - 1.25 mg/dL 08/10/2025 12:55 PM [facility] Anion Gap 11 5 - 15 mmol/L 08/10/2025 12:55 PM CDT [facility] Glomerular Filtration Rate 49(L) >60 mL/min/1.7 3 m*2 08/10/2025 12:55 PM CDT [facility] Comment:This calculation use s CKD-EPI 2020 equation; it has not been validated in women. Blood BLOOD SPECIMEN / Unknown 08/10/2025 11:30 AM CDT 08/10/2025 12:26 PM CDT Rakesh Harmon PA-C EC CHEMISTRY ORDERABLES Fi nal Result Performing Organization Address City/[facility] Co de Phone Number [facility] [address] [phone] * HOLD LI HEPARIN (07/23/2025 5:35 AM CDT) Blood BLOOD SPECIMEN / Unknown Venipuncture / Unknown 07/23/2025 5:35 AM CDT 07/23/2025 6:04 AM CDT Mahendra Hudson MD EC CHEMISTRY ORDERABLES Fin al Result Performing Organization Address [facility] de Phone Number [facility] [address] [place] [address] * HOLD PURPLE TUBE (07/23/2025 5:35 AM CDT) Blood BLOOD SPECIMEN / Unknown Venipuncture / Unknown 07/23/2025 5:35 AM CDT 07/23/2025 6:04 AM CDT Mahendra Hudson MD EC HEMATOLOGY ORDERABLES Fi nal Result Performing Organization Address [facility] de Phone Number [facility] [address] [place] [address] * (ABNORMAL) BASIC METABOLIC PANEL (07/23/2025 5:35 AM CDT) Sodium 137 135 - 144 mmol/L 07/23/2025 8:12 AM CDT [facility] Potassium 3.6 3.4 - 5.1 mmol/L 07/23/2025 8:12 AM [facility] Chloride 104 98 - 107 mmol/L 07/23/2025 8:12 AM [facility] Carbon Dioxide 26 22 - 30 mmol/L 07/23/2025 8:12 AM [facility] Calcium 8.8 8.6 - 10.3 mg/dL 07/23/2025 8:12 AM [facility] Glucose 94 74 - 100 mg/dL 07/23/2025 8:12 AM [facility] Blood Urea nitrogen 39(H) 9 - 20 mg/dL 07/23/2025 8:12 AM [facility] Creatinine 1.30(H) 0.66 - 1.25 mg/dL 07/23/2025 8:12 AM [facility] Anion Gap 7 5 - 15 mmol/L 07/23/2025 8:12 AM [facility] Glomerular Filtration Rate 57(L) >60 mL/min/1.7 3 m*2 07/23/2025 8:12 AM [facility] Comment:This calculation use s CKD-EPI 2020 equation; it has not been validated in women. Blood BLOOD SPECIMEN / Unknown Venipuncture / Unknown 07/23/2025 5:35 AM CDT 07/23/2025 6:04 AM CDT Mahendra Hudson MD EC CHEMISTRY ORDERABLES Fin al Result [facility] [address] [phone] * (ABNORMAL) PROTIME (07/23/2025 5:35 AM CDT) INR 2.9(H) 0.9 - 1.1 07/23/2025 6:45 AM T [facility] Blood BLOOD SPECIMEN / Unknown Venipuncture / Unknown 07/23/2025 5:35 AM CDT 07/23/2025 6:04 AM CDT Narrative [facility] - 07/23/2025 6:45 AM CDT Standard intensity warfarin therapeutic range: 2.0-3.0 High intensity warfarin therapeutic range: 2.5-3.5 us Shravan Raymundo DO EC HEMATOLOGY ORDERABLES Final Result Performing Organization Address City/[facility]/ZIP Co de Phone Number [facility] [address] [phone] * HEPARIN ANTI-X (07/22/2025 11:26 AM CDT) Heparin Anti-Xa 0.54 0.30 - 0.70 IU/ml 07/22/2025 12:01 PM CDT [facility] Blood BLOOD SPECIMEN / Unknown Venipuncture / Unknown 07/22/2025 11:26 AM CDT 07/22/2025 11:28 AM CDT us Shravan Raymundo DO EC HEMATOLOGY ORDERABLES Final Result Performing Organization Address City/[facility] Co de Phone Number [facility] [address] [place] [address] * HEPARIN ANTI-X (07/22/2025 5:31 AM CDT) Heparin Anti-Xa 0.59 0.30 - 0.70 IU/ml 07/22/2025 6:13 AM CDT [facility] Blood BLOOD SPECIMEN / Unknown Venipuncture / Unknown 07/22/2025 5:31 AM CDT 07/22/2025 5:59 AM CDT us Shravan Raymundo DO EC HEMATOLOGY ORDERABLES Final Result Performing Organization Address City/[facility]/ZIP Co de Phone Number [facility] [address] [place] [address] * HOLD LI HEPARIN (07/22/2025 5:31 AM CDT) Blood BLOOD SPECIMEN / Unknown Venipuncture / Unknown 07/22/2025 5:31 AM CDT 07/22/2025 5:59 AM CDT us Shravan Raymundo DO EC CHEMISTRY ORDERABLES F inal Result [facility] [address] [place] [address] * (ABNORMAL) RENAL FUNCTION PANEL (07/22/2025 5:31 AM CDT) Sodium 137 135 - 144 mmol/L 07/22/2025 7:36 AM [facility] Potassium 3.6 3.4 - 5.1 mmol/L 07/22/2025 7:36 AM [facility] Chloride 104 98 - 107 mmol/L 07/22/2025 7:36 AM [facility] Carbon Dioxide 24 22 - 30 mmol/L 07/22/2025 7:36 AM [facility] Calcium 8.6 8.6 - 10.3 mg/dL 07/22/2025 7:36 AM [facility] Glucose 100 74 - 100 mg/dL 07/22/2025 7:36 AM [facility] Blood Urea nitrogen 40(H) 9 - 20 mg/dL 07/22/2025 7:36 AM [facility] Creatinine 1.35(H) 0.66 - 1.25 mg/dL 07/22/2025 7:36 AM [facility] Albumin 4.0 3.5 - 5.0 g/dL 07/22/2025 7:36 AM [facility] Anion Gap 9 5 - 15 mmol/L 07/22/2025 7:36 AM [facility] Glomerular Filtration Rate 55(L) >60 mL/min/1.7 3 m*2 07/22/2025 7:36 AM [facility] Comment:This calculation use s CKD-EPI 2020 equation; it has not been validated in women. Blood BLOOD SPECIMEN / Unknown Venipuncture / Unknown 07/22/2025 5:31 AM CDT 07/22/2025 5:59 AM CDT Shravan Raymundo DO EC CHEMISTRY ORDERABLES F inal Result Performing Organization Address [facility] de Phone Number [facility] [address] [place] [address] * (ABNORMAL) PROTIME (07/22/2025 5:31 AM CDT) INR 2.3(H) 0.9 - 1.1 07/22/2025 6:10 AM CDT [facility] Blood BLOOD SPECIMEN / Unknown Venipuncture / Unknown 07/22/2025 5:31 AM CDT 07/22/2025 5:59 AM CDT Narrative [facility] - 07/22/2025 6:10 AM CDT Standard intensity warfarin therapeutic range: 2.0-3.0 High intensity warfarin therapeutic range: 2.5-3.5 Shravan Raymundo DO EC HEMATOLOGY ORDERABLES Final Result Performing Organization Address [facility] de Phone Number [facility] [address] [place] [address] * PHOSPHORUS (07/22/2025 5:31 AM CDT) Phosphorus 3.1 2.5 - 4.5 mg/dL 07/22/2025 7:47 AM CDT [facility] Blood BLOOD SPECIMEN / Unknown Venipuncture / Unknown 07/22/2025 5:31 AM CDT 07/22/2025 5:59 AM CDT us Shravan Raymundo DO EC CHEMISTRY ORDERABLES F inal Result Performing Organization Address City/[facility]/ZIP Co de Phone Number [facility] [address] [place], [place] [id number] [place] [address] * (ABNORMAL) HEMOGRAM (07/22/2025 5:30 AM CDT) WBC 5.3 4.0 - 11.0 10*3/uL 07/22/2025 6:02 AM CDT [facility] RBC 4.31(L) 4.40 - 6.00 10*6/uL 07/22/2025 6:02 AM T [facility] HGB 13.4 13.0 - 18.0 g/dl 07/22/2025 6:02 AM [facility] HCT 38.9(L) 40.0 - 52.0 % 07/22/2025 6:02 AM [facility] MCV 90.3 80 - 96 fL 07/22/2025 6:02 AM [facility] MCH 31.1 27.0 - 34.0 pg 07/22/2025 6:02 AM [facility] MCHC 34.4 32 - 36 g/dl 07/22/2025 6:02 AM [facility] PLT 153 150 - 420 10*3/uL 07/22/2025 6:02 AM [facility] RDW-CV 14.4 11.6 - 14.4 % 07/22/2025 6:02 AM [facility] RDW-SD 47.6(H) 35.1 - 43.9 fL 07/22/2025 6:02 AM [facility] Blood BLOOD SPECIMEN / Unknown Venipuncture / Unknown 07/22/2025 5:30 AM CDT 07/22/2025 5:57 AM CDT Shravan Raymundo DO HEMATOLOGY ORDERABLES Final Result Performing Organization Address City/[facility]/ZIP Co de Phone Number [facility] [address] [phone] * (ABNORMAL) HEPARIN ANTI-X (07/21/2025 10:14 PM CDT) Heparin Anti-Xa 0.81(H) 0.30 - 0.70 IU/ml 07/21/2025 10:47 PM CDT [facility] Blood BLOOD SPECIMEN / Unknown Venipuncture / Unknown 07/21/2025 10:14 PM CDT 07/21/2025 10:27 PM CDT Shravan Raymundo [facility] HEMATOLOGY ORDERABLES Final Result [facility] [address] [phone] * (ABNORMAL) HEPARIN ANTI-X (07/21/2025 2:53 PM CDT) [facility] Heparin Anti-Xa 0.75(H) 0.30 - 0.70 IU/ml 07/21/2025 3:09 PM CDT [facility] Blood BLOOD SPECIMEN / Unknown Venipuncture / Unknown 07/21/2025 2:53 PM CDT 07/21/2025 2:56 PM CDT Shravan Raymundo DO HEMATOLOGY ORDERABLES Final Result [facility] [address] [phone] * EKG 12-LEAD (07/21/2025 8:21 AM CDT) Only the most recent of4 resultswithin the time period is included. Ventricular Rate 58 BPM [facility]USE Atrial Rate 58 BPM [facility] QRS Duration 126 ms [facility]USE QT 512 ms [facility] QTc 502 ms [facility]USE R [place] -75 degrees RMCMUSE T [place] 113 degrees [facility]USE P-R Interval 286 ms [facility]USE P [place] 8 degrees RMCMUSE 07/21/2025 8:21 AM CDT 07/21/2025 11:06 AM CDT Narrative [facility]CMUSE - 07/21/2025 11:06 AM CDT Confirming Doc Shravan Raymundo Sinus bradycardia with 1st degree AV block with premature atrial complexes Left axis deviation Right bundle branch block Abnormal ECG Procedure Note Shravan Raymundo, DO - 07/21/[address] Shravan Raymundo Sinus bradycardia with 1st degree AV block with premature atrialcomplexes Left axis deviation Right bundle branch block Abnormal ECG us Anselmo Steel MD IP ECG ORDERABLES Final Resu lt Performing Organization Address City/[facility]/ZIP Co de Phone Number RMCMUSE * (ABNORMAL) HEPARIN ANTI-X (07/21/2025 6:13 AM CDT) Heparin Anti-Xa <0.04(L) 0.30 - 0.70 IU/ml 07/21/2025 7:00 AM CDT [facility] Blood BLOOD SPECIMEN / Unknown Venipuncture / Unknown 07/21/2025 6:13 AM CDT 07/21/2025 6:17 AM CDT us Shravan Raymundo DO EC HEMATOLOGY ORDERABLES Final Result Performing Organization Address City/[facility] Co de Phone Number [facility] [address] [place] [address] * HOLD LI HEPARIN (07/21/2025 6:13 AM CDT) Blood BLOOD SPECIMEN / Unknown Venipuncture / Unknown 07/21/2025 6:13 AM CDT 07/21/2025 6:17 AM CDT us Shravan Raymundo DO EC CHEMISTRY ORDERABLES F inal Result Performing Organization Address City/[facility] Co de Phone Number [facility] [address] [place] [address] * HOLD PURPLE TUBE (07/21/2025 6:13 AM CDT) Blood BLOOD SPECIMEN / Unknown Venipuncture / Unknown 07/21/2025 6:13 AM CDT 07/21/2025 6:17 AM CDT us Shravan Raymundo DO EC HEMATOLOGY ORDERABLES Final Result [facility] [address] [phone] * (ABNORMAL) RENAL FUNCTION PANEL (07/21/2025 6:13 AM CDT) Sodium 138 135 - 144 mmol/L 07/21/2025 7:59 AM [facility] Potassium 3.7 3.4 - 5.1 mmol/L 07/21/2025 7:59 AM [facility] Chloride 104 98 - 107 mmol/L 07/21/2025 7:59 AM [facility] Carbon Dioxide 26 22 - 30 mmol/L 07/21/2025 7:59 AM [facility] Calcium 8.9 8.6 - 10.3 mg/dL 07/21/2025 7:59 AM [facility] Glucose 112(H) 74 - 100 mg/dL 07/21/2025 7:59 AM [facility] Blood Urea nitrogen 47(H) 9 - 20 mg/dL 07/21/2025 7:59 AM [facility] Creatinine 1.71(H) 0.66 - 1.25 mg/dL 07/21/2025 7:59 AM [facility] Albumin 4.3 3.5 - 5.0 g/dL 07/21/2025 7:59 AM [facility] Anion Gap 8 5 - 15 mmol/L 07/21/2025 7:59 AM [facility] Glomerular Filtration Rate 41(L) >60 mL/min/1.7 3 m*2 07/21/2025 7:59 AM CDT [facility] Comment:This calculation use s CKD-EPI 2020 equation; it has not been validated in women. Blood BLOOD SPECIMEN / Unknown Venipuncture / Unknown 07/21/2025 6:13 AM CDT 07/21/2025 6:17 AM CDT us Shravan Raymundo DO EC CHEMISTRY ORDERABLES F inal Result Performing Organization Address City/[facility] Co de Phone Number [facility] [address] [phone] * (ABNORMAL) PROTIME (07/21/2025 6:13 AM CDT) INR 1.9(H) 0.9 - 1.1 07/21/2025 7:00 AM CDT [facility] Blood BLOOD SPECIMEN / Unknown Venipuncture / Unknown 07/21/2025 6:13 AM CDT 07/21/2025 6:17 AM CDT Narrative [facility] - 07/21/2025 7:00 AM CDT Standard intensity warfarin therapeutic range: 2.0-3.0 High intensity warfarin therapeutic range: 2.5-3.5 us Shravan DUVAL HEMATOLOGY ORDERABLES Final Result Performing Organization Address [facility] Co de Phone Number [facility] [address] [place] [address] * ECHO TRANSTHORACIC LIMITED WITH [employer] LTD DOPPLER (07/21/2025) us Anselmo Steel MD EC ECHO ORDERABLES Final Res ult * HEPARIN ANTI-X (07/20/2025 8:14 PM CDT) Heparin Anti-Xa 0.46 0.30 - 0.70 IU/ml 07/20/2025 8:46 PM CDT [facility] Blood BLOOD SPECIMEN / Unknown Venipuncture / Unknown 07/20/2025 8:14 PM CDT 07/20/2025 8:29 PM CDT Shravan Raymundo DO EC HEMATOLOGY ORDERABLES Final Result [facility] [address] [place], [place] [id number] [place] [address] * HEPARIN ANTI-X (07/20/2025 2:50 PM CDT) Heparin Anti-Xa 0.46 0.30 - 0.70 IU/ml 07/20/2025 3:43 PM CDT [facility] Blood BLOOD SPECIMEN / Unknown Venipuncture / Unknown 07/20/2025 2:50 PM CDT 07/20/2025 3:04 PM CDT Shravan Raymundo DO HEMATOLOGY ORDERABLES Final Result Performing Organization Address City/[facility]/ZIP Co de Phone Number [facility] [address] [place], [place] [id number] [place] [address] * CARDIOVERSION (07/20/2025 10:00 AM CDT) Narrative Anselmo Steel MD - 07/20/2025 10:00 AM CDT Anselmo Steel MD 07/20/2025 10:01 AM Cardioversion Date of Service: 07/20/2025 Procedure type: GIDEON/DCCV Indication: Atrial Flutter Referring Provider: Anselmo Steel MD Status: Inpatient Anticoagulation Drug: Warfarin - last INR 2.0 and IV heparin Duration: less than three weeks Antiarrhythmic Drug: Amiodarone (Pacerone/Cordarone) Indications, goals, risks, and alternatives of GIDEON/DCCV were reviewed with the patient and informed consent obtained. TIME OUT performed. Sedation administered by Anesthesiology using Propofol Pad Placement: Anterior-Posterior Procedure: After patient was adequately sedated, GIDEON demonstrated no left atrial appendage thrombus. See separate GIDEON report for details of findings. Therafter 1 synchronized shock(s) were administered at 200 joules. Ultimately sinus rhythm was restored. There were no complications. Follow up: Oral amio indefinitely IV heparin until INR >=2.5 Anselmo Steel MD us Anselmo Steel MD CV CARDIAC SERVICES PROCEDUR ES Final Result * HEPARIN ANTI-X (07/20/2025 7:22 AM CDT) Heparin Anti-Xa 0.41 0.30 - 0.70 IU/ml 07/20/2025 8:10 AM CDT [facility] Blood BLOOD SPECIMEN / Unknown Venipuncture / Unknown 07/20/2025 7:22 AM CDT 07/20/2025 7:52 AM CDT Shravan Raymundo DO EC HEMATOLOGY ORDERABLES Final Result Performing Organization Address City/[facility]/ZIP Co de Phone Number [facility] [address] [phone] * HOLD PURPLE TUBE (07/20/2025 7:22 AM CDT) Blood BLOOD SPECIMEN / Unknown Venipuncture / Unknown 07/20/2025 7:22 AM CDT 07/20/2025 7:52 AM CDT Shravan Raymundo DO EC HEMATOLOGY ORDERABLES Final Result Performing Organization Address [facility]/ZIP Co de Phone Number [facility] [address] [phone] * (ABNORMAL) RENAL FUNCTION PANEL (07/20/2025 7:22 AM CDT) Sodium 138 135 - 144 mmol/L 07/20/2025 8:19 AM CDT [facility] Potassium 3.5 3.4 - 5.1 mmol/L 07/20/2025 8:19 AM CDT [facility] Chloride 103 98 - 107 mmol/L 07/20/2025 8:19 AM CDT [facility] Carbon Dioxide 25 22 - 30 mmol/L 07/20/2025 8:19 AM [facility] Calcium 8.6 8.6 - 10.3 mg/dL 07/20/2025 8:19 AM [facility] Glucose 107(H) 74 - 100 mg/dL 07/20/2025 8:19 AM [facility] Blood Urea nitrogen 38(H) 9 - 20 mg/dL 07/20/2025 8:19 AM [facility] Creatinine 1.44(H) 0.66 - 1.25 mg/dL 07/20/2025 8:19 AM [facility] Albumin 3.9 3.5 - 5.0 g/dL 07/20/2025 8:19 AM [facility] Anion Gap 10 5 - 15 mmol/L 07/20/2025 8:19 AM [facility] Glomerular Filtration Rate 51(L) >60 mL/min/1.7 3 m*2 07/20/2025 8:19 AM [facility] Comment:This calculation use s CKD-EPI 2020 equation; it has not been validated in women. Blood BLOOD SPECIMEN / Unknown Venipuncture / Unknown 07/20/2025 7:22 AM CDT 07/20/2025 7:52 AM CDT Shravan Raymundo DO CHEMISTRY ORDERABLES F inal Result Performing Organization Address City/State/[facility] Co de Phone Number [facility] [address] [place] [address] * (ABNORMAL) PROTIME (07/20/2025 7:22 AM CDT) INR 2.0(H) 0.9 - 1.1 07/20/2025 8:05 AM T [facility] Blood BLOOD SPECIMEN / Unknown Venipuncture / Unknown 07/20/2025 7:22 AM CDT 07/20/2025 7:52 AM CDT Narrative [facility] - 07/20/2025 8:05 AM CDT Standard intensity warfarin therapeutic range: 2.0-3.0 High intensity warfarin therapeutic range: 2.5-3.5 Shravan Raymundo DO EC HEMATOLOGY ORDERABLES Final Result Performing Organization Address [facility] Co de Phone Number [facility] [address] [phone] * MAGNESIUM (07/20/2025 7:22 AM CDT) Magnesium 2.1 1.6 - 2.3 mg/dL 07/20/2025 8:16 AM CDT [facility] Blood BLOOD SPECIMEN / Unknown Venipuncture / Unknown 07/20/2025 7:22 AM CDT 07/20/2025 7:52 AM CDT Shravan Raymundo DO EC CHEMISTRY ORDERABLES F inal Result Performing Organization Address [facility] de Phone Number [facility] [address] [phone] * PHOSPHORUS (07/20/2025 7:22 AM CDT) Pathologist [facility] Phosphorus 3.6 2.5 - 4.5 mg/dL 07/20/2025 8:29 AM CDT [facility] Blood BLOOD SPECIMEN / Unknown Venipuncture / Unknown 07/20/2025 7:22 AM CDT 07/20/2025 7:52 AM CDT Shravan Raymundo DO EC CHEMISTRY ORDERABLES F inal Result Performing Organization Address City/[facility] de Phone Number [facility] [address] [phone] * HEPARIN ANTI-X (07/20/2025 1:31 AM CDT) Heparin Anti-Xa 0.49 0.30 - 0.70 IU/ml 07/20/2025 2:00 AM CDT [facility] Blood BLOOD SPECIMEN / Unknown Venipuncture / Unknown 07/20/2025 1:31 AM CDT 07/20/2025 1:34 AM CDT us Shravan Raymundo DO EC HEMATOLOGY ORDERABLES Final Result Performing Organization Address City/[facility]/ZIP Co de Phone Number [facility] [address] [phone] * ECHO TRANSESOPHAGEAL (07/20/2025) us Anselmo Steel MD CV ECHO PROCEDURES Final Res ult * (ABNORMAL) PROTIME (07/19/2025 4:59 PM CDT) INR 2.2(H) 0.9 - 1.1 07/19/2025 5:27 PM CDT [facility] Blood BLOOD SPECIMEN / Unknown Venipuncture / Unknown 07/19/2025 4:59 PM CDT 07/19/2025 5:27 PM CDT Narrative [facility] - 07/19/2025 5:27 PM CDT Standard intensity warfarin therapeutic range: 2.0-3.0 High intensity warfarin therapeutic range: 2.5-3.5 us Anselmo Steel MD EC HEMATOLOGY ORDERABLES Fin al Result Performing Organization Address City/[facility]/ZIP Co de Phone Number [facility] [address] [phone] * APTT (07/19/2025 4:59 PM CDT) APTT 36.3 25.1 - 36.5 sec 07/19/2025 6:02 PM CDT [facility] Blood BLOOD SPECIMEN / Unknown Venipuncture / Unknown 07/19/2025 4:59 PM CDT 07/19/2025 5:54 PM CDT Narrative [facility] - 07/19/2025 6:02 PM CDT The therapeutic APTT range in seconds should correspond with the Unfractionated Heparin (UFH) concentration of 0.3-0.7 U/mL as assessed by a heparin assay (inhibition of factor Xa activity with detection by chromogenic substrate). We have established the therapeutic APTT range to be approximately 60-95 seconds. This therapeutic heparin curve has been established for an individual that has been using a factor X inhibitor and is being anticoagulated with UFH. This curve should not be used to monitor UFH alone; a Heparin Anti Xa assay is the preferred method. Shravan Raymundo DO HEMATOLOGY ORDERABLES Final Result Performing Organization Address City/[facility]/ZIP Co de Phone Number [facility] [address] [place] [address] * (ABNORMAL) PROTIME (07/19/2025 8:43 AM CDT) INR 2.5(H) 0.9 - 1.1 07/19/2025 9:02 AM CDT [facility] Blood BLOOD SPECIMEN / Unknown Venipuncture / Unknown 07/19/2025 8:43 AM CDT 07/19/2025 8:50 AM CDT Narrative [facility] - 07/19/2025 9:02 AM CDT Standard intensity warfarin therapeutic range: 2.0-3.0 High intensity warfarin therapeutic range: 2.5-3.5 Shravan Raymundo DO HEMATOLOGY ORDERABLES Final Result Performing Organization Address City/[facility]/ZIP Co de Phone Number [facility] [address] [place] [address] * HOLD PURPLE TUBE (07/19/2025 5:34 AM CDT) Blood BLOOD SPECIMEN / Unknown Venipuncture / Unknown 07/19/2025 5:34 AM CDT 07/19/2025 5:48 AM CDT us Shravan Raymundo DO HEMATOLOGY ORDERABLES Final Result [facility] [address] [place], [place] [address] [phone] * (ABNORMAL) RENAL FUNCTION PANEL (07/19/2025 5:34 AM CDT) Sodium 138 135 - 144 mmol/L 07/19/2025 6:17 AM [facility] Potassium 3.5 3.4 - 5.1 mmol/L 07/19/2025 6:17 AM [facility] Chloride 104 98 - 107 mmol/L 07/19/2025 6:17 AM [facility] Carbon Dioxide 24 22 - 30 mmol/L 07/19/2025 6:17 AM [facility] Calcium 8.8 8.6 - 10.3 mg/dL 07/19/2025 6:17 AM [facility] Glucose 99 74 - 100 mg/dL 07/19/2025 6:17 AM [facility] Blood Urea nitrogen 34(H) 9 - 20 mg/dL 07/19/2025 6:17 AM [facility] Creatinine 1.38(H) 0.66 - 1.25 mg/dL 07/19/2025 6:17 AM [facility] Albumin 3.8 3.5 - 5.0 g/dL 07/19/2025 6:17 AM [facility] Anion Gap 10 5 - 15 mmol/L 07/19/2025 6:17 AM [facility] Glomerular Filtration Rate 53(L) >60 mL/min/1.7 3 m*2 07/19/2025 6:17 AM [facility] Comment:This calculation use s CKD-EPI 2020 equation; it has not been validated in women. Blood BLOOD SPECIMEN / Unknown Venipuncture / Unknown 07/19/2025 5:34 AM CDT 07/19/2025 5:48 AM CDT Shravan Raymundo DO EC CHEMISTRY ORDERABLES F inal Result Performing Organization Address City/[facility]/ZIP Co de Phone Number [facility] [address] [phone] * PHOSPHORUS (07/19/2025 5:34 AM CDT) Phosphorus 3.9 2.5 - 4.5 mg/dL 07/19/2025 6:29 AM CDT [facility] Blood BLOOD SPECIMEN / Unknown Venipuncture / Unknown 07/19/2025 5:34 AM CDT 07/19/2025 5:48 AM CDT Shravan Raymundo DO EC CHEMISTRY ORDERABLES F inal Result Performing Organization Address [facility] de Phone Number [facility] [address] [phone] * (ABNORMAL) PROTIME (07/18/2025 8:30 AM CDT) INR 4.1(H) 0.9 - 1.1 07/18/2025 8:46 AM CDT [facility] Blood BLOOD SPECIMEN / Unknown Venipuncture / Unknown 07/18/2025 8:30 AM CDT 07/18/2025 8:32 AM CDT Narrative [facility] - 07/18/2025 8:46 AM CDT Standard intensity warfarin therapeutic range: 2.0-3.0 High intensity warfarin therapeutic range: 2.5-3.5 us Shravan Raymundo DO EC HEMATOLOGY ORDERABLES Final Result Performing Organization Address [facility] de Phone Number [facility] [address] [phone] * (ABNORMAL) COMPREHENSIVE METABOLIC PANEL (07/18/2025 5:31 AM [facility]) [facility] Sodium 139 135 - 144 mmol/L 07/18/2025 6:18 AM [facility] Potassium 4.0 3.4 - 5.1 mmol/L 07/18/2025 6:18 AM [facility] Chloride 105 98 - 107 mmol/L 07/18/2025 6:18 AM [facility] Carbon Dioxide 23 22 - 30 mmol/L 07/18/2025 6:18 AM [facility] Calcium 8.9 8.6 - 10.3 mg/dL 07/18/2025 6:18 AM [facility] Alkaline Phosphatase 94 38 - 126 U/L 07/18/2025 6:18 AM [facility] Aspartate Aminotransferase 35 17 - 59 U/L 07/18/2025 6:18 AM [facility] Alanine Aminotransferase 14 <50 U/L 07/18/2025 6:18 AM [facility] Glucose 121(H) 74 - 100 mg/dL 07/18/2025 6:18 AM [facility] Blood Urea nitrogen 33(H) 9 - 20 mg/dL 07/18/2025 6:18 AM [facility] Creatinine 1.48(H) 0.66 - 1.25 mg/dL 07/18/2025 6:18 AM [facility] Protein, Total 6.7 6.3 - 8.2 g/dL 07/18/2025 6:18 AM [facility] Albumin 3.8 3.5 - 5.0 g/dL 07/18/2025 6:18 AM [facility] Bilirubin, Total 0.9 0.2 - 1.3 mg/dL 07/18/2025 6:18 AM [facility] Globulin 2.9 1.4 - 4.8 g/dL 07/18/2025 6:18 AM [facility] Anion Gap 11 5 - 15 mmol/L 07/18/2025 6:18 AM [facility] Glomerular Filtration Rate 49(L) >60 mL/min/1. 73 m*2 07/18/2025 6:18 AM [facility] Comment:This calculation use s CKD-EPI 2020 equation; it has not been validated in women. Blood BLOOD SPECIMEN / Unknown Venipuncture / Unknown 07/18/2025 5:31 AM CDT 07/18/2025 5:52 AM CDT us Shravan Raymundo DO CHEMISTRY ORDERABLES F inal Result [facility] [address] [place] [address] * (ABNORMAL) HEMOGRAM (07/18/2025 5:31 AM CDT) WBC 5.0 4.0 - 11.0 10*3/uL 07/18/2025 5:56 AM [facility] RBC 4.69 4.40 - 6.00 10*6/uL 07/18/2025 5:56 AM [facility] HGB 14.5 13.0 - 18.0 g/dl 07/18/2025 5:56 AM [facility] HCT 43.7 40.0 - 52.0 % 07/18/2025 5:56 AM [facility] MCV 93.2 80 - 96 fL 07/18/2025 5:56 AM [facility] MCH 30.9 27.0 - 34.0 pg 07/18/2025 5:56 AM [facility] MCHC 33.2 32 - 36 g/dl 07/18/2025 5:56 AM [facility] PLT 160 150 - 420 10*3/uL 07/18/2025 5:56 AM [facility] RDW-CV 14.7(H) 11.6 - 14.4 % 07/18/2025 5:56 AM CDT [facility] RDW-SD 50.0(H) 35.1 - 43.9 fL 07/18/2025 5:56 AM CDT [facility] Blood BLOOD SPECIMEN / Unknown Venipuncture / Unknown 07/18/2025 5:31 AM CDT 07/18/2025 5:52 AM CDT us Shravan Raymundo DO EC HEMATOLOGY ORDERABLES Final Result [facility] [address] [phone] * LACTIC ACID, VENOUS (07/17/2025 3:02 PM CDT) Lactic Acid, Venous 2.1 0.7 - 2.1 mmol/L 07/17/2025 3:26 PM CDT [facility] Blood BLOOD SPECIMEN / Unknown Venipuncture / Unknown 07/17/2025 3:02 PM CDT 07/17/2025 3:06 PM CDT us Rakesh Spears MD EC CHEMISTRY ORDERABLES Final Result Performing Organization Address City/[facility]/ZIP Co de Phone Number [facility] [address] [place] [address] * THYROID STIMULATING HORMONE (07/17/2025 12:03 PM CDT) Thyroid Stimulating hormone 2.59 0.47 - 4.68 mIU/L 07/17/2025 1:25 PM CDT [facility] Blood BLOOD SPECIMEN / Unknown Venipuncture / Unknown 07/17/2025 12:03 PM CDT 07/17/2025 12:28 PM CDT Narrative [facility] - 07/17/2025 1:25 PM CDT Specimens with biotin concentrations up to 2 ng/mL demonstrated a less than or equal to 10% change in results. Biotin concentrations >2 ng/mL may falsely decrease TSH results. For diagnostic purposes, the results should always be assessed in conjunction with the patient's medical history, clinical examination, and other findings. us Rakesh Spears MD EC CHEMISTRY ORDERABLES ABN F inal Result Performing Organization Address [facility] de Phone Number [facility] [address] [place] [address], [facility] [phone] * (ABNORMAL) PROTIME (07/17/2025 5:28 AM CDT) Pathologist [facility] INR 4.6(H) 0.9 - 1.1 07/17/2025 5:44 AM CDT [facility] Blood BLOOD SPECIMEN / Unknown Venipuncture / Unknown 07/17/2025 5:28 AM CDT 07/17/2025 5:30 AM CDT Narrative [facility] - 07/17/2025 5:44 AM CDT Standard intensity warfarin therapeutic range: 2.0-3.0 High intensity warfarin therapeutic range: 2.5-3.5 us Mahendra Hudson MD EC HEMATOLOGY ORDERABLES Fi nal Result Performing Organization Address [facility] de Phone Number [facility] [address] [phone] * (ABNORMAL) BASIC METABOLIC PANEL (07/17/2025 5:27 AM CDT) [facility] Sodium 141 135 - 144 mmol/L 07/17/2025 5:55 AM CDT [facility] Potassium 3.9 3.4 - 5.1 mmol/L 07/17/2025 5:55 AM CDT [facility] Chloride 108(H) 98 - 107 mmol/L 07/17/2025 5:55 AM CDT [facility] Carbon Dioxide 26 22 - 30 mmol/L 07/17/2025 5:55 AM CDT [facility] Calcium 8.9 8.6 - 10.3 mg/dL 07/17/2025 5:55 AM [facility] Glucose 100 74 - 100 mg/dL 07/17/2025 5:55 AM [facility] Blood Urea nitrogen 31(H) 9 - 20 mg/dL 07/17/2025 5:55 AM [facility] Creatinine 1.33(H) 0.66 - 1.25 mg/dL 07/17/2025 5:55 AM [facility] Anion Gap 7 5 - 15 mmol/L 07/17/2025 5:55 AM [facility] Glomerular Filtration Rate 56(L) >60 mL/min/1.7 3 m*2 07/17/2025 5:55 AM [facility] Comment:This calculation use s CKD-EPI 2020 equation; it has not been validated in women. Blood BLOOD SPECIMEN / Unknown Venipuncture / Unknown 07/17/2025 5:27 AM CDT 07/17/2025 5:30 AM CDT us Mahendra Hudson MD EC CHEMISTRY ORDERABLES Fin al Result Performing Organization Address City/State/[facility] Co de Phone Number [facility] [address] [place] [address] * HEPATIC FUNCTION PANEL (07/17/2025 5:27 AM CDT) Alkaline Phosphatase 80 38 - 126 U/L 07/17/2025 10:56 AM [facility] Aspartate Aminotransferase 39 17 - 59 U/L 07/17/2025 10:56 AM [facility] Alanine Aminotransferase 11 <50 U/L 07/17/2025 10:56 AM [facility] Protein, Total 6.5 6.3 - 8.2 g/dL 07/17/2025 10:56 AM [facility] Albumin 3.6 3.5 - 5.0 g/dL 07/17/2025 10:56 AM [facility] Bilirubin, Total 1.3 0.2 - 1.3 mg/dL 07/17/2025 10:56 AM T [facility] Bilirubin, Direct 0.00 <=0.30 mg/dL 07/17/2025 10:56 AM [facility] Bilirubin, Indirect 0.91 <=1.10 mg/dL 07/17/2025 10:56 AM [facility] Blood BLOOD SPECIMEN / Unknown Venipuncture / Unknown 07/17/2025 5:27 AM CDT 07/17/2025 5:30 AM CDT us Rakesh Spears MD EC CHEMISTRY ORDERABLES Final Result Performing Organization Address City/State/[facility] Co de Phone Number [facility] [address] [phone] * (ABNORMAL) HEMOGRAM (07/17/2025 5:27 AM CDT) WBC 4.9 4.0 - 11.0 10*3/uL 07/17/2025 5:38 AM [facility] RBC 4.26(L) 4.40 - 6.00 10*6/uL 07/17/2025 5:38 AM [facility] HGB 13.3 13.0 - 18.0 g/dl 07/17/2025 5:38 AM [facility] HCT 40.3 40.0 - 52.0 % 07/17/2025 5:38 AM [facility] MCV 94.6 80 - 96 fL 07/17/2025 5:38 AM [facility] MCH 31.2 27.0 - 34.0 pg 07/17/2025 5:38 AM [facility] MCHC 33.0 32 - 36 g/dl 07/17/2025 5:38 AM [facility] PLT 148(L) 150 - 420 10*3/uL 07/17/2025 5:38 AM [facility] RDW-CV 14.8(H) 11.6 - 14.4 % 07/17/2025 5:38 AM CDT [facility] RDW-SD 50.7(H) 35.1 - 43.9 fL 07/17/2025 5:38 AM CDT [facility] Blood BLOOD SPECIMEN / Unknown Venipuncture / Unknown 07/17/2025 5:27 AM CDT 07/17/2025 5:30 AM CDT us Mahendra Hudson MD EC HEMATOLOGY ORDERABLES Fi nal Result Performing Organization Address City/[facility]/ZIP Co de Phone Number [facility] [address] [place] [address] * MAGNESIUM (07/17/2025 5:27 AM CDT) Magnesium 2.0 1.6 - 2.3 mg/dL 07/17/2025 5:54 AM CDT [facility] Blood BLOOD SPECIMEN / Unknown Venipuncture / Unknown 07/17/2025 5:27 AM CDT 07/17/2025 5:30 AM CDT us Mahendra Hudson MD EC CHEMISTRY ORDERABLES Fin al Result Performing Organization Address City/[facility]/ZIP Co de Phone Number [facility] [address] [place] [address] * ECHOCARDIOGRAM TRANSTHORACIC COMPLETE (07/17/2025) Mahendra Hudson MD EC ECHO ORDERABLES Final Re sult * (ABNORMAL) HIGH SENSITIVITY TROPONIN-I WITH REFLEX (07/16/2025 10:09 PM CDT) High Sensitivity Troponin I 191.7(H) 0.0 - 76.2 pg/mL 07/16/2025 10:35 PM CDT [facility] Blood BLOOD SPECIMEN / Unknown Venipuncture / Unknown 07/16/2025 10:09 PM CDT 07/16/2025 10:14 PM CDT [facility] - 07/16/2025 10:35 PM CDT The 99th percentile URL (upper reference limit) for High Sensitivity Troponin I is as follows: Female: 51.4 pg/mL Male: 76.2 pg/mL Gender Neutral: 60.4 pg/mL Rakesh Castro MD EC CHEMISTRY ORDERABLES Fi nal Result Performing Organization Address City/[facility] Co de Phone Number [facility] [address], [place] [address] [phone] * (ABNORMAL) HIGH SENSITIVITY TROPONIN-I WITH REFLEX (07/16/2025 8:03 PM CDT) High Sensitivity Troponin I 206.9(H) 0.0 - 76.2 pg/mL 07/16/2025 8:30 PM CDT [facility] Blood BLOOD SPECIMEN / Unknown Venipuncture / Unknown 07/16/2025 8:03 PM CDT 07/16/2025 8:07 PM CDT [facility] - 07/16/2025 8:30 PM CDT The 99th percentile URL (upper reference limit) for High Sensitivity Troponin I is as follows: Female: 51.4 pg/mL Male: 76.2 pg/mL Gender Neutral: 60.4 pg/mL us Rakesh Castro MD EC CHEMISTRY ORDERABLES Fi nal Result Performing Organization Address City/[facility]/ZIP Co de Phone Number [facility] [address] [place] [address], [facility] [phone] * (ABNORMAL) PROTIME (07/16/2025 8:03 PM CDT) INR 4.5(H) 0.9 - 1.1 07/16/2025 8:19 PM CDT [facility] Blood BLOOD SPECIMEN / Unknown Venipuncture / Unknown 07/16/2025 8:03 PM CDT 07/16/2025 8:07 PM CDT Narrative [facility] - 07/16/2025 8:19 PM CDT Standard intensity warfarin therapeutic range: 2.0-3.0 High intensity warfarin therapeutic range: 2.5-3.5 Rakesh Castro MD EC HEMATOLOGY ORDERABLES F inal Result [facility] [address] [place], [place] [id number] [place] [address] * POCUS CARDIAC (07/16/2025 7:09 PM CDT) Anatomical Region Laterality Modality POCUS Narrative 07/16/2025 7:09 PM CDT Rakesh Castro MD 07/16/2025 8:48 PM POCUS CARDIAC Date/Time: 07/16/2025 7:09 PM Performed by: Rakesh Castro MD Authorized by: Rakesh Castro MD Attending Provider: Rakesh Castro MD Heart Procedure Details: Indications: dyspnea Assessment for: cardiac function and pericardial effusion Technique: Subxiphoid, parasternal long-axis, IVC and parasternal short-axis Heart Findings: Cardiac activity: Reduced LV systolic function: Severely reduced (less than 20%) RV size: Normal Pericardial effusion: Not visualized IVC collapsibility: Low collapsibility (less than 50%) Heart Interpretation: Interpretation: Decreased LV function LV function: Severely reduced (less than 20%) Technically difficult study: No Signature: I have reviewed and captured appropriate images to support the above findings. us Rakesh Castro MD EC POCUS IMAGING ORDERABLE S Final Result * (ABNORMAL) BASIC METABOLIC PANEL (07/16/2025 7:04 PM CDT) Sodium 141 135 - 144 mmol/L 07/16/2025 7:42 PM CDT [facility] Potassium 4.7 3.4 - 5.1 mmol/L 07/16/2025 7:42 PM CDT [facility] Chloride 107 98 - 107 mmol/L 07/16/2025 7:42 PM CDT [facility] Carbon Dioxide 23 22 - 30 mmol/L 07/16/2025 7:42 PM CDT [facility] Calcium 9.3 8.6 - 10.3 mg/dL 07/16/2025 7:42 PM T [facility] Glucose 111(H) 74 - 100 mg/dL 07/16/2025 7:42 PM T [facility] Blood Urea nitrogen 31(H) 9 - 20 mg/dL 07/16/2025 7:42 PM T [facility] Creatinine 1.29(H) 0.66 - 1.25 mg/dL 07/16/2025 7:42 PM [facility] Anion Gap 11 5 - 15 mmol/L 07/16/2025 7:42 PM T [facility] Glomerular Filtration Rate 58(L) >60 mL/min/1.7 3 m*2 07/16/2025 7:42 PM T [facility] Comment:This calculation use s CKD-EPI 2020 equation; it has not been validated in women. Blood BLOOD SPECIMEN / Unknown Venipuncture / Unknown 07/16/2025 7:04 PM CDT 07/16/2025 7:18 PM CDT us Rakesh Castro MD EC CHEMISTRY ORDERABLES Fi nal Result Performing Organization Address City/State/[facility] Co de Phone Number [facility] [address] [phone] * XR CHEST 2 VIEWS (07/16/2025 6:49 PM CDT) Anatomical Region Laterality Modality Chest Radiographic Lisa ging 07/16/2025 6:30 PM CDT Narrative 07/16/2025 7:20 PM CDT EXAM: XR CHEST 2 VIEWS LOCATION: [facility] DATE: 07/16/2025 INDICATION: productive cough and chest congestion COMPARISON: 07/16/2025 IMPRESSION: Mild opacity at the left base suspicious for pneumonia. No change from the prior. Right lung clear. No pneumothorax or pleural effusion. Mild cardiomegaly. Prior tenotomy and mitral valve replacement. Electronically signed by: Bobby Lazo MD 07/16/2025 7:20 PM CDT Procedure Note Bobby Lazo MD - 07/16/2025 EXAM: XR CHEST 2 VIEWS LOCATION: [facility] DATE: 07/16/2025 INDICATION: productive cough and chest congestion COMPARISON: 07/16/2025 IMPRESSION: Mild opacity at the left base suspicious for pneumonia. Nochange from the prior. Right lung clear. No pneumothorax or pleural effusion.Mild cardiomegaly. Prior tenotomy and mitral valve replacement. Electronically signed by: Bobby Lazo MD 07/16/2025 7:20 PM CDT Rakesh Castro MD EC DIAGNOSTIC IMAGING [facility] Final Result * SARS-COV-2/INFLUENZA A AND B/RESPIRATORY SYNCYTIAL VIRUS, MOLECULAR DETECTION (07/16/2025 6:31 PM CDT) SARS-CoV-2 RNA (COVID-19) Not Detected Not Detected 07/16/2025 7:14 PM CDT [facility] Influenza A Not Detected Not Detected 07/16/2025 7:14 PM CDT [facility] Influenza B Not Detected Not Detected 07/16/2025 7:14 PM CDT [facility] Respiratory Syncytial Virus Not Detected Not Detected 07/16/2025 7:14 PM CDT [facility] Swab ENTIRE NASOPHARYNX / Unknown Non-blood collection / Unknown 07/16/2025 6:31 PM CDT 07/16/2025 6:34 PM CDT Narrative [facility] - 07/16/2025 7:14 PM CDT Test detects target RNA by real-time polymerase chain reaction (PCR) on the [employer] GeneXpert System. Results from this test should not be used as the sole basis for treatment or other patient management decisions. us Rakesh Castro MD EC MICROBIOLOGY - GENERAL ORDERABLES Final Result [facility] [address] [place], [place] [address] [phone] * (ABNORMAL) NTPRO BNP (07/16/2025 6:10 PM CDT) NT-PRO BNP 13,900(H) <125 pg/mL 07/16/2025 6:44 PM CDT [facility] Blood BLOOD SPECIMEN / Unknown Venipuncture / Unknown 07/16/2025 6:10 PM CDT 07/16/2025 6:13 PM CDT Narrative [facility] - 07/16/2025 6:44 PM CDT The decision thresholds: <75 years- 125 pg/mL >75 years- 450 pg/mL Clinical correlations for the NYHA functional classes at the 95th percentile: NYHA I: 3410 NYHA II: 6567 NYHA III: 88871 Rakesh Castro MD EC LAB SEND OUT ORDERABLES Final Result Performing Organization Address City/[facility] Co de Phone Number [facility] [address] [place], [place] [phone] [place] [address] * HOLD LI HEPARIN (07/16/2025 6:10 PM CDT) Blood BLOOD SPECIMEN / Unknown Venipuncture / Unknown 07/16/2025 6:10 PM CDT 07/16/2025 6:13 PM CDT Rakesh Castro MD EC CHEMISTRY ORDERABLES Fi nal Result Performing Organization Address City/[facility] Co de Phone Number [facility] [address] [place], [place] [phone] [place] [address] * HOLD PURPLE TUBE (07/16/2025 6:10 PM CDT) Blood BLOOD SPECIMEN / Unknown Venipuncture / Unknown 07/16/2025 6:10 PM CDT 07/16/2025 6:13 PM CDT Rakesh Castro MD EC HEMATOLOGY ORDERABLES F inal Result [facility] [address] [phone] * (ABNORMAL) HEMOGRAM/DIFFERENTIAL (07/16/2025 6:10 PM CDT) WBC 5.3 4.0 - 11.0 10*3/uL 07/16/2025 6:50 PM CDT [facility] RBC 4.81 4.40 - 6.00 10*6/uL 07/16/2025 6:50 PM CDT [facility] HGB 14.7 13.0 - 18.0 g/dl 07/16/2025 6:50 PM CDT [facility] HCT 45.7 40.0 - 52.0 % 07/16/2025 6:50 PM CDT [facility] MCV 95.0 80 - 96 fL 07/16/2025 6:50 PM CDT [facility] MCH 30.6 27.0 - 34.0 pg 07/16/2025 6:50 PM CDT [facility] MCHC 32.2 32 - 36 g/dl 07/16/2025 6:50 PM CDT [facility] PLT 189 150 - 420 10*3/uL 07/16/2025 6:50 PM CDT [facility] Neutrophils Absolute 3.45 2.10 - 7.50 10*3/uL 07/16/2025 6:50 PM CDT [facility] Lymphocytes Absolute 0.93 0.76 - 4.00 10*3/uL 07/16/2025 6:50 PM CDT [facility] Monocytes Absolute 0.60 0.00 - 0.90 10*3/uL 07/16/2025 6:50 PM CDT [facility] Eosinophils Absolute 0.18 0.04 - 0.54 10*3/uL 07/16/2025 6:50 PM CDT [facility] Basophils Absolute 0.08 0.00 - 0.20 10*3/uL 07/16/2025 6:50 PM CDT [facility] RDW-SD 51.4(H) 35.1 - 43.9 fL 07/16/2025 6:50 PM CDT [facility] RDW-CV 14.8(H) 11.6 - 14.4 % 07/16/2025 6:50 PM CDT [facility] Immature Granulocytes Absolute 0.09 0.00 - 0.10 10*3/uL 07/16/2025 6:50 PM CDT [facility] Nucleated RBCs Absolute 0.00 0.00 - 0.00 10*3/uL 07/16/2025 6:50 PM CDT [facility] Blood BLOOD SPECIMEN / Unknown Venipuncture / Unknown 07/16/2025 6:10 PM CDT 07/16/2025 6:13 PM CDT us Rakesh Castro MD EC HEMATOLOGY ORDERABLES F inal Result Performing Organization Address City/State/[facility] Co de Phone Number [facility] [address] [place], [place] [phone] [place] [address] from Last 3 Months Insurance [employer] MED[employer]ARE [employer]VANTAGE * Guarantor: James Guzman Account Type Relation to Patient Date of Phone Billing Address Home Health/Hospice Self 1950 [address] [place] [address] [employer] [facility] [facility] [employer] Address: [place] [phone] [place] [id number] Advance Directives For more information, please contact: [phone] Documents on File Type Date Recorded Patient Sensor Specialist Expl anation Advance Directive - RV 07/24/2025 2:59 PM Health Care Directiv e * Full Code (Latest Code Status on File) Date Activated Date Inactivated Comments 08/11/2025 8:50 AM * Full Code Date Activated Date Inactivated Comments 07/16/2025 9:59 PM 07/23/2025 5:21 PM Care Teams Rangeland Management Specialist Relationship Specialty Start Date End Date Rakesh Harmon PA-C [address] [address] PCP - General Physician Corn Press Operator 09/04/25
--- OUTSIDE RECORDS SUMMARY | 2025-09-10 19:10 | XMS_ITS | Encounter Summary ---
Author Organization [facility] Address [address] [address] Phone Care Team Providers Care Critical Systems Technician Name Role Phone Rakesh Harmon PA-C Primary Care Provider [phone] Reason for Visit * Auth/Cert (Routine) Specialty Diagnoses / Procedures Referred By Mine t Referred To Contact Referral ID Status Reason Start Date Expiration Date Visits Re quested Visits Authorized [id number] 11 03 Encounter Details Date Type Department Care Team (Late st Contact Info) Description 09/10/2025 Home Care Visit [facility] [address] [place] [id number] Daniella Baldwin, RN CASE COMMUNICATION Social History Tobacco Use Types Packs/Day Years [...] doctor or pharmacy Sometimes 07/24/2025 [facility] Utilities Answer Date Recorded In [...] any time in the past 12 m [facility], were you homeless or living in [...] Elsa Holliday, RN documented in this encounter Miscellaneous Notes * Case Communication - Daniella Baldwin, RN - 09/10/2025 4:28 PM CSTWriter received on-call page, spoke with patients family who state patient has been extremely dizzy and that they had checked his blood pressure and report a BP of 63/40. Patient and family are currently at family's home in [place], [place]. Ion Implant Machine Operator advised ED visit would be appropriate, family thenasked if they should bring patient to an ED near his home but card writer hand advised to be seen at nearest ED as they are approximately 1 hour from patients home. Family will bring patient to ED at [facility], card writer hand advised she would contact pillowcase maker to follow-up tomorrow on whether patient was admitted. CIATE TRAINER documented in this encounter Plan of Treatment Upcoming Encounters Date Type Department Care Team (Late st Contact Info) Description 09/16/2025 2:00 AM ASSOCIATE TRAINER Appointment [address] [address] Emperatriz Monahan RN documented as of this encounter Visit Diagnoses Not on filedocumented in this encounter Care Teams Critical Systems Technician Relationship Specialty Start Date End Date Rakesh Harmon PA-C [address] [place] [address] PCP - General Physician Fish And Wildlife Warden 09/04/25 documented as of this encounter
--- OUTSIDE RECORDS SUMMARY | 2025-09-10 19:11 | XMS_ITS | Encounter Summary ---
Author Organization [facility] Address [address] [address] Phone Care Team Providers Care Women'S Studies Professor Name Role Phone Unavailable Primary Care Provider Unavailabl e Reason for Visit * Auth/Cert (Routine) Specialty Diagnoses / Procedures Referred By Mine t Referred To Contact Referral ID Status Reason Start Date Expiration Date Visits Re quested Visits Authorized [id number] 1 20 Encounter Details Date Type Department Care Team (Late st Contact Info) Description 08/05/2025 Home Care Visit [facility] [address] [place] [phone] Susy Chacon RN CASE COMMUNICATION Social History Tobacco Use [...] materials from doctor or pharmacy Sometimes 07/24/2025 [facility] Utilities Answer Date Recorded In the past [...] any time in the past 12 m [facility], were you homeless or living in a [...] encounter Miscellaneous Notes * Case Communication - Susy Chacon RN - 08/05/2025 8:52 AM CDTPhone call from [place] with Rakesh CARDENAS at [facility]- reviewed warfarin dosing that was given by Dr Leon on 08/03 and next recheck date of 08/10/25. Tiara will review/update MD and if any changes will return PC VTO given for BMP lab on 08/10/25 documented in this encounter Plan of Treatment Upcoming Encounters Date Type Department Care Team (Late st Contact Info) Description 09/16/2025 2:00 AM MAKE UP OPERATOR Appointment [address] [address] Emperatriz Monahan RN documented as of this encounter Visit Diagnoses Not on filedocumented in this encounter
--- OUTSIDE RECORDS SUMMARY | 2025-09-10 19:11 | XMS_ITS | Encounter Summary ---
Author Organization [facility] Address [address] [address] Phone Care Team Providers Care Communications Field Technician Name Role Phone Unavailable Primary Care Provider Unavailabl e Reason for Visit * Auth/Cert (Routine) Specialty Diagnoses / Procedures Referred By Mine t Referred To Contact Referral ID Status Reason Start Date Expiration Date Visits Re quested Visits Authorized [id number] 1 20 Encounter Details Date Type Department Care Team (Late st Contact Info) Description 08/04/2025 Home Care Visit [facility] [address] [place] [address] Susy Chacon RN CASE COMMUNICATION Social History [...] materials from doctor or pharmacy Sometimes 07/24/2025 [facility] Utilities Answer Date Recorded In the past [...] Case Communication - Susy Chacon RN - 08/04/2025 2:44 PM CDTRecieved clarification regarding meds as follows from Rakesh CARDENAS/Jeanne JACINTO at [facility]. 1. Sertraline- take one tab (50mg) daily 2. Spironolactone- 25mg tab- take 0.5 tab (12.5mg) daily 3. Torsemide 20mg tab- take 0.5 mg (10mg) daily Spoke to patient and sister Emely over the phone giving above instructions. The only change is Torsemide as patient has been taking 1 tab daily. Patient reports weight today remains at 150#. Patient has f/u with cardiology next week. Patient and sister Emely verbalize understanding of above instruction. Jeanne also updated that patient has cardiology appt next week, that patients weight was 150# yesterday and that Dr Leon (oncall MD) gave orders for warfarin and next INR recheck for 08/10/25. documented in this encounter Plan of Treatment Upcoming Encounters Date Type Department Care Team (Late st Contact Info) Description 09/16/2025 2:00 AM TROLLEY OPERATOR Appointment [address] [address] Emperatriz Monahan RN documented as of this encounter Visit Diagnoses Not on filedocumented in this encounter
--- OUTSIDE RECORDS SUMMARY | 2025-09-10 19:11 | XMS_ITS | Encounter Summary ---
Author Organization [facility] Address [address] [address] Phone Care Team Providers Care Sanitary Napkin Machine Tender Name Role Phone Unavailable Primary Care Provider Unavailabl e Reason for Visit * Auth/Cert (Routine) Specialty Diagnoses / Procedures Referred By Mine t Referred To Contact Referral ID Status Reason Start Date Expiration Date Visits Re quested Visits Authorized [id number] 1 20 Encounter Details Date Type Department Care Team (Late st Contact Info) Description 07/28/2025 Home Care Visit [facility] [address] [place] [address] Corrina Bledsoe RN CASE COMMUNICATION Social History Tobacco Use [...] doctor or pharmacy Sometimes 07/24/2025 [facility] Utilities Answer Date Recorded In the past [...] any time in the past 12 m [facility], were you homeless or living in a skilled nursing (including now)? No 07/16/2025 IP Custom IPV [...] Contact Info) Description 09/16/2025 2:00 AM DIRECTOR EMERGENCY SERVICES Appointment [place] [address] [address] Emperatriz Monahan, RN documented as of this encounter Visit Diagnoses Not on filedocumented in this encounter
--- OUTSIDE RECORDS SUMMARY | 2025-09-10 19:11 | XMS_ITS | Encounter Summary ---
Author Organization [facility] Address [address] [address] Phone Care Team Providers Care Variety Performer Name Role Phone Unavailable Primary Care Provider Unavailabl e Encounter Details Date Type Department Care Team (Late st Contact Info) Description 08/12/2025 Orders Only [facility] [address] [facility] [address], [place] [address] Rema Reed HFrEF (heart failure with reduced ejection fraction) ([facility]) (Primary Dx) Social History Tobacco Use Types [...] materials from doctor or pharmacy Sometimes 07/24/2025 [facility] Utilities Answer Date Recorded In the past 12 months has th e NXTM, [employer], oil, or water [facility] threatened to shut off services in your [...] any time in the past 12 m [facility], were you homeless or living in a custodial (including now)? No 07/16/2025 EH IP Custom [...] SHANNONT Vannesa Martins documented in this encounter Plan of Treatment Upcoming Encounters Date Type Department Care Team (Late st Contact Info) Description 09/16/2025 2:00 AM BACCARAT MANAGER Appointment [address] [place] [address] Emperatriz Monahan RN documented as of this encounter Results * (ABNORMAL) NTPRO BNP (08/13/2025 10:10 AM CDT) NT-PRO BNP 4,210(H) <125 pg/mL 08/13/2025 10:51 AM CDT [facility] Blood BLOOD SPECIMEN / Unknown Venipuncture / Unknown 08/13/2025 10:10 AM CDT 08/13/2025 10:10 AM CDT Narrative [facility] - 08/13/2025 10:51 AM CDT The decision thresholds: <75 years- 125 pg/mL >75 years- 450 pg/mL Clinical correlations for the NYHA functional classes at the 95th percentile: NYHA I: 3410 NYHA II: 6567 NYHA III: 16851 Esha Camilo MD EC LAB SEND OU T ORDERABLES Final Result [facility] [address] [place] [address] * (ABNORMAL) HEMOGRAM (08/13/2025 10:10 AM CDT) Pathologist [facility] WBC 4.6 4.0 - 11.0 10*3/uL 08/13/2025 10:39 AM CDT [facility] RBC 4.94 4.40 - 6.00 10*6/uL 08/13/2025 10:39 AM CDT [facility] HGB 15.0 13.0 - 18.0 g/dl 08/13/2025 10:39 AM CDT [facility] HCT 47.3 40.0 - 52.0 % 08/13/2025 10:39 AM CDT [facility] MCV 95.7 80 - 96 fL 08/13/2025 10:39 AM CDT [facility] MCH 30.4 27.0 - 34.0 pg 08/13/2025 10:39 AM CDT [facility] MCHC 31.7(L) 32 - 36 g/dl 08/13/2025 10:39 AM CDT [facility] PLT 141(L) 150 - 420 10*3/uL 08/13/2025 10:39 AM CDT [facility] RDW-CV 13.6 11.6 - 14.4 % 08/13/2025 10:39 AM CDT [facility] RDW-SD 48.7(H) 35.1 - 43.9 fL 08/13/2025 10:39 AM CDT [facility] Blood BLOOD SPECIMEN / Unknown Venipuncture / Unknown 08/13/2025 10:10 AM CDT 08/13/2025 10:10 AM CDT Esha Camilo MD EC HEMATOLOGY ORDERABLES Final Result [facility] [address] [place] [address] * (ABNORMAL) COMPREHENSIVE METABOLIC PANEL (08/13/2025 10:10 AM CDT) Sodium 138 135 - 144 mmol/L 08/13/2025 10:45 AM T [facility] Potassium 4.6 3.4 - 5.1 mmol/L 08/13/2025 10:45 AM T [facility] Chloride 101 98 - 107 mmol/L 08/13/2025 10:45 AM T [facility] Carbon Dioxide 29 22 - 30 mmol/L 08/13/2025 10:45 AM CDT [facility] Calcium 10.0 8.6 - 10.3 mg/dL 08/13/2025 10:45 AM CDT [facility] Alkaline Phosphatase 92 38 - 126 U/L 08/13/2025 10:45 AM T [facility] Aspartate Aminotransferase 50 17 - 59 U/L 08/13/2025 10:45 AM T [facility] Alanine Aminotransferase 19 <50 U/L 08/13/2025 10:45 AM T [facility] Glucose 95 74 - 100 mg/dL 08/13/2025 10:45 AM CDT [facility] Blood Urea nitrogen 26(H) 9 - 20 mg/dL 08/13/2025 10:45 AM CDT [facility] Creatinine 1.44(H) 0.66 - 1.25 mg/dL 08/13/2025 10:45 AM CDT [facility] Protein, Total 8.0 6.3 - 8.2 g/dL 08/13/2025 10:45 AM CDT [facility] Albumin 4.8 3.5 - 5.0 g/dL 08/13/2025 10:45 AM CDT [facility] Bilirubin, Total 1.3 0.2 - 1.3 mg/dL 08/13/2025 10:45 AM CDT [facility] Globulin 3.2 1.4 - 4.8 g/dL 08/13/2025 10:45 AM CDT [facility] Anion Gap 8 5 - 15 mmol/L 08/13/2025 10:45 AM CDT [facility] Glomerular Filtration Rate 51(L) >60 mL/min/1. 73 m*2 08/13/2025 10:45 AM CDT [facility] Comment:This calculation use s CKD-EPI 2020 equation; it has not been validated in women. Blood BLOOD SPECIMEN / Unknown Venipuncture / Unknown 08/13/2025 10:10 AM CDT 08/13/2025 10:10 AM CDT Esha Camilo MD EC CHEMISTRY O RDERABLES Final Result [facility] [address] [place] [address], [facility] [phone] documented in this encounter Visit Diagnoses Diagnosis HFrEF (heart failure with reduced ejection fraction) (HCC)- Primary documented in this encounter
--- OUTSIDE RECORDS SUMMARY | 2025-09-10 19:11 | XMS_ITS | Encounter Summary ---
Author Organization [facility] Address [address] [address] Phone Care Team Providers Care Coating Mixer Tender Name Role Phone Unavailable Primary Care Provider Unavailabl e Reason for Visit * Auth/Cert (Routine) Specialty Diagnoses / Procedures Referred By Mine t Referred To Contact Referral ID Status Reason Start Date Expiration Date Visits Re quested Visits Authorized [id number] 1 20 Encounter Details Date Type Department Care Team (Late st Contact Info) Description 07/28/2025 Home Care Visit [facility] [address] [place] [phone] Ethel Gilliam LGSW CASE COMMUNICATION Social History Tobacco Use Types [...] materials from doctor or pharmacy Sometimes 07/24/[address] [facility] Utilities Answer Date Recorded In the [...] st Contact Info) Description 09/16/2025 2:00 AM EVENT SALES REPRESENTATIVE Appointment [place] [address] [address] Emperatriz Monahan, RN documented as of this encounter Visit Diagnoses Not on filedocumented in this encounter
--- OUTSIDE RECORDS SUMMARY | 2025-09-10 19:11 | XMS_ITS | Encounter Summary ---
Author Organization [facility] Address [address] [address] Phone Care Team Providers Care Vat Skimmer Name Role Phone Unavailable Primary Care Provider Unavailabl e Reason for Visit * Auth/Cert (Routine) Specialty Diagnoses / Procedures Referred By Mine t Referred To Contact Referral ID Status Reason Start Date Expiration Date Visits Re quested Visits Authorized [id number] 1 20 Encounter Details Date Type Department Care Team (Late st Contact Info) Description 08/17/2025 Home Care Visit [facility] [address] [phone] Lucie Toussaint, PT [address] [address] BILLING COMMUNICATION Social History Tobacco Use Types Packs/Day [...] doctor or pharmacy Sometimes 07/24/2025 [facility] Utilities Answer Date Recorded In the past [...] Case Communication - Lucie Toussaint, PT - 08/17/2025 3:23 PM CSTAuthorization Template- non VA payers Payer: Blue Cross Blue Shield Medicare Advantage Discipline: MACHINE BOBBIN WINDER Frequency requested: EVAL - 1 visit in 30 days Purpose of visits: (Skilled need) Assess for decreased voice volume in patient with Parkinsons Send at least 7-10 days prior to Auth ending. Send this note to Donna Pierson, Sandra Glaser, Sintia Rodriguez, and Samia Monreal (System could not find this person) LID FITTER documented in this encounter Plan of Treatment Upcoming Encounters Date Type Department Care Team (Late st Contact Info) Description 09/16/2025 2:00 AM DECK LID FITTER Appointment [address] [address] Emperatriz Monahan, RN documented as of this encounter Visit Diagnoses Not on filedocumented in this encounter
--- OUTSIDE RECORDS SUMMARY | 2025-09-10 19:11 | XMS_ITS | Encounter Summary ---
Author Organization [facility] Address [address] [address] Phone Care Team Providers Care Visual Display Manager Name Role Phone Unavailable Primary Care Provider Unavailabl e Encounter Details Date Type Department Care Team (Latest Contact Info) Description 08/13/2025 Travel Social History Tobacco Use Types Packs/Day [...] from doctor or pharmacy Sometimes 07/24/2025 [facility] Utilities Answer Date Recorded In the past 12 months has e [employer], gas, oil, or water company threatened to [...] any time in the past 12 m [facility], were you homeless or living in a fci (including now)? No 07/16/2025 [facility] IP Custom [...] st Contact Info) Description 09/16/2025 2:00 AM UPHOLSTERY TECHNICIAN Appointment [facility] [address] [place] [address] Emperatriz Monahan, RN documented as of this encounter Visit Diagnoses Not on filedocumented in this encounter
--- OUTSIDE RECORDS SUMMARY | 2025-09-10 19:11 | XMS_ITS | Encounter Summary ---
Author Organization [facility] Address [address] [address] Phone Care Team Providers Care Slitter And Cutter Operator Name Role Phone Unavailable Primary Care Provider Unavailabl e Reason for Visit * Auth/Cert (Routine) Specialty Diagnoses / Procedures Referred By Mine t Referred To Contact Referral ID Status Reason Start Date Expiration Date Visits Re quested Visits Authorized [id number] 1 20 Encounter Details Date Type Department Care Team (Late st Contact Info) Description 08/20/2025 Home Care Visit [facility] [address] [place] [address] Ambreen Quinones, [facility] MAP TECHNICIAN [address] [place] [address] TAX MAP TECHNICIAN DISCIPLINE DISCHARGE Social History Tobacco Use Types [...] materials from doctor or pharmacy Sometimes 07/24/2025 [facility] Utilities Answer Date Recorded In [...] time in the past 12 m [facility], were you homeless or living in a long-term (including now)? No 07/16/2025 IP Custom IPV [...] st Contact Info) Description 09/16/2025 2:00 AM SYRUP SHED SUPERVISOR Appointment [address] [address] Emperatriz Monahan, RN documented as of this encounter Visit Diagnoses Not on filedocumented in this encounter
--- OUTSIDE RECORDS SUMMARY | 2025-09-10 19:11 | XMS_ITS | Encounter Summary ---
Author Organization [facility] Address [address] [address] Phone Care Team Providers Care Apple Checker Name Role Phone Unavailable Primary Care Provider Unavailabl e Encounter Details Date Type Department Care Team (Late st Contact Info) Description 08/20/2025 Orders Only [facility] [address] [facility] [address], [place] [address] Daniela Garcia HFrEF (heart failure with reduced ejection fraction) ([facility]ERLY [facility]) (Primary Dx) Social History Tobacco Use Types [...] Recorded In the past 12 months has [email or web address], gas, oil, or water [employer] threatened to shut off services in your [...] any time in the past 12 m [facility], were you homeless or [...] st Contact Info) Description 09/16/2025 2:00 AM PHOTOGRAPHER HELPER Appointment [facility] [address] [address] Emperatriz Monahan, RN Scheduled Orders Name Type Priority Associated Diagnoses Orde r Schedule BASIC METABOLIC PANEL Lab Routine HFrEF (heart failure with reduced ejection fraction) (HCC) Expected: 08/27/2025, Expires: 08/20/2026 documented as of this encounter Visit Diagnoses Diagnosis HFrEF (heart failure with reduced ejection fraction) (HCC)- Primary documented in this encounter
--- OUTSIDE RECORDS SUMMARY | 2025-09-10 19:12 | XMS_ITS | Encounter Summary ---
Author Organization [facility] Address [address] [place] [address] Care Team Providers Care Drafter (Cad) Electrical Name Role Phone Rakesh Harmon PA-C Primary Care Provider +1- [phone] Encounter Details Date Type Department Care Team (Late st Contact Info) Description 12/10/2001 Same Day Surgery Security Contact - [facility] [place], Provider Social History Tobacco Use Types Packs/Day Years [...] Info) Description 01/25/2026 8:30 AM CDT Appointment [facility] [address] [place], [place] [phone] Minh Meyer MD [address] [facility] [address] [place] [phone] documented as of this encounter Visit Diagnoses Not on filedocumented in this encounter Care Teams Drafter (Cad) Electrical Relationship Specialty Start Date End Date Rakehs Harmon PA-C [address] [place] [address] PCP - General Physician Optometrist President/Practice Owner 07/24/25 documented as of this encounter
--- OUTSIDE RECORDS SUMMARY | 2025-09-10 19:12 | XMS_ITS | Encounter Summary ---
Author Organization [facility] Address [address] [place] [address] Care Team Providers Care Corporate Strategist Name Role Phone Rakesh Harmon PA-C Primary Care Provider +1- [phone] Encounter Details Date Type Department Care Team (Late st Contact Info) Description 10/22/2001 Same Day Surgery Security Contact - [facility] [place], Provider Social History Tobacco Use Types Packs/Day [...] Info) Description 01/25/2026 8:30 AM CDT Appointment [facility] [address] [place], [place] [address] Minh Meyer MD [address] [facility] [address] [place] [phone] documented as of this encounter Visit Diagnoses Not on filedocumented in this encounter Care Teams Corporate Strategist Relationship Specialty Start Date End Date Rakesh Harmon PA-C [address] [place] [address] PCP - General Physician Tread Tuber Machine Operator 07/24/25 documented as of this encounter
--- OUTSIDE RECORDS SUMMARY | 2025-09-10 19:12 | XMS_ITS | Encounter Summary ---
Author Organization [facility] Address [address] [place] [address] Care Team Providers Care Lining Feller Name Role Phone Rakesh Harmon PA-C Primary Care Provider +1- [phone] Encounter Details Date Type Department Care Team (Late st Contact Info) Description 03/05/2001 Same Day Surgery Security Contact - [facility] [place], Provider Social History Tobacco Use Types Packs/Day [...] Info) Description 01/25/2026 8:30 AM CDT Appointment [facility] [address] [place], [place] [phone] Minh Meyer MD [address] [facility] [address] [place] [phone] documented as of this encounter Visit Diagnoses Not on filedocumented in this encounter Care Teams Lining Feller Relationship Specialty Start Date End Date Rakesh Harmon PA-C [address] [place] [address] PCP - General Physician Body Design Checker 07/24/25 documented as of this encounter
--- OUTSIDE RECORDS SUMMARY | 2025-09-10 19:12 | XMS_ITS | Encounter Summary ---
Author Organization [facility] Address [address] [place] [address] Care Team Providers Care Showroom Salesperson Name Role Phone Rakesh Harmon PA-C Primary Care Provider +1- [phone] Encounter Details Date Type Department Care Team (Late st Contact Info) Description 03/05/2001 Same Day Surgery Security Contact - Cor[facility] [place], Provider Social History Tobacco Use Types Packs/Day [...] Info) Description 01/25/2026 8:30 AM CDT Appointment [facility] [address] [place], [place] [phone] Minh Meyer MD [address] [facility] [address] [place] [phone] documented as of this encounter Visit Diagnoses Not on filedocumented in this encounter Care Teams Showroom Salesperson Relationship Specialty Start Date End Date Rakesh Harmon PA-C [address] [place] [phone] PCP - General Physician Nutritionalist 07/24/25 documented as of this encounter
--- OUTSIDE RECORDS SUMMARY | 2025-09-10 19:12 | XMS_ITS | Encounter Summary ---
Author Organization [facility] Address [address] [place] [address] Care Team Providers Care Policy Intern Name Role Phone Rakesh Harmon PA-C Primary Care Provider +1- [phone] Encounter Details Date Type Department Care Team (Late st Contact Info) Description 03/05/2001 Same Day Surgery Security Contact - [facility] [place], Provider Social History Tobacco Use Types Packs/Day [...] Info) Description 01/25/2026 8:30 AM CDT Appointment [facility] [address] [place], [place] [phone] Minh Meyer MD [address] [facility] [address] [place] [phone] documented as of this encounter Visit Diagnoses Not on filedocumented in this encounter Care Teams Policy Intern Relationship Specialty Start Date End Date Rakesh Harmon PA-C [address] [place] [address] PCP - General Physician Wardrobe Supervisor 07/24/25 documented as of this encounter
--- OUTSIDE RECORDS SUMMARY | 2025-09-10 19:12 | XMS_ITS | Encounter Summary ---
Author Organization [facility] Address [address] [place] [address] Care Team Providers Care Line Maintainer Name Role Phone Rakesh Harmon PA-C Primary Care Provider +1- [phone] Encounter Details Date Type Department Care Team (Late st Contact Info) Description 10/22/2001 Same Day Surgery Ophthalmology [address] [place] [address] Myriam Cowart MD Social History Tobacco Use Types Packs/Day [...] Info) Description 01/25/2026 8:30 AM CDT Appointment [facility] [address] [place], [place] [phone] Minh Meyer MD [address] [facility] [address] [place] [address] documented as of this encounter Visit Diagnoses Not on filedocumented in this encounter Care Teams Line Maintainer Relationship Specialty Start Date End Date Rakesh Harmon PA-C [address] [place] [address] PCP - General Physician Promotions Director 07/24/25 documented as of this encounter
--- OUTSIDE RECORDS SUMMARY | 2025-09-10 19:12 | XMS_ITS | Encounter Summary ---
Author Organization [facility] Address [address] [place] [address] Care Team Providers Care Vice Chancellor Name Role Phone Rakesh Harmon PA-C Primary Care Provider +1- [phone] Encounter Details Date Type Department Care Team (Late st Contact Info) Description 03/05/2001 Same Day Surgery Security Contact - [facility] [place], Provider Social History Tobacco Use Types Packs/Day [...] Info) Description 01/25/2026 8:30 AM CDT Appointment [facility] [address] [place], [place] [phone] Minh Meyer MD [address] [facility] [address] [place] [phone] documented as of this encounter Visit Diagnoses Not on filedocumented in this encounter Care Teams Vice Chancellor Relationship Specialty Start Date End Date Rakesh Harmon PA-C [address] [place] [address] PCP - General Physician Director Database 07/24/25 documented as of this encounter
--- OUTSIDE RECORDS SUMMARY | 2025-09-10 19:12 | XMS_ITS | Encounter Summary ---
Author Organization [facility] Address [address] [place] [address] Care Team Providers Care Registration Representative Name Role Phone Rakesh Harmon PA-C Primary Care Provider +1- [phone] Encounter Details Date Type Department Care Team (Late st Contact Info) Description 12/10/2001 Same Day Surgery Security Contact - Cor[facility] [place], Provider Social History Tobacco Use Types Packs/Day [...] Info) Description 01/25/2026 8:30 AM CDT Appointment [facility] [address] [place], [place] [phone] Minh Meyer MD [address] [facility] [address] [place] [phone] documented as of this encounter Visit Diagnoses Not on filedocumented in this encounter Care Teams Registration Representative Relationship Specialty Start Date End Date Rakesh Harmon PA-C [address] [place] [address] PCP - General Physician Boatbuilder Wood 07/24/25 documented as of this encounter
[2025-09-10 20:10] LABS: TSH With Reflex to FT4* 4.460 uIU/mL (0.270-4.200)
[2025-09-10 20:36] LABS: Free T4 Free Thyroxine* 1.43 ng/dL (0.70-1.85)
== END 2025-09-10 20:43 | disposition home or self-care (01) ==
PROVIDERS: Emergency Provider Emergency Medicine
DX: I95.1 Orthostatic hypotension (principal); G20.A1 Parkinson's disease without dyskinesia, without mention of fluctuations; Z79.899 Other long term (current) drug therapy
CPT/HCPCS: 36415; 80048; 80076; 83605; 83735; 84439; 84443; 84484; 85025; 86140; 93005; 94761; 99284